=== PATIENT | male | born 1940 | race Caucasian/White ===

== ENCOUNTER 2020-01-28 12:24 | Outpatient (CLI) | payer OTHER, SELFPAY ==
[2020-01-28 13:13] LABS: Potassium 4.4 mmol/L (3.4-5.0)
[2020-01-28 13:17] LABS: Alanine Aminotransferase 8 U/L (4-50); Albumin Level 3.4 g/dL (3.5-5.1); Alkaline Phosphatase 90 U/L (38-126); Anion Gap 7 mmol/L (8-16); Aspartate Amino Transferase 17 U/L (17-59); Bilirubin,Total 0.5 mg/dL (0.2-1.3); Blood Urea Nitrogen 27 mg/dL (9-20); Calcium 9.1 mg/dL (8.4-10.2); Carbon Dioxide 25 mmol/L (22-30); Chloride 107 mmol/L (98-107); Cholesterol 191 mg/dL (0-200); Estimated Glomerular Filt Rate 42; Glucose 91 mg/dL (75-110); HDL Direct 33 mg/dL; Sodium 139 mmol/L (137-145); Triglycerides 131 mg/dL (<150)
[2020-01-28 13:25] LABS: LDL Cholesterol Direct 115 mg/dL
[2020-01-28 13:43] LABS: Prostate Specific Antigen < 0.1 ng/mL (< OR = 4.0)
== END 2020-01-28 12:25 | disposition home or self-care (01) ==
PROVIDERS: PCP Internal Medicine; Visit Provider Nurse Practitioner
DX: E78.5 Hyperlipidemia, unspecified (principal); E55.9 Vitamin D deficiency, unspecified; C61 Malignant neoplasm of prostate
CPT/HCPCS: 36415; 80053; 80061; 84153

== ENCOUNTER 2020-06-06 14:32 | Outpatient (CLI) | payer OTHER, SELFPAY ==
--- NOTE | ~2020-06-06 | XR_ITS ---
EXAMINATION: XR lumbar spine 2-3V EXAM DATE: 06/06/2020 15:50 INDICATION: M54.5 - Low back pain Bilateral, Radiates Into Legs, Fell. TECHNIQUE: Lumber spine frontal, lateral, lateral L5-S1 projections for interpretation. There is no prior study for comparison. FINDINGS: Mild to moderate compression fracture of the L2 vertebral body, probably unchanged correla ting to a prior CT scan from 2018. There are no acute fractures identified. Mild to moderate disc di sease L5-S1, mild at the other lumbar levels. Moderate size endplate osteophytes L2-3 and L3-4. Mild to moderate lumbar facet arthropathy. The vertebral bodies are aligned in the AP dimension. Left para spinal surgical clips probably from a prior lymph node dissection, correlate with surgical history. IMPRESSION: 1. Chronic mild to moderate L2 compression fracture. 2. Mild to moderate lumbar spondylosis. 3. No acute findings. Reviewed, dictated and finalized at location B. OSCOPIST
--- NOTE | ~2020-06-06 | XR_ITS ---
EXAMINATION: XR chest 2V EXAM DATE: 06/06/2020 15:49 INDICATION: J44.9 - Chronic obstructive pulmonary disease, unspecified. TECHNIQUE: Frontal and lateral projections of the chest obtained and reviewed. Comparison is made to prior examination from 07/28/2006. FINDINGS: Mild hyperinflation. The lungs are clear. There are no pleural effusions. The cardiomedi astinal silhouette is within normal limits. There is no pneumothorax suspected. Patient has diffuse idiopathic skeletal hyperostosis (DISH). IMPRESSION: No acute cardiopulmonary findings. Reviewed, dictated and finalized at location B. T END WEB DESIGNER
[2020-06-06 15:13] LABS: Alanine Aminotransferase 7 U/L (4-50); Albumin Level 3.5 g/dL (3.5-5.1); Alkaline Phosphatase 89 U/L (38-126); Anion Gap 4 mmol/L (8-16); Aspartate Amino Transferase 18 U/L (17-59); Bilirubin,Total 0.4 mg/dL (0.2-1.3); Blood Urea Nitrogen 23 mg/dL (9-20); Calcium 9.1 mg/dL (8.4-10.2); Carbon Dioxide 25 mmol/L (22-30); Chloride 107 mmol/L (98-107); Cholesterol 166 mg/dL (0-200); Estimated Glomerular Filt Rate 39; Glucose 100 mg/dL (75-110); HDL Direct 46 mg/dL; Potassium 4.6 mmol/L (3.4-5.0); Sodium 136 mmol/L (137-145); Triglycerides 113 mg/dL (<150)
[2020-06-06 15:24] LABS: LDL Cholesterol Direct 93 mg/dL
[2020-06-06 16:30] LABS: Vitamin D 25 Hydroxy 55.4 ng/mL
== END 2020-06-06 14:33 | disposition home or self-care (01) ==
PROVIDERS: PCP Internal Medicine; Visit Provider Nurse Practitioner
DX: J44.9 Chronic obstructive pulmonary disease, unspecified (principal); M54.5 Low back pain; G89.29 Other chronic pain; I10 Essential (primary) hypertension; E78.5 Hyperlipidemia, unspecified; E55.9 Vitamin D deficiency, unspecified; Z79.899 Other long term (current) drug therapy; M48.56XA Collapsed vertebra, not elsewhere classified, lumbar region, initial encounter for fracture; M47.816 Spondylosis without myelopathy or radiculopathy, lumbar region
CPT/HCPCS: 36415; 71046; 72100; 80053; 80061; 82306

== ENCOUNTER 2020-06-28 01:14 | Observation (INO) | payer OTHER, SELFPAY ==
[2020-06-28] VITALS (11 sets, daily range): BP systolic 114–176; BP diastolic 60–70; PULSE 67–88; RESP 16–26; TEMP 35.8–36.9; O2SAT 94–98; BMI 18.4
--- NOTE | 2020-06-28 | ECHO_ITS ---
Patient Info Name: Tino Alexander Age: 80 years : 1940 Gender: Male Ht: 71 in Wt: 132 lbs BSA: 1.72 m2 HR: 78 bpm BP: 175 / 60 mmHg Technical Quality: Good Exam Date: 06/28/2020 4:26 PM Exam Location: [facility] Room: 344 Patient Status: Inpatient Admit Date: 06/28/2020 Staff Ordering Physician: Lopez Garcia MD Patient Service Rep: Marybeth D ePaz RDCS Attending Provider: Lopez Garcia MD Exam Type: CA echo doppler color flow Study Info Indications - syncope collaspe Complete two-dimensional, color flow and Doppler transthoracic echocardiogram is performed. Summary 1. Complete two-dimensional, color flow and Doppler transthoracic echocardiogram is performed. 2. Left ventricular chamber dimension is normal. 3. Ventricular septum is sigmoid shaped. No LVOT obstruction. 4. Left ventricular systolic function is normal, estimated at 60-65%. 5. The left ventricular diastolic function is grade I diastolic dysfunction. 6. E/e' 13 is mildly elevated. 7. The aortic valve is not well visualized. 8. There is mild aortic valve sclerosis. 9. No pulmonary hypertension, estimated pulmonary arterial systolic pressure is 27 mmHg. Left Ventricle E/e' 13 is mildly elevated. Ventricular septum is sigmoid shaped. No LVOT obstruction. Left ventricular chamber dimension is normal. Left ventricular systolic function is normal, estimated at 60-65%. The left ventricular diastolic function is grade I diastolic dysfunction. Right Ventricle Right ventricular chamber dimension is normal. Right ventricular systolic function is normal. Left Atria Left atrial chamber dimension is normal. Right Atria Right atrial chamber dimension is normal. Aortic Valve Cannot determine number of aortic valve leaflets. The aortic valve is not well visualized. There is mild aortic valve sclerosis. There is no aortic valve stenosis. There is no aortic valve regurgitation. Pulmonic Valve There is no pulmonic regurgitation. Mitral Valve There is no mitral valve stenosis. There is no mitral valve regurgitation. Tricuspid Valve There is no tricuspid valve regurgitation. No pulmonary hypertension, estimated pulmonary arterial systolic pressure is 27 mmHg. Pericardium/Pleural There is no pericardial effusion. Inferior Vena Cava Normal inferior vena cava with >50% collapse upon inspiration consistent with normal right atrial pressure, 5 mmHg. Aorta The aortic root size at the sinus of Valsalva is normal. Left Ventricular Outflow Tract Name Value Normal LVOT 2D LVOT Diameter 2.0 cm LVOT Doppler LVOT Peak Gradient 4 mmHg LVOT Mean Gradient 2 mmHg LVOT VTI 21 cm LVOT VTI/AV VTI Ratio 0.8 LVOT Stroke Volume 65 ml LVOT CO 13.6 l/min LVOT CI 7.9 l/min/m2 Pulmonic Valve Name
--- NOTE | ~2020-06-28 | CT_ITS ---
EXAMINATION: CT brain wo con DATE: 06/28/2020 02:01 INDICATION: Syncope TECHNIQUE: Computed tomography (CT) of the head was performed without intravenous contrast. The mA wa s adjusted according to patient size. Iterative reconstruction technique was employed. Exam dose: 68 1.00 mGy-cm total exam DLP. COMPARISON: None FINDINGS: Cerebral atherosclerosis is noted. There is nonspecific diminished attenuation of the cereb ral white matter, likely due to chronic small vessel ischemic changes. Moderate cerebral atrophy and cerebellar atrophy. No intracranial mass lesion or hemorrhage or cerebrovascular accident is evident. No midline shift or mass effect. No subdural or epidural hematoma. No fracture or bone destruction of the cranial vault. Included paranasal sinuses and mastoid air cells are unremarkable other than a couple of left and 1 r ight maxillary sinus mucous retention cysts or polyps. IMPRESSION: Cerebral atherosclerosis and chronic small vessel ischemic changes of the cerebral white matter No acute intracranial finding Reviewed, dictated and finalized at Location A. Reviewed, dictated and finalized at location A. CIATE MEDICAL DIRECTOR
--- NOTE | ~2020-06-28 | XR_ITS ---
EXAMINATION: XR chest 2V 06/28/2020 16:03 INDICATION: Cough and hypertension. COPD. PROCEDURE: 2 view chest COMPARISON: 06/06/2020 FINDINGS: The lungs are clear. The cardiomediastinal silhouette is within normal limits. There are no pleural effusions. There is no pneumothorax suspected. Calcified granuloma left apex. The lungs are hyperinflated which is consistent with, but not diagnostic of chronic obstructive pulmonary disea se. IMPRESSION: 1: NO ACUTE CARDIOPULMONARY DISEASE. Reviewed, dictated and finalized at location A. TRONIC NEWS GATHERING EDITOR
--- NOTE | ~2020-06-28 | US_ITS ---
EXAMINATION: US carotid duplex BI DATE: 06/28/2020 15:59 INDICATION: Right carotid bruit TECHNIQUE: Grayscale, color Doppler, and pulsed Doppler images of the cervical carotid arteries were obtained. The degree of vessel stenosis is placed in one of the following categories: normal, <50%, 5 0-69%, >=70% but less than near-occlusion, near-occlusion, or total occlusion. Note that percent sten osis relative to normal distal artery lumen diameter is indirectly measured from velocity measurement s as described by Prashant, et al. Radiology 2003; 229:340-346. Notes: Normal: Peak systolic velocity <125 centimeters/sec and no plaque <50%. Peak systolic velocity <125 ( EDV <40; ICA/CCA PSV ratio <2.0; used these factors only a tandem lesions or low cardiac output or co ntralateral disease) 50-69 %: PSV 125-230 (EDV 40-100; ratio 2-4) >= 70% but less than near occlusion: PSV greater than 230 (EDV > 100; ratio> 4.0) Near Occlusion: PSV that is variable; markedly narrowed lumen Occlusion: Absent flow on color/spectral Doppler and no lumen on acmara scale. COMPARISON: None. FINDINGS: RIGHT: The right common carotid artery (CCA) peak systolic velocity (PSV) is 86 cm/s. The right internal car otid artery (ICA) PSV is 82 cm/s. The right ICA end-diastolic velocity (EDV) is 14 cm/s. The right IC A/CCA PSV ratio is 0.95. The external carotid artery (ECA) PSV is 94 cm/s. There is antegrade flow in the right vertebral artery. LEFT: The left CCA PSV is 60 cm/s. The left ICA PSV is 105 cm/s. The left ICA EDV is 16 cm/s. The left ICA/ CCA PSV ratio is 1.7. The ECA PSV is 107 cm/s. There is antegrade flow in the left vertebral artery. IMPRESSION: 1. Less than 50% stenosis in the right internal carotid artery by sonographic criteria. 2. Less than 50% stenosis in the left internal carotid artery by sonographic criteria. Reviewed, dictated and finalized at location A. R RELATIONS SPECIALIST IMPRESSION: 1. Less than 50% stenosis in the right internal carotid artery by sonographic ashwin robertson. 2. Less than 50% stenosis in the left internal carotid artery by sonographic shanon zaragoza.
--- NOTE | ~2020-06-28 | CT_ITS ---
EXAMINATION: CT thoracic lumbar wo con EXAM DATE: 06/28/2020 02:01 INDICATION: Back pain after fall. TECHNIQUE: Spiral CT thoracolumbar spine was performed without contrast. Axial, coronal and sagittal images of the thoracic spine were reviewed. Axial, coronal and sagittal images of the lumbar spine we re reviewed. The dose-length product (DLP) for this examination was 1009.94 mGy-cm. The exposure was tailored according to patient size (auto mA exposure control), and iterative reconstruction (ASIR) w as used as additional dose reduction technique. Correlation abdomen pelvis CT 10/05/2017. FINDINGS: THORACIC SPINE: There are no acute fractures identified. There is fusion of the anterior marginal l igament, diffuse idiopathic skeletal hyperostosis extending from T4 through T12. No fracture through this. Moderate loss of the disc height at T9-10, otherwise overall mild thoracic disc disease. The ve rtebral bodies are aligned in the AP dimension. Vertebral body heights are maintained. No evidence of significant central canal or neural foraminal stenosis. Paraspinal soft tissue is unremarkable. Mil d facet arthropathy. LUMBAR SPINE: Chronic mild compression fracture of L2 unchanged. There is no evidence of acute lumba r fracture. There is no disc space widening or traumatic vertebral body subluxation suspected. Para spinal soft tissue is unremarkable. The vertebral bodies are aligned in the AP dimension. Mild disc disease all lumbar levels. No more than than mild to moderate neural foraminal stenosis of mid and lo wer lumbar levels. There is moderate lower lumbar facet arthropathy. Small saccular bilobulated aneu rysm of the distal abdominal aorta up to 3.3 cm. 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 A detail ed level by level evaluation of spondylosis can be added as addendum if requested. IMPRESSION: 1. No acute thoracolumbar findings. 2. Mild to moderate thoracolumbar spondylosis. 3. Incidental duodenal lipoma. 4. Mildly aneurysmal lower abdominal aorta. Reviewed, dictated and finalized at location B. Y MAKER
--- NOTE | ~2020-06-28 | US_ITS ---
EXAMINATION: US renal BI EXAM DATE: 06/28/2020 15:58 INDICATION: Acute kidney insufficiency. TECHNIQUE: Multiple grayscale and Doppler images of the kidneys were obtained (by a technologist who performed the scan) and subsequently reviewed. There is no prior study for comparison. FINDINGS: Right kidney: There is normal contour and echogenicity. It measures 10.8 x 4.8 x 4.4 centimeters. Se veral small renal cysts, measuring up to 1.5 cm. There is no hydronephrosis. Left kidney: There is normal contour and echogenicity. It measures 10.0 x 4.5 x 4.3 centimeters. Sev eral cysts, measuring up to 3.2 cm. There is no hydronephrosis. Bladder unremarkable. Prostate measures 6.3 x 4.6 cm, moderately enlarged. IMPRESSION: 1. Renal cysts. 2. Moderate prostatomegaly. 3. No hydronephrosis. Reviewed, dictated and finalized at location B. H CRYSTAL EDGE GRINDER
--- NOTE | 2020-06-28 01:27 | ECG_ITS ---
Measurements Intervals Union Rate: 80 P: 49 PA: 168 QRS: 30 QRSD: 106 T: 87 QT: 387 QTc: 449 Interpretive Statements SINUS RHYTHM NONSPECIFIC ST & T-WAVE ABNORMALITY- INF/HIGH LAT LEADS BASELINE ARTIFACT- I, II, III, AVR, AVL, AVF BORDERLINE ECG Electronically Signed On 06-28-2020 7:19:37 TOPOLOGY TEACHER by Amador Singh D.O.
--- NOTE | 2020-06-28 01:39 | ED.FALL ---
HPI - Fall General Chief Complaint: Fall Stated Complaint: Fall Time Seen by Provider: 06/28/20 01:27 Source: patient Mode of arrival: ambulatory Limitations: no limitations History of Present Illness HPI Narrative: Patient is an 80-year-old male complaining of upper back pain, 8 out of 10, dull, nonradiating started prior to arrival after he fell. Patient states he does not know why he fell and possibly could have passed out, cannot recall what happened. Patient states that he has been having diarrhea for the past 4 weeks, seen his doctor and currently on medication for it. Denies neck pain, headache, dizziness, chest pain, shortness of breath, abdominal pain or any extremity pain/injury. Related Data Home Medications Medication Instructions Recorded Confirmed finasteride 5 mg tablet 5 mg PO DAILY 12/07/19 03/26/20 Allergies Allergy/AdvReac Type Severity Reaction Status Date / Time simvastatin Allergy Unknown Muscle pain Verified 03/22/20 09:51 Review of Systems Review of Systems: All systems reviewed & are unremarkable except as noted in HPI and below Constitutional: Constitutional: Denies body ache(s), Denies chills, Denies excessive sweating, Denies fatigue, Denies fever(s), Denies headache(s), Denies lethargy, Denies malaise, Denies weakness and Denies weight loss Eyes: Eyes: Denies blurry vision, Denies change in vision and Denies loss of vision ENT: Denies dizziness, Denies ear discharge, Denies headache(s), Denies lip swelling, Denies epistaxis, Denies nasal congestion, Denies neck pain, Denies throat swelling and Denies tongue swelling Cardiovascular: Cardiovascular: Denies chest pain, Denies chest pain at rest, Denies chest pain with activity, Denies diaphoresis, Denies rapid heart rate, Denies edema, Denies irregular heart rhythm, Denies lightheadedness, Denies palpitations, Denies dyspnea and Denies dyspnea on exertion Respiratory: Respiratory: Denies chest congestion, Denies cough, Denies hemoptysis, Denies dyspnea and Denies dyspnea on exertion Gastrointestinal: Gastrointestinal: Denies abdominal pain, Denies melena, Denies hematochezia, Denies diarrhea, Denies nausea, Denies vomiting and Denies hematemesis Musculoskeletal: Musculoskeletal: Denies abnormal gait, Denies deformity, Denies joint swelling, Denies limited range of motion, Denies neck pain and Denies numbness Neurologic: Denies Abnormal speech present, Denies abnormal gait, Denies confusion, Denies dizziness, Denies headache(s), Denies focal weakness, Denies loss of vision, Denies numbness, Denies Other visual disturbances, Denies Sensory deficit (Neuro) and Denies weakness Psychiatric: Psychiatric: Denies confusion, Denies depression, Denies auditory hallucinations, Denies homicidal ideation and Denies suicidal ideation Endocrine: Endocrine: Denies cold intolerance, Denies excessive sweating, Denies fatigue, Denies heat intolerance and Denies palpitations Hematologic/Lymphatic: Hematologic/Lymphatic: Denies easy bleeding and Denies easy bruising Allergic/Immunologic: Allergic/Immunologic: Denies lip swelling, Denies throat swelling and Denies tongue swelling PMFSH Past Medical History Medical History (Updated 06/28/20 @ 03:32 by Tino Knapp MD) Ulcer of left lower leg Surgical History Surgical History S/P colonoscopic polypectomy Family History Family History Mother Hypertension Sibling Asthma Patient's sister is Father Cerebrovascular accident, Onset Age: 73 Patient's father is Social History Social History Smoking status: Current every day smoker Second hand tobacco smoke exposure: No Alcohol intake: never Exam Const: General: cooperative, healthy appearing, comfortable, no acute distress, well developed, galo
[2020-06-28 01:41] LABS: Basophils Absolute Auto 0.1 K/mm3 (0.0-0.1); Basophils Percent Auto 0.4 % (0.2-1.2); Hematocrit 30.7 % (42.0-52.0); Hemoglobin 9.7 g/dL (14.0-18.0); Immature Granulocyte Absolute 0.13 K/mm3 (0.00-0.031); Lymphocytes Absolute Auto 0.45 K/mm3 (0.9-3.2); Lymphocytes Percent Auto 3.5 % (18.3-44.2); Mean Corpuscular HGB Conc 31.6 g/dl (32-36); Mean Corpuscular Hemoglobin 30.2 pg (26-34); Mean Corpuscular Volume 95.6 fl (80-100); Mean Platelet Volume 11.4 fl (7.4-10.4); Monocytes Percent Auto 7.4 % (2.6-8.5); Neutrophils Absolute Auto 11.2 K/mm3 (1.3-6.7); Neutrophils Percent Auto 87.7 % (45.5-73.1); Platelet Count Result 234 k/mm3 (150-375); Red Blood Count 3.21 M/mm3 (4.6-6.20); Red Cell Distribution Width 15.4 % (11.5-14.5); White Blood Count 12.8 K/mm3 (4.5-10.0)
[2020-06-28] MEDS: SODIUM CHLORIDE 0.9% IV 1,000 ML 999 ML IV CONT (01:43)
[2020-06-28 02:00] LABS: Alanine Aminotransferase 12 U/L (4-50); Albumin Level 3.5 g/dL (3.5-5.1); Alkaline Phosphatase 96 U/L (38-126); Anion Gap 11 mmol/L (8-16); Aspartate Amino Transferase 20 U/L (17-59); Bilirubin,Total 0.4 mg/dL (0.2-1.3); Blood Urea Nitrogen 40 mg/dL (9-20); Calcium 9.4 mg/dL (8.4-10.2); Carbon Dioxide 19 mmol/L (22-30); Chloride 107 mmol/L (98-107); Estimated CRCL calculation 17 ml/min; Estimated Glomerular Filt Rate 21; Glucose 129 mg/dL (75-110); Potassium 4.5 mmol/L (3.4-5.0); Sodium 137 mmol/L (137-145)
[2020-06-28 02:07] LABS: Troponin I 0.017 ng/mL (0.000-0.034)
[2020-06-28] MEDS: HYDROcodone/acetaminophen (*CRX) 5-325 MG TABLET 1 TAB PO ×3 (03:21→17:28)
[2020-06-28] MEDS: LACTATED RINGERS 1,000 ML 100 ML IV CONT ×3 (04:30→17:29)
--- NOTE | 2020-06-28 05:15 | ADMGEN ---
This patient, Tino Alexander, was admitted to Medical Room 344-01. Patient/family oriented to hospital policies and general routines including ID bracelet, bed and alarms, visiting hours, pain management, procedures, bathroom and other care routines, personal items, smoking policy, room service/diet, and visiting hours. Information on how to activate the Rapid Response Team has been discussed. Patient/Family are encouraged to report perceived risks to care and to ask questions if they do not understand what they are told or what they should do.
[2020-06-28 10:44] LABS: Add Urine Microscopic? YES; Appearance Urine Clear (Clear); Bacteria Urine Trace /hpf; Bilirubin Urine Negative (Negative); Blood Urine Negative (Negative); Color Urine Yellow (Yellow); Glucose Urine UA Negative (Negative); Hyaline Casts Urine 50+ /lpf; Ketones Urine Negative (Negative); Leukocyte Esterase Ur Negative LEU/UL (Negative); Mucus Urine Heavy /lpf; Nitrate Urine Negative (Negative); Protein Urine 1+ mg/dL (Negative); RBC Urine 0-2 /hpf (0-2); Specific Grav Ur 1.021 (1.001-1.035); Squamous Epithelial Cell Urine Few /hpf (Few); WBC Urine 0-3 /hpf
[2020-06-28] MEDS: guaiFENesin 12 HR 600 MG TABCR PO ×2 (12:45→20:37)
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
--- NOTE | 2020-06-28 15:21 | PCPTNOTE ---
Attempted PT eval. Pt going for Xray. Will try again tomorrow.
[2020-06-28] MEDS: FLUTICASONE/SALMETEROL 230-21 MCG INHALER 1 PUFF 2 PUFF INHALATION (20:25)
[2020-06-28] MEDS: ALBUTEROL SULFATE (*SP) AEROSOL 1 PUFF 2 PUFF INHALATION (20:26)
[2020-06-28] MEDS: ACETAMINOPHEN 325 MG TABLET 650 MG PO (20:37)
[2020-06-29] VITALS (10 sets, daily range): BP systolic 109–173; BP diastolic 44–68; PULSE 60–80; RESP 16–17; TEMP 36.5–36.7; O2SAT 94–96
[2020-06-29] MEDS: HYDROcodone/acetaminophen (*CRX) 5-325 MG TABLET 1 TAB PO (02:17)
[2020-06-29 06:05] LABS: Basophils Percent Auto 0.6 % (0.2-1.2); Eosinophils Absolute Auto 0.2 K/mm3 (0-0.3); Eosinophils Percent Auto 3.7 % (0-4.4); Hematocrit 24.9 % (42.0-52.0); Hemoglobin 7.8 g/dL (14.0-18.0); Immature Granulocyte Absolute 0.03 K/mm3 (0.00-0.031); Immature Granulocyte Percent A 0.6 % (0-0.5); Lymphocytes Absolute Auto 0.44 K/mm3 (0.9-3.2); Lymphocytes Percent Auto 8.5 % (18.3-44.2); Mean Corpuscular HGB Conc 31.3 g/dl (32-36); Mean Corpuscular Hemoglobin 30.7 pg (26-34); Mean Platelet Volume 11.3 fl (7.4-10.4); Monocytes Absolute Auto 0.7 K/mm3 (0.1-0.6); Monocytes Percent Auto 12.5 % (2.6-8.5); Neutrophils Absolute Auto 3.9 K/mm3 (1.3-6.7); Neutrophils Percent Auto 74.1 % (45.5-73.1); Platelet Count Result 144 k/mm3 (150-375); Red Blood Count 2.54 M/mm3 (4.6-6.20); Red Cell Distribution Width 15.2 % (11.5-14.5); White Blood Count 5.2 K/mm3 (4.5-10.0)
[2020-06-29 06:18] LABS: Albumin Level 2.7 g/dL (3.5-5.1); Anion Gap 2 mmol/L (8-16); Blood Urea Nitrogen 27 mg/dL (9-20); Calcium 8.6 mg/dL (8.4-10.2); Carbon Dioxide 26 mmol/L (22-30); Chloride 106 mmol/L (98-107); Estimated CRCL calculation 27 ml/min; Estimated Glomerular Filt Rate 39; Glucose 86 mg/dL (75-110); Phosphorus 3.1 mg/dL (2.5-4.5); Potassium 4.2 mmol/L (3.4-5.0); Sodium 134 mmol/L (137-145)
[2020-06-29 06:37] LABS: Prostate Specific Antigen < 0.1 ng/mL (< OR = 4.0)
[2020-06-29 06:49] LABS: Iron 34 ug/dL (49-181)
[2020-06-29 06:57] LABS: Percent Iron Saturation 13 % (20-50)
[2020-06-29 07:11] LABS: Folic Acid 6.4 ng/mL (2.76->20)
[2020-06-29] MEDS: ACETAMINOPHEN 325 MG TABLET 650 MG PO (07:46)
[2020-06-29] MEDS: FLUTICASONE/SALMETEROL 230-21 MCG INHALER 1 PUFF 2 PUFF INHALATION (08:59)
[2020-06-29] MEDS: guaiFENesin 12 HR 600 MG TABCR PO (09:01)
[2020-06-29] MEDS: CYANOCOBALAMIN INJ 1,000 MCG/ML VIAL 1000 MCG IM (09:01)
[2020-06-29] MEDS: IRON SUCROSE COMPLEX 100 MG in SODIUM CHLORIDE 0.9% IV 50 ML 220 MG IVPB (09:01)
[2020-06-29] MEDS: FINASTERIDE 5 MG TABLET PO (09:01)
[2020-06-29] MEDS: CYANOCOBALAMIN 1,000 MCG TABLET 1000 MCG PO (09:01)
[2020-06-29] MEDS: CHOLECALCIFEROL 1,000 UNITS TABLET 2000 UNITS PO (09:01)
--- NOTE | 2020-06-29 09:40 | PCOTNOTE ---
Attempted to see patient this am, however patient refused stating, I don't feel like doing it. Pt became dizzy when up with nursing earlier this am
[2020-06-29 11:54] LABS: Hematocrit 23.9 % (42.0-52.0); Hemoglobin 7.4 g/dL (14.0-18.0)
--- NOTE | 2020-06-29 15:13 | PM.DS ---
DS: Admitting Diagnosis Admitting Diagnosis Admitting Diagnosis: Back pain, fall DS: Discharge Diagnosis Discharge Diagnosis (1) Syncope: Code(s): R55 - Syncope and collapse Status: Acute (2) Cough: Code(s): R05 - Cough Status: Acute (3) Diarrhea: Qualifiers: Diarrhea type: unspecified type Qualified Code(s): R19.7 - Diarrhea, unspecified Code(s): R19.7 - Diarrhea, unspecified Status: Acute (4) Acute kidney injury: Code(s): N17.9 - Acute kidney failure, unspecified Status: Acute (5) CKD (chronic kidney disease): Code(s): N18.9 - Chronic kidney disease, unspecified Status: Acute (6) Acute thoracic myofascial strain: Qualifiers: Encounter type: initial encounter Qualified Code(s): S29.019A - Strain of muscle and tendon of unspecified wall of thorax, initial encounter Code(s): S29.019A - Strain of muscle and tendon of unspecified wall of thorax, initial encounter Status: Acute (7) Anemia: Code(s): D64.9 - Anemia, unspecified Status: Acute (8) Chronic obstructive pulmonary disease, unspecified: Code(s): J44.9 - Chronic obstructive pulmonary disease, unspecified Status: Acute (9) Essential (primary) hypertension: Code(s): I10 - Essential (primary) hypertension Status: Acute (10) Tobacco abuse: Code(s): Z72.0 - Tobacco use Status: Acute (11) B12 deficiency anemia: Code(s): D51.9 - Vitamin B12 deficiency anemia, unspecified Status: Acute (12) Iron deficiency anemia: Code(s): D50.9 - Iron deficiency anemia, unspecified Status: Acute DS: Summary Hospital Course Reason for hospitalization: 80 year old male with hx of prostate CA and HTN here for upper back pain and questionable syncopal episode vs fall. Please see H&P for details Hospital Course: Patient's history was suspect due to his mild confusion. Patient states he passed out but denies this and states the patient had just fallen. Patient has been having nausea, vomiting and diarrhea but only for the past 2 days. Patient was seen in the emergency room and admitted for further care. On admission, his BUN and creatinine were elevated at 40 and 2.9 which is well above his baseline. His white count was elevated at 12.8K. Repeat WBC normal. Urinalysis was clear. Chest x-ray was clear. CT of the brain was negative. Patient was complaining of mid back pain but a CT of the thoracic and lumbar spine showed no fracture. Troponin was negative. He was started on IV fluids. Repeat BUN creatinine trended down to his baseline. Anemia workup showing B12 and iron deficiency. Stool guaiac ordered but none collected. No diarrhea since admission. Patient eating very well mostly 90% of each meal. B12 and iron were replaced. He was up ambulating with physical therapy and did well with this. Carotid Doppler was negative for severe stenosis. Renal ultrasound showing no acute findings. Hemoglobin dropped to 7.4 but not unexpected given his dehydrated state. His antihypertensive medications were held. Blood pressure supine was 173/59 the dropped to 136/50 sitting and patient had some mild dizziness with this. Blood pressure 109/44 standing but patient was asymptomatic. Patient is up ambulating without difficulty. Plan for discharge with follow-up hemoglobin. Continue to replace iron and B12. Patient to follow up with GI consult for possible colonoscopy as an outpatient. Recommend Gamal hose on during the day and off at night. Supplements to improve his oral intake. Spoke with the daughter in detail about this. Home health was being arranged. Patient appears to be refusing this however. Status at Discharge Cognitive/behavioral status at discharge: Patient stable for discharge Time Spent with Patient Time attestation: Total time spent providing and/or coordinating discharge services:35 minutes Time spent
== END 2020-06-29 15:58 | disposition home or self-care (01) ==
LOC: ANHED 03:32 → ANH3MED 04:24
PROVIDERS: Admitting Provider Family Medicine; Emergency Provider Emergency Medicine; PCP Internal Medicine; Visit Provider Internal Medicine
DX: R55 Syncope and collapse (principal); R05 Cough; R19.7 Diarrhea, unspecified; N17.9 Acute kidney failure, unspecified; N18.9 Chronic kidney disease, unspecified; S29.019A Strain of muscle and tendon of unspecified wall of thorax, initial encounter; J44.9 Chronic obstructive pulmonary disease, unspecified; I12.9 Hypertensive chronic kidney disease with stage 1 through stage 4 chronic kidney disease, or unspecified chronic kidney disease; D51.9 Vitamin B12 deficiency anemia, unspecified; D50.9 Iron deficiency anemia, unspecified; Z79.899 Other long term (current) drug therapy; F17.200 Nicotine dependence, unspecified, uncomplicated; I35.8 Other nonrheumatic aortic valve disorders; I67.2 Cerebral atherosclerosis; M43.05 Spondylolysis, thoracolumbar region; D17.4 Benign lipomatous neoplasm of intrathoracic organs; I71.4 Abdominal aortic aneurysm, without rupture; R06.09 Other forms of dyspnea; J02.9 Acute pharyngitis, unspecified; R13.10 Dysphagia, unspecified; R06.02 Shortness of breath; R63.4 Abnormal weight loss; R10.9 Unspecified abdominal pain; R11.2 Nausea with vomiting, unspecified; J31.0 Chronic rhinitis; E78.5 Hyperlipidemia, unspecified; G47.34 Idiopathic sleep related nonobstructive alveolar hypoventilation; I73.9 Peripheral vascular disease, unspecified; I65.23 Occlusion and stenosis of bilateral carotid arteries; N28.1 Cyst of kidney, acquired; N40.0 Benign prostatic hyperplasia without lower urinary tract symptoms; Z29.9 Encounter for prophylactic measures, unspecified; Z85.46 Personal history of malignant neoplasm of prostate; Z23 Encounter for immunization
CPT/HCPCS: 36415; 70450; 71046; 72128; 72131; 76775; 80053; 80069; 81001; 82607; 82728; 82746; 83540; 83550; 83735; 84153; 84443; 84484; 85014; 85018; 85025; 90471; 90653; 93005; 93306; 93880; 94640; 96361; 96372; 96374; 97161; 97165; 99285; A9270; G0008; G0378; J1756; J3420; J7030; J7120

== ENCOUNTER 2021-01-09 14:13 | Outpatient (CLI) | payer OTHER, SELFPAY ==
[2021-01-09 14:40] LABS: Basophils Absolute Auto 0.1 K/mm3 (0.0-0.1); Basophils Percent Auto 0.9 % (0.2-1.2); Eosinophils Absolute Auto 0.2 K/mm3 (0-0.3); Eosinophils Percent Auto 3.1 % (0-4.4); Hematocrit 28.6 % (42.0-52.0); Hemoglobin 8.5 g/dL (14.0-18.0); Immature Granulocyte Absolute 0.07 K/mm3 (0.00-0.031); Immature Granulocyte Percent A 1.2 % (0-0.5); Lymphocytes Absolute Auto 0.45 K/mm3 (0.9-3.2); Lymphocytes Percent Auto 7.8 % (18.3-44.2); Mean Corpuscular HGB Conc 29.7 g/dl (32-36); Mean Corpuscular Hemoglobin 28.7 pg (26-34); Mean Corpuscular Volume 96.6 fl (80-100); Mean Platelet Volume 11.1 fl (7.4-10.4); Monocytes Absolute Auto 0.5 K/mm3 (0.1-0.6); Monocytes Percent Auto 8.9 % (2.6-8.5); Neutrophils Absolute Auto 4.5 K/mm3 (1.3-6.7); Neutrophils Percent Auto 78.1 % (45.5-73.1); Platelet Count Result 231 k/mm3 (150-375); Red Blood Count 2.96 M/mm3 (4.6-6.20); Red Cell Distribution Width 16.4 % (11.5-14.5); White Blood Count 5.7 K/mm3 (4.5-10.0)
[2021-01-09 14:56] LABS: Alanine Aminotransferase 9 U/L (4-50); Albumin Level 3.8 g/dL (3.5-5.1); Alkaline Phosphatase 84 U/L (38-126); Anion Gap 8 mmol/L (8-16); Aspartate Amino Transferase 18 U/L (17-59); Bilirubin,Total 0.3 mg/dL (0.2-1.3); Blood Urea Nitrogen 24 mg/dL (9-20); Calcium 9.2 mg/dL (8.4-10.2); Carbon Dioxide 22 mmol/L (22-30); Chloride 110 mmol/L (98-107); Cholesterol 162 mg/dL (0-200); Estimated Glomerular Filt Rate 39; Glucose 116 mg/dL (65-110); HDL Direct 35 mg/dL; Potassium 3.9 mmol/L (3.4-5.0); Sodium 140 mmol/L (137-145); Triglycerides 111 mg/dL (<150)
[2021-01-09 15:07] LABS: LDL Cholesterol Direct 81 mg/dL
[2021-01-09 15:47] LABS: Vitamin D 25 Hydroxy 69.1 ng/mL
[2021-01-09 16:35] LABS: Anisocytosis 2+ (NORMAL); Hypochromasia 1+ (NORMAL); Platelet Estimate Adequate (Adequate)
[2021-01-09 18:44] LABS: Iron 24 ug/dL (49-181); Percent Iron Saturation 8 % (20-50)
== END 2021-01-09 14:14 | disposition home or self-care (01) ==
PROVIDERS: PCP Internal Medicine; Visit Provider Nurse Practitioner
DX: D51.9 Vitamin B12 deficiency anemia, unspecified (principal); D50.9 Iron deficiency anemia, unspecified; E78.5 Hyperlipidemia, unspecified; E55.9 Vitamin D deficiency, unspecified; D64.9 Anemia, unspecified
CPT/HCPCS: 36415; 80053; 80061; 82306; 82607; 83540; 83550; 85025

== ENCOUNTER 2021-02-15 11:47 | Outpatient (CLI) | payer OTHER, SELFPAY ==
[2021-02-15 12:57] LABS: CRP 4.9 mg/dL (<1.0)
[2021-02-15 13:13] LABS: Erythrocyte Sedimentation Rate > 140 mm/hr (0-20)
== END 2021-02-15 11:48 | disposition home or self-care (01) ==
PROVIDERS: PCP Internal Medicine; Visit Provider Nurse Practitioner Family
DX: R10.9 Unspecified abdominal pain (principal)
CPT/HCPCS: 36415; 85652; 86140

== ENCOUNTER 2021-02-20 07:37 | Outpatient (NON) | payer OTHER, SELFPAY | END 2021-02-20 07:38 | disposition home or self-care (01) | PROVIDERS: PCP Internal Medicine; Visit Provider Nurse Practitioner Family | DX: R10.9 Unspecified abdominal pain (principal) | CPT/HCPCS: 87045; 87427 ==

== ENCOUNTER 2021-03-15 11:32 | Outpatient (CLI) | payer OTHER, SELFPAY ==
[2021-03-15 11:59] LABS: Hematocrit 24.7 % (42.0-52.0); Hemoglobin 7.1 g/dL (14.0-18.0); Mean Corpuscular HGB Conc 28.7 g/dl (32-36); Mean Corpuscular Hemoglobin 26.4 pg (26-34); Mean Corpuscular Volume 91.8 fl (80-100); Mean Platelet Volume 11.2 fl (7.4-10.4); Platelet Count Result 236 k/mm3 (150-375); Red Blood Count 2.69 M/mm3 (4.6-6.20); Red Cell Distribution Width 18.4 % (11.5-14.5); White Blood Count 5.9 K/mm3 (4.5-10.0)
[2021-03-15 12:10] LABS: Lipase 78 U/L (23-300)
== END 2021-03-15 11:33 | disposition home or self-care (01) ==
LOC: ANHLAB 11:35
PROVIDERS: PCP Internal Medicine; Visit Provider Nurse Practitioner Family
DX: D50.9 Iron deficiency anemia, unspecified (principal)
CPT/HCPCS: 36415; 83690; 85027

== ENCOUNTER 2021-03-15 17:20 | Inpatient (IN) | payer OTHER, SELFPAY ==
[2021-03-15] VITALS (23 sets, daily range): BP systolic 92–173; BP diastolic 56–99; PULSE 74–94; RESP 16–25; TEMP 36.2–37; O2SAT 95–100; BMI 16.9
--- NOTE | ~2021-03-15 | CT_ITS ---
EXAMINATION: CT abdomen pelvis w con INDICATION: Epigastric abdominal pain, history of prostate cancer TECHNIQUE: Computed tomographic images of the abdomen and pelvis were obtained after the administrati on of 100 cc of Omnipaque 350 intravenous contrast. The dose-length product (DLP) was 283.35 mGy-cm. Automated exposure control and iterative reconstruction technique were employed. COMPARISON: 10/05/2017 FINDINGS: The lung bases are clear. The heart size is normal. Punctate calcifications in an otherwise normal spleen likely represent healed granulomatous disease. The liver, gallbladder, and adrenal gla nds are normal. There is a 3 mm stone in the head of the pancreas which causes mild enlargement of th e pancreatic duct in the head. A 2.7 cm hypoattenuating lesion of left kidney upper pole has previous ly been characterized as a cyst. There are multiple additional cysts of the kidneys which measure up to 1.6 cm on the right. There is a 3 mm nonobstructing stone of the left mid kidney. There is an appr oximately 8 cm segment of irregular and abnormally thickened colon at the splenic flexure. There is m ild distention of the colon proximal to the mass with multiple ingested medications accumulated in th e distal transverse colon just proximal to the mass. There is a small amount of gas and stool in the colon distal to the mass. There appear to be enlarged lymph nodes adjacent to the mass posteriorly. T here is a 3.4 cm fusiform aneurysm of the infrarenal abdominal aorta. There is marked enlargement of the prostate. No free intraperitoneal gas is identified. There is mild lumbar spondylosis. IMPRESSION: 1. Partially obstructing mass at the splenic flexure of colon with mild distention of the proximal co cuauhtemoc and multiple accumulated ingested medications in the distal transverse colon proximal to the mass . Surgical evaluation is recommended. 2. Marked enlargement prostate, history of prostate cancer. 3. 3 mm ductal stone in the head of the pancreas causing mild pancreatic ductal dilatation in the hea d of the pancreas. 4. Fusiform infrarenal abdominal aortic aneurysm. Reviewed, dictated and finalized at location A. IMPRESSION: 1. Partially obstructing mass at the splenic flexure of colon with mild distent ion of the proximal colon and multiple accumulated ingested medications in the distal transverse colon proximal to the mass. Surgical evaluation is recommende d. 2. Marked enlargement prostate, history of prostate cancer. 3. 3 mm ductal stone in the head of the pancreas causing mild pancreatic ductal dilatation in the head of the pancreas. 4. Fusiform infrarenal abdominal aortic aneurysm.
--- NOTE | ~2021-03-15 | US_ITS ---
EXAMINATION: US carotid duplex BI DATE: 03/16/2021 15:11 INDICATION: Syncope TECHNIQUE: Grayscale, color Doppler, and pulsed Doppler images of the cervical carotid arteries were obtained. The degree of vessel stenosis is placed in one of the following categories: normal, <50%, 5 0-69%, >=70% but less than near-occlusion, near-occlusion, or total occlusion. Note that percent sten osis relative to normal distal artery lumen diameter is indirectly measured from velocity measurement s as described by Prashant, et al. Radiology 2003; 229:340-346. COMPARISON: June 28, 2020 carotid duplex examination FINDINGS: RIGHT: The right common carotid artery (CCA) peak systolic velocity (PSV) is 51.2 cm/s. The right internal c arotid artery (ICA) PSV is 59.4 cm/s. The right ICA end-diastolic velocity (EDV) is 8.7 cm/s. The rig ht ICA/CCA PSV ratio is 1.2. Grayscale and color Doppler images yield an estimate of less than 50% di ameter reduction from plaque in the ICA. The external carotid artery (ECA) PSV is 52.5 cm/s. There is antegrade flow in the right vertebral artery. LEFT: The left CCA PSV is 46.9 cm/s. The left ICA PSV is 91.9 cm/s. The left ICA EDV is 14.4 cm/s. The left ICA/CCA PSV ratio is 2.0. Grayscale and color Doppler images yield an estimate of less than 50% diam eter reduction from plaque in the ICA. The ECA PSV is 75.8 cm/s. There is antegrade flow in the left vertebral artery. IMPRESSION: 1. Less than 50% stenosis in the right internal carotid artery. 2. Less than 50% stenosis in the left internal carotid artery. Reviewed, dictated and finalized at Location [facility]. Reviewed, dictated and finalized at location A.
--- NOTE | ~2021-03-15 | CT_ITS ---
EXAMINATION: CT brain wo con INDICATION: Confusion COMPARISON: 06/28/2020 TECHNIQUE: Standard unenhanced head CT. The dose-length product (DLP) was 605.33 mGy-cm. The mA was a djusted according to patient size. Iterative reconstruction technique was employed. FINDINGS: There is no acute intraparenchymal hemorrhage. No evidence of mass lesion. No evidence of a cute infarction. There is mild periventricular and subcortical hypodensity probably related to small vessel ischemic disease. There is mild prominence of the sulci and ventricles related to cerebral atr ophy. Intracranial calcified cerebral atherosclerosis is noted. There are no extra-axial collections. There is no mass effect or midline shift. The orbits and soft tissues are unremarkable. There is mil d mucosal thickening of the paranasal sinuses. IMPRESSION: 1. No acute intracranial abnormality. 2. Age related findings. Reviewed, dictated and finalized at location A.
[2021-03-15 18:10] LABS: Hematocrit 23.5 % (42.0-52.0)
[2021-03-15 18:16] LABS: Lactic Acid Reflex 1.8 mmol/L (0.7-2.1)
[2021-03-15 18:19] LABS: Alanine Aminotransferase 10 U/L (4-50); Albumin Level 3.4 g/dL (3.5-5.1); Alkaline Phosphatase 76 U/L (38-126); Anion Gap 8 mmol/L (8-16); Aspartate Amino Transferase 18 U/L (17-59); Bilirubin,Total 0.4 mg/dL (0.2-1.3); Blood Urea Nitrogen 23 mg/dL (9-20); Calcium 9.4 mg/dL (8.4-10.2); Carbon Dioxide 27 mmol/L (22-30); Chloride 104 mmol/L (98-107); Estimated CRCL calculation 24 ml/min; Estimated Glomerular Filt Rate 36; Glucose 118 mg/dL (65-110); INR 1.2; Lipase 78 U/L (23-300); Magnesium 2.2 mg/dL (1.6-2.3); Potassium 4.3 mmol/L (3.4-5.0); Prothrombin Time 14.7 Seconds (11.1-14.7); Sodium 139 mmol/L (137-145)
[2021-03-15 18:20] LABS: Partial Thromboplastin Time 34.4 SECONDS (22.3-36.8)
[2021-03-15 18:30] LABS: Hemoglobin 6.9 g/dL (14.0-18.0)
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
[2021-03-15] MEDS: SODIUM CHLORIDE 0.9% IV 1,000 ML 999 ML IV CONT (19:13)
[2021-03-15] MEDS: PANTOPRAZOLE SODIUM IV 40 MG VIAL IV PUSH (19:14)
[2021-03-15 19:43] LABS: Add Urine Microscopic? YES; Appearance Urine Cloudy (Clear); Bilirubin Urine Negative (Negative); Blood Urine Negative (Negative); Color Urine Amber (Yellow); Glucose Urine UA Negative (Negative); Ketones Urine Negative (Negative); Leukocyte Esterase Ur Negative LEU/UL (Negative); Mucus Urine Heavy /lpf; Nitrate Urine Negative (Negative); Protein Urine 1+ mg/dL (Negative); RBC Urine 0-2 /hpf (0-2); Squamous Epithelial Cell Urine Occasional /hpf (Few); WBC Urine 0-3 /hpf
[2021-03-15] MEDS: SODIUM CHLORIDE 0.9% IV 250 ML 30 ML IV CONT (21:28)
[2021-03-15] MEDS: polyethylene glycoL 3350 17 GM POWD.PACK PO (21:58)
[2021-03-15 22:02] LABS: Hematocrit 20.9 % (42.0-52.0)
--- NOTE | 2021-03-15 23:10 | ADMGEN ---
This patient, Tino Alexander, was admitted to Medical Room 252-01. Patient/family oriented to hospital policies and general routines including ID bracelet, bed and alarms, visiting hours, pain management, procedures, bathroom and other care routines, personal items, smoking policy, room service/diet, and visiting hours. Information on how to activate the Rapid Response Team has been discussed. Patient/Family are encouraged to report perceived risks to care and to ask questions if they do not understand what they are told or what they should do.
--- NOTE | 2021-03-15 23:28 | PM.IMHP ---
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 The patient had initially been evaluated in June due to episode of syncope and was noted to have significant anemia at that time. He was found have iron deficiency anemia and B12 deficiency and was discharged on B12 and b.i.d. ferrous sulfate. He was referred to GI as outpatient for possible colonoscopy. The patient had refused colonoscopy because he felt like he could not complete the prep for the colonoscopy. Subsequently a CT of the abdomen pelvis was ordered on February 25 however the patient canceled that appointment as he did not feel well. He followed up with GI in outpatient clinic today and was found to have continued weight loss, Hemoccult-positive stools, low blood pressures and a low hemoglobin. He was referred to the ER in the setting. The patient reports having intermittent episodes of diarrhea and abdominal pain since June of last year. He states that he has lost a significant amount of weight over recent months. He stated he used to weigh 165 lb before all of his stomach issue started. He is currently down to 130 lb. He has lost 11 lb since December. He reports that overall poor appetite. He has intermittent crampy upper abdominal pain that radiates to bilateral upper quadrants. He reported that his last bout of abdominal pain was about a week ago. The pain lasted for about 2 weeks. His abdominal pain is worse after eating. He did have intermittent nausea but no vomiting. When he does have loose stools are usually 2 loose stools a day. He reported that he has been taking some [id number]-[id number] pain medications without relief in his pain. After further questioning it appears that the patient has actually been taking ibuprofen. He took the ibuprofen a couple of times a day for about 2 weeks [place] was having abdominal pain. He has not had any ibuprofen in about a week. Over the last week his stools have become more formed after taking Pepto-Bismol. He did have stool studies as outpatient were negative. C diff testing had been ordered but was canceled. He denies any overtly black stools or bloody stools. His stool was Hemoccult positive at the GI clinic today. The patient reports getting dizzy with standing. He has actually blacked out twice in recent weeks. He reports that the 1st time was when he was getting into the shower and the next time was after he had had a bowel movement he went to stand up and passed out. During his prior hospitalization he had been discharged with an order for Gamal hose while awake which patient has not been utilizing. The patient denied ever having had an EGD or colonoscopy at the time of my evaluation but had told the GI clinic that he had a colonoscopy many years ago. He does have chronic smoker's cough and chronic shortness of breath is unchanged from baseline. He has not been having any fevers or chills. He denies any difficulty starting or stopping his urine stream and does not have any hematuria. He reports that he has become so weak that he has had to start ambulating with a walker over the last couple of weeks. He had reported to his outpatient provider that he was having some vertigo but denies any true dizziness at the time of my evaluation. He has noticed some worsening vision recently and bought some [id number] eye glasses. He has not seen an eye doctor in many years. Review of Systems Review of Systems: 12 systems were reviewed with pertinent positives and negatives per HPI. Except as documented in the HPI, all other systems were reviewed and are negative. [facility]
[2021-03-16] VITALS (20 sets, daily range): BP systolic 105–187; BP diastolic 48–80; PULSE 56–78; RESP 16–21; TEMP 36.1–36.6; O2SAT 97–100
[2021-03-16] MEDS: SODIUM CHLORIDE 0.9% IV 250 ML 30 ML IV CONT (00:35)
[2021-03-16] MEDS: SODIUM CHLORIDE 0.9% IV 1,000 ML 125 ML IV CONT ×3 (00:47→22:11)
[2021-03-16 05:46] LABS: Hematocrit 27.3 % (42.0-52.0); Hemoglobin 8.3 g/dL (14.0-18.0); Mean Corpuscular HGB Conc 30.4 g/dl (32-36); Mean Corpuscular Hemoglobin 27.3 pg (26-34); Mean Corpuscular Volume 89.8 fl (80-100); Mean Platelet Volume 11.6 fl (7.4-10.4); Platelet Count Result 191 k/mm3 (150-375); Red Blood Count 3.04 M/mm3 (4.6-6.20); Red Cell Distribution Width 18.2 % (11.5-14.5); White Blood Count 5.5 K/mm3 (4.5-10.0)
[2021-03-16 05:57] LABS: Anion Gap 4 mmol/L (8-16); Blood Urea Nitrogen 19 mg/dL (9-20); Calcium 8.4 mg/dL (8.4-10.2); Carbon Dioxide 25 mmol/L (22-30); Chloride 107 mmol/L (98-107); Estimated CRCL calculation 27 ml/min; Estimated Glomerular Filt Rate 45; Glucose 101 mg/dL (65-110); Potassium 4.1 mmol/L (3.4-5.0); Sodium 136 mmol/L (137-145)
--- NOTE | 2021-03-16 07:55 | PM.IMPN ---
Progress Note: A&P Assessment and Plan (1) Acute GI bleeding: Code(s): K92.2 - Gastrointestinal hemorrhage, unspecified Status: Acute Assessment and Plan: Chronic GI blood loss likely related to colonic mass. s/p 2 units PRBCs, H/H have stabilized at 8.8/28.7 (2) Colonic mass: Code(s): K63.89 - Other specified diseases of intestine Status: Acute Assessment and Plan: Clear fluid diet. Preparation for colonoscopy. Hopefully will be able to obtain biopsy reports and characterize the colonic mass. Oncology consult in a.m.. (3) Weight loss: Code(s): R63.4 - Abnormal weight loss Status: Acute Assessment and Plan: Likely secondary to colonic mass. Follow-up CEA (4) Abdominal pain: Qualifiers: Abdominal location: upper abdomen, unspecified Qualified Code(s): R10.10 - Upper abdominal pain, unspecified Code(s): R10.9 - Unspecified abdominal pain Status: Acute Assessment and Plan: Likely secondary to colonic mass. Pain management with [facility]. (5) Iron deficiency anemia: Qualifiers: Iron deficiency anemia type: chronic blood loss Qualified Code(s): D50.0 - Iron deficiency anemia secondary to blood loss (chronic) Code(s): D50.9 - Iron deficiency anemia, unspecified Status: Acute Assessment and Plan: Status post 2 units PRBCs. Monitor CBC daily. (6) B12 deficiency anemia: Qualifiers: Vitamin B12 deficiency anemia type: unspecified B12 deficiency Qualified Code(s): D51.9 - Vitamin B12 deficiency anemia, unspecified Code(s): D51.9 - Vitamin B12 deficiency anemia, unspecified Status: Acute Assessment and Plan: Continue B12 supplementation. (7) Tobacco abuse: Code(s): Z72.0 - Tobacco use Status: Acute Assessment and Plan: Patient counseled to quit smoking. Nicotine patch as needed p.r.n. (8) Severe protein-calorie malnutrition: Code(s): E43 - Unspecified severe protein-calorie malnutrition Status: Acute (9) Syncope and collapse: Code(s): R55 - Syncope and collapse Status: Acute Assessment and Plan: Likely secondary to severe anemia. Will send a workup including echocardiogram and carotid Doppler. Patient will be monitored on telemetry. Maintain fall precaution. 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 The patient had initially been evaluated in June due to episode of syncope and was noted to have significant anemia at that time. He was found have iron deficiency anemia and B12 deficiency and was discharged on B12 and b.i.d. ferrous sulfate. He was referred to GI as outpatient for possible colonoscopy. The patient had refused colonoscopy because he felt like he could not complete the prep for the colonoscopy. Subsequently a CT of the abdomen pelvis was ordered on February 25 however the patient canceled that appointment as he did not feel well. He followed up with GI in outpatient clinic today and was found to have continued weight loss, Hemoccult-positive stools, low blood pressures and a low hemoglobin. He was referred to the ER in the setting. CT scan reveals colonic mass with partial obstruction. 03/16/21 07:55 S: Patient is examined at the bedside. He looks teen and thrill. No active complaints. His breathing seems to be in distress. Pain patient is worried about post operative complications and perioperative risks. He has a brother who of heart disease. Review of Systems Review of Systems: All systems reviewed & are unremarkable except as noted in HPI and below Constitutional: Constitutional: Reports as per HPI Eyes: Eyes: Reports as per H
[2021-03-16] MEDS: FLUTICASONE/SALMETEROL 230-21 MCG INHALER 1 PUFF 2 PUFF INHALATION ×2 (08:14→21:32)
[2021-03-16] MEDS: IPRATROPIUM BR 0.02% INH SOLN 0.5 MG/2.5 ML VIAL INHALATION ×2 (08:14→21:32)
[2021-03-16] MEDS: ALBUTEROL SULFATE NEB 2.5 MG/0.5 ML INH INHALATION ×2 (08:14→21:32)
[2021-03-16] MEDS: PANTOPRAZOLE SODIUM IV 40 MG VIAL IV PUSH (08:43)
[2021-03-16] MEDS: FINASTERIDE 5 MG TABLET PO (08:43)
[2021-03-16] MEDS: CHOLECALCIFEROL 1,000 UNITS TABLET 2000 UNITS PO (08:43)
[2021-03-16] MEDS: CYANOCOBALAMIN 1,000 MCG TABLET 1000 MCG PO (08:43)
[2021-03-16] MEDS: VALSARTAN 160 MG TABLET 320 MG PO (08:49)
[2021-03-16 09:14] LABS: Hematocrit 28.8 % (42.0-52.0); Hemoglobin 8.7 g/dL (14.0-18.0)
--- NOTE | 2021-03-16 13:19 | WPDGICN ---
Assessment and Plan Assessment and plan (1) Acute on chronic blood loss anemia: Code(s): D62 - Acute posthemorrhagic anemia Status: Acute Assessment and Plan: most likely from new diagnosis of colon mass- suspicious for malignancy he finally is agreeable to proceed with colonoscopy- will do it on Thursday continue to monitor for signs of bleeding, better after blood transfusion (2) Colonic mass: Code(s): K63.89 - Other specified diseases of intestine Status: Acute Assessment and Plan: colonoscopy and also surgery consult based on findings also will need oncology evaluation will check CEA level (3) Blood in stool: Code(s): K92.1 - Melena Status: Acute Assessment and Plan: most likely from colon mass (4) Syncope and collapse: Code(s): R55 - Syncope and collapse Status: Acute Assessment and Plan: from symptomatic anemia (5) Severe protein-calorie malnutrition: Code(s): E43 - Unspecified severe protein-calorie malnutrition Status: Acute Assessment and Plan: significant weight loss, probably related to malignancy (6) Diarrhea: Qualifiers: Diarrhea type: unspecified type Qualified Code(s): R19.7 - Diarrhea, unspecified Code(s): R19.7 - Diarrhea, unspecified Status: Acute Assessment and Plan: probably from colonic mass continue to monitor (7) Weight loss: Code(s): R63.4 - Abnormal weight loss Status: Acute (8) Malignant neoplasm of prostate: Code(s): C61 - Malignant neoplasm of prostate Status: Inactive GI Consult Note Consult date/time: 03/16/21 13:19 Reason for consult: weight loss, symptomatic REESE, colon mass HPI: Tino Alexander is a 81 year old male with hx of prostate cancer, COPD, HTN, HLD, CKD, B12 deficiency and iron deficiency anemia who came to our office originally about 1 month ago because diarrhea, weight loss about 15 lb last month and anemia, our [employer] discussed with patient egd and colonoscopy but did not want to and instead we ordered CT scan but patient had to cancel it and did not reschedule. Then he came back for follow-up in office yesterday, he was more symptomatic with dizziness and lightheaded after standing up fast with syncope, repeat blood work revealed worsening anemia with hb 7 and we talked to family about coming to ER in order to get blood transfusion and finally had CT scan a/p, reviewed and showed partially obstructing mass at the splenic flexure of colon with mild distention of the proximal colon and multiple accumulated ingested medications in the distal transverse colon proximal to the mass, marked enlargement prostate, 3. 3 mm ductal stone in the head of the pancreas causing mild pancreatic ductal dilatation in the head of the pancreas. Repeat hb 6 and he received blood transfusion, now he is feeling better. He thinks that had colonoscopy but many years ago. Review of Systems Constitutional: Constitutional: Reports lethargy and Reports weakness Eyes: Eyes: Denies blurry vision ENT: Reports Normal hearing present Cardiovascular: Cardiovascular: Reports lightheadedness Respiratory: Respiratory: Denies cough Gastrointestinal: Gastrointestinal: Reports diarrhea and Denies nausea Genitourinary: Genitourinary: Denies dysuria Musculoskeletal: Musculoskeletal: Denies neck pain Integumentary/Breasts: Skin/Breast: Denies dry skin Neurologic: Denies numbness Psychiatric: Psychiatric: Reports no additional psychiatric complaints PMFSH Past Medical History Medical History (Updated 03/16/21 @ 13:28 by Mart Collins MD) Abdominal pain Acute on chronic blood loss anemia Blood in stool Chronic obstructive pulmonary disease, unspecified Chronic rhinitis CKD (chronic kidney disease) With baseline creatinine between 1.7-1.8 Essential (primary) hypertension Hyperlipidemia, unspecified Malignant neoplasm of prostate localize
[2021-03-16 15:47] LABS: Hematocrit 27.2 % (42.0-52.0); Hemoglobin 8.4 g/dL (14.0-18.0)
--- NOTE | 2021-03-16 17:44 | PM.CNGS ---
Assessment and Plan Assessment and plan (1) Colonic mass: Onset Date: Unknown Code(s): K63.89 - Other specified diseases of intestine Status: Acute Assessment and Plan: this is the main reason I was asked to see the patient. This was 1st noted on the CT scan done last evening. He however has been having symptoms of anemia and possible GI blood loss for some time period (see H&P ). At this time I had a thorough discussion with the patient regarding the likelihood there is a tumor in the splenic flexure of the colon. I also discussed the situation with Dr. Duran. He is planning to do a colonoscopy if possible on Thursday. Patient will have only clear liquids and have a bowel prep on Thursday. I further talked with the patient regarding his comfort level of proceeding to surgery after the colonoscopy without doing a separate bowel prep. He would have to understand that there is a possibility that the pathology report would not yet be back on any biopsies if we did the surgery the day following his colonoscopy. However, in view of the findings on the CT scan if Dr. Duran feels that the visualized area of abnormality in the splenic flexure is significantly likely to be tumor, the patient states he would like proceed during this admission with a laparoscopic, possible open, splenic flexure colon resection. I explained to him that we would always want the possibility of proceeding in an open fashion but I would try to do this with a laparoscopic hand assist type technique. He has never had previous abdominal surgery shows a good candidate for same. After thorough discussion including the risks of bleeding, pneumonia in view his smoking history, stroke due to his long smoking history, peripheral vascular disease, and poor healing due to his malnutrition and smoking he would like to proceed. He understands that this is probably where his bleeding is coming from andthat there is some risk of having it cause obstruction if we do not take care of it. (2) Syncope and collapse: Onset Date: ~03/15/21 Code(s): R55 - Syncope and collapse Status: Acute Assessment and Plan: occurred yesterday and patient was brought to the ED at [facility]. (3) Severe protein-calorie malnutrition: Onset Date: Unknown Code(s): E43 - Unspecified severe protein-calorie malnutrition Status: Acute (4) Weight loss: Code(s): R63.4 - Abnormal weight loss Status: Acute (5) Abdominal pain: Qualifiers: Abdominal location: upper abdomen, unspecified Qualified Code(s): R10.10 - Upper abdominal pain, unspecified Code(s): R10.9 - Unspecified abdominal pain Status: Acute (6) CKD (chronic kidney disease): Code(s): N18.9 - Chronic kidney disease, unspecified Status: Acute (7) Tobacco abuse: Code(s): Z72.0 - Tobacco use Status: Acute (8) Acute on chronic blood loss anemia: Code(s): D62 - Acute posthemorrhagic anemia Status: Acute (9) Hyperlipidemia, unspecified: Code(s): E78.5 - Hyperlipidemia, unspecified Status: Acute (10) Essential (primary) hypertension: Code(s): I10 - Essential (primary) hypertension Status: Acute (11) Chronic obstructive pulmonary disease, unspecified: Code(s): J44.9 - Chronic obstructive pulmonary disease, unspecified Status: Acute History of Present Illness Consult details Consult date: 03/16/21 Reason for consult: abdominal pain (Across the upper abdomen) Requesting physician: Mart Collins MD Narrative: Mr. Tino Alexander is an 81 y/o W male with hx of prostate cancer, COPD, HTN, HLD, CKD,smoking, B12 deficiency and iron deficiency anemia who went tho the GI MD's office about 1 month ago because diarrhea, weight loss of about 15 lb for a month. He had just had an admission at [facility] for anemia. The DI FABRIC DESIGNER discussed with patient and recommended an EDG an
[2021-03-16] MEDS: polyethylene glycoL 3350 17 GM POWD.PACK PO (18:15)
[2021-03-17] VITALS (22 sets, daily range): BP systolic 120–180; BP diastolic 61–96; PULSE 53–88; RESP 18–21; TEMP 36.1–36.9; O2SAT 96–100
[2021-03-17 05:21] LABS: Basophils Percent Auto 0.8 % (0.2-1.2); Eosinophils Absolute Auto 0.1 K/mm3 (0-0.3); Eosinophils Percent Auto 2.8 % (0-4.4); Hematocrit 23.6 % (42.0-52.0); Hemoglobin 7.3 g/dL (14.0-18.0); Immature Granulocyte Absolute 0.03 K/mm3 (0.00-0.031); Immature Granulocyte Percent A 0.8 % (0-0.5); Lymphocytes Absolute Auto 0.47 K/mm3 (0.9-3.2); Lymphocytes Percent Auto 13.2 % (18.3-44.2); Mean Corpuscular HGB Conc 30.9 g/dl (32-36); Mean Corpuscular Hemoglobin 26.7 pg (26-34); Mean Corpuscular Volume 86.4 fl (80-100); Mean Platelet Volume 11.5 fl (7.4-10.4); Monocytes Absolute Auto 0.6 K/mm3 (0.1-0.6); Monocytes Percent Auto 17.5 % (2.6-8.5); Neutrophils Absolute Auto 2.3 K/mm3 (1.3-6.7); Neutrophils Percent Auto 64.9 % (45.5-73.1); Platelet Count Result 158 k/mm3 (150-375); Red Blood Count 2.73 M/mm3 (4.6-6.20); Red Cell Distribution Width 18.6 % (11.5-14.5); White Blood Count 3.6 K/mm3 (4.5-10.0)
[2021-03-17 05:38] LABS: Anion Gap 5 mmol/L (8-16); Blood Urea Nitrogen 12 mg/dL (9-20); Calcium 8.1 mg/dL (8.4-10.2); Carbon Dioxide 22 mmol/L (22-30); Chloride 111 mmol/L (98-107); Estimated CRCL calculation 34 ml/min; Estimated Glomerular Filt Rate 58; Glucose 89 mg/dL (65-110); Magnesium 1.8 mg/dL (1.6-2.3); Potassium 3.6 mmol/L (3.4-5.0); Sodium 138 mmol/L (137-145)
[2021-03-17 05:44] LABS: Prealbumin 6.7 mg/dL (17.6-36.0)
[2021-03-17 06:07] LABS: Carcinoembryonic Antigen 2.6 ng/mL (0.0-3.0)
--- NOTE | 2021-03-17 07:57 | WPDGIPROGNO ---
Progress Note: A&P Assessment and Plan (1) Acute on chronic blood loss anemia: Code(s): D62 - Acute posthemorrhagic anemia Status: Acute Assessment and Plan: most likely from colonic mass continue to monitor h/h s/p blood transfusion (2) Colonic mass: Onset Date: Unknown Code(s): K63.89 - Other specified diseases of intestine Status: Acute Assessment and Plan: colonoscopy tomorrow, most likely malignancy. Surgery also on board CEA level ordered (3) Weight loss: Code(s): R63.4 - Abnormal weight loss Status: Acute Assessment and Plan: Likely secondary to colonic mass. (4) Abdominal pain: Qualifiers: Abdominal location: upper abdomen, unspecified Qualified Code(s): R10.10 - Upper abdominal pain, unspecified Code(s): R10.9 - Unspecified abdominal pain Status: Acute Assessment and Plan: pain meds as needed, comfortable now (5) Iron deficiency anemia: Qualifiers: Iron deficiency anemia type: chronic blood loss Qualified Code(s): D50.0 - Iron deficiency anemia secondary to blood loss (chronic) Code(s): D50.9 - Iron deficiency anemia, unspecified Status: Acute Assessment and Plan: received blood transfusion (6) Tobacco abuse: Code(s): Z72.0 - Tobacco use Status: Acute Assessment and Plan: Patient counseled to quit smoking. (7) Severe protein-calorie malnutrition: Onset Date: Unknown Code(s): E43 - Unspecified severe protein-calorie malnutrition Status: Acute (8) Syncope and collapse: Onset Date: ~03/15/21 Code(s): R55 - Syncope and collapse Status: Acute Assessment and Plan: Likely secondary to severe anemia. Subjective Date/time seen: 03/17/21 07:57 Interval history: last night he was agitated and confused per RN, no report of bleeding. Review of Systems Review of Systems: All systems reviewed & are unremarkable except as noted in HPI and below Exam Const: General: comfortable and no acute distress Other: thin HENMT: General nose exam: Normal nares present Eyes: General: appearance normal, both eyes and all related structures Neck: Neck: no JVD Resp: Auscultation: clear to auscultation bilaterally Cardio: Rate: regular rate Rhythm: regular rhythm GI: Inspection: non-distended GI Palp: Yes Soft to palpation and No Guarding due to palpation present (GI) Auscultation: normal bowel sounds Skin: General skin exam: no rashes or lesions noted Neuro: Speech: normal speech Motor exam (neuro): Normal motor muscle tone present throughout Extrem: General: normal to inspection Psych: Affect: normal affect Objective Data Vital Signs Vital Signs: Vital Signs - 24 hr 03/16/21 08:15 03/16/21 08:24 03/16/21 08:50 Temperature Pulse Rate 64 72 Respiratory Rate 18 18 Blood Pressure 120/60 Pulse Oximetry 97 03/16/21 14:00 03/16/21 14:25 03/16/21 14:27 Temperature 97.8 F Pulse Rate 64 64 63 Respiratory Rate 16 Blood Pressure 156/61 H 156/61 H 145/54 H Pulse Oximetry 100 03/16/21 14:29 03/16/21 16:00 03/16/21 20:00 Temperature Pulse Rate 72 56 L 63 Respiratory Rate Blood Pressure 132/48 L Pulse Oximetry 03/16/21 21:34 03/16/21 21:44 03/16/21 22:00 Temperature 97.0 F L Pulse Rate 75 77 62 Respiratory Rate 18 18 20 Blood Pressure 152/53 H Pulse Oximetry 98 99 03/17/21 00:00 03/17/21 04:00 03/17/21 06:00 Temperature 97.0 F L Pulse Rate 65 53 L 70 Respiratory Rate 21 H Blood Pressure 144/96 H Pulse Oximetry 100 03/17/21 06:05 03/17/21 06:10 Temperature 97.0 F L 97.4 F L Pulse Rate 73 78 Respiratory Rate 21 H 20 Blood Pressure 146/79 H 140/69 Pulse Oximetry 100 98 Intake/Output Intake/Output: Intake & Output 03/14/21 03/15/21 03/16/21 03/17/21 23:59 23:59 23:59 23:59 Intake Total 1350 4020 280 Output Total 1025 1100 [facility]
--- NOTE | 2021-03-17 08:04 | PM.IMPN ---
Progress Note: A&P Assessment and Plan (1) Acute GI bleeding: Code(s): K92.2 - Gastrointestinal hemorrhage, unspecified Status: Acute Assessment and Plan: Chronic GI blood loss likely related to colonic mass. s/p 2 units PRBCs, H/H have stabilized at 8.8/28.7. Slight drop Hemoglobin and hematocrit down to 7.3/23.6. Discussed with GI. There is no indication for a blood transfusion today. We will continue daily CBC monitoring. (2) Colonic mass: Onset Date: Unknown Code(s): K63.89 - Other specified diseases of intestine Status: Acute Assessment and Plan: Clear fluid diet. Preparation for colonoscopy tomorrow. Hopefully will be able to obtain biopsy reports and characterize the colonic mass. Oncology consult in a.m.. (3) Weight loss: Code(s): R63.4 - Abnormal weight loss Status: Acute Assessment and Plan: Likely secondary to colonic mass. Follow-up CEA (4) Abdominal pain: Qualifiers: Abdominal location: upper abdomen, unspecified Qualified Code(s): R10.10 - Upper abdominal pain, unspecified Code(s): R10.9 - Unspecified abdominal pain Status: Acute Assessment and Plan: Likely secondary to colonic mass. Pain management with [place]. (5) Iron deficiency anemia: Qualifiers: Iron deficiency anemia type: chronic blood loss Qualified Code(s): D50.0 - Iron deficiency anemia secondary to blood loss (chronic) Code(s): D50.9 - Iron deficiency anemia, unspecified Status: Acute Assessment and Plan: Status post 2 units PRBCs. Monitor CBC daily. (6) B12 deficiency anemia: Qualifiers: Vitamin B12 deficiency anemia type: unspecified B12 deficiency Qualified Code(s): D51.9 - Vitamin B12 deficiency anemia, unspecified Code(s): D51.9 - Vitamin B12 deficiency anemia, unspecified Status: Acute Assessment and Plan: Continue B12 supplementation. (7) Tobacco abuse: Code(s): Z72.0 - Tobacco use Status: Acute Assessment and Plan: Patient counseled to quit smoking. Nicotine patch as needed p.r.n. (8) Severe protein-calorie malnutrition: Onset Date: Unknown Code(s): E43 - Unspecified severe protein-calorie malnutrition Status: Acute Assessment and Plan: prealbumin level was low at 6.7. (9) Syncope and collapse: Onset Date: ~03/15/21 Code(s): R55 - Syncope and collapse Status: Acute Assessment and Plan: Likely secondary to severe anemia. Will send a workup including echocardiogram and carotid Doppler. Patient will be monitored on telemetry. Maintain fall precaution. Additional Plan Patient has been admitted as inpatient status. The only greater than 2 midnight stay for evaluation and treatment of his medical illnesses. Subjective Date/time seen: 03/17/21 08:04 S: Patient is examined at the bedside. No complaint. He is observed taking a few steps around his bed. No blood in stool. Patient was agitated and confused last night per RN. At the time of my examination the patient was found to be in very good spirits. Review of Systems Review of Systems: All systems reviewed & are unremarkable except as noted in HPI and below Constitutional: Constitutional: Reports as per HPI Eyes: Eyes: Reports as per HPI ENT: Reports system reviewed and no additional complaints, except as documented Cardiovascular: Cardiovascular: Reports no additional cardiovascular complaints Respiratory: Respiratory: Reports no additional respiratory complaints Gastrointestinal: Gastrointestinal: Reports abdominal pain Genitourinary: Genitourinary: Reports no additional male genitourinary complaints Musculoskeletal: Musculoskeletal: Reports no additional musculoskeletal complaints Integumentary/Breasts: Skin/Breast: Reports system reviewed and no additional complaints, except as docu Neurologic: Reports system revie
[2021-03-17] MEDS: CHOLECALCIFEROL 1,000 UNITS TABLET 2000 UNITS PO (08:54)
[2021-03-17] MEDS: VALSARTAN 160 MG TABLET 320 MG PO (08:54)
[2021-03-17] MEDS: CYANOCOBALAMIN 1,000 MCG TABLET 1000 MCG PO (08:54)
[2021-03-17] MEDS: FINASTERIDE 5 MG TABLET PO (08:54)
[2021-03-17] MEDS: PANTOPRAZOLE SODIUM IV 40 MG VIAL IV PUSH (08:54)
[2021-03-17] MEDS: SODIUM CHLORIDE 0.9% IV 1,000 ML 125 ML IV CONT ×2 (10:03→19:01)
[2021-03-17] MEDS: IPRATROPIUM BR 0.02% INH SOLN 0.5 MG/2.5 ML VIAL INHALATION ×2 (10:32→17:17)
[2021-03-17] MEDS: FLUTICASONE/SALMETEROL 230-21 MCG INHALER 1 PUFF 2 PUFF INHALATION ×2 (10:32→17:17)
[2021-03-17] MEDS: ALBUTEROL SULFATE NEB 2.5 MG/0.5 ML INH INHALATION ×2 (10:32→17:16)
--- NOTE | 2021-03-17 14:33 | PM.PNGS ---
Progress Note: A&P Assessment and Plan (1) Colonic mass: Onset Date: ~02/2021 Code(s): K63.89 - Other specified diseases of intestine Status: Acute Assessment and Plan: This was the main reason that I was asked to see the patient. Patient does not appear to be obstructed although there were some signs on the CT that the thickened area of splenic flexure of the colon was come gauze Ng at least partial obstruction with some radiopaque material just proximal to it and some distention of the more proximal transverse colon. Patient is passing gas but has not had a bowel movement despite 2 doses of MiraLax over the last 2 days. Colonoscopy is planned for tomorrow bowel prep planned for today. Will await results of these. (2) Blood in stool: Onset Date: ~02/2021 Code(s): K92.1 - Melena Status: Acute Assessment and Plan: Positive Hemoccult in the GI office (3) Acute on chronic blood loss anemia: Code(s): D62 - Acute posthemorrhagic anemia Status: Acute Assessment and Plan: The patient received transfusion yesterday and is hemoglobin has gradually dropped toward mid sevens. Will carefully observe results of his bowel prep and if he starts bleeding may need another transfusion. I have warned him about being cautious during the bowel prep and making sure the nurses see the stool each time before he flushes it. (4) Abdominal pain: Onset Date: ~02/2021 Qualifiers: Abdominal location: upper abdomen, unspecified Qualified Code(s): R10.10 - Upper abdominal pain, unspecified Code(s): R10.9 - Unspecified abdominal pain Status: Acute Assessment and Plan: For now this is pretty much resolved (5) Iron deficiency anemia: Onset Date: ~01/2021 Qualifiers: Iron deficiency anemia type: chronic blood loss Qualified Code(s): D50.0 - Iron deficiency anemia secondary to blood loss (chronic) Code(s): D50.9 - Iron deficiency anemia, unspecified Status: Acute Assessment and Plan: see labs in previous records (6) CKD (chronic kidney disease): Onset Date: Unknown Code(s): N18.9 - Chronic kidney disease, unspecified Status: Acute Assessment and Plan: probably related to tobacco abuse and hypertension. Range of creatinine 1.7 to 1.9. Creatinine improved to 1.2 with hydration during this hospital stay. (7) Tobacco abuse: Code(s): Z72.0 - Tobacco use Status: Acute (8) Essential (primary) hypertension: Onset Date: Unknown Code(s): I10 - Essential (primary) hypertension Status: Acute Assessment and Plan: I believe he is taking home meds (9) Chronic obstructive pulmonary disease, unspecified: Onset Date: Unknown Code(s): J44.9 - Chronic obstructive pulmonary disease, unspecified Status: Acute Assessment and Plan: has smoked for much as whole life. Was down to about 4 cigarettes per day over the last couple weeks Additional Plan interestingly his CEA is normal. Therefore there may still be some hope that this is inflammatory narrowing rather than malignancy. Will await the results of colonoscopy tomorrow. Time Spent With Patient Time with patient: 15 - 25 minutes Subjective Subjective Date/Time Seen: 03/17/21 12:33 patient mid with anemia and syncope. He states that he does not remember too much last night but does now know that he got confused and thought he was somewhere else. The nurses report that he was talking about going and getting his guns in that was of board walking around in his room. States he does not have any abdominal pain today. He has not had a bowel movement since entering the hospital. He states he is passing some gas out the backside. He is having no trouble urinating. He states he does remember talking to me about possible colon surgery yesterday. Review of Systems Review of Systems:
[2021-03-17] MEDS: polyethylene glycoL 3350 238 GM BOTTLE PO (15:35)
[2021-03-17] MEDS: BISACODYL 5 MG TABLET EC 20 MG PO (15:47)
[2021-03-18] VITALS (16 sets, daily range): BP systolic 120–199; BP diastolic 53–86; PULSE 63–89; RESP 16–20; TEMP 36.2–37.1; O2SAT 94–100; BMI 16.9
--- NOTE | 2021-03-18 | ECHO_ITS ---
Patient Info Name: Tino Alexander Age: 81 years : 1940 Gender: Male Ht: 71 in Wt: 121 lbs BSA: 1.64 m2 HR: 85 bpm BP: 139 / 72 mmHg Heart Rhythm: Sinus Rhythm Technical Quality: Fair Exam Date: 03/18/2021 10:34 AM Exam Location: [facility] Patient Status: Inpatient Admit Date: 03/15/2021 Staff Ordering Physician: Sarah Tovar MD [employer]ger: Ne Verma RDCS Attending Provider: Raeann Suarez PA-C Exam Type: CA echo doppler color flow Study Info Indications R55 - Syncope and collapse Complete two-dimensional, color flow and Doppler transthoracic echocardiogram is performed. Summary 1. Complete two-dimensional, color flow and Doppler transthoracic echocardiogram is performed. 2. Left ventricular chamber dimension is mildly enlarged. 3. Left ventricular systolic function is normal, estimated at 55-60%. 4. Left atrial dimension at the upper limits of normal. 5. There is mild aortic valve sclerosis. 6. There is no aortic valve stenosis. Left Ventricle Left ventricular chamber dimension is mildly enlarged. Left ventricular systolic function is normal, estimated at 55-60%. The left ventricular diastolic function is grade I diastolic dysfunction. Right Ventricle Right ventricular chamber dimension is normal. Left Atria Left atrial chamber dimension is mildly enlarged. Left atrial dimension at the upper limits of normal. Right Atria Right atrial chamber dimension is normal. Aortic Valve The aortic valve is trileaflet. There is mild aortic valve sclerosis. There is no aortic valve stenosis. Pulmonic Valve The pulmonic valve is not well visualized. Mitral Valve The mitral valve has normal leaflets. Tricuspid Valve The tricuspid valve leaflets are normal. Pericardium/Pleural The pericardium appears normal. Aorta The aortic root size at the sinus of Valsalva is normal. Left Ventricular Outflow Tract Name Value Normal LVOT 2D LVOT Diameter 2.0 cm LVOT Doppler LVOT Peak Gradient 4 mmHg LVOT Mean Gradient 2 mmHg LVOT VTI 21 cm LVOT VTI/AV VTI Ratio 1.2 LVOT Stroke Volume 62 ml LVOT CO 4.7 l/min LVOT CI 2.9 l/min/m2 Pulmonic Valve Name Value Normal RVOT Doppler RVOT Peak Gradient 2 mmHg PV Doppler PV Peak Gradient 2 mmHg Mitral Valve Name Value Normal MV Doppler
[2021-03-18] MEDS: SODIUM CHLORIDE 0.9% IV 1,000 ML 125 ML IV CONT ×2 (02:47→13:08)
[2021-03-18] MEDS: MAGNESIUM CITRATE 300 ML BTL PO ×2 (03:53→09:56)
[2021-03-18 05:33] LABS: Basophils Percent Auto 0.5 % (0.2-1.2); Eosinophils Absolute Auto 0.2 K/mm3 (0-0.3); Eosinophils Percent Auto 3.9 % (0-4.4); Hemoglobin 8.2 g/dL (14.0-18.0); Immature Granulocyte Absolute 0.03 K/mm3 (0.00-0.031); Immature Granulocyte Percent A 0.8 % (0-0.5); Lymphocytes Absolute Auto 0.33 K/mm3 (0.9-3.2); Lymphocytes Percent Auto 8.5 % (18.3-44.2); Mean Corpuscular HGB Conc 30.4 g/dl (32-36); Mean Corpuscular Hemoglobin 27.1 pg (26-34); Mean Corpuscular Volume 89.1 fl (80-100); Mean Platelet Volume 10.8 fl (7.4-10.4); Monocytes Absolute Auto 0.6 K/mm3 (0.1-0.6); Monocytes Percent Auto 14.2 % (2.6-8.5); Neutrophils Absolute Auto 2.8 K/mm3 (1.3-6.7); Neutrophils Percent Auto 72.1 % (45.5-73.1); Platelet Count Result 163 k/mm3 (150-375); Red Blood Count 3.03 M/mm3 (4.6-6.20); Red Cell Distribution Width 18.2 % (11.5-14.5); White Blood Count 3.9 K/mm3 (4.5-10.0)
[2021-03-18 05:52] LABS: Anion Gap 4 mmol/L (8-16); Blood Urea Nitrogen 7 mg/dL (9-20); Calcium 8.5 mg/dL (8.4-10.2); Carbon Dioxide 23 mmol/L (22-30); Chloride 110 mmol/L (98-107); Estimated CRCL calculation 37 ml/min; Estimated Glomerular Filt Rate > 60; Glucose 89 mg/dL (65-110); Potassium 3.2 mmol/L (3.4-5.0); Sodium 137 mmol/L (137-145)
[2021-03-18] MEDS: ALBUTEROL SULFATE NEB 2.5 MG/0.5 ML INH INHALATION ×2 (08:00→20:21)
[2021-03-18] MEDS: IPRATROPIUM BR 0.02% INH SOLN 0.5 MG/2.5 ML VIAL INHALATION ×2 (08:00→20:22)
[2021-03-18] MEDS: FLUTICASONE/SALMETEROL 230-21 MCG INHALER 1 PUFF 2 PUFF INHALATION ×2 (08:01→20:22)
[2021-03-18] MEDS: PANTOPRAZOLE SODIUM IV 40 MG VIAL IV PUSH (09:12)
[2021-03-18] MEDS: VALSARTAN 160 MG TABLET 320 MG PO (09:12)
--- NOTE | 2021-03-18 12:39 | PM.PNGS ---
Progress Note: A&P Assessment and Plan (1) Colonic mass: Onset Date: ~02/2021 Code(s): K63.89 - Other specified diseases of intestine Status: Acute Assessment and Plan: CT suggested a thickened area of the splenic flexure possibly causing a partial obstruction with some radiopaque material just proximal to this and some distention of the proximal transverse colon. GI following. CEA normal. Patient underwent bowel prep yesterday and has planned colonoscopy today. Will await results. (2) Acute on chronic blood loss anemia: Code(s): D62 - Acute posthemorrhagic anemia Status: Acute Assessment and Plan: Hgb 8.2 today. Remains stable. Received 2 units PRBCs. (3) CKD (chronic kidney disease): Onset Date: Unknown Code(s): N18.9 - Chronic kidney disease, unspecified Status: Acute Assessment and Plan: Creatinine improved since admission, 1.1 today. Potassium low at 3.2 and was supplemented with IV KCL this morning. (4) Tobacco abuse: Code(s): Z72.0 - Tobacco use Status: Acute (5) Essential (primary) hypertension: Onset Date: Unknown Code(s): I10 - Essential (primary) hypertension Status: Acute (6) Chronic obstructive pulmonary disease, unspecified: Onset Date: Unknown Code(s): J44.9 - Chronic obstructive pulmonary disease, unspecified Status: Acute (7) Blood in stool: Onset Date: ~02/2021 Code(s): K92.1 - Melena Status: Acute Assessment and Plan: Positive Hemoccult in the GI office (8) Severe protein-calorie malnutrition: Onset Date: Unknown Code(s): E43 - Unspecified severe protein-calorie malnutrition Status: Acute Assessment and Plan: Prealbumin 6.7 Additional Plan I have discussed the patient's case and plan of care with Dr. Diego. Subjective Subjective Date/Time Seen: 03/18/21 11:39 Patient reports: no new complaints, still having pain (some abdominal cramping pain with the bowel prep), voiding w/o difficulty, flatus, diarrhea and afebrile Interval history: This is an 81 yo M with HTN and CKD, who presented to the ER on 03/15/21 for evaluation of anemia and found to have a partially obstructing splenic flexure mass on CT. He is malnourished and found to be anemic. His hemoglobin on this hospitalization was as low as 6.0 and is currently at 8.2 today. He has received 2 units of PRBC. The patient underwent bowel prep and is planned for a colonoscopy today. He was seen and examined this morning. He reports having some cramping lower abdominal pain yesterday and today with the bowel prep. He otherwise tolerated the prep well. No nausea or vomiting. Reports having a liquid BM right before my evaluation. No other complaints at this time. Does not feel bloated. Review of Systems Review of Systems: All systems reviewed & are unremarkable except as noted in HPI and below Constitutional: Constitutional: Reports no additional constitutional complaints, Denies fever(s) and Reports weakness (Feels to have more generalized weakness today after the bowel prep) Cardiovascular: Cardiovascular: Reports no additional cardiovascular complaints and Denies chest pain Respiratory: Respiratory: Reports no additional respiratory complaints and Denies dyspnea Gastrointestinal: Gastrointestinal: Reports as per HPI and Reports no additional gastrointestinal complaints Exam Const: General: comfortable, alert and awake GI: Inspection: normal to inspection, non-distended and no scars GI Palp: Yes Soft to palpation, Yes Tenderness to palpation present (GI) (Left upper quadrant), No Guarding due to palpation present (GI), Yes No hepatosplenomegaly present, No Palpable mass present (No palpable mass) and No Rebound tenderness present Auscultation: normal bowel sounds Rectal Exam: deferred Other: Skin: General skin exam: pallor Neuro: General: moves all extremities and no fo
--- NOTE | 2021-03-18 12:50 | PM.IMPN ---
Progress Note: A&P Assessment and Plan (1) Acute GI bleeding: Code(s): K92.2 - Gastrointestinal hemorrhage, unspecified Status: Acute Assessment and Plan: Presented with anemia and found to be Hemoccult positive at outpatient GI visit. Appreciate gastroenterology consultation He has undergone transfusion of 2 units pRBC. H&H remaining stable today Continue IV Protonix Plan for colonoscopy this afternoon (2) Colonic mass: Onset Date: ~02/2021 Code(s): K63.89 - Other specified diseases of intestine Status: Acute Assessment and Plan: Evident on CT abdomen/pelvis at presentation. CT showed a partially obstructing mass at the splenic flexure with colonic distension and multiple accumulated pills proximal to the mass Appreciate GI and general surgery consultation Planning for colonoscopy this afternoon. Surgical intervention will be considered based on results from colonoscopy. Oncology has been consulted for evaluation given concerns for malignancy Analgesics and antiemetics availabe as needed (3) Acute on chronic blood loss anemia: Code(s): D62 - Acute posthemorrhagic anemia Status: Acute Assessment and Plan: Related to GI bleed. H&H remaining stable s/p transfusion Continue to monitor H&H closely Oral iron supplementation on hold at this time Also with history of B12 deficiency continuing PO B12 supplement (4) Weight loss: Code(s): R63.4 - Abnormal weight loss Status: Acute Assessment and Plan: Reports 11 lb weight loss since December 2020 and into the around 35 lb weight loss over the past year. Concerns for malignancy in light of colonic mass CEA is normal Colonoscopy today Continue with dietary supplements and encourage PO intake when diet is advanced (5) Syncope and collapse: Onset Date: ~03/15/21 Code(s): R55 - Syncope and collapse Status: Acute Assessment and Plan: He has had 2 recent episodes of syncope, once when getting into the shower and another following a bowel movement. This is likely due to his severe anemia He was discharged with Gamal rankin during his last hospitalization but reports he has not been using these Carotid Doppler showed less than 50% stenosis of the bilateral internal carotid arteries Head CT showed no acute intracranial findings Echo completed today and awaiting interpretation Fall precautions (6) Tobacco abuse: Code(s): Z72.0 - Tobacco use Status: Acute Assessment and Plan: Patient reportedly smokes 4 cigarettes per day and has a long smoking history. Smoking cessation is imperative and will continue to be reinforced Subjective Date/time seen: 03/18/21 12:50 Interval history: Date of service: 03/18/2021 Tino Alexander is an 81-year-old male with a history of chronic kidney disease, COPD, prostate cancer, hyperlipidemia, hypertension, and recent anemia with weight loss and occult blood in stool who is seen in follow-up for colonic mass and GI bleeding. He is feeling okay today. He completed his colonoscopy prep last night and has been having frequent stools today. His stool is still brown in color and is not yet clear. No melena or hematochezia. He stated he was having some abdominal cramping this morning but it improved when he had a bowel movement. He denies nausea or vomiting. He does feel pretty weak. He denies dizziness or lightheadedness. Denies shortness breath, cough, chest pain, or palpitations. He is NPO at this time. Review of Systems Review of Systems: All systems reviewed & are unremarkable except as noted in HPI and below Exam Narrative: Mr. Alexander is a thin, frail, chronically ill-appearing 81-year-old male who is sitting up in bed. He appears comfortable and is in NARD. Neuro: awake, alert and oriented x4, speech clear, no focal neuro deficits noted HEENMT: normocephalic, atrau
--- NOTE | 2021-03-18 14:24 | PC.NURSE ---
To GI Lab per Stacy, IV Saline Locked. Report given to Amelia.
[2021-03-18] MEDS: LACTATED RINGERS 1,000 ML 150 ML IV CONT (14:33)
--- NOTE | 2021-03-18 14:52 | WPDANESEPPF ---
Anes - Initial Pre Proc Eval Procedure: Operation Date: 03/18/21 14:30 Proposed Procedures p Colonoscopy - Mart Collins MD Date/Time: 03/18/21 14:52 Surgeon: Raeann Suaerz PA-C Pre Op Diagnosis: GI Bleed, Colon Mass Patient Data Age: 81 Gender: M Height: 1.8 m Weight: 55.2 kg Last Vital Signs Temp 97.5 F L 03/18/21 14:31 Pulse 69 03/18/21 14:31 Resp 18 03/18/21 14:31 BP 199/84 H 03/18/21 14:31 Pulse Ox 98 03/18/21 14:31 Allergies Allergy/AdvReac Type Severity Reaction Status Date / Time simvastatin Allergy Unknown Muscle pain Verified 03/15/21 23:54 Home Medications Medication Instructions Recorded Confirmed Type finasteride 5 mg tablet 5 mg PO DAILY 12/07/19 03/16/21 History cyanocobalamin (vitamin B-12) 1,000 mcg PO QAM #30 tablet 01/09/21 03/16/21 Rx 1,000 mcg tablet famotidine 20 mg tablet 20 mg PO BID #60 tablet 01/09/21 03/16/21 Rx ferrous sulfate 325 mg (65 mg 325 mg PO BID #60 tablet 01/09/21 03/16/21 Rx iron) tablet ipratropium 0.5 mg-albuterol 3 mg 3 ml INHALATION BID PRN #180 ml 01/09/21 03/16/21 Rx (2.5 mg base)/3 mL nebulization soln valsartan 320 mg tablet 320 mg PO DAILY #30 tablet 01/09/21 03/16/21 Rx albuterol sulfate 2 puff INHALATION Q4-6H PRN 03/16/21 03/16/21 History cholecalciferol (vitamin D3) 50 mcg PO DAILY 03/16/21 03/16/21 History fluticasone propion-salmeterol 1 inh INHALATION Q12H 03/16/21 03/16/21 History [Wix[facility] Inhub] Laboratory Tests 03/18/21 03/18/21 05:21 05:21 WBC 3.9 K/mm3 L K/mm3 (4.5-10.0) RBC 3.03 M/mm3 L M/mm3 (4.6-6.20) Hgb 8.2 g/dL L g/dL (14.0-18.0) Hct 27.0 % L % (42.0-52.0) MCV 89.1 fl fl (80-100) MCH 27.1 pg pg (26-34) MCHC 30.4 g/dl L g/dl (32-36) RDW 18.2 % H % (11.5-14.5) Plt Count 163 k/mm3 k/mm3 (150-375) MPV 10.8 fl H fl (7.4-10.4) Immature Gran % (Auto) 0.8 % H % (0-0.5) Neut % (Auto) 72.1 % % (45.5-73.1) Lymph % (Auto) 8.5 % L % (18.3-44.2) [place] % (Auto) 14.2 % H % (2.6-8.5) Eos % (Auto) 3.9 % % (0-4.4) Baso % (Auto) 0.5 % % (0.2-1.2) Lymph # (Auto) 0.33 K/mm3 L K/mm3 (0.9-3.2) [place] # (Auto) 0.6 K/mm3 K/mm3 (0.1-0.6) Eos # (Auto) 0.2 K/mm3 K/mm3 (0-0.3) Baso # (Auto) 0.0 K/mm3 K/mm3 (0.0-0.1) Abs Immat Gran (auto) 0.03 K/mm3 K/mm3 (0.00-0.031) Absolute Neuts (auto) 2.8 K/mm3 K/mm3 (1.3-6.7) Absolute Nucleated RBC 0.0 K/mm3 K/mm3 (0.0-0.012) Nucleated RBC % 0.0 % % (0.0-0.2) Sodium 137 mmol/L mmol/L (137-145) Potassium 3.2 mmol/L L mmol/L (3.4-5.0) Chloride 110 mmol/L H mmol/L (98-107) Carbon Dioxide 23 mmol/L mmol/L (22-30) Anion Gap 4 mmol/L L mmol/L (8-16) BUN 7 mg/dL L D mg/dL (9-20) Creatinine 1.10 mg/dL mg/dL (0.7-1.3) Estim Creat Clear Calc 37 ml/min ml/min Estimated GFR > 60 (59 - ) Glucose 89 mg/dL mg/dL (65-110) Calcium 8.5 mg/dL mg/dL (8.4-10.2) Patient hx anesthesia problems: none Family hx anesthesia problems: none Results Review: All pre-operative results and documents have been reviewed as part of the pre-operative evaluation. 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
[2021-03-19] VITALS (18 sets, daily range): BP systolic 124–184; BP diastolic 57–77; PULSE 75–90; RESP 18–20; TEMP 36.2–37.2; O2SAT 95–98
[2021-03-19 05:53] LABS: Anion Gap 6 mmol/L (8-16); Blood Urea Nitrogen 6 mg/dL (9-20); Calcium 8.3 mg/dL (8.4-10.2); Carbon Dioxide 21 mmol/L (22-30); Chloride 113 mmol/L (98-107); Estimated CRCL calculation 37 ml/min; Estimated Glomerular Filt Rate > 60; Glucose 85 mg/dL (65-110); Potassium 3.8 mmol/L (3.4-5.0); Sodium 140 mmol/L (137-145)
[2021-03-19 05:55] LABS: Basophils Percent Auto 0.5 % (0.2-1.2); Eosinophils Absolute Auto 0.1 K/mm3 (0-0.3); Eosinophils Percent Auto 1.4 % (0-4.4); Hematocrit 27.4 % (42.0-52.0); Hemoglobin 8.4 g/dL (14.0-18.0); Immature Granulocyte Absolute 0.03 K/mm3 (0.00-0.031); Immature Granulocyte Percent A 0.5 % (0-0.5); Lymphocytes Absolute Auto 0.24 K/mm3 (0.9-3.2); Lymphocytes Percent Auto 3.8 % (18.3-44.2); Mean Corpuscular HGB Conc 30.7 g/dl (32-36); Mean Corpuscular Hemoglobin 27.6 pg (26-34); Mean Corpuscular Volume 90.1 fl (80-100); Mean Platelet Volume 10.8 fl (7.4-10.4); Monocytes Absolute Auto 0.7 K/mm3 (0.1-0.6); Monocytes Percent Auto 10.4 % (2.6-8.5); Neutrophils Absolute Auto 5.2 K/mm3 (1.3-6.7); Neutrophils Percent Auto 83.4 % (45.5-73.1); Platelet Count Result 182 k/mm3 (150-375); Red Blood Count 3.04 M/mm3 (4.6-6.20); Red Cell Distribution Width 18.3 % (11.5-14.5); White Blood Count 6.3 K/mm3 (4.5-10.0)
[2021-03-19] MEDS: SODIUM CHLORIDE 0.9% IV 1,000 ML 75 ML IV CONT (06:05)
[2021-03-19] MEDS: PANTOPRAZOLE SODIUM IV 40 MG VIAL IV PUSH (08:58)
[2021-03-19] MEDS: FLUTICASONE/SALMETEROL 230-21 MCG INHALER 1 PUFF 2 PUFF INHALATION ×2 (09:20→20:36)
[2021-03-19] MEDS: IPRATROPIUM BR 0.02% INH SOLN 0.5 MG/2.5 ML VIAL INHALATION ×2 (09:20→20:26)
[2021-03-19] MEDS: ALBUTEROL SULFATE NEB 2.5 MG/0.5 ML INH INHALATION ×2 (09:20→20:26)
[2021-03-19] MEDS: CHOLECALCIFEROL 1,000 UNITS TABLET 2000 UNITS PO (10:12)
[2021-03-19] MEDS: FINASTERIDE 5 MG TABLET PO (10:12)
[2021-03-19] MEDS: CYANOCOBALAMIN 1,000 MCG TABLET 1000 MCG PO (10:12)
[2021-03-19] MEDS: VALSARTAN 160 MG TABLET 320 MG PO (10:13)
--- NOTE | 2021-03-19 11:15 | PC.NURSE ---
On 03/19/21, the student, [ Cliff Javed], provided care and completed [employer] documentation on this patient. I have reviewed the student's documentation and agree with the findings.
--- NOTE | 2021-03-19 11:43 | PM.IMPN ---
Progress Note: A&P Assessment and Plan (1) Acute on chronic blood loss anemia: Code(s): D62 - Acute posthemorrhagic anemia Status: Acute Assessment and Plan: Presented with anemia and found to be Hemoccult positive at outpatient GI visit. Appreciate gastroenterology consultation He has undergone transfusion of 2 units pRBC. H&H remaining stable following transfusion Continue IV Protonix Oral iron supplementation on hold at this time. (2) Blood in stool: Onset Date: ~02/2021 Code(s): K92.1 - Melena Status: Acute Assessment and Plan: As above (3) Colonic mass: Onset Date: ~02/2021 Code(s): K63.89 - Other specified diseases of intestine Status: Acute Assessment and Plan: Evident on CT abdomen/pelvis at presentation. CT showed a partially obstructing mass at the splenic flexure with colonic distension and multiple accumulated pills proximal to the mass Appreciate GI and general surgery consultation Colonoscopy performed yesterday which showed large mass with partial obstruction, likely consistent with colon cancer. Biopsies collected and are pending. Appreciate general surgery consultation and further recommendations Oncology has been consulted for evaluation given concerns for malignancy Analgesics and antiemetics available as needed (4) Weight loss: Code(s): R63.4 - Abnormal weight loss Status: Acute Assessment and Plan: Reports 11 lb weight loss since December 2020 and into the around 35 lb weight loss over the past year. Concerns for malignancy in light of colonic mass CEA is normal Continue with dietary supplements and encourage PO intake when diet is advanced Biopsies pending, surgical intervention being planned (5) Syncope and collapse: Onset Date: ~03/15/21 Code(s): R55 - Syncope and collapse Status: Acute Assessment and Plan: He has had 2 recent episodes of syncope prior to admission, once when getting into the shower and another following a bowel movement. This was likely due to his severe anemia He was discharged with Gamal rankin during his last hospitalization but reported he had not been using these Carotid Doppler showed less than 50% stenosis of the bilateral internal carotid arteries Head CT showed no acute intracranial findings Echo with normal EF and no significant valvular disease Fall precautions (6) Tobacco abuse: Code(s): Z72.0 - Tobacco use Status: Acute Assessment and Plan: Patient reportedly smokes 4 cigarettes per day and has a long smoking history. Smoking cessation is imperative and will continue to be reinforced Subjective Date/time seen: 03/19/21 11:43 Interval history: Date of service: 03/19/2021 Tino Alexander is an 81-year-old male with a history of chronic kidney disease, COPD, prostate cancer, hyperlipidemia, hypertension, and recent anemia with weight loss and occult blood in stool who is seen in follow-up for colonic mass and anemia. He is feeling a little bit better today. He had a liquid brown stool this morning. Denies melena or hematochezia. No abdominal pain. Denies nausea, vomiting, fever, chills, dizziness, or lightheadedness. He has not had anything to eat or drink today and states he would really like a hamburger. He is starting to feel stronger today. He was able to get up from bed and get to the commode. He denies dysuria. Denies shortness breath, cough, chest pain. He has no additional concerns at this time. Review of Systems Review of Systems: All systems reviewed & are unremarkable except as noted in HPI and below Exam Narrative: Mr. Alexander is a thin, frail, chronically ill-appearing 81-year-old male who is sitting up in bed. He appears comfortable and is in NARD. Neuro: awake, alert and oriented x4, speech clear, no focal neuro deficits noted HEENMT: normocephalic, atrauma
--- NOTE | 2021-03-19 13:25 | WPDGIPROGNO ---
Progress Note: A&P Assessment and Plan (1) Colonic mass: Onset Date: ~02/2021 Code(s): K63.89 - Other specified diseases of intestine Status: Acute Assessment and Plan: large mass with partial obstruction highly consistent with colon cancer, biopsies pending surgery to perform partial colectomy either tomorrow or Thrusday also will ask oncology to evaluate (2) Acute on chronic blood loss anemia: Code(s): D62 - Acute posthemorrhagic anemia Status: Acute Assessment and Plan: hb low but stable from colon malignancy (3) Syncope and collapse: Onset Date: ~03/15/21 Code(s): R55 - Syncope and collapse Status: Acute Assessment and Plan: on presentation due to symptomatic anemia no more episodes (4) Severe protein-calorie malnutrition: Onset Date: Unknown Code(s): E43 - Unspecified severe protein-calorie malnutrition Status: Acute Assessment and Plan: from malignancy (5) Blood in stool: Onset Date: ~02/2021 Code(s): K92.1 - Melena Status: Acute Subjective Date/time seen: 03/19/21 13:25 Interval history: colonoscopy yesterday found large mass. Today denies any complaints. I just talked to daughter about findings. Review of Systems Review of Systems: All systems reviewed & are unremarkable except as noted in HPI and below Exam Const: General: comfortable and no acute distress Other: thin HENMT: General nose exam: Normal nares present Eyes: General: appearance normal, both eyes and all related structures Neck: Neck: no JVD Resp: Auscultation: clear to auscultation bilaterally Cardio: Rate: regular rate Rhythm: regular rhythm GI: Inspection: non-distended GI Palp: Yes Soft to palpation and No Tenderness to palpation present (GI) Auscultation: normal bowel sounds Skin: General skin exam: normal color Neuro: Speech: normal speech Motor exam (neuro): Normal motor muscle tone present throughout Extrem: General: normal to inspection Psych: Mental Status: mental status grossly normal Objective Data Vital Signs Vital Signs: Vital Signs - 24 hr 03/18/21 14:31 03/18/21 16:15 03/18/21 16:25 Temperature 97.5 F L Pulse Rate 69 69 64 Respiratory Rate 18 19 19 Blood Pressure 199/84 H 133/54 L 143/65 H Pulse Oximetry 98 98 100 03/18/21 16:35 03/18/21 20:00 03/18/21 20:15 Temperature Pulse Rate 69 63 75 Respiratory Rate 19 18 Blood Pressure 172/70 H Pulse Oximetry 100 03/18/21 20:25 03/18/21 22:13 03/18/21 22:14 Temperature 97.3 F L Pulse Rate 69 89 Respiratory Rate 20 20 Blood Pressure 184/85 H 137/67 Pulse Oximetry 96 03/19/21 00:00 03/19/21 04:00 03/19/21 05:56 Temperature 98.5 F Pulse Rate 80 86 90 Respiratory Rate 18 Blood Pressure 152/77 H Pulse Oximetry 97 03/19/21 08:00 03/19/21 09:18 03/19/21 09:22 Temperature Pulse Rate 86 83 Respiratory Rate 20 Blood Pressure Pulse Oximetry 95 03/19/21 09:25 03/19/21 10:20 03/19/21 10:23 Temperature Pulse Rate 84 Respiratory Rate 20 Blood Pressure 184/73 H 147/74 H Pulse Oximetry 03/19/21 10:26 03/19/21 12:00 Temperature Pulse Rate 83 Respiratory Rate Blood Pressure 124/57 L Pulse Oximetry Intake/Output Intake/Output: Intake & Output 03/16/21 03/17/21 03/18/21 03/19/21 23:59 23:59 23:59 23:59 Intake Total 4020 3990 3020 1000 Output Total 1025 4475 1350 775 Balance 2995 -066 1670 225 Meds/Results Medications: Active Medications Generic Name Dose Route Start Last Admin Trade Name Freq PRN Reason Stop Dose Admin Acetaminophen 650 mg 03/17/21 16:19 Acetaminophen 325 Mg Tablet PO Q4H PRN Mild Pain (1-3) or Fever Hydrocodone Bitart/Acetaminophen 1 tab 03/17/21 16:19 Hydrocodone/Acetaminophen (*Crx) 5-325 Mg Tablet PO Q6H PRN Pain Rated 4-6 Albuterol 2.5 mg 03/16/21 08:00 03/19/21 09:20 Albutero
--- NOTE | 2021-03-19 15:28 | PM.PNGS ---
Progress Note: A&P Assessment and Plan (1) Colonic mass: Onset Date: ~02/2021 Code(s): K63.89 - Other specified diseases of intestine Status: Acute Assessment and Plan: CT on admission suggested a thickened area of the splenic flexure possibly causing a partial obstruction with some radiopaque material just proximal to this and some distention of the proximal transverse colon. CEA normal. Underwent colonoscopy yesterday that showed a malignant-appearing mass in the proximal transverse colon closer to the hepatic flexure. He was unable to traverse the mass with a 5 mm lumen opening. Biopsies were taken and spot ink was injected distal to the mass. He also had findings of polyps in the sigmoid and transverse colon, which were removed and sent for pathology. We discussed options with the patient again today, and Dr. Diego has spoke with his daughter Val with the patient's permission. Given the polyps that were removed, we would prefer to await their pathology prior to proceeding with surgery in case there was any malignancy that needed to be resected in another location. Dr. Diego called Dr. Cook to discuss the case and requested the pathology results be given as soon as possible since this will help decipher his plans for surgery. Will keep the patient on a clear liquid diet for now and start Clinimix peripherally for nutrition. Hopefully, we will get the pathology results back in the next 1-2 days and can plan for surgery accordingly as soon as possible. (2) Acute on chronic blood loss anemia: Code(s): D62 - Acute posthemorrhagic anemia Status: Acute Assessment and Plan: Hgb 8.4 today. Remains stable. Received 2 units PRBCs total. (3) CKD (chronic kidney disease): Onset Date: Unknown Code(s): N18.9 - Chronic kidney disease, unspecified Status: Acute (4) Essential (primary) hypertension: Onset Date: Unknown Code(s): I10 - Essential (primary) hypertension Status: Acute (5) Chronic obstructive pulmonary disease, unspecified: Onset Date: Unknown Code(s): J44.9 - Chronic obstructive pulmonary disease, unspecified Status: Acute (6) Severe protein-calorie malnutrition: Onset Date: Unknown Code(s): E43 - Unspecified severe protein-calorie malnutrition Status: Acute Assessment and Plan: Will start PPN today for nutrition. Dietitian has been consulted. (7) Tobacco abuse: Code(s): Z72.0 - Tobacco use Status: Acute Additional Plan I have discussed the patient's case and plan of care with Dr. Diego. Subjective Subjective Date/Time Seen: 03/19/21 13:28 Patient reports: no new complaints, feels better, pain is less, flatus, bowel movement and afebrile Interval history: Patient seen and examined this afternoon. He talks appropriately and answers questions. He is disoriented to place, but oriented to time and self. He reports feeling well today and not having any abdominal pain. He is tolerating clear liquids without any nausea, vomiting, or bloating. He reports flatus but no BM since the colonoscopy. No other complaints at this time. Review of Systems Review of Systems: All systems reviewed & are unremarkable except as noted in HPI and below Exam Const: General: comfortable, no acute distress, alert and awake Orientation/consciousness: oriented to person, No oriented to place and oriented to time Resp: Effort & Inspection: normal respiratory effort Auscultation: clear to auscultation bilaterally Cardio: Rate: regular rate GI: Inspection: non-distended GI Palp: Yes Soft to palpation, Yes Tenderness to palpation present (GI) (mild tenderness in RLQ), No Guarding due to palpation present (GI), No Hernia present, No Palpable mass present and No Rebound tenderness present Auscultation: normal bowel sounds Rectal Exam: deferred Skin: General skin exam: pallor Neuro: General: moves all extremiti
[2021-03-19] MEDS: FAT EMULSIONS IV 20% 250 ML 20.83 ML IVPB (16:44)
[2021-03-19] MEDS: AMINO ACIDS 4.25%/D5W/LYTES/CA 2,000 ML 80 ML IV CONT (16:44)
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
[2021-03-19 18:24] LABS: Glucose Point of Care 115 mg/dl (65-105)
[2021-03-19] MEDS: FERROUS SULFATE 324 MG TABLET PO (19:09)
[2021-03-19] MEDS: HYDROcodone/acetaminophen (*CRX) 5-325 MG TABLET 1 TAB PO (20:25)
[2021-03-20] VITALS (18 sets, daily range): BP systolic 134–180; BP diastolic 67–114; PULSE 70–88; RESP 14–20; TEMP 36.5–37.4; O2SAT 96–98
[2021-03-20 00:04] LABS: Glucose Point of Care 124 mg/dl (65-105)
[2021-03-20 05:31] LABS: Basophils Percent Auto 0.5 % (0.2-1.2); Eosinophils Absolute Auto 0.1 K/mm3 (0-0.3); Eosinophils Percent Auto 2.6 % (0-4.4); Hematocrit 25.5 % (42.0-52.0); Hemoglobin 7.8 g/dL (14.0-18.0); Immature Granulocyte Absolute 0.03 K/mm3 (0.00-0.031); Immature Granulocyte Percent A 0.7 % (0-0.5); Lymphocytes Absolute Auto 0.35 K/mm3 (0.9-3.2); Lymphocytes Percent Auto 8.3 % (18.3-44.2); Mean Corpuscular HGB Conc 30.6 g/dl (32-36); Mean Corpuscular Volume 88.2 fl (80-100); Mean Platelet Volume 10.8 fl (7.4-10.4); Monocytes Absolute Auto 0.5 K/mm3 (0.1-0.6); Monocytes Percent Auto 11.3 % (2.6-8.5); Neutrophils Absolute Auto 3.3 K/mm3 (1.3-6.7); Neutrophils Percent Auto 76.6 % (45.5-73.1); Platelet Count Result 164 k/mm3 (150-375); Red Blood Count 2.89 M/mm3 (4.6-6.20); Red Cell Distribution Width 18.2 % (11.5-14.5); White Blood Count 4.2 K/mm3 (4.5-10.0)
[2021-03-20 05:51] LABS: Anion Gap 5 mmol/L (8-16); Blood Urea Nitrogen 14 mg/dL (9-20); Calcium 8.3 mg/dL (8.4-10.2); Carbon Dioxide 23 mmol/L (22-30); Chloride 107 mmol/L (98-107); Estimated CRCL calculation 37 ml/min; Estimated Glomerular Filt Rate > 60; Glucose 115 mg/dL (65-110); Phosphorus 3.3 mg/dL (2.5-4.5); Potassium 4.2 mmol/L (3.4-5.0); Sodium 135 mmol/L (137-145)
[2021-03-20 06:22] LABS: Triglycerides 74 mg/dL (<150)
[2021-03-20 06:25] LABS: Glucose Point of Care 104 mg/dl (65-105)
[2021-03-20 07:55] LABS: Glucose Point of Care 104 mg/dl (65-105)
[2021-03-20] MEDS: CHOLECALCIFEROL 1,000 UNITS TABLET 2000 UNITS PO (08:15)
[2021-03-20] MEDS: ALBUTEROL SULFATE NEB 2.5 MG/0.5 ML INH INHALATION ×2 (08:16→19:33)
[2021-03-20] MEDS: FINASTERIDE 5 MG TABLET PO (08:16)
[2021-03-20] MEDS: VALSARTAN 160 MG TABLET 320 MG PO (08:16)
[2021-03-20] MEDS: FERROUS SULFATE 324 MG TABLET PO ×2 (08:16→17:33)
[2021-03-20] MEDS: FLUTICASONE/SALMETEROL 230-21 MCG INHALER 1 PUFF 2 PUFF INHALATION ×2 (08:16→19:33)
[2021-03-20] MEDS: CYANOCOBALAMIN 1,000 MCG TABLET 1000 MCG PO (08:16)
[2021-03-20] MEDS: PANTOPRAZOLE SODIUM IV 40 MG VIAL IV PUSH (08:16)
--- NOTE | 2021-03-20 10:51 | PCNFU ---
Nutrition Follow-Up Complete: Involuntary weight loss related to GI issues as evidenced by significant weight loss (14% x 2-3 months). Goal: Patient to meet estimated nutritional needs and maintain weight. Patient is progressing towards goal. We will continue current goal. Pt current nutrition is Clear liquids with Ensure surgery TID with Clinimix 4.25/5 at 80 ml/hr with 250 ml of 20% Lipid Emulsion. Last recorded weight is 55.2 kg, no new weight to report. Bowel Motility:+BM reported 03/19 Labs Reviewed:Glu 115, Na 135, Hct 25.5,Hgb 7.8 Meds Noted:[place], Vit B12, Ferrous Sulfate, Proscar, Protonix, Diovan, Vit D, Clinimix 4.25/5 at 80 ml/hr with 250 ml of 20% Lipid Emulsion Additional Notes: Nutrition follow up. Patient started on PPN at 80 ml/hr providing 1153 kcals and 82 gms protein. Patient is tolerating liquids. Ensure Surgery providing patient with an additional 220 kcals and 18 gms protein. Plans for colectomy 03/21. Monitoring: Follow up every Thursday and Thursday
--- NOTE | 2021-03-20 11:57 | PM.IMPN ---
Progress Note: A&P Assessment and Plan (1) Colonic mass: Onset Date: ~02/2021 Code(s): K63.89 - Other specified diseases of intestine Status: Acute Assessment and Plan: Evident on CT abdomen/pelvis at presentation. CT showed a partially obstructing mass at the splenic flexure with colonic distension and multiple accumulated pills proximal to the mass Appreciate GI and general surgery consultation Colonoscopy performed 03/18 which showed large mass with partial obstruction, likely consistent with colon cancer. Biopsies collected and are pending. Tumor was marked with spot ink for identification Appreciate general surgery consultation and further recommendations Tentatively planning for right hemicolectomy partial colon resection tomorrow Oncology has been consulted for evaluation given concerns for malignancy. 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 Appreciate gastroenterology consultation He has undergone transfusion of 2 units pRBC. H&H remaining stable following transfusion Continue IV Protonix Continue ferrous sulfate b.i.d. (3) Blood in stool: Onset Date: ~02/2021 Code(s): K92.1 - Melena Status: Acute Assessment and Plan: As above (4) Weight loss: Code(s): R63.4 - Abnormal weight loss Status: Acute Assessment and Plan: Reports 11 lb weight loss since December 2020 and in total around 35 lb weight loss over the past year. Concerns for malignancy in light of colonic mass Continue with dietary supplements and encourage PO intake when diet is advanced. PPN as above (5) Syncope and collapse: Onset Date: ~03/15/21 Code(s): R55 - Syncope and collapse Status: Acute Assessment and Plan: He has had 2 recent episodes of syncope prior to admission, once when getting into the shower and another following a bowel movement. This was likely due to his severe anemia He was discharged with Gamal rankin during his last hospitalization but reported he had not been using these Carotid Doppler showed less than 50% stenosis of the bilateral internal carotid arteries Head CT showed no acute intracranial findings Echo with normal EF and no significant valvular disease Fall precautions (6) Tobacco abuse: Code(s): Z72.0 - Tobacco use Status: Acute Assessment and Plan: Patient reportedly smokes 4 cigarettes per day and has a long smoking history. Smoking cessation is imperative and will continue to be reinforced Subjective Date/time seen: 03/20/21 11:57 Interval history: Date of service: 03/20/2021 Tino Alexander is an 81-year-old male with a history of chronic kidney disease, COPD, prostate cancer, hyperlipidemia, hypertension, and recent anemia with weight loss and occult blood in stool who is seen in follow-up for colonic mass and anemia. He is feeling well today. He denies abdominal pain but does note some soreness in his abdominal region when he turns to get out of bed. Otherwise no complaints. He is tolerating his clear liquids. No nausea or vomiting. No bowel movements today. Denies fever, chills, shortness breath, cough, chest pain, dizziness, or lightheadedness. He is still feeling weak but is able to get up and get around with assistance. Review of Systems Review of Systems: All systems reviewed & are unremarkable except as noted in HPI and below Exam Narrative: Mr. Alexander is a thin, frail, chronically ill-appearing 81-year-old male who is sitting up in bed.
[2021-03-20 12:03] LABS: Glucose Point of Care 100 mg/dl (65-105)
[2021-03-20] MEDS: NEOMYCIN SULFATE 500 MG TAB 1000 MG PO ×3 (12:14→20:58)
[2021-03-20] MEDS: ERYTHROMYCIN 250 MG TABLET 1000 MG PO ×3 (12:15→20:58)
--- NOTE | 2021-03-20 13:28 | WPDANESEPPF ---
Anes - Initial Pre Proc Eval Procedure: Operation Date: 03/18/21 14:30 Proposed Procedures p Colonoscopy - Mart Collins MD Operation Date: 03/21/21 12:30 Proposed Procedures p Hand Assisted Laparoscopic Right Hemicolectomy - David Diego MD Date/Time: 03/20/21 13:28 Surgeon: Raeann Suarez PA-C Pre Op Diagnosis: GI Bleed, Colon Mass Patient Data Age: 81 Gender: M Height: 1.8 m Weight: 55.2 kg Last Vital Signs Temp 36.5 C 03/20/21 05:39 Pulse 77 03/20/21 08:17 Resp 18 03/20/21 08:17 BP 176/68 H 03/20/21 05:40 Pulse Ox 98 03/20/21 05:39 Allergies Allergy/AdvReac Type Severity Reaction Status Date / Time simvastatin Allergy Unknown Muscle pain Verified 03/15/21 23:54 Home Medications Medication Instructions Recorded Confirmed Type finasteride 5 mg tablet 5 mg PO DAILY 12/07/19 03/16/21 History cyanocobalamin (vitamin B-12) 1,000 mcg PO QAM #30 tablet 01/09/21 03/16/21 Rx 1,000 mcg tablet famotidine 20 mg tablet 20 mg PO BID #60 tablet 01/09/21 03/16/21 Rx ferrous sulfate 325 mg (65 mg 325 mg PO BID #60 tablet 01/09/21 03/16/21 Rx iron) tablet ipratropium 0.5 mg-albuterol 3 mg 3 ml INHALATION BID PRN #180 ml 01/09/21 03/16/21 Rx (2.5 mg base)/3 mL nebulization soln valsartan 320 mg tablet 320 mg PO DAILY #30 tablet 01/09/21 03/16/21 Rx albuterol sulfate 2 puff INHALATION Q4-6H PRN 03/16/21 03/16/21 History cholecalciferol (vitamin D3) 50 mcg PO DAILY 03/16/21 03/16/21 History fluticasone propion-salmeterol 1 inh INHALATION Q12H 03/16/21 03/16/21 History [Wixela Inhub] Laboratory Tests 03/19/21 03/19/21 03/20/21 17:35 23:59 05:16 WBC 4.2 K/mm3 L K/mm3 (4.5-10.0) RBC 2.89 M/mm3 L M/mm3 (4.6-6.20) Hgb 7.8 g/dL L g/dL (14.0-18.0) Hct 25.5 % L % (42.0-52.0) MCV 88.2 fl fl (80-100) MCH 27.0 pg pg (26-34) MCHC 30.6 g/dl L g/dl (32-36) RDW 18.2 % H % (11.5-14.5) Plt Count 164 k/mm3 k/mm3 (150-375) MPV 10.8 fl H fl (7.4-10.4) Immature Gran % (Auto) 0.7 % H % (0-0.5) Neut % (Auto) 76.6 % H % (45.5-73.1) Lymph % (Auto) 8.3 % L % (18.3-44.2) Winston % (Auto) 11.3 % H % (2.6-8.5) Eos % (Auto) 2.6 % % (0-4.4) Baso % (Auto) 0.5 % % (0.2-1.2) Lymph # (Auto) 0.35 K/mm3 L K/mm3 (0.9-3.2) Winston # (Auto) 0.5 K/mm3 K/mm3 (0.1-0.6) Eos # (Auto) 0.1 K/mm3 K/mm3 (0-0.3) Baso # (Auto) 0.0 K/mm3 K/mm3 (0.0-0.1) Abs Immat Gran (auto) 0.03 K/mm3 K/mm3 (0.00-0.031) Absolute Neuts (auto) 3.3 K/mm3 K/mm3 (1.3-6.7) Absolute Nucleated RBC 0.0 K/mm3 K/mm3 (0.0-0.012) Nucleated RBC % 0.0 % % (0.0-0.2) Sodium Potassium Chloride Carbon Dioxide Anion Gap BUN Creatinine Estim Creat Clear Calc Estimated GFR Glucose POC Capillary Glucose 115 mg/dl H mg/dl 124 mg/dl H mg/dl (65-105) (65-105) Calcium Phosphorus Triglycerides Blood Type Antibody Screen 03/20/21 03/20/21 03/20/21 05:16 05:16 06:01 WBC RBC Hgb Hct MCV MCH MCHC RDW Plt Count MPV Immature Gran % (Auto) Neut % (Auto) Lymph % (Auto) Winston % (Auto) Eos % (Auto) Baso % (Auto) Lymph # (Auto) Winston # (Auto) Eos # (Auto) Baso # (Auto) Abs Immat Gran (auto) Absolute Neuts (auto) Absolute Nucleated RBC Nucleated RBC % Sodium 135 mmol/L L mmol/L (1
--- NOTE | 2021-03-20 14:59 | PCWOUND ---
KIMANI Received orders to shanon suggested ostomy placements sites to both sides of the abdomen. had patient sit up, lay flat to determine best ostomy placement. marked both sites with black marker X and covered with Tegaderm dressings.
--- NOTE | 2021-03-20 15:32 | WPDGIPROGNO ---
Progress Note: A&P Assessment and Plan (1) Colonic mass: Onset Date: ~02/2021 Code(s): K63.89 - Other specified diseases of intestine Status: Acute Assessment and Plan: large mass with partial obstruction highly consistent with colon cancer, biopsies showed high grade dysplasia but clinical picture and endoscopic finding is suggestive of adenocarcinoma surgery to perform partial colectomy most likely tomorrow oncology also on board (2) Acute on chronic blood loss anemia: Code(s): D62 - Acute posthemorrhagic anemia Status: Acute Assessment and Plan: hb low but stable from colonoscopy finding (3) Syncope and collapse: Onset Date: ~03/15/21 Code(s): R55 - Syncope and collapse Status: Acute Assessment and Plan: on presentation due to symptomatic anemia no more episodes (4) Severe protein-calorie malnutrition: Onset Date: Unknown Code(s): E43 - Unspecified severe protein-calorie malnutrition Status: Acute Assessment and Plan: started on parenteral nutrition (5) Blood in stool: Onset Date: ~02/2021 Code(s): K92.1 - Melena Status: Acute Subjective Date/time seen: 03/20/21 15:32 Interval history: tolerating liquid diet, no new events Review of Systems Review of Systems: All systems reviewed & are unremarkable except as noted in HPI and below Exam Const: General: comfortable and no acute distress Other: thin, frail elderly HENMT: General nose exam: Normal nares present Eyes: General: appearance normal, both eyes and all related structures Neck: Neck: no JVD Resp: Auscultation: clear to auscultation bilaterally Cardio: Rate: regular rate Rhythm: regular rhythm GI: Inspection: non-distended GI Palp: Yes Soft to palpation and No Tenderness to palpation present (GI) Auscultation: normal bowel sounds Skin: General skin exam: normal color Neuro: Speech: normal speech Motor exam (neuro): Normal motor muscle tone present throughout Extrem: General: normal to inspection Psych: Mental Status: mental status grossly normal Objective Data Vital Signs Vital Signs: Vital Signs - 24 hr 03/19/21 16:00 03/19/21 20:00 03/19/21 20:28 Temperature Pulse Rate 82 90 Respiratory Rate Blood Pressure Pulse Oximetry 96 03/19/21 20:30 03/19/21 20:37 03/19/21 21:25 Temperature 98.9 F Pulse Rate 81 82 90 Respiratory Rate 20 20 18 Blood Pressure 165/73 H Pulse Oximetry 95 03/20/21 00:00 03/20/21 04:00 03/20/21 05:39 Temperature 97.7 F Pulse Rate 74 70 77 Respiratory Rate 20 Blood Pressure 143/72 H Pulse Oximetry 98 03/20/21 05:40 03/20/21 08:17 03/20/21 14:00 Temperature 97.9 F Pulse Rate 77 70 Respiratory Rate 18 20 Blood Pressure 176/68 H 141/67 H Pulse Oximetry 97 Intake/Output Intake/Output: Intake & Output 03/17/21 03/18/21 03/19/21 03/20/21 23:59 23:59 23:59 23:59 Intake Total 3990 3020 2910 850 Output Total 4475 1350 1525 800 Balance -485 1670 1385 50 Meds/Results Medications: Active Medications Generic Name Dose Route Start Last Admin Trade Name Freq PRN Reason Stop Dose Admin Acetaminophen 650 mg 03/17/21 16:19 Acetaminophen 325 Mg Tablet PO Q4H PRN Mild Pain (1-3) or Fever Hydrocodone Bitart/Acetaminophen 1 tab 03/17/21 16:19 03/19/21 20:25 Hydrocodone/Acetaminophen (*Crx) 5-325 Mg Tablet PO 1 tab Q6H PRN Administration Pain Rated 4-6 Albuterol 2.5 mg 03/16/21 08:00 03/20/21 08:16 Albuterol Sulfate Neb 2.5 Mg/0.5 Ml Inh INHALATION 2.5 mg Q12HRT LUIS ALBERTO Administration Albuterol 2.5 mg 03/16/21 05:35 Albuterol Sulfate Neb 2.5 Mg/0.5 Ml Inh INHALATION Q6H PRN wheezing Cyanocobalamin 1,000 mcg 03/16/21 09:00 03/20/21 08:16 Cyanocobalamin 1,000 Mcg Tablet PO 1,000 mcg QAM LUIS ALBERTO Administration Erythromycin 1,000 mg 03/20/21 12:00 03/20/21 13:10 Erythrom
[2021-03-20 16:38] LABS: Glucose Point of Care 141 mg/dl (65-105)
[2021-03-20] MEDS: AMINO ACIDS 4.25%/D5W/LYTES/CA 2,000 ML 80 ML IV CONT (17:30)
[2021-03-20] MEDS: FAT EMULSIONS IV 20% 250 ML 20.83 ML IVPB (17:31)
[2021-03-20] MEDS: SODIUM CHLORIDE 0.9% IV 250 ML 30 ML IV CONT (17:32)
[2021-03-20] MEDS: MAGNESIUM CITRATE 300 ML BTL PO (17:33)
[2021-03-20] MEDS: IPRATROPIUM BR 0.02% INH SOLN 0.5 MG/2.5 ML VIAL INHALATION (19:33)
--- NOTE | 2021-03-20 21:46 | PM.PNGS ---
Progress Note: A&P Assessment and Plan (1) Colonic mass: Onset Date: ~02/2021 Code(s): K63.89 - Other specified diseases of intestine Status: Acute Assessment and Plan: CT on admission suggested a thickened area of the splenic flexure possibly causing a partial obstruction with some radiopaque material just proximal to this and some distention of the proximal transverse colon. CEA normal. Underwent A bowel prep and then colonoscopy on that showed a malignant-appearing mass in the proximal transverse colon closer to the hepatic flexure. Dr. Duran was unable to traverse the mass with a 5 mm lumen opening. Biopsies were taken and spot ink was injected distal to the mass. He also had findings of polyps in the sigmoid and transverse colon, which were removed and sent for pathology. We discussed options with the patient again today, and Dr. Diego has spoke with his daughter Val with the patient's permission. Given the polyps that were removed, we would prefer to await their pathology prior to proceeding with surgery in case there was any malignancy that needed to be resected in another location. Dr. Diego called Dr. Cook to discuss the case and requested the pathology results be given as soon as possible since this will help decipher his plans for surgery. Will keep the patient on a clear liquid diet for now and start Clinimix peripherally for nutrition. Hopefully, we will get the pathology results back in the next 1-2 days and can plan for surgery accordingly as soon as possible. 03/20/2021. Put him in a pathology report discussed with Dr. Cook reveals that there is severe atypia in the biopsies of the colon that are available in view of the mass which was nearly obstructing most likely cancer. All the polyps more distal to this were tubular adenomas or serrated adenomas without signs of dysplasia. Therefore most the left colon can be preserved if possible. I also talked with the stoma therapy nurses and they will Marcaine for ostomies on both sides in case I do need to leave him with 1. Will discuss surgery and answer any more questions with the patient the morning. His surgery is tentatively scheduled for noon on 03/21/2021 since he is been on clears he will only need a bottle Mag citrate for prep and he will be taking pneumonitis neuro through my send antibiotic prep orally to help reduce the chances of infection. After discussing his situation with Anesthesia they would like him to have 1 unit of packed red blood cells in view of his somewhat low hemoglobin between 7 and 8 and his other risk factors including cardiovascular disease and history of smoking. (2) Acute on chronic blood loss anemia: Code(s): D62 - Acute posthemorrhagic anemia Status: Acute Assessment and Plan: Hgb 7.8 today. Remains stable. Received 2 units PRBCs total. (3) CKD (chronic kidney disease): Onset Date: Unknown Code(s): N18.9 - Chronic kidney disease, unspecified Status: Acute (4) Essential (primary) hypertension: Onset Date: Unknown Code(s): I10 - Essential (primary) hypertension Status: Acute (5) Chronic obstructive pulmonary disease, unspecified: Onset Date: Unknown Code(s): J44.9 - Chronic obstructive pulmonary disease, unspecified Status: Acute (6) Severe protein-calorie malnutrition: Onset Date: Unknown Code(s): E43 - Unspecified severe protein-calorie malnutrition Status: Acute Assessment and Plan: Will start PPN today for nutrition. Dietitian has been consulted. (7) Tobacco abuse: Code(s): Z72.0 - Tobacco use Status: Acute Additional Plan I have discussed the patient's case and plan of care with Dr. Diego. Subjective Subjective Date/Time Seen: 03/20/21 08:46 patient seen early this morning. I answered his questions about plans for laparoscopic colon surgery. I explained that CT scan showed alivia
[2021-03-21] VITALS (22 sets, daily range): BP systolic 120–188; BP diastolic 55–98; PULSE 70–93; RESP 12–22; TEMP 35.8–37.1; O2SAT 91–100
[2021-03-21 05:09] LABS: Glucose Point of Care 100 mg/dl (65-105)
[2021-03-21 05:14] LABS: Basophils Percent Auto 0.4 % (0.2-1.2); Eosinophils Absolute Auto 0.1 K/mm3 (0-0.3); Eosinophils Percent Auto 1.8 % (0-4.4); Hematocrit 28.6 % (42.0-52.0); Immature Granulocyte Percent A 1.5 % (0-0.5); Lymphocytes Absolute Auto 0.32 K/mm3 (0.9-3.2); Lymphocytes Percent Auto 4.7 % (18.3-44.2); Mean Corpuscular HGB Conc 31.5 g/dl (32-36); Mean Corpuscular Hemoglobin 26.7 pg (26-34); Mean Corpuscular Volume 84.9 fl (80-100); Mean Platelet Volume 11.4 fl (7.4-10.4); Monocytes Absolute Auto 0.6 K/mm3 (0.1-0.6); Monocytes Percent Auto 9.1 % (2.6-8.5); Neutrophils Absolute Auto 5.6 K/mm3 (1.3-6.7); Neutrophils Percent Auto 82.5 % (45.5-73.1); Platelet Count Result 160 k/mm3 (150-375); Red Blood Count 3.37 M/mm3 (4.6-6.20); Red Cell Distribution Width 17.3 % (11.5-14.5); White Blood Count 6.7 K/mm3 (4.5-10.0)
[2021-03-21 05:44] LABS: Alanine Aminotransferase 10 U/L (4-50); Albumin Level 2.6 g/dL (3.5-5.1); Alkaline Phosphatase 61 U/L (38-126); Anion Gap 4 mmol/L (8-16); Aspartate Amino Transferase 23 U/L (17-59); Bilirubin,Total 0.4 mg/dL (0.2-1.3); Blood Urea Nitrogen 25 mg/dL (9-20); Calcium 8.3 mg/dL (8.4-10.2); Carbon Dioxide 23 mmol/L (22-30); Chloride 104 mmol/L (98-107); Estimated CRCL calculation 47 ml/min; Estimated Glomerular Filt Rate > 60; Glucose 106 mg/dL (65-110); Magnesium 2.5 mg/dL (1.6-2.3); Phosphorus 2.7 mg/dL (2.5-4.5); Sodium 131 mmol/L (137-145)
[2021-03-21 07:53] LABS: Glucose Point of Care 116 mg/dl (65-105)
[2021-03-21] MEDS: IPRATROPIUM BR 0.02% INH SOLN 0.5 MG/2.5 ML VIAL INHALATION ×2 (08:29→20:34)
[2021-03-21] MEDS: FLUTICASONE/SALMETEROL 230-21 MCG INHALER 1 PUFF 2 PUFF INHALATION ×2 (08:30→20:35)
[2021-03-21] MEDS: ALBUTEROL SULFATE NEB 2.5 MG/0.5 ML INH INHALATION ×2 (08:30→20:34)
[2021-03-21] MEDS: VALSARTAN 160 MG TABLET 320 MG PO (09:08)
--- NOTE | 2021-03-21 10:36 | PC.NURSE ---
To OR per bed, IV Saline Locked. Report given to Wilmer.
[2021-03-21] MEDS: LACTATED RINGERS 1,000 ML 30 ML IV CONT ×2 (11:00→18:10)
[2021-03-21] MEDS: ACETAMINOPHEN 500 MG TABLET 1000 MG PO (11:23)
--- NOTE | 2021-03-21 11:32 | WPDHPUPDATE1 ---
History and Physical Update Update Date/Time: 03/21/21 11:32 History and Physical has been reviewed including all inpt .progress note throughout the admission, including an updated exam of the patient. There are NO changes in the patient's condition. He tolerated the antibiotic bowel prep and the blood transfusion yesterday. Risks, benefits, and alternatives have been discussed and questions answered. Patient agrees to proceed with procedure.
--- NOTE | 2021-03-21 12:00 | WPDANESPNB ---
Anes - Peripheral Nerve Block Date/Time: 03/21/21 12:00 I have discussed with the patient/family/POA the placement of a peripheral nerve block for post-operative pain management, including associated risks, benefits, complications, and side effects. Alternative methods of post-operative analgesia were detailed. Questions were solicited and answers provided to the satisfaction of the patient/family/POA. Time-Out: A pre-procedural Time-Out was completed immediately before starting the procedure and confirmed: Patient Identification, Site, Procedure, Patient Position and the Availability of Requisite Equipment. Clinical Indications: Acute post-operative pain management requested by the operative surgeon. Nerve Block Insertion Note Anes-nerve block: other (bilateral T6 grant block) Patient position: other (sitting) Skin prep: chlorhexidine Needle: 22 gauge, stimulating, insulated echogenic needle. Needle length: 80 mm Technique: ultrasound (in plane) Injectate: bupivacaine 0.25% with epi 5 mcg/ml (40cc) Observations: tolerated well Complications: none Procedure start time:: 1150 Procedure end time:: 115
[2021-03-21] MEDS: ALVIMOPAN 12 MG CAPSULE PO (12:03)
[2021-03-21] MEDS: metroNIDAZOLE 500 MG/ISO 100ML 500 MG/100 ML BAG 100 MG IVPB ×2 (12:50→23:26)
[2021-03-21] MEDS: ceFAZolin 2 GM/D5W 50 ML 2 GM/50 ML BAG IVPB (12:50)
[2021-03-21] MEDS: LIDO 2%/EPINEPHRINE 1:100,000 20 ML VIAL INFILTRATE (14:53)
--- NOTE | 2021-03-21 16:34 | PM.IMPN ---
Progress Note: A&P Assessment and Plan (1) Colonic mass: Onset Date: ~02/2021 Code(s): K63.89 - Other specified diseases of intestine Status: Acute Assessment and Plan: Evident on CT abdomen/pelvis at presentation. CT showed a partially obstructing mass at the splenic flexure with colonic distension and multiple accumulated pills proximal to the mass Appreciate GI and general surgery consultation Colonoscopy performed 03/18 which showed large mass with partial obstruction, likely consistent with colon cancer. Biopsies collected and are pending. Tumor was marked with spot ink for identification Appreciate general surgery consultation and further recommendations Undergoing surgery today with Dr. 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 Appreciate gastroenterology consultation He has undergone transfusion of 2 units pRBC. H&H remaining stable following transfusion Continue IV Protonix Continue ferrous sulfate b.i.d. (3) Blood in stool: Onset Date: ~02/2021 Code(s): K92.1 - Melena Status: Acute Assessment and Plan: As above (4) Weight loss: Code(s): R63.4 - Abnormal weight loss Status: Acute Assessment and Plan: Reports 11 lb weight loss since December 2020 and in total around 35 lb weight loss over the past year. Likely secondary to malignancy from colonic mass Continue with dietary supplements and encourage PO intake when diet is advanced. PPN as above (5) Syncope and collapse: Onset Date: ~03/15/21 Code(s): R55 - Syncope and collapse Status: Acute Assessment and Plan: He has had 2 recent episodes of syncope prior to admission, once when getting into the shower and another following a bowel movement. This was likely due to his severe anemia He was discharged with Gamal rankin during his last hospitalization but reported he had not been using these Carotid Doppler showed less than 50% stenosis of the bilateral internal carotid arteries Head CT showed no acute intracranial findings Echo with normal EF and no significant valvular disease Fall precautions Subjective Date/time seen: 03/21/21 16:34 Interval history: Date of service: 03/21/2021 Tino Alexander is an 81-year-old male with a history of chronic kidney disease, COPD, prostate cancer, hyperlipidemia, hypertension, and recent anemia with weight loss and occult blood in stool who is seen in follow-up for colonic mass and anemia. The patient was taken down to preop this morning around 10:30 a.m. I called down to surgery 4:30 p.m. and he was in the OR, therefore I was not able to evaluate the patient today. Objective Data Vital Signs Vital Signs: Vital Signs - 24 hr 03/20/21 17:37 03/20/21 18:00 03/20/21 19:00 Temperature 98.2 F 99.3 F 98.7 F Pulse Rate 79 76 79 Respiratory Rate 14 14 16 Blood Pressure 180/84 H 166/73 H 177/75 H Pulse Oximetry 96 97 98 03/20/21 19:34 03/20/21 19:41 03/20/21 19:42 Temperature 98.8 F Pulse Rate 88 86 88 Respiratory Rate 20 20 18 Blood Pressure 170/67 H Pulse Oximetry 96 96 03/20/21 20:00 03/20/21 20:50 03/20/21 20:52 Temperature 98.8 F 98.8 F Pulse Rate 88 88 Respiratory Rate 17 17 Blood Pressure 169/114 H 169/114 H 172/68 H Pulse Oximetry 96 96 03/20/21 21:00 03/21/21 00:00 03/21/21 01:01 Temperature 98.8 F 98.8 F Pulse Rate 87 93 80 Respiratory Rate 16 17 Blood Pressure 179/68 H 152/98 H Pulse Oximetry 97 98 03/21
--- NOTE | 2021-03-21 18:48 | W.PM.PROC2 ---
Procedure Note - Detailed Date of Procedure 03/21/21 Pre-op Diagnosis Transverse Colon Mass (Severe Dysplasia by colonoscopy biopsies). Post-op Diagnosis other (Distal transverse colon mass with known severe Dysplasia by biopsies.) Procedure Performed 1. Partial left hemicolectomy (distal transverse colon and proximal descending colon ), with splenic flexure takedown 2. colo-colonic anastomosis mid transverse colon to distal descending colon. Surgeon David Diego MD Knife Glazer Elaine [facility]ERMAN OR 1st assist Anesthesia general Indications The patient presented with anemia, syncope, and subsequently was found on colonoscopy and CT scan to have a near obstructing colon mass. Colonic biopsies revealed severe dysplasia in a nearly obstructing mass within the colon. There were also multiple serrated polyps in the more distal sigmoid colon. The opening in the mass seemed to be less than [address] Duran did not feel he should take the chance of going passed it. Therefore, we do not know status of the right colon. On CT scan there were multiple radiopaque pills or solidified stool balls containing bismuth from patient taking laxative or antacid medications that were somewhat backed-up behind the area of the mass. Also noted were some enlarged lymph nodes in the mesentery adjacent to this mass. Therefore, since this was symptomatic and nearly obstructing was felt that he should stay after the colonoscopy and have only clear liquids and go ahead and have the mass resected so he would not become obstructed. Findings Thin cachectic patient with known previous history of prostate cancer. An approximately 6 cm diameter mass in the distal transverse colon with spot dye just distal to it which was noted to be in the distal transverse colon well left of midline as it began to sweep up toward the splenic flexure. No other specific abnormalities noted within the abdomen on next initial exploration other than some adhesions between the proximal transverse colon and the gallbladder. Description of Procedure The patient was seen in the preop area prior to his surgery and appropriately marked near the umbilicus for abdominal surgery. I had a thorough discussion with him and his daughter Val sargent about the risks, benefits, and possible complications of a laparoscopic colon resection for near obstructing colon tumor. He knows that he may need an ostomy. He has been marked for this by our ostomy and wound care nurses. His daughter knows that this is a risky surgery for her father in that he has multiple risk factors for infection, bleeding, and wound problems. This is because of the fact that he has lost weight in neglecting the GI bleeding that he was having along with his weakness and weight loss. He also is a smoker and has peripheral vascular disease. Because of his smoking he has COPD which makes him increased risk for postop pneumonia and wound complications such as hernia in the future. However, because his tumor is nearly obstructing it is probably not puri to consider trying to build him up nutrition puri or wait longer before surgery. Patient was brought to the operating room and prior to being placed supine Dr. Asif Austin placed an erector spinae block for postop pain control. See anesthesia notes. Patient was then placed supine with a footboard at his feet and with his arms tucked. The abdomen was then prepped and draped in usual sterile fashion widely to allow for complete access and laparoscopic approach for his transverse colon tumor. Paris catheter was placed prior to the prep and drape. An OG tube was placed. Following this we performed a time-out confirming the site of surgery the patient and the planned operation along with the equipment available. Following this local anesthetic using 2% xylocaine with epinephrine was infiltrated at and along the left side of his umbilicus and I made a vertical incision about 1.5 cm in size and did a cu
[2021-03-21] MEDS: fentaNYL CITRATE INJ (*CRX) 100 MCG/2 ML VIAL 25 MCG IV PUSH ×2 (18:51→19:01)
[2021-03-21 20:26] LABS: Hematocrit 28.6 % (42.0-52.0)
[2021-03-21] MEDS: AMINO ACIDS 4.25%/D5W/LYTES/CA 2,000 ML 80 ML IV CONT (20:56)
[2021-03-21] MEDS: FAT EMULSIONS IV 20% 250 ML 20.8 ML IVPB (20:58)
[2021-03-21] MEDS: LACTATED RINGERS 1,000 ML 50 ML IV CONT (20:59)
[2021-03-21] MEDS: GABAPENTIN 300 MG CAPSULE 600 MG PO (23:22)
[2021-03-21 23:38] LABS: Glucose Point of Care 198 mg/dl (65-105)
[2021-03-22] VITALS (25 sets, daily range): BP systolic 134–172; BP diastolic 5–70; PULSE 60–79; RESP 16–20; TEMP 36.2–36.7; O2SAT 92–97
--- NOTE | 2021-03-22 02:29 | PC.NURSE ---
Pt returned from OR by bed at 2100
[2021-03-22] MEDS: HYDROcodone/acetaminophen (*CRX) 7.5-325 MG TABLET 1 TAB PO ×2 (05:11→11:25)
[2021-03-22 05:27] LABS: Basophils Percent Auto 0.2 % (0.2-1.2); Immature Granulocyte Absolute 0.11 K/mm3 (0.00-0.031); Immature Granulocyte Percent A 1.2 % (0-0.5); Lymphocytes Percent Auto 2.2 % (18.3-44.2); Mean Corpuscular Hemoglobin 27.2 pg (26-34); Mean Corpuscular Volume 87.6 fl (80-100); Mean Platelet Volume 11.6 fl (7.4-10.4); Monocytes Absolute Auto 0.6 K/mm3 (0.1-0.6); Monocytes Percent Auto 6.1 % (2.6-8.5); Neutrophils Absolute Auto 8.3 K/mm3 (1.3-6.7); Neutrophils Percent Auto 90.3 % (45.5-73.1); Platelet Count Result 160 k/mm3 (150-375); Red Blood Count 3.31 M/mm3 (4.6-6.20); White Blood Count 9.2 K/mm3 (4.5-10.0)
[2021-03-22 05:43] LABS: Anion Gap 6 mmol/L (8-16); Blood Urea Nitrogen 28 mg/dL (9-20); Calcium 8.8 mg/dL (8.4-10.2); Carbon Dioxide 21 mmol/L (22-30); Chloride 104 mmol/L (98-107); Estimated CRCL calculation 47 ml/min; Estimated Glomerular Filt Rate > 60; Glucose 201 mg/dL (65-110); Phosphorus 3.6 mg/dL (2.5-4.5); Potassium 4.5 mmol/L (3.4-5.0); Sodium 131 mmol/L (137-145)
[2021-03-22] MEDS: metroNIDAZOLE 500 MG/ISO 100ML 500 MG/100 ML BAG 100 MG IVPB ×3 (06:13→21:27)
[2021-03-22] MEDS: MORPHINE SULFATE (*CRX) 4 MG/ML INJ IV PUSH (06:20)
[2021-03-22 07:42] LABS: Glucose Point of Care 176 mg/dl (65-105)
[2021-03-22] MEDS: VALSARTAN 160 MG TABLET 320 MG PO (09:14)
[2021-03-22] MEDS: PANTOPRAZOLE SODIUM IV 40 MG VIAL IV PUSH (09:14)
[2021-03-22] MEDS: CYANOCOBALAMIN 1,000 MCG TABLET 1000 MCG PO (09:14)
[2021-03-22] MEDS: FINASTERIDE 5 MG TABLET PO (09:14)
[2021-03-22] MEDS: ENOXAPARIN 30 MG/0.3 ML SYRINGE SUB-Q (09:15)
[2021-03-22] MEDS: ALBUTEROL SULFATE NEB 2.5 MG/0.5 ML INH INHALATION ×2 (09:42→20:05)
[2021-03-22] MEDS: FLUTICASONE/SALMETEROL 230-21 MCG INHALER 1 PUFF 2 PUFF INHALATION ×2 (09:47→20:06)
[2021-03-22 12:00] LABS: Glucose Point of Care 128 mg/dl (65-105)
--- NOTE | 2021-03-22 12:33 | PCNFU ---
Nutrition Follow-Up Complete: Involuntary weight loss related to GI issues as evidenced by significant weight loss (14% x 2-3 months). Goal: Patient to meet estimated nutritional needs and maintain weight. Patient is progressing towards goal. We will continue current goal. Pt current nutrition is Clinimix 4.25/5 at 80ml/hr with 250 ml of 20% Lipid Emulsion. Last recorded weight is 64.8 kg, up from 55.2 kg on admit. Bowel Motility:+BM reported 03/21 Labs Reviewed:Glu 201, BUN 28, Na 131, Hct 29.0,Hgb 9.0 Meds Noted:Diovan, LR, Atrovent, Morphine Sulfate, Lovenox, Texline,Flagyl, Protonix. Additional Notes: Nutrition follow up. Patient seen today. NPO post opt-partial hemicolectomy 03/21. Patient states he had been tolerating clear liquids. PPN plus Lipids is providing patient with an additional 1153 kcals and 82 gms protein. Recommend advancing diet as tolerated. Once PO intake improves recommend d/c PPN. Monitoring: every Thursday and Thursday.
--- NOTE | 2021-03-22 13:14 | WPDANESPN ---
Anes - Prog Note Post-Op Date/Time: 03/22/21 13:14 Cardiovascular status: normal Respiratory status: normal Airway patency: baseline Mental status: baseline Post-Op hydration status: normal Vital Signs: Last Vital Signs Temp 36.4 C 03/22/21 09:17 Pulse 79 03/22/21 12:00 Resp 18 03/22/21 09:55 BP 164/63 H 03/22/21 09:17 Pulse Ox 96 03/22/21 09:45 Pain Score (VAS): 2 I/O: Intake & Output 03/21/21 03/22/21 03/22/21 23:59 07:59 15:59 Intake Total 2450 300 490 Output Total 220 900 Balance 2230 -600 490 Laboratory Tests 03/22/21 05:07 03/22/21 05:07 03/21/21 03/21/21 03/22/21 20:03 23:33 05:07 WBC 9.2 RBC 3.31 L Hgb 9.0 L 9.0 L Hct 28.6 L 29.0 L MCV 87.6 MCH 27.2 MCHC 31.0 L RDW 18.0 H Plt Count 160 MPV 11.6 H Immature Gran % (Auto) 1.2 H Neut % (Auto) 90.3 H Lymph % (Auto) 2.2 L [place] % (Auto) 6.1 Eos % (Auto) 0.0 Baso % (Auto) 0.2 Lymph # (Auto) 0.20 L [place] # (Auto) 0.6 Eos # (Auto) 0.0 Baso # (Auto) 0.0 Abs Immat Gran (auto) 0.11 H Absolute Neuts (auto) 8.3 H Absolute Nucleated RBC 0.0 Nucleated RBC % 0.0 Sodium Potassium Chloride Carbon Dioxide Anion Gap BUN Creatinine Estim Creat Clear Calc Estimated GFR Glucose POC Capillary Glucose 198 H Calcium Phosphorus 03/22/21 03/22/21 03/22/21 05:07 06:59 11:40 WBC RBC Hgb Hct MCV MCH MCHC RDW Plt Count MPV Immature Gran % (Auto) Neut % (Auto) Lymph % (Auto) [place] % (Auto) Eos % (Auto) Baso % (Auto) Lymph # (Auto) [place] # (Auto) Eos # (Auto) Baso # (Auto) Abs Immat Gran (auto) Absolute Neuts (auto) Absolute Nucleated RBC Nucleated RBC % Sodium 131 L Potassium 4.5 Chloride 104 Carbon Dioxide 21 L Anion Gap 6 L BUN 28 H Creatinine 1.00 Estim Creat Clear Calc 47 Estimated GFR > 60 Glucose 201 H POC Capillary Glucose 176 H 128 H Calcium 8.8 Phosphorus 3.6 Post-procedural complaints: none Patient Feedback: Patient satisfied with anesthetic care.
--- NOTE | 2021-03-22 13:27 | PM.PNGS ---
Progress Note: A&P Assessment and Plan (1) Colonic mass: Onset Date: ~02/2021 Code(s): K63.89 - Other specified diseases of intestine Status: Acute Assessment and Plan: Await return of bowel function. Will start clear liquids today, stop LR and continue PPN. Paris out tomorrow if doing well. H/H stable postop. Continue to monitor. Increase activity. (2) Acute on chronic blood loss anemia: Code(s): D62 - Acute posthemorrhagic anemia Status: Acute (3) Severe protein-calorie malnutrition: Onset Date: Unknown Code(s): E43 - Unspecified severe protein-calorie malnutrition Status: Acute Subjective Subjective Date/Time Seen: 03/22/21 13:27 Interval history: Doing well on POD#1. Pain controlled. No BM yet. Tolerating sips. Exam GI: Inspection: non-distended and incision (intact with glue) GI Palp: Yes Soft to palpation and Yes Tenderness to palpation present (GI) (incisional) Auscultation: Hypoactive bowel sounds present Objective Data Vital Signs Vital Signs: Vital Signs - 24 hr 03/21/21 18:10 03/21/21 18:25 03/21/21 18:40 Temperature 35.8 C L 36.0 C L 36.1 C L Pulse Rate 80 76 74 Respiratory Rate 18 22 H 22 H Blood Pressure 132/82 149/79 H 153/70 H Pulse Oximetry 100 99 98 03/21/21 18:55 03/21/21 19:10 03/21/21 19:25 Temperature 36.1 C L 36.6 C Pulse Rate 76 78 76 Respiratory Rate 16 16 18 Blood Pressure 137/66 132/63 128/66 Pulse Oximetry 94 97 96 03/21/21 19:32 03/21/21 19:47 03/21/21 20:17 Temperature 36.1 C L 36.2 C L 36.3 C L Pulse Rate 77 73 70 Respiratory Rate 12 12 16 Blood Pressure 120/56 L 124/55 L 126/66 Pulse Oximetry 91 92 94 03/21/21 20:30 03/21/21 20:32 03/21/21 20:35 Temperature Pulse Rate 73 76 74 Respiratory Rate 18 18 Blood Pressure Pulse Oximetry 94 94 03/21/21 20:44 03/21/21 21:15 03/22/21 00:00 Temperature 36.3 C L Pulse Rate 72 70 66 Respiratory Rate 18 16 Blood Pressure 126/66 Pulse Oximetry 94 03/22/21 01:17 03/22/21 04:00 03/22/21 05:17 Temperature 36.2 C L 36.4 C L Pulse Rate 73 63 72 Respiratory Rate 20 16 Blood Pressure 152/70 H 172/65 H Pulse Oximetry 97 95 03/22/21 08:00 03/22/21 09:17 03/22/21 09:19 Temperature 36.4 C Pulse Rate 60 70 Respiratory Rate 16 16 Blood Pressure 164/63 H Pulse Oximetry 96 95 03/22/21 09:40 03/22/21 09:45 03/22/21 09:55 Temperature Pulse Rate 74 67 Respiratory Rate 18 18 Blood Pressure Pulse Oximetry 96 03/22/21 12:00 Temperature Pulse Rate 79 Respiratory Rate Blood Pressure Pulse Oximetry Intake/Output Intake/Output: Intake & Output 03/19/21 03/20/21 03/21/21 03/22/21 23:59 23:59 23:59 23:59 Intake Total 2910 4575 3710 790 Output Total 1525 2050 1220 900 Balance 1385 2525 2490 -110 Meds/Results Medications: Active Medications Generic Name Dose Route Start Last Admin Trade Name Freq PRN Reason Stop Dose Admin Acetaminophen 650 mg 03/17/21 16:19 Acetaminophen 325 Mg Tablet PO Q4H PRN Mild Pain (1-3) or Fever Hydrocodone Bitart/Acetaminophen 1 tab 03/17/21 16:19 03/19/21 20:25 Hydrocodone/Acetaminophen (*Crx) 5-325 Mg Tablet PO 1 tab Q6H PRN Administration Pain Rated 4-6 Hydrocodone Bitart/Acetaminophen 1 tab 03/21/21 19:32 03/22/21 11:25 Hydrocodone/Acetaminophen (*Crx) 7.5-325 Mg Tablet PO 1 tab Q6H PRN Administration Pain Rated 7-10 Albuterol 2.5 mg 03/16/21 08:00 03/22/21 09:42 Albuterol Sulfate Neb 2.5 Mg/0.5 Ml Inh INHALATION 2.5 mg Q12HRT LUIS ALBERTO Administration Albuterol 2.5 mg 03/16/21 05:35 Albuterol Sulfate Neb 2.5 Mg/0.5 Ml Inh INHALATION Q6H PRN wheezing Alvimopan 12 mg 03/22/21 21:00 Alvimopan 12 Mg Capsule PO 03/29/21 20:59 Q12HR LUIS ALBERTO Cyanocobalamin 1,000 mcg 03/16/21 09:00 03/22/21 09:14 Cyanocobalamin 1,000 Mcg Tablet PO 1,000 mcg QAM LUIS ALBERTO Administration Enoxapari
[2021-03-22 15:53] LABS: Triglycerides 50 mg/dL (<150)
--- NOTE | 2021-03-22 15:54 | P.PNIM_ITS ---
Progress Note: A&P Assessment and Plan (1) Colonic mass: Onset Date: ~02/2021 Code(s): K63.89 - Other specified diseases of intestine Status: Acute Assessment and Plan: Evident on CT abdomen/pelvis at presentation. CT showed a partially obstructing mass at the splenic flexure with colonic distension and multiple accumulated pills proximal to the mass * Appreciate GI and general surgery consultation * Colonoscopy performed 03/18 which showed large mass with partial obstruction, likely consistent with colon cancer. Biopsies collected and are pending. Tumor was marked with spot ink for identification * Underwent partial left hemicolectomy with splenic flexure takedown and colo- colonic anastomosis of the mid transverse colon to distal descending colon on 03/22/[address] Diego. * Oncology has been consulted and he will need outpatient follow-up * Analgesics and antiemetics available as needed * CEA is normal * Continue PPN started on 03/19/21. * Advanced to clear liquids. Advance diet per General surgery * Biopsy of transverse colon mass showed fragmented tubulovillous adenoma with high-grade dysplasia and ulceration * He did briefly require supplemental O2 postoperatively but has already been weaned to room air * Continue with Paris catheter postoperatively (2) Acute on chronic blood loss anemia: Code(s): D62 - Acute posthemorrhagic anemia Status: Acute Assessment and Plan: Presented with anemia and found to be Hemoccult positive at outpatient GI visit. * Appreciate gastroenterology consultation * He has undergone transfusion of 2 units pRBC. H&H remaining stable following transfusion * Continue IV Protonix * PO ferrous sulfate on hold (3) Blood in stool: Onset Date: ~02/2021 Code(s): K92.1 - Melena Status: Acute Assessment and Plan: As above (4) Weight loss: Code(s): R63.4 - Abnormal weight loss Status: Acute Assessment and Plan: Reports 11 lb weight loss since December 2020 and in total around 35 lb weight loss over the past year. Secondary to malignancy from colonic mass * Continue with dietary supplements and encourage PO intake when diet is advanced. PPN and clear liquids as above (5) Syncope and collapse: Onset Date: ~03/15/21 Code(s): R55 - Syncope and collapse Status: Acute Assessment and Plan: He has had 2 recent episodes of syncope prior to admission, once when getting into the shower and another following a bowel movement. * This was likely due to his severe anemia * He was discharged with Gamal rankin during his last hospitalization but reported he had not been using these * Carotid Doppler showed less than 50% stenosis of the bilateral internal carotid arteries * Head CT showed no acute intracranial findings * Echo with normal EF and no significant valvular disease * Fall precautions Subjective Date/time seen: 03/22/21 15:54 Interval history: Date of service: 03/22/2021 Tino Alexander is an 81-year-old male with a history of chronic kidney disease, COPD, prostate cancer, hyperlipidemia, hypertension, and recent anemia with weight loss and occult blood in stool who is seen in follow-up for colonic mass and anemia. He underwent partial left hemicolectomy yesterday and tolerated this procedure well. He is having abdominal pain today. He reports this 30 is paid with 10/10 but has improved today to about 5/10. He states with certain movements or with coughing the pain shoots back up. He has been
--- NOTE | 2021-03-22 15:54 | PM.IMPN ---
Progress Note: A&P Assessment and Plan (1) Colonic mass: Onset Date: ~02/2021 Code(s): K63.89 - Other specified diseases of intestine Status: Acute Assessment and Plan: Evident on CT abdomen/pelvis at presentation. CT showed a partially obstructing mass at the splenic flexure with colonic distension and multiple accumulated pills proximal to the mass Appreciate GI and general surgery consultation Colonoscopy performed 03/18 which showed large mass with partial obstruction, likely consistent with colon cancer. Biopsies collected and are pending. Tumor was marked with spot ink for identification Underwent partial left hemicolectomy with splenic flexure takedown and colo-colonic anastomosis of the mid transverse colon to distal descending colon on 03/22/[address] Diego. Oncology has been consulted and he will need outpatient follow-up Analgesics and antiemetics available as needed CEA is normal Continue PPN started on 03/19/21. Advanced to clear liquids. Advance diet per General surgery Biopsy of transverse colon mass showed fragmented tubulovillous adenoma with high-grade dysplasia and ulceration He did briefly require supplemental O2 postoperatively but has already been weaned to room air Continue with Paris catheter postoperatively (2) Acute on chronic blood loss anemia: Code(s): D62 - Acute posthemorrhagic anemia Status: Acute Assessment and Plan: Presented with anemia and found to be Hemoccult positive at outpatient GI visit. Appreciate gastroenterology consultation He has undergone transfusion of 2 units pRBC. H&H remaining stable following transfusion Continue IV Protonix PO ferrous sulfate on hold (3) Blood in stool: Onset Date: ~02/2021 Code(s): K92.1 - Melena Status: Acute Assessment and Plan: As above (4) Weight loss: Code(s): R63.4 - Abnormal weight loss Status: Acute Assessment and Plan: Reports 11 lb weight loss since December 2020 and in total around 35 lb weight loss over the past year. Secondary to malignancy from colonic mass Continue with dietary supplements and encourage PO intake when diet is advanced. PPN and clear liquids as above (5) Syncope and collapse: Onset Date: ~03/15/21 Code(s): R55 - Syncope and collapse Status: Acute Assessment and Plan: He has had 2 recent episodes of syncope prior to admission, once when getting into the shower and another following a bowel movement. This was likely due to his severe anemia He was discharged with Gamal rankin during his last hospitalization but reported he had not been using these Carotid Doppler showed less than 50% stenosis of the bilateral internal carotid arteries Head CT showed no acute intracranial findings Echo with normal EF and no significant valvular disease Fall precautions Subjective Date/time seen: 03/22/21 15:54 Interval history: Date of service: 03/22/2021 Tino Alexander is an 81-year-old male with a history of chronic kidney disease, COPD, prostate cancer, hyperlipidemia, hypertension, and recent anemia with weight loss and occult blood in stool who is seen in follow-up for colonic mass and anemia. He underwent partial left hemicolectomy yesterday and tolerated this procedure well. He is having abdominal pain today. He reports this 30 is paid with 10/10 but has improved today to about 5/10. He states with certain movements or with coughing the pain shoots back up. He has been squeezing onto a pillow to help alleviate some of this discomfort. He has been tolerating sips of water. He denies shortness of breath. Denies chest pain or palpitations. Denies nausea or vomiting. He reports passing some gas. Denies issues with his Paris catheter. He has not been up from bed today. Denies dizziness, lightheadedness, fevers, chills. Review of Systems Review of Systems: All systems revie
[2021-03-22 16:29] LABS: Glucose Point of Care 145 mg/dl (65-105)
[2021-03-22] MEDS: IPRATROPIUM BR 0.02% INH SOLN 0.5 MG/2.5 ML VIAL INHALATION (20:05)
[2021-03-22] MEDS: AMINO ACIDS 4.25%/D5W/LYTES/CA 2,000 ML 80 ML IV CONT (20:53)
[2021-03-22] MEDS: FAT EMULSIONS IV 20% 250 ML 20.8 ML IVPB (20:53)
[2021-03-22] MEDS: ALVIMOPAN 12 MG CAPSULE PO (21:27)
[2021-03-23] VITALS (13 sets, daily range): BP systolic 149–186; BP diastolic 69–89; PULSE 63–87; RESP 16–22; TEMP 36–36.7; O2SAT 93–98
[2021-03-23 00:34] LABS: Glucose Point of Care 125 mg/dl (65-105)
[2021-03-23] MEDS: HYDROcodone/acetaminophen (*CRX) 7.5-325 MG TABLET 1 TAB PO ×2 (04:36→19:58)
[2021-03-23 05:50] LABS: Basophils Percent Auto 0.1 % (0.2-1.2); Hematocrit 29.7 % (42.0-52.0); Hemoglobin 9.5 g/dL (14.0-18.0); Immature Granulocyte Absolute 0.14 K/mm3 (0.00-0.031); Immature Granulocyte Percent A 1.3 % (0-0.5); Lymphocytes Absolute Auto 0.21 K/mm3 (0.9-3.2); Lymphocytes Percent Auto 1.9 % (18.3-44.2); Mean Corpuscular Hemoglobin 27.5 pg (26-34); Mean Corpuscular Volume 86.1 fl (80-100); Mean Platelet Volume 11.7 fl (7.4-10.4); Monocytes Percent Auto 8.7 % (2.6-8.5); Neutrophils Absolute Auto 9.6 K/mm3 (1.3-6.7); Platelet Count Result 185 k/mm3 (150-375); Red Blood Count 3.45 M/mm3 (4.6-6.20); Red Cell Distribution Width 18.1 % (11.5-14.5); White Blood Count 10.9 K/mm3 (4.5-10.0)
[2021-03-23] MEDS: metroNIDAZOLE 500 MG/ISO 100ML 500 MG/100 ML BAG 100 MG IVPB ×3 (05:51→21:51)
[2021-03-23] MEDS: MORPHINE SULFATE (*CRX) 4 MG/ML INJ IV PUSH ×2 (05:52→08:41)
[2021-03-23 05:58] LABS: Anion Gap 6 mmol/L (8-16); Blood Urea Nitrogen 34 mg/dL (9-20); Calcium 8.9 mg/dL (8.4-10.2); Carbon Dioxide 23 mmol/L (22-30); Chloride 105 mmol/L (98-107); Estimated CRCL calculation 47 ml/min; Estimated Glomerular Filt Rate > 60; Glucose 134 mg/dL (65-110); Phosphorus 3.7 mg/dL (2.5-4.5); Potassium 4.6 mmol/L (3.4-5.0); Sodium 134 mmol/L (137-145)
[2021-03-23 06:00] LABS: Glucose Point of Care 135 mg/dl (65-105)
[2021-03-23 06:35] LABS: Anisocytosis 2+ (NORMAL); Burr Cells 1+ (NORMAL)
[2021-03-23 06:36] LABS: Platelet Estimate Adequate (Adequate)
[2021-03-23 08:03] LABS: Glucose Point of Care 129 mg/dl (65-105)
[2021-03-23] MEDS: CYANOCOBALAMIN 1,000 MCG TABLET 1000 MCG PO (08:41)
[2021-03-23] MEDS: FINASTERIDE 5 MG TABLET PO (08:41)
[2021-03-23] MEDS: ENOXAPARIN 30 MG/0.3 ML SYRINGE SUB-Q (08:41)
[2021-03-23] MEDS: PANTOPRAZOLE SODIUM IV 40 MG VIAL IV PUSH (08:42)
--- NOTE | 2021-03-23 09:11 | PCPTNOTE ---
Pt underwent L hemicolectomy - will need new orders to resume PT.
--- NOTE | 2021-03-23 10:34 | P.PNIM_ITS ---
Progress Note: A&P Assessment and Plan (1) Colon cancer: Code(s): C18.9 - Malignant neoplasm of colon, unspecified Status: Acute Assessment and Plan: Colonic mass evident on CT abdomen/pelvis at presentation. CT showed a partially obstructing mass at the splenic flexure with colonic distension and multiple accumulated pills proximal to the mass * Appreciate GI and general surgery consultation * Colonoscopy performed 03/18 which showed large mass with partial obstruction, consistent with colon cancer. Biopsies collected. Tumor was marked with spot ink for identification * Biopsy of transverse colon mass showed fragmented tubulovillous adenoma with high-grade dysplasia and ulceration * Underwent partial left hemicolectomy with splenic flexure takedown and colo- colonic anastomosis of the mid transverse colon to distal descending colon on 03/22/[address] Diego. Pathology from surgical specimens pending * Oncology has been consulted and he will need outpatient follow-up * Analgesics and antiemetics available as needed * CEA is normal * Continue PPN started on 03/19/21. * Continue Flagyl * Clear liquid diet with dietary supplements. Advance diet per General surgery (2) Acute on chronic blood loss anemia: Code(s): D62 - Acute posthemorrhagic anemia Status: Acute Assessment and Plan: Presented with anemia and found to be Hemoccult positive at outpatient GI visit. * Appreciate gastroenterology consultation * He has undergone transfusion of 2 units pRBC. H&H remaining stable following transfusion * Continue IV Protonix * PO ferrous sulfate on hold (3) Blood in stool: Onset Date: ~02/2021 Code(s): K92.1 - Melena Status: Acute Assessment and Plan: As above (4) Weight loss: Code(s): R63.4 - Abnormal weight loss Status: Acute Assessment and Plan: Reports 11 lb weight loss since December 2020 and in total around 35 lb weight loss over the past year. Secondary to malignancy from colonic mass * Continue with dietary supplements and encourage PO intake when diet is advanced. PPN and clear liquids as above (5) Syncope and collapse: Onset Date: ~03/15/21 Code(s): R55 - Syncope and collapse Status: Acute Assessment and Plan: He has had 2 recent episodes of syncope prior to admission, once when getting into the shower and another following a bowel movement. * This was likely due to his severe anemia * He was discharged with Gamal rankin during his last hospitalization but reported he had not been using these * Carotid Doppler showed less than 50% stenosis of the bilateral internal carotid arteries * Head CT showed no acute intracranial findings * Echo with normal EF and no significant valvular disease * Fall precautions (6) Hypertension: Code(s): I10 - Essential (primary) hypertension Status: Acute Assessment and Plan: Blood pressure is elevated this morning prior to administration of antihypertensives at 181/69. * Continue valsartan 320 mg daily * Monitor blood pressure trends closely. Adjust medication regimen as needed for adequate BP control Subjective Date/time seen: 03/23/21 10:34 Interval history: Date of service: 03/23/2021 Tino Alexander is an 81-year-old male with a history of chronic kidney disease, COPD, prostate cancer, hyperlipidemia, hypertension, and recent anemia with weight loss and occult blood in stool who is seen in follow-up for colonic mass and anemia
--- NOTE | 2021-03-23 10:34 | PM.IMPN ---
Progress Note: A&P Assessment and Plan (1) Colon cancer: Code(s): C18.9 - Malignant neoplasm of colon, unspecified Status: Acute Assessment and Plan: Colonic mass evident on CT abdomen/pelvis at presentation. CT showed a partially obstructing mass at the splenic flexure with colonic distension and multiple accumulated pills proximal to the mass Appreciate GI and general surgery consultation Colonoscopy performed 03/18 which showed large mass with partial obstruction, consistent with colon cancer. Biopsies collected. 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 Diego. Pathology from surgical specimens pending Oncology has been consulted and he will need outpatient follow-up Analgesics and antiemetics available as needed CEA is normal Continue PPN started on 03/19/21. Continue Flagyl Clear liquid diet with dietary supplements. Advance diet per General surgery (2) Acute on chronic blood loss anemia: Code(s): D62 - Acute posthemorrhagic anemia Status: Acute Assessment and Plan: Presented with anemia and found to be Hemoccult positive at outpatient GI visit. Appreciate gastroenterology consultation He has undergone transfusion of 2 units pRBC. H&H remaining stable following transfusion Continue IV Protonix PO ferrous sulfate on hold (3) Blood in stool: Onset Date: ~02/2021 Code(s): K92.1 - Melena Status: Acute Assessment and Plan: As above (4) Weight loss: Code(s): R63.4 - Abnormal weight loss Status: Acute Assessment and Plan: Reports 11 lb weight loss since December 2020 and in total around 35 lb weight loss over the past year. Secondary to malignancy from colonic mass Continue with dietary supplements and encourage PO intake when diet is advanced. PPN and clear liquids as above (5) Syncope and collapse: Onset Date: ~03/15/21 Code(s): R55 - Syncope and collapse Status: Acute Assessment and Plan: He has had 2 recent episodes of syncope prior to admission, once when getting into the shower and another following a bowel movement. This was likely due to his severe anemia He was discharged with Gamal rankin during his last hospitalization but reported he had not been using these Carotid Doppler showed less than 50% stenosis of the bilateral internal carotid arteries Head CT showed no acute intracranial findings Echo with normal EF and no significant valvular disease Fall precautions (6) Hypertension: Code(s): I10 - Essential (primary) hypertension Status: Acute Assessment and Plan: Blood pressure is elevated this morning prior to administration of antihypertensives at 181/69. Continue valsartan 320 mg daily Monitor blood pressure trends closely. Adjust medication regimen as needed for adequate BP control Subjective Date/time seen: 03/23/21 10:34 Interval history: Date of service: 03/23/2021 Tino Alexander is an 81-year-old male with a history of chronic kidney disease, COPD, prostate cancer, hyperlipidemia, hypertension, and recent anemia with weight loss and occult blood in stool who is seen in follow-up for colonic mass and anemia. He is s/p partial left hemicolectomy. He is doing well today. Continues to endorse abdominal soreness with movement. This morning after having some coffee he did develop abdominal pain which he rated as 8/10, but states that quickly improved. He has otherwise been tolerating clear liquids. His [place] catheter was removed and he has not had any issues urinating. Still no bowel function. He reports he has not passed gas and no bowel movements.
--- NOTE | 2021-03-23 11:04 | PM.PNGS ---
Progress Note: A&P Assessment and Plan (1) Colon cancer: Code(s): C18.9 - Malignant neoplasm of colon, unspecified Status: Acute Assessment and Plan: advanced to full liquid diet. Discontinue PPN after current bag. (2) Acute on chronic blood loss anemia: Code(s): D62 - Acute posthemorrhagic anemia Status: Acute (3) Severe protein-calorie malnutrition: Onset Date: Unknown Code(s): E43 - Unspecified severe protein-calorie malnutrition Status: Acute Subjective Subjective Date/Time Seen: 03/23/21 11:04 Interval history: Bowels moving and pain well controlled. Getting up out of bed some. Appetite improving. Exam GI: Inspection: non-distended and incision ( Intact with glue) GI Palp: Yes Soft to palpation, No Tenderness to palpation present (GI) and No Guarding due to palpation present (GI) Auscultation: normal bowel sounds Objective Data Vital Signs Vital Signs: Vital Signs - 24 hr 03/22/21 12:00 03/22/21 14:00 03/22/21 14:03 Temperature 36.2 C L 36.2 C L Pulse Rate 79 68 74 Respiratory Rate 16 16 Blood Pressure 165/66 H 157/62 H Pulse Oximetry 94 94 03/22/21 14:06 03/22/21 16:00 03/22/21 17:17 Temperature 36.2 C L 36.4 C L Pulse Rate 71 70 70 Respiratory Rate 18 16 Blood Pressure 134/65 162/60 H Pulse Oximetry 92 96 03/22/21 20:00 03/22/21 20:06 03/22/21 20:08 Temperature Pulse Rate 71 70 70 Respiratory Rate 18 18 Blood Pressure Pulse Oximetry 96 03/22/21 20:14 03/22/21 21:17 03/22/21 22:00 Temperature 36.5 C 36.5 C Pulse Rate 70 73 73 Respiratory Rate 18 16 16 Blood Pressure 152/59 H 152/5 H Pulse Oximetry 95 95 03/22/21 22:05 03/22/21 22:59 03/23/21 00:00 Temperature 36.7 C 36.7 C Pulse Rate 76 75 63 Respiratory Rate 16 16 Blood Pressure 159/62 H 152/56 H Pulse Oximetry 94 95 03/23/21 04:00 03/23/21 06:00 Temperature 36.7 C Pulse Rate 77 72 Respiratory Rate 16 Blood Pressure 181/69 H Pulse Oximetry 94 Intake/Output Intake/Output: Intake & Output 03/20/21 03/21/21 03/22/21 03/23/21 23:59 23:59 23:59 23:59 Intake Total 4575 3710 4197 1390 Output Total 2050 1220 1800 900 Balance 2525 2490 5249 490 Meds/Results Medications: Active Medications Generic Name Dose Route Start Last Admin Trade Name Freq PRN Reason Stop Dose Admin Acetaminophen 650 mg 03/17/21 16:19 Acetaminophen 325 Mg Tablet PO Q4H PRN Mild Pain (1-3) or Fever Hydrocodone Bitart/Acetaminophen 1 tab 03/17/21 16:19 03/19/21 20:25 Hydrocodone/Acetaminophen (*Crx) 5-325 Mg Tablet PO 1 tab Q6H PRN Administration Pain Rated 4-6 Hydrocodone Bitart/Acetaminophen 1 tab 03/21/21 19:32 03/23/21 04:36 Hydrocodone/Acetaminophen (*Crx) 7.5-325 Mg Tablet PO 1 tab Q6H PRN Administration Pain Rated 7-10 Albuterol 2.5 mg 03/16/21 08:00 03/22/21 20:05 Albuterol Sulfate Neb 2.5 Mg/0.5 Ml Inh INHALATION 2.5 mg Q12HRT LUIS ALBERTO Administration Albuterol 2.5 mg 03/16/21 05:35 Albuterol Sulfate Neb 2.5 Mg/0.5 Ml Inh INHALATION Q6H PRN wheezing Alvimopan 12 mg 03/22/21 21:00 03/22/21 21:27 Alvimopan 12 Mg Capsule PO 03/29/21 20:59 12 mg Q12HR LUIS ALBERTO Administration Cyanocobalamin 1,000 mcg 03/16/21 09:00 03/23/21 08:41 Cyanocobalamin 1,000 Mcg Tablet PO 1,000 mcg QAM LUIS ALBERTO Administration Enoxaparin Sodium 30 mg 03/22/21 09:00 03/23/21 08:41 Enoxaparin 30 Mg/0.3 Ml Syringe SUB-Q 30 mg DAILY LUIS ALBERTO Administration Finasteride 5 mg 03/16/21 09:00 03/23/21 08:41 Finasteride 5 Mg Tablet PO 5 mg DAILY LUIS ALBERTO Administration Hydralazine HCl 10 mg 03/18/21 16:09 Hydralazine Hcl 20 Mg/Ml Vial IV PUSH Q8H PRN Systolic BP >180, diast >100 Dextrose 1,000 mls @ 50 mls/hr 03/19/21 15:26 Dextrose 10% IV CONT .Q20H PRN if PN is interrupted Metronidazole 500 mg in 100 mls @ 100 mls/hr 03/21/21 22:00 03/23/21 07
[2021-03-23] MEDS: IPRATROPIUM BR 0.02% INH SOLN 0.5 MG/2.5 ML VIAL INHALATION ×3 (11:11→20:17)
[2021-03-23] MEDS: ALBUTEROL SULFATE NEB 2.5 MG/0.5 ML INH INHALATION ×2 (11:11→20:17)
[2021-03-23] MEDS: FLUTICASONE/SALMETEROL 230-21 MCG INHALER 1 PUFF 2 PUFF INHALATION ×2 (11:12→20:17)
[2021-03-23] MEDS: ALVIMOPAN 12 MG CAPSULE PO ×2 (12:55→20:04)
[2021-03-23] MEDS: VALSARTAN 160 MG TABLET 320 MG PO (12:55)
[2021-03-23 13:38] LABS: Glucose Point of Care 116 mg/dl (65-105)
[2021-03-23] MEDS: hydrALAZINE HCL 20 MG/ML VIAL 10 MG IV PUSH (20:07)
[2021-03-23] MEDS: MORPHINE SULFATE (*CRX) 2 MG/ML INJ IV PUSH (21:55)
[2021-03-24] VITALS (15 sets, daily range): BP systolic 99–161; BP diastolic 57–77; PULSE 74–91; RESP 18–20; TEMP 36.2–36.6; O2SAT 93–94
[2021-03-24] MEDS: MORPHINE SULFATE (*CRX) 4 MG/ML INJ IV PUSH ×3 (01:11→14:54)
[2021-03-24 01:19] LABS: Glucose Point of Care 117 mg/dl (65-105)
[2021-03-24 05:19] LABS: Basophils Percent Auto 0.3 % (0.2-1.2); Hematocrit 28.1 % (42.0-52.0); Hemoglobin 8.8 g/dL (14.0-18.0); Immature Granulocyte Absolute 0.11 K/mm3 (0.00-0.031); Immature Granulocyte Percent A 1.8 % (0-0.5); Lymphocytes Absolute Auto 0.29 K/mm3 (0.9-3.2); Lymphocytes Percent Auto 4.8 % (18.3-44.2); Mean Corpuscular HGB Conc 31.3 g/dl (32-36); Mean Corpuscular Hemoglobin 26.8 pg (26-34); Mean Corpuscular Volume 85.7 fl (80-100); Monocytes Percent Auto 16.1 % (2.6-8.5); Neutrophils Absolute Auto 4.6 K/mm3 (1.3-6.7); Platelet Count Result 181 k/mm3 (150-375); Red Blood Count 3.28 M/mm3 (4.6-6.20); Red Cell Distribution Width 18.1 % (11.5-14.5)
[2021-03-24 05:35] LABS: Anion Gap 4 mmol/L (8-16); Blood Urea Nitrogen 37 mg/dL (9-20); Calcium 8.9 mg/dL (8.4-10.2); Carbon Dioxide 28 mmol/L (22-30); Chloride 104 mmol/L (98-107); Estimated CRCL calculation 53 ml/min; Estimated Glomerular Filt Rate > 60; Glucose 104 mg/dL (65-110); Phosphorus 3.4 mg/dL (2.5-4.5); Potassium 4.4 mmol/L (3.4-5.0); Sodium 136 mmol/L (137-145)
[2021-03-24 05:43] LABS: Hypochromasia 1+ (NORMAL); Platelet Estimate Adequate (Adequate); Poikilocytosis 1+ (NORMAL)
[2021-03-24] MEDS: metroNIDAZOLE 500 MG/ISO 100ML 500 MG/100 ML BAG 100 MG IVPB ×2 (05:57→22:05)
[2021-03-24 06:06] LABS: Glucose Point of Care 91 mg/dl (65-105)
[2021-03-24 08:20] LABS: Glucose Point of Care 90 mg/dl (65-105)
[2021-03-24] MEDS: VALSARTAN 160 MG TABLET 320 MG PO (08:28)
[2021-03-24] MEDS: ENOXAPARIN 30 MG/0.3 ML SYRINGE SUB-Q (08:29)
[2021-03-24] MEDS: PANTOPRAZOLE SODIUM IV 40 MG VIAL IV PUSH (08:29)
[2021-03-24] MEDS: ALVIMOPAN 12 MG CAPSULE PO ×2 (08:29→22:09)
[2021-03-24] MEDS: CYANOCOBALAMIN 1,000 MCG TABLET 1000 MCG PO (08:29)
[2021-03-24] MEDS: FINASTERIDE 5 MG TABLET PO (08:29)
[2021-03-24 08:57] LABS: Glucose Point of Care 120 mg/dl (65-105)
[2021-03-24] MEDS: IPRATROPIUM BR 0.02% INH SOLN 0.5 MG/2.5 ML VIAL INHALATION ×2 (09:35→21:50)
[2021-03-24] MEDS: ALBUTEROL SULFATE NEB 2.5 MG/0.5 ML INH INHALATION ×2 (09:35→21:49)
[2021-03-24] MEDS: FLUTICASONE/SALMETEROL 230-21 MCG INHALER 1 PUFF 2 PUFF INHALATION ×2 (09:35→21:50)
--- NOTE | 2021-03-24 10:07 | PCOTNOTE ---
Attempted to see patient for skilled OT session at this time. Patient declines participation in therapy session d/t 1010 pain in the ribs at this time. Stated he could participate after he got some pain medication. RN notified of patient's want and of pain score. Will attempt to see patient for a second time to complete session if possible. Will continue per OT POC.
--- NOTE | 2021-03-24 11:08 | P.PNIM_ITS ---
Progress Note: A&P Assessment and Plan (1) Colon cancer: Code(s): C18.9 - Malignant neoplasm of colon, unspecified Status: Acute Assessment and Plan: Colonic mass evident on CT abdomen/pelvis at presentation. CT showed a partially obstructing mass at the splenic flexure with colonic distension and multiple accumulated pills proximal to the mass * Appreciate GI and general surgery consultation * Colonoscopy performed 03/18 which showed large mass with partial obstruction, consistent with colon cancer. Biopsies collected. Tumor was marked with spot ink for identification * Biopsy of transverse colon mass showed fragmented tubulovillous adenoma with high-grade dysplasia and ulceration * Underwent partial left hemicolectomy with splenic flexure takedown and colo- colonic anastomosis of the mid transverse colon to distal descending colon on 03/22/[address] Diego. Pathology from surgical specimens pending * Oncology has been consulted and he will need outpatient follow-up * Analgesics and antiemetics available as needed * CEA is normal * PPN discontinued as he is tolerating diet. * Continue Flagyl * Full liquid diet with dietary supplements. Advance diet per General surgery (2) Acute on chronic blood loss anemia: Code(s): D62 - Acute posthemorrhagic anemia Status: Acute Assessment and Plan: Presented with anemia and found to be Hemoccult positive at outpatient GI visit. * Appreciate gastroenterology consultation * He has undergone transfusion of 2 units pRBC. H&H remaining stable following transfusion * Continue IV Protonix * PO ferrous sulfate on hold (3) Blood in stool: Onset Date: ~02/2021 Code(s): K92.1 - Melena Status: Acute Assessment and Plan: As above (4) Weight loss: Code(s): R63.4 - Abnormal weight loss Status: Acute Assessment and Plan: Reports 11 lb weight loss since December 2020 and in total around 35 lb weight loss over the past year. Secondary to malignancy from colonic mass * Continue with dietary supplements and encourage PO intake. Full liquid diet. (5) Syncope and collapse: Onset Date: ~03/15/21 Code(s): R55 - Syncope and collapse Status: Acute Assessment and Plan: He has had 2 recent episodes of syncope prior to admission, once when getting into the shower and another following a bowel movement. * This was likely due to his severe anemia * He was discharged with Gamal rankin during his last hospitalization but reported he had not been using these * Carotid Doppler showed less than 50% stenosis of the bilateral internal carotid arteries * Head CT showed no acute intracranial findings * Echo with normal EF and no significant valvular disease * Fall precautions (6) Hypertension: Code(s): I10 - Essential (primary) hypertension Status: Acute Assessment and Plan: Blood pressure reviewed and has been fluctuant. He has had couple elevated BP readings but overall remaining stable. Last BP 143/71 * Continue valsartan 320 mg daily * Monitor blood pressure trends closely. Adjust medication regimen as needed for adequate BP control Subjective Date/time seen: 03/24/21 11:08 Interval history: Date of service: 03/24/2021 Tino Alexander is an 81-year-old male with a history of chronic kidney disease, COPD, prostate cancer, hyperlipidemia, hypertension, and recent anemia with weight loss and occult blood in stool who is seen in follow-up for colon cancer. He
--- NOTE | 2021-03-24 11:08 | PM.PNGS ---
Progress Note: A&P Assessment and Plan (1) Colon cancer: Code(s): C18.9 - Malignant neoplasm of colon, unspecified Status: Acute Assessment and Plan: advanced to soft diet today. Continue increasing activity. Possible discharge in the next 1-2 days if continuing to improve. (2) Acute on chronic blood loss anemia: Code(s): D62 - Acute posthemorrhagic anemia Status: Acute (3) Severe protein-calorie malnutrition: Onset Date: Unknown Code(s): E43 - Unspecified severe protein-calorie malnutrition Status: Acute Subjective Subjective Date/Time Seen: 03/24/21 11:08 Interval history: tolerating full liquid diet. No bloating or nausea. Passing flatus. Exam GI: Inspection: non-distended and incision ( Intact with glue) GI Palp: Yes Soft to palpation, Yes Tenderness to palpation present (GI) ( incisional) and No Guarding due to palpation present (GI) Auscultation: normal bowel sounds Objective Data Vital Signs Vital Signs: Vital Signs - 24 hr 03/23/21 11:13 03/23/21 11:31 03/23/21 12:00 Temperature Pulse Rate 68 70 80 Respiratory Rate 20 20 Blood Pressure Pulse Oximetry 98 03/23/21 15:38 03/23/21 15:42 03/23/21 20:00 Temperature 36.0 C L Pulse Rate 82 87 83 Respiratory Rate Blood Pressure 183/78 H 174/72 H Pulse Oximetry 03/23/21 20:19 03/23/21 20:26 03/23/21 21:16 Temperature 36.6 C Pulse Rate 87 81 82 Respiratory Rate 22 H 20 20 Blood Pressure 149/73 H Pulse Oximetry 95 93 03/23/21 21:17 03/24/21 00:00 03/24/21 04:00 Temperature Pulse Rate 81 85 Respiratory Rate Blood Pressure 186/81 H Pulse Oximetry 03/24/21 05:24 03/24/21 08:00 03/24/21 09:35 Temperature 36.2 C L Pulse Rate 74 81 81 Respiratory Rate 18 18 Blood Pressure 143/71 H Pulse Oximetry 94 03/24/21 09:48 Temperature Pulse Rate 82 Respiratory Rate 18 Blood Pressure Pulse Oximetry Intake/Output Intake/Output: Intake & Output 10/28/21 10/29/21 10/30/21 10/31/21 23:59 23:59 23:59 23:59 Intake Total 3710 4197 2050 1110 Output Total 1220 1800 1300 650 Balance 2490 9767 031 560 Meds/Results Medications: Active Medications Generic Name Dose Route Start Last Admin Trade Name Freq PRN Reason Stop Dose Admin Acetaminophen 650 mg 03/17/21 16:19 Acetaminophen 325 Mg Tablet PO Q4H PRN Mild Pain (1-3) or Fever Hydrocodone Bitart/Acetaminophen 1 tab 03/17/21 16:19 03/19/21 20:25 Hydrocodone/Acetaminophen (*Crx) 5-325 Mg Tablet PO 1 tab Q6H PRN Administration Pain Rated 4-6 Hydrocodone Bitart/Acetaminophen 1 tab 03/21/21 19:32 03/23/21 19:58 Hydrocodone/Acetaminophen (*Crx) 7.5-325 Mg Tablet PO 1 tab Q6H PRN Administration Pain Rated 7-10 Albuterol 2.5 mg 03/16/21 08:00 03/24/21 09:35 Albuterol Sulfate Neb 2.5 Mg/0.5 Ml Inh INHALATION 2.5 mg Q12HRT LUIS ALBERTO Administration Albuterol 2.5 mg 03/16/21 05:35 Albuterol Sulfate Neb 2.5 Mg/0.5 Ml Inh INHALATION Q6H PRN wheezing Alvimopan 12 mg 03/22/21 21:00 03/24/21 08:29 Alvimopan 12 Mg Capsule PO 03/29/21 20:59 12 mg Q12HR LUIS ALBERTO Administration Cyanocobalamin 1,000 mcg 03/16/21 09:00 03/24/21 08:29 Cyanocobalamin 1,000 Mcg Tablet PO 1,000 mcg QAM LUIS ALBERTO Administration Enoxaparin Sodium 30 mg 03/22/21 09:00 03/24/21 08:29 Enoxaparin 30 Mg/0.3 Ml Syringe SUB-Q 30 mg DAILY LUIS ALBERTO Administration Finasteride 5 mg 03/16/21 09:00 03/24/21 08:29 Finasteride 5 Mg Tablet PO 5 mg DAILY LUIS ALBERTO Administration Hydralazine HCl 10 mg 03/18/21 16:09 03/23/21 20:07 Hydralazine Hcl 20 Mg/Ml Vial IV PUSH 10 mg Q8H PRN Administration Systolic BP >180, diast >100 Dextrose 1,000 mls @ 50 mls/hr 03/19/21 15:26 Dextrose 10% IV CONT .Q20H PRN if PN is interrupted Metronidazole 500 mg in 100 mls @ 100 mls/hr 03/21/21 22:00 03/24/21 08:28 Flagyl 500 Mg/Is
--- NOTE | 2021-03-24 11:08 | PM.IMPN ---
Progress Note: A&P Assessment and Plan (1) Colon cancer: Code(s): C18.9 - Malignant neoplasm of colon, unspecified Status: Acute Assessment and Plan: Colonic mass evident on CT abdomen/pelvis at presentation. CT showed a partially obstructing mass at the splenic flexure with colonic distension and multiple accumulated pills proximal to the mass Appreciate GI and general surgery consultation Colonoscopy performed 03/18 which showed large mass with partial obstruction, consistent with colon cancer. Biopsies collected. 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 Diego. Pathology from surgical specimens pending Oncology has been consulted and he will need outpatient follow-up Analgesics and antiemetics available as needed CEA is normal PPN discontinued as he is tolerating diet. Continue Flagyl Full liquid diet with dietary supplements. Advance diet per General surgery (2) Acute on chronic blood loss anemia: Code(s): D62 - Acute posthemorrhagic anemia Status: Acute Assessment and Plan: Presented with anemia and found to be Hemoccult positive at outpatient GI visit. Appreciate gastroenterology consultation He has undergone transfusion of 2 units pRBC. H&H remaining stable following transfusion Continue IV Protonix PO ferrous sulfate on hold (3) Blood in stool: Onset Date: ~02/2021 Code(s): K92.1 - Melena Status: Acute Assessment and Plan: As above (4) Weight loss: Code(s): R63.4 - Abnormal weight loss Status: Acute Assessment and Plan: Reports 11 lb weight loss since December 2020 and in total around 35 lb weight loss over the past year. Secondary to malignancy from colonic mass Continue with dietary supplements and encourage PO intake. Full liquid diet. (5) Syncope and collapse: Onset Date: ~03/15/21 Code(s): R55 - Syncope and collapse Status: Acute Assessment and Plan: He has had 2 recent episodes of syncope prior to admission, once when getting into the shower and another following a bowel movement. This was likely due to his severe anemia He was discharged with Gamal rankin during his last hospitalization but reported he had not been using these Carotid Doppler showed less than 50% stenosis of the bilateral internal carotid arteries Head CT showed no acute intracranial findings Echo with normal EF and no significant valvular disease Fall precautions (6) Hypertension: Code(s): I10 - Essential (primary) hypertension Status: Acute Assessment and Plan: Blood pressure reviewed and has been fluctuant. He has had couple elevated BP readings but overall remaining stable. Last BP 143/71 Continue valsartan 320 mg daily Monitor blood pressure trends closely. Adjust medication regimen as needed for adequate BP control Subjective Date/time seen: 03/24/21 11:08 Interval history: Date of service: 03/24/2021 Tino Alexander is an 81-year-old male with a history of chronic kidney disease, COPD, prostate cancer, hyperlipidemia, hypertension, and recent anemia with weight loss and occult blood in stool who is seen in follow-up for colon cancer. He is s/p partial left hemicolectomy. He continues to do well today. He is still endorsing abdominal soreness that he rates as 8/10. He states his pain is typically worse in the mornings and gets better throughout the day. He has had improvement with pain medication. He is tolerating his liquid diet without difficulty. He has began to pass some gas starting yesterday afternoon. Passed a small amount of gas this morning. Still no bowel move
[2021-03-24 13:08] LABS: Glucose Point of Care 96 mg/dl (65-105)
[2021-03-24 15:40] LABS: Triglycerides 64 mg/dL (<150)
[2021-03-25] VITALS (7 sets, daily range): BP systolic 172; BP diastolic 78; PULSE 79–97; RESP 18–20; TEMP 36.3; O2SAT 93
[2021-03-25] MEDS: HYDROcodone/acetaminophen (*CRX) 5-325 MG TABLET 1 TAB PO (01:22)
[2021-03-25 05:13] LABS: Basophils Percent Auto 0.9 % (0.2-1.2); Eosinophils Absolute Auto 0.1 K/mm3 (0-0.3); Eosinophils Percent Auto 2.9 % (0-4.4); Hematocrit 28.6 % (42.0-52.0); Hemoglobin 8.8 g/dL (14.0-18.0); Immature Granulocyte Absolute 0.12 K/mm3 (0.00-0.031); Immature Granulocyte Percent A 2.7 % (0-0.5); Lymphocytes Absolute Auto 0.46 K/mm3 (0.9-3.2); Lymphocytes Percent Auto 10.4 % (18.3-44.2); Mean Corpuscular HGB Conc 30.8 g/dl (32-36); Mean Corpuscular Hemoglobin 27.6 pg (26-34); Mean Corpuscular Volume 89.7 fl (80-100); Mean Platelet Volume 10.7 fl (7.4-10.4); Monocytes Absolute Auto 0.6 K/mm3 (0.1-0.6); Monocytes Percent Auto 14.3 % (2.6-8.5); Neutrophils Percent Auto 68.8 % (45.5-73.1); Platelet Count Result 186 k/mm3 (150-375); Red Blood Count 3.19 M/mm3 (4.6-6.20); White Blood Count 4.4 K/mm3 (4.5-10.0)
[2021-03-25 05:15] LABS: Alanine Aminotransferase 18 U/L (4-50); Albumin Level 2.4 g/dL (3.5-5.1); Alkaline Phosphatase 55 U/L (38-126); Anion Gap 1 mmol/L (8-16); Aspartate Amino Transferase 44 U/L (17-59); Bilirubin,Total 0.3 mg/dL (0.2-1.3); Blood Urea Nitrogen 28 mg/dL (9-20); Calcium 8.9 mg/dL (8.4-10.2); Carbon Dioxide 32 mmol/L (22-30); Chloride 103 mmol/L (98-107); Estimated CRCL calculation 44 ml/min; Estimated Glomerular Filt Rate > 60; Glucose 99 mg/dL (65-110); Phosphorus 2.7 mg/dL (2.5-4.5); Potassium 4.3 mmol/L (3.4-5.0); Sodium 136 mmol/L (137-145)
[2021-03-25 05:22] LABS: INR 1.4; Prothrombin Time 16.7 Seconds (11.1-14.7); Transferrin 107 mg/dL (206-381)
[2021-03-25] MEDS: metroNIDAZOLE 500 MG/ISO 100ML 500 MG/100 ML BAG 100 MG IVPB (06:05)
[2021-03-25] MEDS: FINASTERIDE 5 MG TABLET PO (08:47)
[2021-03-25] MEDS: ENOXAPARIN 30 MG/0.3 ML SYRINGE SUB-Q (08:47)
[2021-03-25] MEDS: ALVIMOPAN 12 MG CAPSULE PO (08:47)
[2021-03-25] MEDS: CYANOCOBALAMIN 1,000 MCG TABLET 1000 MCG PO (08:47)
[2021-03-25] MEDS: VALSARTAN 160 MG TABLET 320 MG PO (08:47)
[2021-03-25] MEDS: PANTOPRAZOLE SODIUM IV 40 MG VIAL IV PUSH (08:48)
--- NOTE | 2021-03-25 09:07 | PM.PNGS ---
Progress Note: A&P Assessment and Plan (1) Colon cancer: Code(s): C18.9 - Malignant neoplasm of colon, unspecified Status: Acute Assessment and Plan: tolerating regular diet. Okay to discharge from surgery standpoint. Pathology still pending. Patient will follow up with Dr. Diego in the office in 1-2 weeks. (2) Acute on chronic blood loss anemia: Code(s): D62 - Acute posthemorrhagic anemia Status: Acute (3) Severe protein-calorie malnutrition: Onset Date: Unknown Code(s): E43 - Unspecified severe protein-calorie malnutrition Status: Acute Subjective Subjective Date/Time Seen: 03/25/21 09:07 Interval history: Bowels moving and tolerating regular diet. No nausea or vomiting. Exam GI: Inspection: non-distended and incision ( Intact with glue) GI Palp: Yes Soft to palpation, Yes Tenderness to palpation present (GI) ( minimal incisional) and No Guarding due to palpation present (GI) Auscultation: normal bowel sounds Objective Data Vital Signs Vital Signs: Vital Signs - 24 hr 03/24/21 09:35 03/24/21 09:48 03/24/21 12:00 Temperature Pulse Rate 81 82 82 Respiratory Rate 18 18 Blood Pressure Pulse Oximetry 03/24/21 16:00 03/24/21 17:40 03/24/21 17:41 Temperature Pulse Rate 91 85 84 Respiratory Rate Blood Pressure 153/77 H 150/65 H Pulse Oximetry 03/24/21 17:42 03/24/21 20:00 03/24/21 20:51 Temperature 36.6 C Pulse Rate 83 87 78 Respiratory Rate 18 Blood Pressure 99/57 L 161/76 H Pulse Oximetry 93 03/24/21 21:50 03/24/21 22:04 03/25/21 00:00 Temperature Pulse Rate 91 84 86 Respiratory Rate 20 20 Blood Pressure Pulse Oximetry 94 03/25/21 03:44 03/25/21 04:00 Temperature 36.3 C L Pulse Rate 90 79 Respiratory Rate 18 Blood Pressure 172/78 H Pulse Oximetry 93 Intake/Output Intake/Output: Intake & Output 03/22/21 03/23/21 03/24/21 03/25/21 23:59 23:59 23:59 23:59 Intake Total 4197 2050 1450 220 Output Total 1800 1300 1050 600 Balance 2397 750 400 -380 Meds/Results Medications: Active Medications Generic Name Dose Route Start Last Admin Trade Name Freq PRN Reason Stop Dose Admin Acetaminophen 650 mg 03/17/21 16:19 Acetaminophen 325 Mg Tablet PO Q4H PRN Mild Pain (1-3) or Fever Hydrocodone Bitart/Acetaminophen 1 tab 03/17/21 16:19 03/25/21 01:22 Hydrocodone/Acetaminophen (*Crx) 5-325 Mg Tablet PO 1 tab Q6H PRN Administration Pain Rated 4-6 Hydrocodone Bitart/Acetaminophen 1 tab 03/21/21 19:32 03/23/21 19:58 Hydrocodone/Acetaminophen (*Crx) 7.5-325 Mg Tablet PO 1 tab Q6H PRN Administration Pain Rated 7-10 Albuterol 2.5 mg 03/16/21 08:00 03/24/21 21:49 Albuterol Sulfate Neb 2.5 Mg/0.5 Ml Inh INHALATION 2.5 mg Q12HRT LUIS ALBERTO Administration Albuterol 2.5 mg 03/16/21 05:35 Albuterol Sulfate Neb 2.5 Mg/0.5 Ml Inh INHALATION Q6H PRN wheezing Alvimopan 12 mg 03/22/21 21:00 03/25/21 08:47 Alvimopan 12 Mg Capsule PO 03/29/21 20:59 12 mg Q12HR LUIS ALBERTO Administration Cyanocobalamin 1,000 mcg 03/16/21 09:00 03/25/21 08:47 Cyanocobalamin 1,000 Mcg Tablet PO 1,000 mcg QAM LUIS ALBERTO Administration Enoxaparin Sodium 30 mg 03/22/21 09:00 03/25/21 08:47 Enoxaparin 30 Mg/0.3 Ml Syringe SUB-Q 30 mg DAILY LUIS ALBERTO Administration Finasteride 5 mg 03/16/21 09:00 03/25/21 08:47 Finasteride 5 Mg Tablet PO 5 mg DAILY LUIS ALBERTO Administration Hydralazine HCl 10 mg 03/18/21 16:09 03/23/21 20:07 Hydralazine Hcl 20 Mg/Ml Vial IV PUSH 10 mg Q8H PRN Administration Systolic BP >180, diast >100 Dextrose 1,000 mls @ 50 mls/hr 03/19/21 15:26 Dextrose 10% IV CONT .Q20H PRN if PN is interrupted Metronidazole 500 mg in 100 mls @ 100 mls/hr 03/21/21 22:00 03/25/21 07:20 Flagyl 500 Mg/Iso Soln 100 Ml IVPB Infused Q8HR LUIS ALBERTO Infusion Ipratropium [place] 0.5 mg 03/16/21 08:00
[2021-03-25] MEDS: IPRATROPIUM BR 0.02% INH SOLN 0.5 MG/2.5 ML VIAL INHALATION (09:17)
[2021-03-25] MEDS: ALBUTEROL SULFATE NEB 2.5 MG/0.5 ML INH INHALATION (09:17)
[2021-03-25] MEDS: FLUTICASONE/SALMETEROL 230-21 MCG INHALER 1 PUFF 2 PUFF INHALATION (09:18)
--- NOTE | 2021-03-25 11:10 | PM.DS ---
DS: Admitting Diagnosis Discharge Date 03/25/2021 Admitting Diagnosis Colonic mass DS: Discharge Diagnosis Discharge Diagnosis (1) Colon cancer: Code(s): C18.9 - Malignant neoplasm of colon, unspecified Status: Acute Assessment and Plan: Colonic mass evident on CT abdomen/pelvis at presentation. CT showed a partially obstructing mass at the splenic flexure with colonic distension and multiple accumulated pills proximal to the mass He was seen in consultation by GI and general surgery Colonoscopy performed 03/18 which showed large mass with partial obstruction, consistent with colon cancer. Biopsies collected. 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 Diego. 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 He was on PPN while NPO. Eventually able to tolerate a soft diet and did well with this. He will follow up with Dr. Diego in 1-2 weeks (2) Acute on chronic blood loss anemia: Code(s): D62 - Acute posthemorrhagic anemia Status: Acute Assessment and Plan: Presented with anemia and found to be Hemoccult positive at outpatient GI visit. Seen in consultation by gastroenterology He had transfusion of 2 units pRBC. H&H remained stable following transfusion Protonix daily PO ferrous sulfate (3) Blood in stool: Onset Date: ~02/2021 Code(s): K92.1 - Melena Status: Acute Assessment and Plan: As above (4) Weight loss: Code(s): R63.4 - Abnormal weight loss Status: Acute Assessment and Plan: Reported 11 lb weight loss since December 2020 and in total around 35 lb weight loss over the past year. Secondary to malignancy from colonic mass Continue with dietary supplements (5) Syncope and collapse: Onset Date: ~03/15/21 Code(s): R55 - Syncope and collapse Status: Acute Assessment and Plan: He had 2 recent episodes of syncope prior to admission, once when getting into the shower and another following a bowel movement. This was likely due to his severe anemia He was discharged with Bladimir hose during his last hospitalization but reported he had not been using these. Resume BLADIMIR hose. Carotid Doppler showed less than 50% stenosis of the bilateral internal carotid arteries Head CT showed no acute intracranial findings Echo with normal EF and no significant valvular disease Fall precautions (6) Hypertension: Code(s): I10 - Essential (primary) hypertension Status: Acute Assessment and Plan: Blood pressure reviewed. Continue valsartan 320 mg daily. (7) Abdominal aortic aneurysm: Code(s): I71.4 - Abdominal aortic aneurysm, without rupture Status: Acute Assessment and Plan: CT abdomen/pelvis showed 3.4 cm fusiform infrarenal abdominal aortic aneurysm. Reviewed prior CT of the thoracic and lumbar spine in June 2020 which showed a 3.3 cm distal abdominal aorta aneurysm. He will need to continue monitoring with PCP. DS: Summary Hospital Course Hospital Course: Date of admission: 03/15/2021 Date of discharge: 03/25/2021 Tino Alexander is an 81-year-old male with a history of chronic kidney disease, COPD, prostate cancer, hyperlipidemia, hypertension, and recent anemia who presented to the emergency department on 03/15/2021 with complaints of dark stools, upper abdominal pain, and syncope. On presentation to the emergency department, his
--- NOTE | 2021-03-25 11:25 | PCPTNOTE ---
Attempted to see patient for PT, however patient declined due to anticipated discharge.
--- NOTE | 2021-03-25 11:32 | PCNFU ---
Nutrition Follow-Up Complete: Involuntary weight loss related to GI issues as evidenced by significant weight loss (14% x 2-3 months). Goal: Patient to meet estimated nutritional needs and maintain weight. Progressing towards goal. We will continue current goal. Pt current nutrition is Soft /Bite Sized, Level 6 with [facility] Last recorded weight is 66 kg. Bowel Motility:+BM reported 03/22 Labs Reviewed:BUN 28, Na 136, Hct 28.6, Hgb 8.8 Meds Noted:Diovan, Flagyl,Proscar, Albuterol, Lovenox, Vit B12 Additional Notes: Patient seen today for nutrition follow up. Patient states he wasn't too hungry for breakfast today. PPN has been discontinued. Diet orders advanced , eating at least 75% of soft/bite sized, level 6 diet. [facility] is providing an additional 350 kcals and 18 gms protein. Plans for discharge today. Monitoring: Follow up every 5 days.
== END 2021-03-25 12:59 | disposition home or self-care (01) | DRG 329 ==
LOC: ANHED 21:09 → ANH2MED 23:47
PROVIDERS: General Practice; Internal Medicine; Internal Medicine Gastroenterology; Nurse Practitioner Family; Surgery; Admitting Provider Internal Medicine; Emergency Provider Emergency Medicine; PCP Internal Medicine; Visit Provider Physician Assistant
PROC: 0DJD8ZZ Inspection of Lower Intestinal Tract, Via Natural or Artificial Opening Endoscopic (ICD-10-PCS; CPT 45378; principal; 2021-03-18 14:30)
PROC: 0DTF4ZZ Resection of Right Large Intestine, Percutaneous Endoscopic Approach (ICD-10-PCS; CPT 44204; principal; 2021-03-21 12:30)
DX: C18.9 Malignant neoplasm of colon, unspecified (principal); E43 Unspecified severe protein-calorie malnutrition; Z68.1 Body mass index [BMI] 19.9 or less, adult; D62 Acute posthemorrhagic anemia; D51.9 Vitamin B12 deficiency anemia, unspecified; K63.5 Polyp of colon; G89.18 Other acute postprocedural pain; I71.4 Abdominal aortic aneurysm, without rupture; J44.9 Chronic obstructive pulmonary disease, unspecified; I12.9 Hypertensive chronic kidney disease with stage 1 through stage 4 chronic kidney disease, or unspecified chronic kidney disease; N18.9 Chronic kidney disease, unspecified; F17.210 Nicotine dependence, cigarettes, uncomplicated; R55 Syncope and collapse; R63.4 Abnormal weight loss; E78.5 Hyperlipidemia, unspecified; I73.9 Peripheral vascular disease, unspecified; Z79.899 Other long term (current) drug therapy; Z85.46 Personal history of malignant neoplasm of prostate
CPT/HCPCS: 36415; 36430; 70450; 74177; 80048; 80053; 81001; 81210; 81275; 81301; 81311; 82378; 82948; 83605; 83690; 83735; 84100; 84134; 84466; 84478; 85014; 85018; 85025; 85027; 85610; 85730; 86850; 86900; 86901; 86920; 88305; 88307; 88309; 88381; 93306; 93880; 94640; 96361; 96374; 97110; 97162; 97164; 97165; 97168; 97530; 99285; A9270; C9113; J0330; J0360; J0690; J1100; J1650; J2270; J2405; J2704; J2710; J3010; J3480; J7030; J7050; J7120; P9016; Q9967

== ENCOUNTER 2021-04-12 14:31 | Outpatient (CLI) | payer OTHER, SELFPAY ==
[2021-04-12 15:01] LABS: Hemoglobin 10.7 g/dL (14.0-18.0); Mean Corpuscular HGB Conc 29.7 g/dl (32-36); Mean Corpuscular Hemoglobin 27.7 pg (26-34); Mean Corpuscular Volume 93.3 fl (80-100); Platelet Count Result 202 k/mm3 (150-375); Red Blood Count 3.86 M/mm3 (4.6-6.20); Red Cell Distribution Width 20.3 % (11.5-14.5); White Blood Count 2.7 K/mm3 (4.5-10.0)
[2021-04-12 15:42] LABS: Iron 85 ug/dL (49-181)
[2021-04-12 15:53] LABS: Percent Iron Saturation 28 % (20-50)
== END 2021-04-12 14:32 | disposition home or self-care (01) ==
PROVIDERS: PCP Internal Medicine; Visit Provider Internal Medicine Hematology & Oncology
DX: D64.9 Anemia, unspecified (principal)
CPT/HCPCS: 36415; 82607; 82728; 83540; 83550; 85027

== ENCOUNTER 2021-08-09 14:23 | Outpatient (CLI) | payer OTHER, SELFPAY ==
[2021-08-09 15:03] LABS: Hemoglobin 11.3 g/dL (14.0-18.0); Immature Platelet Fraction Pct 8.5 % (0.9-11.2); Mean Corpuscular HGB Conc 32.3 g/dl (32-36); Mean Corpuscular Hemoglobin 33.8 pg (26-34); Mean Corpuscular Volume 104.8 fl (80-100); Mean Platelet Volume 11.1 fl (7.4-10.4); Platelet Count Result 153 k/mm3 (150-375); Red Blood Count 3.34 M/mm3 (4.6-6.20); Red Cell Distribution Width 14.1 % (11.5-14.5); White Blood Count 3.2 K/mm3 (4.5-10.0)
[2021-08-09 15:04] LABS: Alanine Aminotransferase 9 U/L (4-50); Albumin Level 3.8 g/dL (3.5-5.1); Alkaline Phosphatase 99 U/L (38-126); Anion Gap 1 mmol/L (8-16); Aspartate Amino Transferase 22 U/L (17-59); Bilirubin,Total 0.1 mg/dL (0.2-1.3); Blood Urea Nitrogen 29 mg/dL (9-20); Calcium 9.1 mg/dL (8.4-10.2); Carbon Dioxide 31 mmol/L (22-30); Chloride 109 mmol/L (98-107); Estimated Glomerular Filt Rate 45; Glucose 104 mg/dL (65-110); Potassium 4.8 mmol/L (3.4-5.0); Sodium 141 mmol/L (137-145)
== END 2021-08-09 14:24 | disposition home or self-care (01) ==
LOC: ANHLAB 14:25
PROVIDERS: PCP Internal Medicine; Visit Provider Nurse Practitioner
DX: D62 Acute posthemorrhagic anemia (principal); I10 Essential (primary) hypertension
CPT/HCPCS: 36415; 80053; 85027; 85055

== ENCOUNTER → 2021-08-23 02:42 | Outpatient (CLI) | payer OTHER, SELFPAY ==
[2021-08-23 12:33] LABS: SARS-CoV-2 RNA PCR Negative
== END ==
PROVIDERS: PCP Internal Medicine; Visit Provider Internal Medicine Gastroenterology
DX: Z01.812 Encounter for preprocedural laboratory examination (principal); Z20.822 Contact with and (suspected) exposure to COVID-19
CPT/HCPCS: C9803; U0003; U0005

== ENCOUNTER 2021-08-23 09:33 | Outpatient (CLI) | payer OTHER, SELFPAY ==
[2021-08-23 11:14] LABS: Vitamin B12 > 1000.0 pg/mL (239-931)
== END 2021-08-23 09:34 | disposition home or self-care (01) ==
LOC: ANHLAB 09:35
PROVIDERS: PCP Internal Medicine; Visit Provider Nurse Practitioner
DX: D51.9 Vitamin B12 deficiency anemia, unspecified (principal)
CPT/HCPCS: 36415; 82607

== ENCOUNTER 2021-08-26 01:56 | Day surgery (SDC) | payer OTHER, SELFPAY ==
[2021-08-19 12:12] VITALS: BMI 20.2
[2021-08-26 09:30] VITALS: BP 132/60; PULSE 71; RESP 18; TEMP 35.9; O2SAT 98
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
[2021-08-26] MEDS: LACTATED RINGERS 1,000 ML 150 ML IV CONT (09:44)
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
[2021-08-26 10:26] VITALS: BP 119/59; PULSE 70; RESP 20; O2SAT 98
[2021-08-26 10:36] VITALS: BP 134/66; PULSE 68; RESP 22; O2SAT 98
[2021-08-26 10:46] VITALS: BP 143/81; PULSE 70; RESP 22; O2SAT 98
== END 2021-08-26 11:13 | disposition home or self-care (01) ==
PROVIDERS: PCP Internal Medicine; Visit Provider Internal Medicine Gastroenterology
PROC: 0DJD8ZZ Inspection of Lower Intestinal Tract, Via Natural or Artificial Opening Endoscopic (ICD-10-PCS; CPT 45378; principal; 2021-08-26 10:30)
DX: Z08 Encounter for follow-up examination after completed treatment for malignant neoplasm (principal); D12.0 Benign neoplasm of cecum; D12.2 Benign neoplasm of ascending colon; K62.1 Rectal polyp; K63.89 Other specified diseases of intestine; K64.8 Other hemorrhoids; Z98.0 Intestinal bypass and anastomosis status; Z85.038 Personal history of other malignant neoplasm of large intestine; Z90.49 Acquired absence of other specified parts of digestive tract; J44.9 Chronic obstructive pulmonary disease, unspecified; I12.9 Hypertensive chronic kidney disease with stage 1 through stage 4 chronic kidney disease, or unspecified chronic kidney disease; N18.9 Chronic kidney disease, unspecified; E78.5 Hyperlipidemia, unspecified; I73.9 Peripheral vascular disease, unspecified; Z85.46 Personal history of malignant neoplasm of prostate; Z92.3 Personal history of irradiation; Z79.51 Long term (current) use of inhaled steroids; F17.210 Nicotine dependence, cigarettes, uncomplicated
CPT/HCPCS: 45385; 45380; 36415; 82607; 88305; C9803; J2704; J7120; U0003; U0005

== ENCOUNTER 2021-11-04 15:43 | Emergency (ER) | payer OTHER, SELFPAY ==
--- NOTE | ~2021-11-04 | XR_ITS ---
EXAMINATION: XR chest 2V DATE: 11/04/2021 16:06 INDICATION: Cough, wheezing, and fatigue. TECHNIQUE: Frontal and lateral views of the chest were obtained. COMPARISON: Chest 2 views 06/28/2020 FINDINGS: There are airspace opacities in posterior segment right upper lobe, consistent with pneumon ia. A calcified left lung nodule is consistent with old granulomatous disease. No pleural effusion or pneumothorax. The heart size is normal. IMPRESSION: 1. Right upper lobe pneumonia. Reviewed, dictated and finalized at location B.
[2021-11-04 15:51] VITALS: BP 120/60; PULSE 66; RESP 16; TEMP 36.9; O2SAT 97
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
[2021-11-04 16:21] VITALS: PULSE 62; O2SAT 96
[2021-11-04] MEDS: predniSONE 20 MG TABLET 40 MG PO (16:35)
[2021-11-04] MEDS: cefTRIAXone 1 GM, LIDOCAINE HCL 1% LOCAL INJ 2.1 ML IM (16:36)
== END 2021-11-04 16:55 | disposition home or self-care (01) ==
PROVIDERS: Emergency Provider Nurse Practitioner Family; PCP Internal Medicine
DX: U07.1 COVID-19 (principal); J44.9 Chronic obstructive pulmonary disease, unspecified; I12.9 Hypertensive chronic kidney disease with stage 1 through stage 4 chronic kidney disease, or unspecified chronic kidney disease; N18.9 Chronic kidney disease, unspecified; E78.5 Hyperlipidemia, unspecified; Z85.46 Personal history of malignant neoplasm of prostate; I73.9 Peripheral vascular disease, unspecified
CPT/HCPCS: 71046; 87426; 87804; 96372; 99213; C9803; G0463; J0696; J7512

== ENCOUNTER 2021-11-18 13:03 | Outpatient (CLI) | payer OTHER, SELFPAY ==
--- NOTE | ~2021-11-18 | XR_ITS ---
XR chest 2V DATE: 11/18/2021 13:26 INDICATION: Pneumonia follow-up TECHNIQUE: PA and lateral views COMPARISON: 11/04/2021 PA and lateral chest FINDINGS: There is diminished right upper lobe infiltrate since 11/04/2021, with minimal residual. There is however interval new left lower lobe patchy infiltrate and mild left pleural effusion since 11/04/2021. Minimal infiltrate or atelectasis at the right lung base. Normal heart size. There is aortic unfolding. No hilar or mediastinal enlargement. Diffuse osteopenia. Degenerative change of the thoracic spine. IMPRESSION: Improved right upper lobe infiltrate since 11/04/2021, but interval patchy left lower lobe infiltrate and mild left pleural effusion since then Reviewed, dictated and finalized at location B.
== END 2021-11-18 13:04 | disposition home or self-care (01) ==
PROVIDERS: PCP Internal Medicine; Visit Provider Internal Medicine
DX: J18.9 Pneumonia, unspecified organism (principal)
CPT/HCPCS: 71046

== ENCOUNTER 2022-04-14 09:27 | Outpatient (CLI) | payer OTHER, SELFPAY ==
[2022-04-14 10:05] LABS: Hematocrit 36.7 % (42.0-52.0); Hemoglobin 11.7 g/dL (14.0-18.0); Mean Corpuscular HGB Conc 31.9 g/dl (32-36); Mean Corpuscular Hemoglobin 33.2 pg (26-34); Mean Corpuscular Volume 104.3 fl (80-100); Platelet Count Result 109 k/mm3 (150-375); Red Blood Count 3.52 M/mm3 (4.6-6.20); Red Cell Distribution Width 13.9 % (11.5-14.5); White Blood Count 3.5 K/mm3 (4.5-10.0)
[2022-04-14 10:33] LABS: Alanine Aminotransferase 12 U/L (6-50); Albumin Level 4.1 g/dL (3.5-5.1); Alkaline Phosphatase 118 U/L (38-126); Anion Gap 6 mmol/L (8-16); Aspartate Amino Transferase 19 U/L (17-59); Bilirubin,Total 0.6 mg/dL (0.2-1.3); Blood Urea Nitrogen 21 mg/dL (9-20); Calcium 8.9 mg/dL (8.4-10.2); Carbon Dioxide 27 mmol/L (22-30); Chloride 107 mmol/L (98-107); Estimated Glomerular Filt Rate 45; Glucose 94 mg/dL (65-110); Potassium 4.3 mmol/L (3.4-5.0); Sodium 140 mmol/L (137-145)
[2022-04-14 11:01] LABS: Vitamin D 25 Hydroxy 56.2 ng/mL
== END 2022-04-14 09:28 | disposition home or self-care (01) ==
LOC: ANHLAB 09:28
PROVIDERS: PCP Internal Medicine; Visit Provider Nurse Practitioner
DX: E55.9 Vitamin D deficiency, unspecified (principal); N18.9 Chronic kidney disease, unspecified; C18.9 Malignant neoplasm of colon, unspecified; D51.9 Vitamin B12 deficiency anemia, unspecified; D62 Acute posthemorrhagic anemia; I12.9 Hypertensive chronic kidney disease with stage 1 through stage 4 chronic kidney disease, or unspecified chronic kidney disease
CPT/HCPCS: 36415; 80053; 82306; 82607; 85027

== ENCOUNTER 2022-06-06 12:09 | Outpatient (CLI) | payer OTHER, SELFPAY ==
[2022-06-06 12:26] LABS: Basophils Absolute Auto 0.1 K/mm3 (0.0-0.1); Basophils Percent Auto 1.7 % (0.2-1.2); Eosinophils Absolute Auto 0.1 K/mm3 (0-0.3); Eosinophils Percent Auto 3.3 % (0-4.4); Hematocrit 35.9 % (42.0-52.0); Hemoglobin 11.6 g/dL (14.0-18.0); Immature Granulocyte Absolute 0.04 K/mm3 (0.00-0.031); Immature Granulocyte Percent A 1.1 % (0-0.5); Lymphocytes Absolute Auto 0.64 K/mm3 (0.9-3.2); Lymphocytes Percent Auto 17.7 % (18.3-44.2); Mean Corpuscular HGB Conc 32.3 g/dl (32-36); Mean Corpuscular Hemoglobin 33.9 pg (26-34); Mean Platelet Volume 11.2 fl (7.4-10.4); Monocytes Absolute Auto 0.4 K/mm3 (0.1-0.6); Monocytes Percent Auto 11.4 % (2.6-8.5); Neutrophils Absolute Auto 2.3 K/mm3 (1.3-6.7); Neutrophils Percent Auto 64.8 % (45.5-73.1); Platelet Count Result 132 k/mm3 (150-375); Red Blood Count 3.42 M/mm3 (4.6-6.20); Red Cell Distribution Width 13.9 % (11.5-14.5); White Blood Count 3.6 K/mm3 (4.5-10.0)
[2022-06-06 15:46] LABS: Iron 127 ug/dL (49-181)
[2022-06-06 15:55] LABS: Percent Iron Saturation 43 % (20-50)
[2022-06-06 17:22] LABS: Folic Acid 9.6 ng/mL (2.76->20)
== END 2022-06-06 12:10 | disposition home or self-care (01) ==
LOC: ANHLAB 12:11
PROVIDERS: PCP Internal Medicine; Visit Provider Internal Medicine Hematology & Oncology
DX: D50.9 Iron deficiency anemia, unspecified (principal)
CPT/HCPCS: 36415; 82607; 82728; 82746; 83540; 83550; 85025

== ENCOUNTER 2022-07-30 10:19 | Outpatient (CLI) | payer OTHER, SELFPAY ==
--- NOTE | ~2022-07-30 | CT_ITS ---
EXAMINATION: CT abdomen pelvis w con DATE: 07/30/2022 10:51 INDICATION: Colon cancer TECHNIQUE: Computed tomography (CT) of the abdomen and pelvis was performed with 100 CC Omnipaque 350 intravenous contrast. Automated exposure control and iterative reconstruction technique were employe d. Exam dose: 350.57 mGy-cm total exam DLP. COMPARISON: 03/15/2021 CT abdomen pelvis FINDINGS: There is patchy primarily dependent right lower lobe infiltrate. Consider aspiration pneumo nitis, pneumonia. Mild to moderate emphysematous changes of the lungs. Normal heart size. Coronary artery calcification. No pericardial or pleural effusion. 4.6 mm probable right hepatic cyst. The gallbladder is unremarkable. No bile duct dilatation. Stable approximately 8.8 x 13.8 mm cystic area of the pancreatic head and stable 3 mm calcification a t the right lateral pancreatic head. Normal morphology of the adrenal glands. 4 mm nonobstructing left renal calculus. 3 cm and 9 mm left upper pole probable renal cysts. 10 mm lower pole left renal probable cyst. Multip le, measuring up to 1.8 cm. There are 2 infrarenal abdominal aortic aneurysmal segments measuring up to 2.8 x 3.8 cm and 3.3 x 3. 3 cm. There is extensive calcification of the iliac and femoral arteries. No intraperitoneal or retroperitoneal or pelvic mass lesion or adenopathy or ascites. Right renal cys ts. No renal or ureteral or urinary bladder calculus or hydroureteronephrosis. There is very prominent prostatomegaly. Several radiopaque prostate seeds. Normal appendix. There is a suture line of the mid transverse colon. No bowel obstruction is evident. There are some nondilated fluid containing small bowel segments; consider mild adynamic ileus or ent eritis. Diffuse idiopathic skeletal hyperostosis of the thoracic spine. Stable mild anterior wedge compression fracture deformity of L2. Degenerative spurring of the lumbar spine. No suspicious osteolytic or osteoblastic lesions are noted. IMPRESSION: Patchy right lower lobe pulmonary infiltrate; consider pneumonia versus aspiration pneum onitis Emphysema 4. 0.6 mm probable right hepatic cyst Stable approximately 8.8 x 13.8 mm pancreatic head cystic lesion and adjacent 3 mm calcification, bot h stable since 03/15/2021 4 mm nonobstructing left renal calculus Bilateral renal cysts Suture line of the mid transverse colon; no bowel obstruction or free air Infrarenal abdominal aortic aneurysm Prostatomegaly Reviewed, dictated and finalized at Location [facility]. Reviewed, dictated and finalized at location B. [employer] IMPRESSION: Patchy right lower lobe pulmonary infiltrate; consider pneumonia v ersus aspiration pneumonitis Emphysema 4. 0.6 mm probable right hepatic cyst Stable approximately 8.8 x 13.8 mm pancreatic head cystic lesion and adjacent 3 mm calcification, both stable since 03/15/2021 4 mm nonobstructing left renal calculus Bilateral renal cysts Suture line of the mid transverse colon; no bowel obstruction or free air Infrarenal abdominal aortic aneurysm Prostatomegaly
[2022-07-30 10:45] LABS: Estimated Glomerular Filt Rate 30
== END 2022-07-30 10:20 | disposition home or self-care (01) ==
PROVIDERS: PCP Internal Medicine; Referring Provider Internal Medicine Gastroenterology; Visit Provider Internal Medicine Hematology & Oncology
DX: C18.9 Malignant neoplasm of colon, unspecified (principal); I71.43 Infrarenal abdominal aortic aneurysm, without rupture; N28.1 Cyst of kidney, acquired; N20.0 Calculus of kidney; J43.9 Emphysema, unspecified; R91.8 Other nonspecific abnormal finding of lung field
CPT/HCPCS: 74177; Q9967

== ENCOUNTER 2022-10-28 11:30 | Outpatient (CLI) | payer OTHER, SELFPAY ==
[2022-10-28 12:03] LABS: Basophils Absolute Auto 0.1 K/mm3 (0.0-0.1); Basophils Percent Auto 1.7 % (0.2-1.2); Eosinophils Absolute Auto 0.1 K/mm3 (0-0.3); Eosinophils Percent Auto 2.6 % (0-4.4); Hematocrit 31.4 % (42.0-52.0); Hemoglobin 10.1 g/dL (14.0-18.0); Immature Granulocyte Absolute 0.05 K/mm3 (0.00-0.031); Immature Granulocyte Percent A 1.2 % (0-0.5); Lymphocytes Absolute Auto 0.75 K/mm3 (0.9-3.2); Lymphocytes Percent Auto 17.9 % (18.3-44.2); Mean Corpuscular HGB Conc 32.2 g/dl (32-36); Mean Corpuscular Hemoglobin 34.2 pg (26-34); Mean Corpuscular Volume 106.4 fl (80-100); Mean Platelet Volume 12.1 fl (7.4-10.4); Monocytes Absolute Auto 0.4 K/mm3 (0.1-0.6); Monocytes Percent Auto 9.5 % (2.6-8.5); Neutrophils Absolute Auto 2.8 K/mm3 (1.3-6.7); Neutrophils Percent Auto 67.1 % (45.5-73.1); Platelet Count Result 118 k/mm3 (150-375); Red Blood Count 2.95 M/mm3 (4.6-6.20); White Blood Count 4.2 K/mm3 (4.5-10.0)
[2022-10-28 12:15] LABS: Alanine Aminotransferase 14 U/L (6-50); Alkaline Phosphatase 89 U/L (38-126); Anion Gap 6 mmol/L (8-16); Aspartate Amino Transferase 22 U/L (17-59); Bilirubin,Total 0.6 mg/dL (0.2-1.3); Blood Urea Nitrogen 24 mg/dL (9-20); Calcium 8.8 mg/dL (8.4-10.2); Carbon Dioxide 23 mmol/L (22-30); Chloride 106 mmol/L (98-107); Cholesterol 176 mg/dL (0-200); Estimated Glomerular Filt Rate 36; Glucose 92 mg/dL (65-110); HDL Direct 44 mg/dL; Sodium 135 mmol/L (137-145); Triglycerides 78 mg/dL (<150)
[2022-10-28 12:26] LABS: LDL Cholesterol Direct 99 mg/dL
[2022-10-28 12:46] LABS: Carcinoembryonic Antigen 5.2 ng/mL (0.0-3.0)
== END 2022-10-28 11:31 | disposition home or self-care (01) ==
PROVIDERS: PCP Family Medicine; Referring Provider Internal Medicine Hematology & Oncology; Visit Provider Family Medicine
DX: C18.9 Malignant neoplasm of colon, unspecified (principal); I12.9 Hypertensive chronic kidney disease with stage 1 through stage 4 chronic kidney disease, or unspecified chronic kidney disease; N18.9 Chronic kidney disease, unspecified; E78.5 Hyperlipidemia, unspecified; J44.9 Chronic obstructive pulmonary disease, unspecified; R55 Syncope and collapse
CPT/HCPCS: 36415; 80053; 80061; 82378; 82607; 85025

== ENCOUNTER 2022-11-20 18:00 | Emergency (ER) | payer OTHER, SELFPAY ==
--- NOTE | ~2022-11-20 | XR_ITS ---
EXAM: XR femur RT min 2V, XR tibia fibula RT 2V DATE: 11/20/2022 18:56 HISTORY: NO INJURY, RIGHT LAT PAIN . COMPARISON: None available. FINDINGS: Severe osteopenia. Surgical clips or seed implants over the midline pelvis. Old mid shaft right femoral fracture with heterotopic bone. Vascular calcification. Mild degenerative change in the right hip. Moderate degenerative change in the right knee and right ankle. IMPRESSION: No acute osseous finding in the right femur, or right tibia/fibula. Reviewed, dictated and finalized at location K. IMPRESSION: No acute osseous finding in the right femur, or right tibia/fibula.
[2022-11-20 18:17] VITALS: BP 179/77; PULSE 71; RESP 12; TEMP 36.6; O2SAT 98
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
[2022-11-20] MEDS: methylPREDNISolone SOD SUCC 125 MG VIAL IM (19:25)
--- NOTE | 2022-11-20 19:38 | PC.NURSE ---
PT IS ABLE TO STAND ON BILAT FEET WHILE ASSISTED WITH DRESSING. +PEDAL PULSE NOTED. SKIN W-D TO RT LEG AND FOOT.
== END 2022-11-20 19:40 | disposition home or self-care (01) ==
PROVIDERS: Emergency Provider Nurse Practitioner
DX: M79.651 Pain in right thigh (principal); M79.661 Pain in right lower leg; F17.210 Nicotine dependence, cigarettes, uncomplicated; J44.9 Chronic obstructive pulmonary disease, unspecified; I12.9 Hypertensive chronic kidney disease with stage 1 through stage 4 chronic kidney disease, or unspecified chronic kidney disease; N18.9 Chronic kidney disease, unspecified; E78.5 Hyperlipidemia, unspecified; I73.9 Peripheral vascular disease, unspecified; Z85.46 Personal history of malignant neoplasm of prostate
CPT/HCPCS: 73552; 73590; 96372; 99213; G0463; J2930

== ENCOUNTER 2022-12-18 12:19 | Outpatient (CLI) | payer OTHER, SELFPAY ==
--- NOTE | ~2022-12-18 | XR_ITS ---
AP view of the pelvis and AP and lateral views of the right hip Clinical history: Pain Findings: Suspected subcapital fracture of the right femoral neck present. Old, healed fracture defor mity of the right femoral shaft is partially imaged. Possible old, healed fracture deformity the righ t femoral neck Bilateral hip and SI joint spaces are preserved. Soft tissues are unremarkable. Impression: Suspected subcapital fracture of the right femoral neck. Old, healed fracture deformity the right femoral shaft. Reviewed, dictated and finalized at location M. Impression: Suspected subcapital fracture of the right femoral neck. Old, healed fracture deformity the right femoral shaft.
== END 2022-12-18 12:20 | disposition home or self-care (01) ==
PROVIDERS: PCP Family Medicine; Visit Provider Family Medicine
DX: M25.551 Pain in right hip (principal); Z87.81 Personal history of (healed) traumatic fracture
CPT/HCPCS: 73502

== ENCOUNTER 2022-12-26 15:22 | Outpatient (CLI) | payer OTHER, SELFPAY ==
--- NOTE | ~2022-12-26 | CT_ITS ---
EXAMINATION: CT hip RT wo con DATE: 12/26/2022 15:46 INDICATION: Subcapital fracture of right femoral neck. TECHNIQUE: Computed tomography (CT) of the right hip was performed without intravenous contrast. Auto mated exposure control and iterative reconstruction technique were employed. The dose-length product was 152.63 mGy-cm. COMPARISON: Right hip radiographs 12/18/2022, right femur radiographs 11/20/2022 FINDINGS: The prostate is severely enlarged. There are brachytherapy seeds in the prostate. There is a subcapital fracture of right femoral neck. The distal fracture fragment demonstrates impaction and 30 degrees varus angulation. Partially visualized is an old healed fracture of right femoral diaphysi s. There is moderate right hip osteoarthritis. IMPRESSION: 1. Subcapital fracture of right femoral neck. 2. Moderate right hip osteoarthritis. Reviewed, dictated and finalized at location B.
== END 2022-12-26 15:23 | disposition home or self-care (01) ==
PROVIDERS: PCP Family Medicine; Visit Provider Nurse Practitioner Family
DX: S72.001A Fracture of unspecified part of neck of right femur, initial encounter for closed fracture (principal); R93.89 Abnormal findings on diagnostic imaging of other specified body structures; M16.11 Unilateral primary osteoarthritis, right hip; T14.90XA Injury, unspecified, initial encounter
CPT/HCPCS: 73700

== ENCOUNTER 2023-01-27 13:46 | Outpatient (CLI) | payer OTHER, SELFPAY ==
--- NOTE | ~2023-01-27 | MR_ITS ---
EXAMINATION: MR hip RT wo con DATE: 01/27/2023 15:02 INDICATION: Right hip pain and instability post fall TECHNIQUE: Magnetic resonance imaging (MRI) of the right hip was performed without intravenous contr ast. Sequences included full-field axial PD-weighted FS FSE and T1-weighted FSE, coronal of the pelvi s with PD-weighted FS FSE, T2-weighted FSE and T1-weighted FSE, small field of view of the right hip with axial PD-weighted FS FSE, sagittal PD-weighted FS FSE, coronal PD-weighted FS FSE and coronal T2 weighted FSE. Additional radial T1-weighted FGR oriented orthogonal to the acetabular rim were obt ained for evaluation of the labrum. COMPARISON: CT dated 12/26/2022 FINDINGS: Bones/labrum/cartilage: Subcapital fracture of the proximal right femur. There is varus angulation with up to 1.5 similar imp action along the inferomedial margin of the fracture. In addition there is a linear low signal intens ity nondisplaced subarticular fracture underlying the apex of the right femoral head. There are parti ally visualized old healed fracture deformities at the bilateral proximal femoral diaphyses. On the l eft this is nonunited with slightly greater than one shaft widths medial displacement, proximal migra tion and with 12 degree apex lateral angulation. No other fractures identified. There is a small T1 h ypointense, T2 hyperintense lesions at the bilateral pubic bodies, right slightly more prominent than left. These do not extend across the width of the bone to suggest fracture. Mild lumbar spondylosis. Likely chronic degeneration of the anterior to superolateral right acetabular labrum which is diminu tive and partially replaced by marginal osteophytes along the acetabulum. This relatively spares the posterior labrum where there is more discrete linear fluid signal intensity labral tear. Moderate ost eoarthritis at the right hip with nonuniform joint space narrowing most prominent anterosuperiorly wh ere there is deep chondral ulceration and mild subarticular edema-like signal change along the jing superior rim of the acetabulum. Similar degenerative changes suggested but not diagnostically evaluat ed on the larger field of view images at the contralateral left hip. Fluid: Small right hip joint effusion. Physiologic amount fluid at the left hip joint. Soft tissues: Relatively symmetric diffuse mild likely age-related atrophy of the musculature in the pelvis and vis ualized proximal thighs. Mild tendinopathy without discrete tear at the bilateral ischial tuberosity origins of the proximal hamstring tendons. The bilateral iliopsoas and gluteal tendons are normal. Pr ominent prostatomegaly measuring 7.3 x 5.6 x 5.5 cm. Limited evaluation of visceral organs of the pel vis is otherwise unremarkable. No pathologically enlarged pelvic/inguinal lymphadenopathy. IMPRESSION: 1. Acute impacted right femoral subcapital fracture with varus angulation. Additional nondisplaced butler barticular fracture at the apex of the right femoral head. 2. T1 hypointense, T2 hyperintense lesions at the bilateral pubic bodies which do not appear to repre sent fractures. Differential would include stress reaction, artifact of vascular channels, or neoplas m either benign or malignant including potential metastatic disease in this patient with known prior prostate cancer. 3. Partially visualized old healed bilateral proximal femoral fractures with malunion on the left. 4. Moderate osteoarthritis and chronic labral tear/degeneration at the right hip. Similar findings butler ggested but not diagnostically evaluated at the left hip 5. Prominent prostatomegaly. Reviewed, dictated and finalized at location A. IMPRESSION: 1. Acute impacted right femoral subcapital fracture with varus angulation. Gustavo tional nondisplaced subarticular fractu
== END 2023-01-27 13:47 | disposition home or self-care (01) ==
PROVIDERS: PCP Family Medicine; Visit Provider Family Medicine
DX: S72.001A Fracture of unspecified part of neck of right femur, initial encounter for closed fracture (principal); M89.9 Disorder of bone, unspecified; M16.11 Unilateral primary osteoarthritis, right hip; N40.0 Benign prostatic hyperplasia without lower urinary tract symptoms
CPT/HCPCS: 73721

== ENCOUNTER 2023-04-01 12:59 | Outpatient (CLI) | payer OTHER, SELFPAY ==
[2023-04-01 13:23] LABS: Hematocrit 30.4 % (42.0-52.0); Hemoglobin 9.5 g/dL (14.0-18.0); Immature Platelet Fraction Pct 11.4 % (0.9-11.2); Mean Corpuscular HGB Conc 31.3 g/dl (32-36); Mean Corpuscular Hemoglobin 34.8 pg (26-34); Mean Corpuscular Volume 111.4 fl (80-100); Mean Platelet Volume 11.9 fl (7.4-10.4); Platelet Count Result 126 k/mm3 (150-375); Red Blood Count 2.73 M/mm3 (4.6-6.20); Red Cell Distribution Width 14.9 % (11.5-14.5); White Blood Count 4.1 K/mm3 (4.5-10.0)
[2023-04-01 13:32] LABS: Alanine Aminotransferase 10 U/L (6-50); Alkaline Phosphatase 78 U/L (38-126); Anion Gap 7 mmol/L (8-16); Aspartate Amino Transferase 17 U/L (17-59); Bilirubin,Total 0.6 mg/dL (0.2-1.3); Blood Urea Nitrogen 30 mg/dL (9-20); Calcium 9.1 mg/dL (8.4-10.2); Carbon Dioxide 22 mmol/L (22-30); Chloride 108 mmol/L (98-107); Estimated Glomerular Filt Rate 29; Glucose 99 mg/dL (65-110); Potassium 4.1 mmol/L (3.4-5.0); Sodium 137 mmol/L (137-145)
== END 2023-04-01 13:00 | disposition home or self-care (01) ==
PROVIDERS: PCP Family Medicine; Visit Provider Family Medicine
DX: E78.5 Hyperlipidemia, unspecified (principal); I10 Essential (primary) hypertension; R41.89 Other symptoms and signs involving cognitive functions and awareness
CPT/HCPCS: 36415; 80053; 85027; 85055

== ENCOUNTER 2023-04-08 09:49 | Inpatient (IN) | payer OTHER, SELFPAY ==
[2023-04-08] VITALS (10 sets, daily range): BP systolic 173–240; BP diastolic 68–109; PULSE 78–95; RESP 13–28; TEMP 35.9–36.7; O2SAT 92–97; BMI 18.6
--- NOTE | ~2023-04-08 | CT_ITS ---
EXAMINATION: CT brain wo con DATE: 04/08/2023 10:32 INDICATION: Fall. Patient struck head. TECHNIQUE: Computed tomography (CT) of the head was performed without intravenous contrast. The mA wa s adjusted according to patient size. Iterative reconstruction technique was employed. Exam dose: 68 1.00 mGy-cm total exam DLP. COMPARISON: 03/13/2021 CT brain FINDINGS: Right vertebral artery and bilateral carotid siphon internal carotid artery calcifications. There is nonspecific diminished attenuation of the cerebral white matter, likely due to chronic small vessel ischemic changes. There is moderate central and cortical cerebral and cerebellar volume loss, not inconsistent with pat ient chronological age of 83 years. No intracranial mass lesion or hemorrhage, midline shift or mass effect. No subdural or epidural kelsey kj is detected. The orbital contents are unremarkable. No fracture or bone destruction of the cranial vault. Polyp or mucous retention cyst at the floor of the left axillary sinus and mild mucoperiosteal thicke cresencio of the left maxillary sinus. The paranasal sinuses and mastoid air cells otherwise are unremarka ble. IMPRESSION: Cerebral atherosclerosis and chronic small vessel ischemic changes of cerebral white mat ter No skull fracture or acute intracranial finding Reviewed, dictated and finalized at Location A. Reviewed, dictated and finalized at location B. RADIATOR MECHANIC IMPRESSION: Cerebral atherosclerosis and chronic small vessel ischemic changes of cerebral white matter No skull fracture or acute intracranial finding
--- NOTE | ~2023-04-08 | CT_ITS ---
EXAMINATION: CT pelvis wo con DATE: 04/08/2023 10:31 INDICATION: Fall. Right hip pain. TECHNIQUE: Computed tomography (CT) of the pelvis was performed without intravenous contrast. Automat ed exposure control and iterative reconstruction technique were employed. Exam dose: 135.53 mGy-cm t otal exam DLP. COMPARISON: None FINDINGS: Up to approximately 3.5 cm infrarenal abdominal aortic aneurysm. Prominent prostate enlargement. There is some radiopaque seeds in the prostate gland. Moderate diffus e thickening of the urinary bladder wall consistent with bladder outlet obstruction due to prostatome natasha. Diffuse osteopenia. There is an impacted mildly anterolaterally displaced right subcapital femoral neck fracture. No disl ocation. Osteoarthritic changes noted at both hip joints. IMPRESSION: Right subcapital femoral neck fracture with mild anterolateral displacement and impactio n Osteopenia Bilateral hip osteoarthritis Prominent prostatomegaly Reviewed, dictated and finalized at Location A. Reviewed, dictated and finalized at location B. ESS MOLD TECHNICIAN IMPRESSION: Right subcapital femoral neck fracture with mild anterolateral dis placement and impaction Osteopenia Bilateral hip osteoarthritis Prominent prostatomegaly
--- NOTE | ~2023-04-08 | XR_ITS ---
MODIFIED ESOPHAGRAM HISTORY: Difficulty swallowing TECHNIQUE: Modified barium esophagram was performed on 04/13/2023. I administered fluoroscopy and per formed the exam with speech pathologist. Patient was seated for lateral fluoroscopic imaging for ing estion of thin liquids, pudding, solids and quantified amounts, followed by thin liquids in uncontrol led amounts. This was recorded on tape. A single fluoroscopic spot image was also recorded. The DAP f or this procedure was 2.853 Gycm2. The amount of fluoroscopy time used during this procedure was 4.9 minutes. FINDINGS: Oral stage: Adequate function. Pharyngeal stage: There is laryngeal elevation and tongue base retraction. There is vallecular and pi riform sinus residue. There was laryngeal penetration without aspiration. Anterior cervical osteophyt es impress upon the posterior wall of esophagus. Prominent cricopharyngeal bar. Cervical/esophageal stage: Adequate function. IMPRESSION: Pharyngeal dysphagia with small amount of laryngeal penetration without aspiration. Plea se correlate with speech pathologist findings and specific feeding recommendations. Reviewed, dictated and finalized at location A. EDICAL ELECTRONICS TECHNICIAN IMPRESSION: Pharyngeal dysphagia with small amount of laryngeal penetration wit hout aspiration. Please correlate with speech pathologist findings and specifi c feeding recommendations.
--- NOTE | ~2023-04-08 | XR_ITS ---
EXAMINATION: XR chest 1V portable DATE: 04/10/2023 20:24 INDICATION: Postoperative increasing oxygen demand TECHNIQUE: frontal view of the chest was obtained. COMPARISON: Chest radiograph dated 04/08/2023 FINDINGS: Skinfolds project over the right mid to lower and left mid lung zones. Mild linear discoid atelectasi s at the bilateral lower lung zones. No other airspace opacities, pulmonary edema, pleural effusion o r pneumothorax. The cardiomediastinal silhouette is normal. IMPRESSION: 1. Mild linear discoid atelectasis in the bilateral lower lung zones. Reviewed, dictated and finalized at location A. IAL TAX AUDITOR
--- NOTE | ~2023-04-08 | CT_ITS ---
EXAMINATION: CT cervical spine wo con DATE: 04/08/2023 10:31 INDICATION: Head injury. TECHNIQUE: Computed tomography (CT) of the cervical spine was performed without intravenous contrast. Automated exposure control and iterative reconstruction technique were employed. The dose-length pro duct was 178.93 mGy-cm. COMPARISON: None FINDINGS: There is 11 mm nodule in right thyroid lobe, likely not clinically significant. A calcified left lung nodules consistent with old granulomatous disease. Emphysema is noted. There is 3 degrees dextrocurvature of cervical spine. There is mild kyphosis of cervical spine. Vertebral body heights a re normal. There is mildly decreased disc height at C4-C5, severely decreased disc height at C5-C6, a nd moderately decreased disc height at C6-C7. The following disc levels are specifically discussed: C2-C3: There is no uncovertebral joint osteoarthritis. There is moderate and mild left facet joint os teoarthritis. There is no neural foraminal stenosis. There is no central canal stenosis. C3-C4: There is no uncovertebral joint osteoarthritis. There is moderate right and mild left facet candida int osteoarthritis. There is no neural foraminal stenosis. There is no central canal stenosis. C4-C5: There is moderate right and mild left uncovertebral joint osteoarthritis. There is mild bilate ral facet joint osteoarthritis. There is no neural foraminal stenosis. There is mild central canal st enosis. C5-C6: There is severe bilateral uncovertebral joint osteoarthritis. There is mild bilateral facet candida int osteoarthritis. There is mild right and moderate left neural foraminal stenosis. There is mild ce ntral canal stenosis. C6-C7: There is severe right and moderate left uncovertebral joint osteoarthritis. There is severe bi lateral facet joint osteoarthritis. There is mild bilateral neural foraminal stenosis. There is mild central canal stenosis. C7-T1: There is no uncovertebral joint osteoarthritis. There is severe right and mild left facet join t osteoarthritis. There is mild right neural foraminal stenosis. There is no central canal stenosis. IMPRESSION: 1. No fracture. 2. Severe cervical spondylosis. Reviewed, dictated and finalized at location A. TH CARE MARKETING MANAGER
--- NOTE | ~2023-04-08 | XR_ITS ---
EXAMINATION: XR chest 1V DATE: 04/08/2023 10:53 INDICATION: Fall. TECHNIQUE: A single frontal view of the chest was obtained on 2 radiographs. COMPARISON: Chest 2 views 11/18/2021 FINDINGS: Calcified left lung nodules are consistent with old granulomatous disease. There is no pneu monia, pleural effusion, or pneumothorax. The heart size is normal. IMPRESSION: 1. No acute cardiopulmonary disease. Reviewed, dictated and finalized at location A. WALKING GUIDE
--- NOTE | ~2023-04-08 | XR_ITS ---
EXAMINATION: XR hip RT min 2V DATE: 04/10/2023 17:23 INDICATION: Right hip hemiarthroplasty post femoral neck fracture. TECHNIQUE: Anteroposterior and cross-table lateral views of the right hip were obtained. COMPARISON: 04/08/2023 FINDINGS: Interval resection of the fractured left femoral head and placement of a cemented bipolar type left h ip hemiarthroplasty which is in near-anatomic alignment. Expected postoperative lucent soft tissue ga s overlying the right hip. Again seen is an old healed fracture deformity of the proximal right femor al diaphysis which is healed with some posterior displacement and 15 degrees posterior angulation. No new acute fracture identified. Paris catheter and a few surgical clips project over the central pelv is. IMPRESSION: 1. Placement of a bipolar type right hip hemiarthroplasty which is in near-anatomic alignment. Reviewed, dictated and finalized at location A. ENGINEER IMPRESSION: 1. Placement of a bipolar type right hip hemiarthroplasty which is in near-patricia omic alignment.
--- NOTE | ~2023-04-08 | XR_ITS ---
XR hip BI 2V w AP pelvis DATE: 04/08/2023 10:53 INDICATION: Fall. Pelvis and bilateral hip injury TECHNIQUE: AP pelvis. AP and lateral views of left hip. AP and crosstable lateral views of right hip COMPARISON: 04/08/2023 CT pelvis FINDINGS: Diffuse osteopenia. Impacted mildly superolaterally displaced subcapital femoral neck fracture is noted on the right. Old fracture deformities of both femoral shafts. No pelvic fracture or bone destruction is detected. Normal alignment at the pubic symphysis and sacro iliac joints. Surgical clips overlie the prostate gland. Surgical clips overlie the left lateral mid and lower lumb ar spine/paraspinal area. IMPRESSION: Right subcapital femoral neck fracture Osteopenia Old fracture deformities of both femoral shafts Reviewed, dictated and finalized at location [facility]
--- NOTE | 2023-04-08 10:02 | ECG_ITS ---
Measurements Intervals [place] Rate: 93 P: 74 WI: 172 QRS: 30 QRSD: 115 T: 89 QT: 348 QTc: 434 Interpretive Statements SINUS RHYTHM INTRAVENTRICULAR CONDUCTION DELAY ST-T WAVE ABNORMALITY IN ANTEROLATERAL LEADS- CONSIDER ISCHEMIA BASELINE ARTIFACT- I, II, III, AVR, AVL, AVF, V4-V5 ABNORMAL ECG COMPARED TO ECG 06/28/2020 01:48:13 INTRAVENTRICULAR CONDUCTION DELAY NOW PRESENT ST-T WAVE ABNORMALITY NOW PRESENT Electronically Signed On 04-08-2023 11:06:40 SKID ADZER by Amador Singh D.O.
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
[2023-04-08 10:22] LABS: Glucose Point of Care 92 mg/dl (65-105)
[2023-04-08 11:11] LABS: Basophils Percent Auto 0.3 % (0.2-1.2); Eosinophils Percent Auto 0.2 % (0-4.4); Hematocrit 29.8 % (42.0-52.0); Hemoglobin 9.6 g/dL (14.0-18.0); Immature Granulocyte Absolute 0.08 K/mm3 (0.00-0.031); Immature Granulocyte Percent A 0.6 % (0-0.5); Lymphocytes Absolute Auto 0.36 K/mm3 (0.9-3.2); Lymphocytes Percent Auto 2.7 % (18.3-44.2); Mean Corpuscular HGB Conc 32.2 g/dl (32-36); Mean Corpuscular Hemoglobin 35.2 pg (26-34); Mean Corpuscular Volume 109.2 fl (80-100); Mean Platelet Volume 12.1 fl (7.4-10.4); Monocytes Absolute Auto 0.7 K/mm3 (0.1-0.6); Monocytes Percent Auto 5.4 % (2.6-8.5); Neutrophils Absolute Auto 12.3 K/mm3 (1.3-6.7); Neutrophils Percent Auto 90.8 % (45.5-73.1); Platelet Count Result 115 k/mm3 (150-375); Red Blood Count 2.73 M/mm3 (4.6-6.20); White Blood Count 13.6 K/mm3 (4.5-10.0)
[2023-04-08 11:24] LABS: Alanine Aminotransferase 11 U/L (6-50); Albumin Level 4.1 g/dL (3.5-5.1); Alkaline Phosphatase 96 U/L (38-126); Anion Gap 12 mmol/L (8-16); Aspartate Amino Transferase 19 U/L (17-59); Bilirubin,Total 0.7 mg/dL (0.2-1.3); Blood Urea Nitrogen 27 mg/dL (9-20); Calcium 9.4 mg/dL (8.4-10.2); Carbon Dioxide 17 mmol/L (22-30); Chloride 112 mmol/L (98-107); Estimated CRCL calculation 21 ml/min; Estimated Glomerular Filt Rate 30; Glucose 93 mg/dL (65-110); Potassium 4.7 mmol/L (3.4-5.0); Sodium 141 mmol/L (137-145)
[2023-04-08 11:25] LABS: Lactic Acid Reflex 1.3 mmol/L (0.7-2.0)
[2023-04-08 11:25] LABS: INR 1.1
[2023-04-08 11:26] LABS: Partial Thromboplastin Time 33.5 SECONDS (22.3-36.8)
[2023-04-08] MEDS: fentaNYL CITRATE INJ (*CRX) 100 MCG/2 ML VIAL 50 MCG IV PUSH ×2 (11:29→15:18)
[2023-04-08] MEDS: amLODIPine BESYLATE 5 MG TABLET 2.5 MG PO (11:29)
[2023-04-08 11:33] LABS: Anisocytosis 1+ (NORMAL); Hypochromasia 1+ (NORMAL); Ovalocytes 1+ (NORMAL); Platelet Estimate Adequate (Adequate)
[2023-04-08 11:34] LABS: Schistocytes None Seen (NORMAL)
[2023-04-08] MEDS: VALSARTAN 160 MG TABLET 320 MG PO (11:52)
[2023-04-08 12:04] LABS: Appearance Urine Cloudy (Clear); Bacteria Urine 1+ /hpf; Bilirubin Urine Negative (Negative); Blood Urine 1+ (Negative); Color Urine Yellow (Yellow); Glucose Urine UA Negative (Negative); Ketones Urine Negative (Negative); Leukocyte Esterase Ur 2+ LEU/UL (Negative); Need Manual Microscopic Reviewed; Nitrate Urine Negative (Negative); Protein Urine 2+ mg/dL (Negative); Specific Grav Ur 1.017 (1.001-1.035); Squamous Epithelial Cell Urine Occasional /hpf (Few); WBC Urine 0-5 /hpf
[2023-04-08 12:08] LABS: Add Urine Microscopic? YES
--- NOTE | 2023-04-08 14:53 | PC.NURSE ---
Pt daughter leaving dept and requesting updates be made to her via cell phone at [phone]
--- NOTE | 2023-04-08 18:10 | ADMGEN ---
This patient, Tino Alexander, was admitted to [facility] Surg Room 305-01. Patient/family oriented to hospital policies and general routines including ID bracelet, bed and alarms, visiting hours, pain management, procedures, bathroom and other care routines, personal items, smoking policy, room service/diet, and visiting hours. Information on how to activate the Rapid Response Team has been discussed. Patient/Family are encouraged to report perceived risks to care and to ask questions if they do not understand what they are told or what they should do. Report from Petty
--- NOTE | 2023-04-08 20:47 | PM.IMHP ---
H&P: HPI History of Present Illness Date/Time: 04/08/23 20:47 Chief Complaint: fall Narrative: This is an 83-year-old male with past medical history significant for aortic abdominal aneurysm, chronic blood-loss anemia chronic kidney disease, chronic obstructive lung disease, essential hypertension, dyslipidemia, peripheral vascular disease. Patient presents to the emergency room after having a mechanical fall when his walker slipped sending him to the ground patient loss of consciousness. In emergency room patient was found to have a right hip fracture. Patient is being admitted for further evaluation management and treatment XR hip BI 2V w AP pelvis DATE: 04/08/2023 10:53 INDICATION: Fall. Pelvis and bilateral hip injury? TECHNIQUE: AP pelvis. AP and lateral views of left hip. AP and crosstable lateral views of right hip? COMPARISON: 04/08/2023 CT pelvis? FINDINGS: Diffuse osteopenia. Impacted mildly superolaterally displaced subcapital femoral neck fracture is noted on the right. Old fracture deformities of both femoral shafts. No pelvic fracture or bone destruction is detected. Normal alignment at the pubic symphysis and sacroiliac joints. Surgical clips overlie the prostate gland. Surgical clips overlie the left lateral mid and lower lumbar spine/paraspinal area.? IMPRESSION: Right subcapital femoral neck fracture Osteopenia Old fracture deformities of both femoral shafts? EXAMINATION: CT brain wo con DATE: 04/08/2023 10:32 INDICATION: Fall. Patient struck head. TECHNIQUE: Computed tomography (CT) of the head was performed without intravenous contrast. The mA was adjusted according to patient size. Iterative reconstruction technique was employed. Exam dose:? 681.00 mGy-cm total exam DLP.? COMPARISON: 03/13/2021 CT brain FINDINGS: Right vertebral artery and bilateral carotid siphon internal carotid artery calcifications. There is nonspecific diminished attenuation of the cerebral white matter, likely due to chronic small vessel ischemic changes. There is moderate central and cortical cerebral and cerebellar volume loss, not inconsistent with patient chronological age of 83 years. No intracranial mass lesion or hemorrhage, midline shift or mass effect. No subdural or epidural hematoma is detected. The orbital contents are unremarkable. No fracture or bone destruction of the cranial vault. Polyp or mucous retention cyst at the floor of the left axillary sinus and mild mucoperiosteal thickening of the left maxillary sinus. The paranasal sinuses and mastoid air cells otherwise are unremarkable. IMPRESSION:? Cerebral atherosclerosis and chronic small vessel ischemic changes of cerebral white matter No skull fracture or acute intracranial finding Review of Systems Review of Systems: fall from chair Constitutional: Constitutional: Denies chills, Denies fever(s), Denies malaise, Denies night sweats and Denies poor appetite Eyes: Eyes: Denies change in vision ENT: Denies dysphagia, Denies vertigo, Denies dizziness and Denies odynophagia Cardiovascular: Cardiovascular: Denies chest pain, Denies radiating jaw, neck or arm pain and Denies palpitations Respiratory: Respiratory: Denies cough, Denies excessive phlegm production and Denies dyspnea Gastrointestinal: Gastrointestinal: Denies abdominal pain, Denies nausea and Denies vomiting Genitourinary: Genitourinary: Denies dysuria Musculoskeletal: Musculoskeletal: Reports arthralgias (R hip) Integumentary/Breasts: Skin/Breast: Denies rash Neurologic: Denies focal weakness and Denies Sensory deficit (Neuro) Psychiatric: Psychiatric: Reports no additional psychiatric complaints and Reports as per HPI Endocrine: Endocrine: Denies cold intolerance, Denies flushing, Denies heat intolerance, Denies polyphagia, Denies polydipsia and Denies palpitations Hematologic/Lymphatic: Hematologic/Lymphatic: Reports no additional hematologic/lymphatic complaints and Reports
[2023-04-09] VITALS (7 sets, daily range): BP systolic 128–170; BP diastolic 51–83; PULSE 74–84; RESP 18–20; TEMP 36.1–37.1; O2SAT 90–98
[2023-04-09] MEDS: hydrALAZINE HCL 20 MG/ML VIAL 10 MG IV PUSH (00:40)
[2023-04-09] MEDS: HYDROmorphone HCL INJ (*CRX) 1 MG/ML SYR IV PUSH ×3 (02:00→12:40)
[2023-04-09] MEDS: amLODIPine BESYLATE 2.5 MG TABLET PO (08:05)
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
--- NOTE | 2023-04-09 12:40 | PM.IMPN ---
Progress Note: A&P Assessment and Plan (1) Femoral neck fracture: Qualifiers: Encounter type: initial encounter Fracture type: closed Laterality: right Qualified Code(s): S72.001A - Fracture of unspecified part of neck of right femur, initial encounter for closed fracture Code(s): S72.009A - Fracture of unspecified part of neck of unspecified femur, initial encounter for closed fracture Status: Acute Assessment and Plan: Pt admitted with a accidental fall at home Pt sustained a Right subcapital femoral neck fracture Orthpedic review PT/ OT Pain control (2) Fall: Qualifiers: Encounter type: initial encounter Qualified Code(s): W19.XXXA - Unspecified fall, initial encounter Code(s): W19.XXXA - Unspecified fall, initial encounter Status: Acute (3) Elevated blood pressure reading with diagnosis of hypertension: Code(s): I10 - Essential (primary) hypertension Status: Acute Assessment and Plan: Pt running high blood pressures restart bp meds may be pain related Subjective Date/time seen: 04/09/23 12:40 Interval history: Pt admitted with a fall accidental fall Pt has history of HTN, prostate cancer, AAA, CKD Admitted with Right subcapital femoral neck fracture watch blood pressures today pt to have surgery tomorrow keep npo from [place] Review of Systems Review of Systems: R hip pain Exam Const: General: comfortable and no acute distress HENMT: Mouth: Yes moist mucous membranes Eyes: General: appearance normal, both eyes and all related structures Neck: Neck: supple and no JVD Resp: Effort & Inspection: normal respiratory effort Cardio: Rate: regular rate Rhythm: regular rhythm GI: Inspection: non-distended GI Palp: Yes Soft to palpation and No Tenderness to palpation present (GI) Neuro: General: gait normal Cognition (Neuro): normal cognition Speech: normal speech Psych: Affect: normal affect Objective Data Vital Signs Vital Signs: Vital Signs - 24 hr 04/08/23 13:32 04/08/23 14:40 04/08/23 15:19 Temperature Pulse Rate 84 85 87 Respiratory Rate 13 19 16 Blood Pressure 182/84 H 173/68 H 185/87 H Pulse Oximetry 95 94 93 Oxygen Delivery 04/08/23 16:16 04/08/23 18:59 04/08/23 20:00 Temperature 36.7 C Pulse Rate 89 80 80 Respiratory Rate 26 H 18 18 Blood Pressure 206/93 H 177/76 H Pulse Oximetry 92 94 94 Oxygen Delivery Room Air 04/08/23 23:55 04/09/23 02:05 04/09/23 06:00 Temperature 35.9 C L 36.4 C L 36.1 C L Pulse Rate 78 74 84 Respiratory Rate 20 18 18 Blood Pressure 180/69 H 147/83 H 128/51 L Pulse Oximetry 96 98 97 Oxygen Delivery 04/09/23 08:15 04/09/23 08:50 04/09/23 08:00 Temperature Pulse Rate 81 80 Respiratory Rate Blood Pressure 170/79 H Pulse Oximetry 92 Oxygen Delivery Room Air Intake/Output Intake/Output: Intake & Output 04/06/23 04/07/23 04/08/23 04/09/23 23:59 23:59 23:59 23:59 Intake Total 100 Output Total 50 400 Balance -50 -300 Meds/Results Medications: Active Medications Generic Name Dose Route Start Last Admin Trade Name Freq PRN Reason Stop Dose Admin Acetaminophen 1,000 mg 04/09/23 01:41 Acetaminophen 500 Mg Tablet PO Q6H PRN Mild Pain (1-3) or Fever Al Hydrox/Mg Hydrox/Simethicone 30 ml 04/09/23 01:41 Mag Hydrox/Al Hydrox/Simeth 30 Ml Udc PO Q6H PRN Indigestion Albuterol 2 puff 04/09/23 01:40 Albuterol Sulfate (*Sp) Aerosol 1 Puff INHALATION Q4H PRN Shortness Of Breath Albuterol 2.5 mg 04/09/23 03:28 Albuterol Sulfate Neb 2.5 Mg/3 Ml Inh INHALATION BID PRN wheezing Amlodipine Besylate 2.5 mg 04/09/23 09:00 04/09/23 08:05 Amlodipine Besylate 2.5 Mg Tablet PO 2.5 mg DAILY LUIS ALBERTO Administration Hydromorphone HCl 1 mg 04/09/23 01:41 04/09/23 12:40 Hydromorphone Hcl Inj (*Crx) 1 Mg/Ml Syr IV PUSH 1 mg Q3H PRN Ad
--- NOTE | 2023-04-09 12:52 | PC.NURSE ---
Ortho provider notified that pt and family have decided to proceed with surgery.
[2023-04-10] VITALS (28 sets, daily range): BP systolic 103–196; BP diastolic 43–95; PULSE 69–92; RESP 12–18; TEMP 36–37; O2SAT 89–100
[2023-04-10 07:08] LABS: Hematocrit 26.7 % (42.0-52.0); Hemoglobin 8.3 g/dL (14.0-18.0); Mean Corpuscular HGB Conc 31.1 g/dl (32-36); Mean Corpuscular Volume 112.7 fl (80-100); Mean Platelet Volume 12.4 fl (7.4-10.4); Platelet Count Result 123 k/mm3 (150-375); Red Blood Count 2.37 M/mm3 (4.6-6.20); Red Cell Distribution Width 15.2 % (11.5-14.5); White Blood Count 10.9 K/mm3 (4.5-10.0)
[2023-04-10] MEDS: ACETAMINOPHEN 500 MG TABLET 1000 MG PO (09:43)
[2023-04-10] MEDS: amLODIPine BESYLATE 2.5 MG TABLET PO (09:43)
[2023-04-10] MEDS: HYDROmorphone HCL INJ (*CRX) 1 MG/ML SYR IV PUSH ×2 (09:46→12:44)
--- NOTE | 2023-04-10 09:46 | PM.PNORT ---
Progress Note: A&P Assessment and Plan (1) Femoral neck fracture: Qualifiers: Encounter type: initial encounter Fracture type: closed Laterality: right Qualified Code(s): S72.001A - Fracture of unspecified part of neck of right femur, initial encounter for closed fracture Code(s): S72.009A - Fracture of unspecified part of neck of unspecified femur, initial encounter for closed fracture Status: Acute Assessment and Plan: History, exam radiographs reviewed with the patient. POA contacted via telephone yesterday by myself and Dr. Reyes for further discussion. Fracture type, condition, nature, etiology course of natural history reviewed. Conservative and operative treatment options reviewed. Patient's POA, patient and family now desire operative treatment. Risks of surgery including but not limited to neurovascular damage, wound complications, blood clot, pulmonary embolus, stroke, myocardial infarction, anesthetic risks up to and including were reviewed. Continued pain and possible dysfunction were explained. No guarantees were offered. The patient understands and wishes to proceed. Plan: Right Hip Hemiarthroplasty by Dr. Reyes NPO Obtain consent bedrest pain control HOLD blood thinners Incentive Spriometry Plan Reviewed history, exam, radiographs with attending physician, Dr. Reyes. Agrees with current plan of care as indicated above. No further recommendations at this time. Subjective Subjective Date/Time Seen: 04/10/23 09:46 Interval history: Patient resting comfortably. Rousable to voice. Hopeful for surgery today. Review of Systems Review of Systems: All systems reviewed & are unremarkable except as noted in HPI and below Exam Const: General: comfortable and no acute distress HENMT: Mouth: Yes moist mucous membranes Eyes: General: appearance normal, both eyes and all related structures Neck: Neck: supple and no JVD Resp: Effort & Inspection: normal respiratory effort Cardio: Rate: regular rate Rhythm: regular rhythm GI: Inspection: non-distended GI Palp: Yes Soft to palpation and No Tenderness to palpation present (GI) Neuro: General: gait normal Cognition (Neuro): normal cognition Speech: normal speech Extrem: Right lower extremity: hip/thigh Details: abnormal to inspection Details: foreshortened and externally rotated, tenderness Location: of the hip Location: laterally, swelling and abnormal ROM Details: held in an abnormal fashion Details: in external rotation; no lacerations, no ecchymosis and no crepitus, knee Details: normal to inspection and abnormal ROM Details: held in an abnormal fashion Details: in extension; no tenderness and no swelling, lower leg Details: normal to inspection, localized swelling and no edema; no tenderness and no ecchymosis, ankle Details: normal to inspection, no edema and normal ROM; no tenderness, no swelling and no ecchymosis and foot Details: normal capillary refill, normal to inspection, toes with normal ROM and vascular exam Details: dorsalis pedis pulse present; no tenderness Psych: Affect: normal affect Objective Data Vital Signs Vital Signs: Vital Signs - 24 hr 04/09/23 13:54 04/09/23 20:00 04/09/23 23:10 Temperature 37.1 C 37.0 C Pulse Rate 81 81 78 Respiratory Rate 20 20 18 Blood Pressure 167/60 H 165/76 H Pulse Oximetry 93 93 90 Oxygen Delivery Room Air 04/10/23 06:00 Temperature 36.1 C L Pulse Rate 81 Respiratory Rate 18 Blood Pressure 196/64 H Pulse Oximetry 95 Oxygen Delivery Intake/Output Intake/Output: Intake & Output 04/07/23 04/08/23 04/09/23 04/10/23 23:59 23:59 23:59 23:59 Intake Total 580 800 Output Total 50 600 425 Balance -50 -20 375 Meds/Results Medications: Active Medications Generic Name Dose Route Start Last Admin Trade Name Freq PRN Reason Stop Dose Admin Acetaminophen 1,000 mg 04/09/23 01:41 04/10/23 09:43 Acetaminophen 500 Mg Tab
--- NOTE | 2023-04-10 13:10 | WPDHPUPDATE1 ---
History and Physical Update Update Date/Time: 04/10/23 13:10 History and Physical has been reviewed, including an updated exam of the patient. There are NO changes in the patient's condition. Risks, benefits, and alternatives have been discussed and questions answered. Patient agrees to proceed with procedure.
[2023-04-10] MEDS: IPRATROPIUM BR 0.02% INH SOLN 0.5 MG/2.5 ML VIAL INHALATION ×2 (13:20→18:30)
[2023-04-10] MEDS: ALBUTEROL SULFATE NEB 2.5 MG/3 ML INH INHALATION ×2 (13:20→18:30)
--- NOTE | 2023-04-10 14:20 | SUR.PREOP ---
1420- Notified Dr. Au patient with increased wheezing and given albuterol treatment at 1320 on the floor and patient placed on 2L nasal cannula with oxygen saturation in 90's. Dr. Au aware and in to assess patient at bedside.
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
[2023-04-10] MEDS: LACTATED RINGERS 1,000 ML 30 ML IV CONT (14:25)
[2023-04-10] MEDS: TRANEXAMIC ACID 1,000MG/ISO100 1,000 MG/100 ML BAG 200 MG IVPB (14:30)
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
[2023-04-10] MEDS: ceFAZolin 2 GM/D5W 50 ML 2 GM/50 ML BAG IVPB (15:05)
--- NOTE | 2023-04-10 16:42 | W.PM.PROC2 ---
Procedure Note - Detailed Date of Procedure 04/10/23 Pre-op Diagnosis femoral neck fracture Post-op Diagnosis Same Procedure Performed RIGHT HIP HEMIARTHROPLASTY WITH BIPOLAR PROSTHESIS Surgeon Rob Reyes MD Anesthesia General Description of Procedure THE PATIENT WAS TAKEN TO THE OPERATING ROOM IN STABLE CONDITION. HE WAS PLACED IN THE LATERAL DECUBITUS AND THE RIGHT LOWER EXTREMITY WAS PREPPED AND DRAPED IN THE STERILE FASHION. INCISION WAS MADE IN THE POSTERIOR LATERAL SIDE OF THE HIP, DOWN TO THE FASCIA LAYER. THE FASCIA WAS INCISED. THE HIP WAS EXPOSED. THE SHORT EXTERNAL ROTATORS WERE EXPOSED AND THERE WAS A LARGE HEMATOMA. THE CAPSULE WAS INCISED EXPOSING THE FRACTURE. THE FEMORAL HEAD WAS REMOVED. IT MEASURED 53 MM. AN OSTEOTOMY WAS MADE TO THE FEMORAL NECK ABOUT 1 CM PROXIMAL TO THE LESSER TROCHANTER. NEXT THE FEMUR WAS PREPARED WITH INITIAL CANAL FINDER THEN SEQUENTIAL REAMING UNTIL A #16 REAMER AND BROACHING TILL A #15 BROACH FIT WELL IN 15 OF ANTE VERSION. A +0 STANDARD OFFSET NECK BIPOLAR TRIAL IN A 53 MM SHELL WAS PLACED. THE SHUCK TEST WAS EXCELLENT AND THE STABILITY IN FLEXION AND ROTATION WAS EXCELLENT. LEG LENGTHS WERE GROSSLY EQUAL. TRIALS WERE REMOVED. AN ECHO FRACTURE STEM #15 STEM WAS CEMENTED IN PLACE WITH A STANDARD OFFSET NECK IN 15 DEG OF ANTEVERSION. ONCE THE CEMENT HAD HARDENED A +0 BIPOLAR HEAD NECK TRIAL WAS PLACED AGAIN. THE HIP WAS TRIALED AND THE STABILITY WAS EXCELLENT WERE THE LEG LENGTHS AND THE SHUCK TEST. NEXT A BIPOLAR HEAD NECK +0 IMPLANT WITH A 53 MM COBALT CHROME SHELL WAS PLACED AND TRIALED ONCE AGAIN SHOWING EXCELLENT STABILITY AND GROSSLY EQUAL LEG LENGTHS. THE WOUND WAS IRRIGATED WITH STERILE BETADINE AND WATER FOR 3 MIN. THEN WASHED AGAIN. THE CAPSULE AND THE EXTERNAL ROTATORS WERE APPROXIMATED WITH NUMBER 1 VICRYL. THE FASCIA WITH No 2 QUIL AND THE SUB CUTANEOUS LAYER WITH 2-0 ABSORBABLE SUTURE WITH A RUNNING 3-0 SUBCUTICULAR LAYER WITH STRATAFIX WELL. DERMABOND WAS PLACED AND STERILE DRESSING WAS APPLIED. PATIENT WAS PLACED BACK ON TO THE SUPINE POSITION AND WAS EXTUBATED. Estimated Blood Loss 100 Urine Output 425 Drains No Pathology None sent Complications No immediate complications Condition Stable Disposition PACU
[2023-04-10] MEDS: SODIUM CHLORIDE 0.9% IV 1,000 ML 125 ML IV CONT (22:21)
[2023-04-10] MEDS: ceFAZolin 1 GM/NS 50 ML 1 GM/50 ML BAG IVPB (22:24)
[2023-04-10] MEDS: SENNA/DOCUSATE SODIUM TABLET 2 TAB PO (22:27)
[2023-04-10] MEDS: FAMOTIDINE 20 MG TABLET PO (22:28)
[2023-04-10 22:48] LABS: Influenza A QL RT-PCR Negative (Negative); Influenza B QL RT-PCR Negative (Negative); RSV RNA, RT-PCR Negative (Negative); SARS-CoV-2 RNA PCR Negative (Negative)
[2023-04-11] VITALS (29 sets, daily range): BP systolic 133–152; BP diastolic 50–66; PULSE 79–137; RESP 16–20; TEMP 36.2–37.3; O2SAT 91–99
[2023-04-11] MEDS: ALBUTEROL SULFATE NEB 2.5 MG/3 ML INH INHALATION ×6 (00:11→20:47)
--- NOTE | 2023-04-11 00:45 | PC.NURSE ---
This patient, Tino Alexander, was received from PACU on 04/10/23 at 2115 to room 212. Patient/family oriented to unit policies and routines. Pt only A&Ox1. Pt reoriented.
--- NOTE | 2023-04-11 00:47 | PC.NURSE ---
04/10/23 Pt pulling off oxygen cannula, heart monitor, and attempting to climb out of bed. Pt unable to be reoriented at this time. Pt transferred to room 205-2 for safety and to be closer to the nursing station.
[2023-04-11] MEDS: RIVAROXABAN 10 MG TABLET PO ×2 (03:32→18:08)
[2023-04-11 05:16] LABS: Basophils Absolute Auto 0.1 K/mm3 (0.0-0.1); Basophils Percent Auto 0.5 % (0.2-1.2); Hematocrit 24.9 % (42.0-52.0); Hemoglobin 7.6 g/dL (14.0-18.0); Immature Granulocyte Absolute 0.14 K/mm3 (0.00-0.031); Immature Granulocyte Percent A 1.1 % (0-0.5); Lymphocytes Absolute Auto 0.16 K/mm3 (0.9-3.2); Lymphocytes Percent Auto 1.3 % (18.3-44.2); Mean Corpuscular HGB Conc 30.5 g/dl (32-36); Mean Corpuscular Volume 114.7 fl (80-100); Mean Platelet Volume 12.5 fl (7.4-10.4); Monocytes Absolute Auto 1.1 K/mm3 (0.1-0.6); Monocytes Percent Auto 8.8 % (2.6-8.5); Neutrophils Absolute Auto 11.1 K/mm3 (1.3-6.7); Neutrophils Percent Auto 88.3 % (45.5-73.1); Platelet Count Result 100 k/mm3 (150-375); Red Blood Count 2.17 M/mm3 (4.6-6.20); White Blood Count 12.5 K/mm3 (4.5-10.0)
[2023-04-11 05:27] LABS: Alanine Aminotransferase 16 U/L (6-50); Albumin Level 3.1 g/dL (3.5-5.1); Alkaline Phosphatase 67 U/L (38-126); Anion Gap 12 mmol/L (8-16); Aspartate Amino Transferase 43 U/L (17-59); Bilirubin,Total 0.6 mg/dL (0.2-1.3); Blood Urea Nitrogen 39 mg/dL (9-20); Calcium 8.7 mg/dL (8.4-10.2); Carbon Dioxide 17 mmol/L (22-30); Chloride 113 mmol/L (98-107); Estimated CRCL calculation 19 ml/min; Estimated Glomerular Filt Rate 27; Glucose 77 mg/dL (65-110); Potassium 4.2 mmol/L (3.4-5.0); Sodium 142 mmol/L (137-145)
[2023-04-11] MEDS: ceFAZolin 1 GM/NS 50 ML 1 GM/50 ML BAG IVPB ×2 (05:42→18:16)
[2023-04-11] MEDS: FLUTICASONE/SALMETEROL 115-21 MCG INHALER 1 PUFF 2 PUFF INHALATION ×2 (08:56→20:48)
[2023-04-11] MEDS: SENNA/DOCUSATE SODIUM TABLET 2 TAB PO ×2 (10:01→18:08)
[2023-04-11] MEDS: polyethylene glycoL 3350 17 GM POWD.PACK PO (10:01)
[2023-04-11] MEDS: FAMOTIDINE 20 MG TABLET PO ×2 (10:01→20:27)
[2023-04-11] MEDS: amLODIPine BESYLATE 2.5 MG TABLET PO (10:01)
[2023-04-11] MEDS: MELOXICAM 7.5 MG TABLET PO (10:04)
--- NOTE | 2023-04-11 11:21 | PM.PNORT ---
Progress Note: A&P Assessment and Plan (1) Femoral neck fracture: Qualifiers: Encounter type: initial encounter Fracture type: closed Laterality: right Qualified Code(s): S72.001A - Fracture of unspecified part of neck of right femur, initial encounter for closed fracture Code(s): S72.009A - Fracture of unspecified part of neck of unspecified femur, initial encounter for closed fracture Status: Acute Assessment and Plan: POD 1 DOING WELL WITH IMPROVED O2 SATS. RECOMMEND SNF WHEN STABLE Subjective Subjective Date/Time Seen: 04/11/23 11:21 Interval history: POD 1 IMPROVING. HE HAD SOME DECREASED O2 SATS POSTOP AND WAS REQUIRING 8 L OF O2. TODAY HE IS AT 3 L AND APPEARS COMFORTABLE. 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 NV INTACT NEG HOMANS SIGN, THIGH AND CALF SOFT Objective Data Vital Signs Vital Signs: Vital Signs - 24 hr 04/10/23 13:21 04/10/23 13:35 04/10/23 14:00 Temperature 36.2 C L Pulse Rate 69 71 72 Respiratory Rate 17 17 18 Blood Pressure 130/50 L Pulse Oximetry 100 Oxygen Delivery Oxygen Flow Rate Fraction of Inspired Oxygen 04/10/23 14:00 04/10/23 14:53 04/10/23 17:00 Temperature 37.0 C 36.2 C L Pulse Rate 69 90 Respiratory Rate 18 16 Blood Pressure 139/57 L 139/81 Pulse Oximetry 97 93 95 Oxygen Delivery Nasal Cannula Room Air Simple Face Mask Oxygen Flow Rate 2 8 Fraction of Inspired Oxygen 04/10/23 17:15 04/10/23 17:30 04/10/23 17:39 Temperature Pulse Rate 92 91 Respiratory Rate 16 18 Blood Pressure 164/79 H 166/95 H Pulse Oximetry 98 96 92 Oxygen Delivery Simple Face Mask Simple Face Mask Nasal Cannula Oxygen Flow Rate 8 8 4 Fraction of Inspired Oxygen 04/10/23 17:45 04/10/23 18:00 04/10/23 18:15 Temperature Pulse Rate 80 79 74 Respiratory Rate 18 16 16 Blood Pressure 157/74 H 123/52 L 113/48 L Pulse Oximetry 92 91 91 Oxygen Delivery Nasal Cannula Nasal Cannula Simple Face Mask Oxygen Flow Rate 4 4 8 Fraction of Inspired Oxygen 04/10/23 18:30 04/10/23 18:45 04/10/23 19:30 Temperature Pulse Rate 73 76 76 Respiratory Rate 12 14 12 Blood Pressure 103/66 144/43 H 135/53 L Pulse Oximetry 89 L 91 93 Oxygen Delivery Simple Face Mask Simple Face Mask Simple Face Mask Oxygen Flow Rate 10 10 10 Fraction of Inspired Oxygen 04/10/23 19:45 04/10/23 18:30 04/10/23 18:43 Temperature Pulse Rate 78 74 78 Respiratory Rate 12 12 13 Blood Pressure 111/53 L Pulse Oximetry 91 Oxygen Delivery Simple Face Mask Oxygen Flow Rate 10 Fraction of Inspired Oxygen 04/10/23 19:00 04/10/23 19:15 04/10/23 20:00 Temperature Pulse Rate 73 77 76 Respiratory Rate 12 14 14 Blood Pressure 114/52 L 134/86 115/52 L Pulse Oximetry 91 90 93 Oxygen Delivery Simple Face Mask Simple Face Mask Simple Face Mask Oxygen Flow Rate 10 10 10 Fraction of Inspired Oxygen 04/10/23 20:15 04/10/23 20:30 04/10/23 21:00 Temperature Pulse Rate 73 70 74 Respiratory Rate 12 12 14 Blood Pressure 132/59 L 114/86 132/56 L Pulse Oximetry 92 93 92 Oxygen Delivery Simple Face Mask Simple Face Mask Simple Face Mask Oxygen Flow Rate 8 6 6 Fraction of Inspired Oxygen 04/10/23 23:55 04/11/23 00:11 04/11/23 00:15 Temperature 36.0 C L Pulse Rate 92 81 Respiratory Rate 18 18 Blood Pressure 158/62 H Pulse Oximetry 94 94 Oxygen Delivery Nasal Cannula Oxygen Flow Rate 2 Fraction of Inspired Oxygen 04/11/23 00:23 04/10/23 21:29 04/11/23 00:00 Temperature Pulse Rate 85 81 85 Respiratory Rate 18 Blood Pressure Pulse Oximetry Oxygen Delivery Oxygen Flow Rate Fraction of Inspired Oxygen 04/10/23 21:15 04/10/23 21:30 04/10/23 22:00 Temperature 36.8 C Pulse Rate 90 90 76 Respiratory Rate 18 18 16 Blood Pressure 141/80 H Pulse Oximetry 99 99 97 Oxygen Delivery High Flow N
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
[2023-04-11] MEDS: diazePAM (*CRX) 5 MG TABLET PO (20:27)
[2023-04-11] MEDS: hydrOXYzine pamoate 25 MG CAPSULE 50 MG PO (20:27)
[2023-04-12] VITALS (26 sets, daily range): BP systolic 107–158; BP diastolic 59–78; PULSE 71–103; RESP 15–20; TEMP 36.6–37.1; O2SAT 93–100
[2023-04-12] MEDS: ALBUTEROL SULFATE NEB 2.5 MG/3 ML INH INHALATION ×5 (01:08→21:03)
--- NOTE | 2023-04-12 03:11 | PC.NURSE ---
This patient, Tino Alexander, was transferred to room 259 on 04/12/23 at 0255. Personal belongings sent with patient. Report given to WHIT Shook. Appropriate documentation sent with patient.
--- NOTE | 2023-04-12 03:22 | PC.NURSE ---
This pt received from IMU to [facility] Room 259 @[id number]. Report received from WHIT Chisholm.
[2023-04-12 06:15] LABS: Hematocrit 21.4 % (42.0-52.0); Immature Platelet Fraction Pct 15.6 % (0.9-11.2); Mean Corpuscular HGB Conc 30.8 g/dl (32-36); Mean Corpuscular Hemoglobin 34.7 pg (26-34); Mean Corpuscular Volume 112.6 fl (80-100); Mean Platelet Volume 13.4 fl (7.4-10.4); Platelet Count Result 92 k/mm3 (150-375); Red Cell Distribution Width 14.9 % (11.5-14.5); White Blood Count 12.1 K/mm3 (4.5-10.0)
[2023-04-12 06:20] LABS: Alanine Aminotransferase 10 U/L (6-50); Albumin Level 2.7 g/dL (3.5-5.1); Alkaline Phosphatase 62 U/L (38-126); Anion Gap 7 mmol/L (8-16); Aspartate Amino Transferase 41 U/L (17-59); Bilirubin,Total 0.6 mg/dL (0.2-1.3); Blood Urea Nitrogen 44 mg/dL (9-20); Calcium 8.1 mg/dL (8.4-10.2); Carbon Dioxide 20 mmol/L (22-30); Chloride 109 mmol/L (98-107); Estimated CRCL calculation 18 ml/min; Estimated Glomerular Filt Rate 26; Glucose 104 mg/dL (65-110); Magnesium 2.1 mg/dL (1.6-2.3); Potassium 3.5 mmol/L (3.4-5.0); Sodium 136 mmol/L (137-145)
--- NOTE | 2023-04-12 06:24 | PCRCNOTE ---
Window of time for administration has passed. See next scheduled administration.
[2023-04-12 06:45] LABS: Hemoglobin 6.6 g/dL (14.0-18.0)
[2023-04-12 06:55] LABS: Anisocytosis 1+ (NORMAL); Band Neutrophils Percent 29 % (0-6); Basophils Absolute Manual 0.12 K/mm3 (0.0-0.1); Basophils Percent Manual 1 % (0-1); Burr Cells 1+ (NORMAL); Monocytes Percent Manual 5 % (3-9); Neutrophils Absolute Manual 10.76 K/mm3 (1.3-6.7); Neutrophils Percent Manual 60 % (46-73); Poikilocytosis 1+ (NORMAL); Schistocytes None Seen (NORMAL); Total Cells Counted 100
[2023-04-12] MEDS: FLUTICASONE/SALMETEROL 115-21 MCG INHALER 1 PUFF 2 PUFF INHALATION ×2 (07:05→21:06)
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
--- NOTE | 2023-04-12 10:07 | WPDANESPN ---
Anes - Prog Note Post-Op Date/Time: 04/12/23 10:07 Cardiovascular status: normal Respiratory status: normal Airway patency: baseline Mental status: other (pt sleeping. son at bedside states pt has been confused since surgery. states was not confused prior to surgery.) Post-Op hydration status: other (marked anemia. ) Vital Signs: Last Vital Signs Temp 98.1 F 04/12/23 10:06 Pulse 81 04/12/23 10:06 Resp 16 04/12/23 10:06 BP 148/63 H 04/12/23 10:06 Pulse Ox 98 04/12/23 10:06 O2 Del Method Nasal Cannula 04/12/23 07:00 O2 Flow Rate 2 04/12/23 07:00 FiO2 32 04/11/23 20:50 Pain Score (VAS): 0 I/O: Intake & Output 04/11/23 04/12/23 04/12/23 23:59 07:59 15:59 Intake Total 2370 Output Total 800 150 Balance 1570 -150 Laboratory Tests 04/12/23 05:14 04/12/23 05:14 04/12/23 05:14 WBC 12.1 H RBC 1.90 L Hgb 6.6 L* Hct 21.4 L MCV 112.6 H MCH 34.7 H MCHC 30.8 L RDW 14.9 H Plt Count 92 L MPV 13.4 H Immature Gran % (Auto) Not Reportable Neut % (Auto) Not Reportable Lymph % (Auto) Not Reportable [place] % (Auto) Not Reportable Eos % (Auto) Not Reportable Baso % (Auto) Not Reportable Lymph # (Auto) Not Reportable [place] # (Auto) Not Reportable Eos # (Auto) Not Reportable Baso # (Auto) Not Reportable Abs Immat Gran (auto) Not Reportable Absolute Neuts (auto) Not Reportable Absolute Nucleated RBC Not Reportable Total Counted 100 Neutrophils % (Manual) 60 Band Neutrophils % 29 H Lymphocytes % (Manual) 5.0 L Monocytes % (Manual) 5 Basophils % (Manual) 1 Nucleated RBC % Not Reportable Abs Neuts (Manual) 10.76 H Abs Lymphs (Manual) 0.60 L Abs Monocytes (Manual) 0.60 Abs Basophils (Manual) 0.12 H Platelet Estimate Slightly decreased % Immature Plt Fraction 15.6 H Poikilocytosis 1+ Anisocytosis 1+ [place] Cells 1+ Schistocytes None seen Sodium 136 L Potassium 3.5 Chloride 109 H Carbon Dioxide 20 L Anion Gap 7 L BUN 44 H Creatinine 2.40 H Estim Creat Clear Calc 18 Estimated GFR 26 L Glucose 104 Calcium 8.1 L Magnesium 2.1 Total Bilirubin 0.6 AST 41 ALT 10 Alkaline Phosphatase 62 Total Protein 6.0 L Albumin 2.7 L Patient Feedback: Patient satisfied with anesthetic care.
[2023-04-12] MEDS: FAMOTIDINE 20 MG TABLET PO ×2 (11:02→20:16)
[2023-04-12] MEDS: SENNA/DOCUSATE SODIUM TABLET 2 TAB PO ×2 (11:02→18:55)
[2023-04-12] MEDS: amLODIPine BESYLATE 2.5 MG TABLET PO (11:02)
[2023-04-12] MEDS: polyethylene glycoL 3350 17 GM POWD.PACK PO (11:02)
[2023-04-12] MEDS: traMADol HCL (*CRX) 50 MG TABLET PO ×2 (11:08→17:22)
--- NOTE | 2023-04-12 13:16 | PCSTNOTE ---
Bedside swallowing evaluation completed. Cursory oral peripheral examination results within functional limits. Patient has dentures but does not always wear them, and was not wearing them during this evaluation. Per son his dentures do not fit well and he needs them replaced. Patient positioned upright in bed with frequent verbal checks for pain. Patient was able to participate in evaluation but after approximately 10 minutes requested to lie back due to hip pain. Reported to nursing. Trials of thin liquids by spoon and cup were given. Patient demonstrated soft signs of aspiration with thin liquids by cup, including coughing after swallowing bolus. Pureed consistency food was trialed by spoon in 3 mL amount. No signs of aspiration observed. Patient states that he can only eat soft food due to not wearing dentures (which are ill fitting, per son). Recommendations based on the results of this evaluation include minced moist diet with mildly thickened liquids and modified barium swallow study to evaluate possible aspiration. Thank you for the referral of this patient. Swallowing precautions recommendations placed in chart.
--- NOTE | 2023-04-12 14:21 | PM.PNORT ---
Progress Note: A&P Assessment and Plan (1) Femoral neck fracture: Qualifiers: Encounter type: subsequent encounter Fracture type: closed Laterality: right Fracture healing: with routine healing Qualified Code(s): S72.001D - Fracture of unspecified part of neck of right femur, subsequent encounter for closed fracture with routine healing Code(s): S72.009A - Fracture of unspecified part of neck of unspecified femur, initial encounter for closed fracture Status: Acute Assessment and Plan: POD 2 DOING WELL. HE WILL RECEIVE PRBCS FOR POSTOP ANEMIA. WILL CONTINUE BA FOR NOW Subjective Subjective Date/Time Seen: 04/12/23 14:21 Interval history: POD 2 DOING WELL. IMPROVING PAIN CONTROL. 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 [place] INTACT NEG HOMANS SIGN, CALF AND THIGH NON TENDER Objective Data Vital Signs Vital Signs: Vital Signs - 24 hr 04/11/23 15:53 04/11/23 17:05 04/11/23 17:10 Temperature 37.3 C Pulse Rate 80 81 88 Respiratory Rate 16 20 20 Blood Pressure 149/50 H Pulse Oximetry 97 Oxygen Delivery Oxygen Flow Rate Fraction of Inspired Oxygen 04/11/23 16:00 04/11/23 20:22 04/11/23 20:50 Temperature 36.4 C L Pulse Rate 79 94 Respiratory Rate 18 Blood Pressure 139/65 Pulse Oximetry 94 91 Oxygen Delivery Nasal Cannula Oxygen Flow Rate 3 Fraction of Inspired Oxygen 32 04/11/23 20:51 04/11/23 20:00 04/11/23 20:00 Temperature Pulse Rate 84 94 87 Respiratory Rate 18 18 Blood Pressure Pulse Oximetry 94 Oxygen Delivery Nasal Cannula Oxygen Flow Rate 3 Fraction of Inspired Oxygen 04/11/23 23:39 04/12/23 00:00 04/12/23 01:08 Temperature 36.4 C L Pulse Rate 94 71 78 Respiratory Rate 18 18 Blood Pressure 139/65 Pulse Oximetry 94 Oxygen Delivery Oxygen Flow Rate Fraction of Inspired Oxygen 04/11/23 21:03 04/12/23 03:20 04/12/23 03:20 Temperature 37.1 C Pulse Rate 86 77 Respiratory Rate 18 20 Blood Pressure 146/60 H Pulse Oximetry 99 99 Oxygen Delivery Nasal Cannula Oxygen Flow Rate 2 Fraction of Inspired Oxygen 04/12/23 03:12 04/12/23 04:03 04/12/23 07:00 Temperature Pulse Rate 78 103 H 82 Respiratory Rate 18 Blood Pressure Pulse Oximetry 96 Oxygen Delivery Nasal Cannula Oxygen Flow Rate 2 Fraction of Inspired Oxygen 04/12/23 07:00 04/12/23 07:10 04/12/23 10:06 Temperature 36.7 C Pulse Rate 82 80 81 Respiratory Rate 18 18 16 Blood Pressure 148/63 H Pulse Oximetry 98 Oxygen Delivery Oxygen Flow Rate Fraction of Inspired Oxygen 04/12/23 11:05 04/12/23 11:15 04/12/23 08:00 Temperature Pulse Rate 73 74 73 Respiratory Rate 18 18 Blood Pressure Pulse Oximetry Oxygen Delivery Oxygen Flow Rate Fraction of Inspired Oxygen 04/12/23 09:25 04/12/23 12:00 Temperature Pulse Rate 83 Respiratory Rate Blood Pressure Pulse Oximetry 98 Oxygen Delivery Nasal Cannula Oxygen Flow Rate 2 Fraction of Inspired Oxygen Intake/Output Intake/Output: Intake & Output 04/09/23 04/10/23 04/11/23 04/12/23 23:59 23:59 23:59 23:59 Intake Total 580 1300 2540 100 Output Total 905 039 0461 150 Balance -20 390 1540 -50 Meds/Results Medications: Active Medications Generic Name Dose Route Start Last Admin Trade Name Freq PRN Reason Stop Dose Admin Acetaminophen 1,000 mg 04/09/23 01:41 04/10/23 09:43 Acetaminophen 500 Mg Tablet PO 1,000 mg Q6H PRN Administration Mild Pain (1-3) or Fever Hydrocodone Bitart/Acetaminophen 1 tab 04/10/23 15:31 Hydrocodone/Acetaminophen (*Crx) 5-325 Mg Tablet PO Q3H PRN Pain Rated 4-6 Hydrocodone Bitart/Acetaminophen 2 tab 04/10/23 15:31 Hydrocodone/Acetaminophen (*Crx) 5-325 Mg Tablet PO Q6H PRN Pain Rated 7-10 Al Hydrox/Mg Hydrox/Simethicone 30 ml 04/09/23 01:41 Mag Hydrox
[2023-04-12] MEDS: RIVAROXABAN 10 MG TABLET PO (18:55)
[2023-04-13] VITALS (23 sets, daily range): BP systolic 135–150; BP diastolic 52–89; PULSE 72–89; RESP 16–24; TEMP 36.4–37.1; O2SAT 90–99
[2023-04-13] MEDS: ALBUTEROL SULFATE NEB 2.5 MG/3 ML INH INHALATION ×6 (00:30→23:46)
[2023-04-13 05:53] LABS: Hematocrit 25.1 % (42.0-52.0); Hemoglobin 7.9 g/dL (14.0-18.0); Mean Corpuscular HGB Conc 31.5 g/dl (32-36); Mean Corpuscular Hemoglobin 33.5 pg (26-34); Mean Corpuscular Volume 106.4 fl (80-100); Mean Platelet Volume 13.4 fl (7.4-10.4); Platelet Count Result 94 k/mm3 (150-375); Red Blood Count 2.36 M/mm3 (4.6-6.20); White Blood Count 8.4 K/mm3 (4.5-10.0)
[2023-04-13 06:04] LABS: Alanine Aminotransferase 7 U/L (6-50); Albumin Level 2.7 g/dL (3.5-5.1); Alkaline Phosphatase 70 U/L (38-126); Anion Gap 8 mmol/L (8-16); Aspartate Amino Transferase 30 U/L (17-59); Bilirubin,Total 0.8 mg/dL (0.2-1.3); Blood Urea Nitrogen 41 mg/dL (9-20); Calcium 8.5 mg/dL (8.4-10.2); Carbon Dioxide 20 mmol/L (22-30); Chloride 107 mmol/L (98-107); Estimated CRCL calculation 21 ml/min; Estimated Glomerular Filt Rate 30; Glucose 105 mg/dL (65-110); Magnesium 2.2 mg/dL (1.6-2.3); Potassium 3.9 mmol/L (3.4-5.0); Sodium 135 mmol/L (137-145)
[2023-04-13 07:23] LABS: Anisocytosis 1+ (NORMAL); Band Neutrophils Percent 29 % (0-6); Lymphocytes Absolute Manual 0.16 K/mm3 (1.1-4.5); Lymphocytes Percent Manual 2 % (18-44); Monocytes Absolute Manual 0.84 K/mm3 (0.1-0.90); Monocytes Percent Manual 10 % (3-9); Neutrophils Absolute Manual 7.39 K/mm3 (1.3-6.7); Neutrophils Percent Manual 59 % (46-73); Poikilocytosis 1+ (NORMAL); Total Cells Counted 100
[2023-04-13 07:24] LABS: Burr Cells 1+ (NORMAL); Schistocytes None Seen (NORMAL)
--- NOTE | 2023-04-13 08:24 | PCPTNOTE ---
Attempted to see patient for PT, however patient just got breakfast and wanted to eat breakfast first.
--- NOTE | 2023-04-13 09:06 | PCPTNOTE ---
Attempted to see patient for PT, however patient was out of the room for testing.
--- NOTE | 2023-04-13 09:09 | PM.PNORT ---
Progress Note: A&P Assessment and Plan (1) Femoral neck fracture: Qualifiers: Encounter type: subsequent encounter Fracture healing: with routine healing Fracture type: closed Laterality: right Qualified Code(s): S72.001D - Fracture of unspecified part of neck of right femur, subsequent encounter for closed fracture with routine healing Code(s): S72.009A - Fracture of unspecified part of neck of unspecified femur, initial encounter for closed fracture Status: Acute Assessment and Plan: POD #3 : Right Hip Hemiarthroplasty Continue PT/OT. WBAT. Walker. HIGH FALL RISK. Continue pain control. Ice hip. Protect skin. DVT prophylaxis with Xarelto. SCDs. Incentive Spirometry Use reviewed. Monitor Dressing. Change prior to discharge. Bowel Regimen. Dispo: SNF pending progress with PT/OT and medical clearance. Follow up outpatient ortho clinic scheduled. (2) Postoperative anemia: Code(s): D64.9 - Anemia, unspecified Status: Acute Assessment and Plan: Hemoglobin 7.9 today s/p 1 unit PRBCs. Appreciate hospitalist recommendations. (3) Dysphagia: Code(s): R13.10 - Dysphagia, unspecified Status: Acute Assessment and Plan: thickened liquids. Plan Reviewed postoperative radiographs, exam and labs with attending physician, Dr. Reyes who agrees with current plan as indicated above. No further recommendations at this time. Subjective Subjective Date/Time Seen: 04/13/23 09:09 Post Op day: 3 Interval history: POD #3: Right Hip Bipolar Patient more alert today. Still with some confusion and hallucinations at times per patient's son at bedside. No other concerns. Review of Systems Review of Systems: All systems reviewed & are unremarkable except as noted in HPI and below Constitutional: Constitutional: Denies chills, Denies fever(s), Denies headache(s), Denies lethargy and Reports weakness ENT: Denies headache(s) Cardiovascular: Cardiovascular: Denies chest pain, Denies diaphoresis, Denies lightheadedness, Denies palpitations, Denies dyspnea and Denies dyspnea on exertion Respiratory: Respiratory: Denies cough, Denies dyspnea and Denies dyspnea on exertion Gastrointestinal: Gastrointestinal: Denies constipation, Denies diarrhea, Denies nausea and Denies vomiting Genitourinary: Genitourinary: Denies dysuria, Reports urinary frequency and Denies urinary hesitancy Musculoskeletal: Musculoskeletal: Reports joint swelling (Right Hip ) and Reports limited range of motion (Right Hip due to recent surgery ) Neurologic: Denies headache(s) and Reports weakness Endocrine: Endocrine: Denies palpitations Exam Const: General: comfortable and no acute distress Resp: Effort & Inspection: normal respiratory effort Cardio: Rate: regular rate Rhythm: regular rhythm GI: Inspection: non-distended Skin: General skin exam: normal color Other: Incision right hip c/d/i. Surrounding tissue without redness/warmth. Mild swelling consistent with recent surgery. No drainage. Neuro: Cognition (Neuro): normal cognition Speech: normal speech Extrem: Right lower extremity: normal to inspection, normal capillary refill, hip/thigh Details: tenderness Location: of the hip (Thigh soft ) Location: laterally and anteriorly, swelling Location: at the hip, abnormal ROM (limited consistent with recent surgery ) Details: pain with active ROM during and pain with passive ROM during and other (Incision c/d/i. ); no deformity and no unusual warmth, knee Details: normal to inspection; no tenderness and no swelling, lower leg (Negative Brandon's Sign ) Details: normal to inspection and no edema; no tenderness, ankle (+ankle dorsiflexion/plantarflexion) Details: normal to inspection and no edema; no tenderness, no swelling and no ecchymosis and foot Details: normal capillary refill, toes with normal ROM, vascular exam Details: dorsalis pedis pulse present and motor-sensory exam
[2023-04-13] MEDS: FAMOTIDINE 20 MG TABLET PO ×2 (09:55→20:21)
[2023-04-13] MEDS: polyethylene glycoL 3350 17 GM POWD.PACK PO (09:55)
[2023-04-13] MEDS: amLODIPine BESYLATE 2.5 MG TABLET PO (09:55)
[2023-04-13] MEDS: SENNA/DOCUSATE SODIUM TABLET 2 TAB PO ×2 (09:55→16:25)
--- NOTE | 2023-04-13 10:04 | PCSTNOTE ---
Please refer to the Bedside Swallow Evaluation in the EMR. Please note, silent aspiration cannot be ruled out at bedside.
[2023-04-13] MEDS: FLUTICASONE/SALMETEROL 115-21 MCG INHALER 1 PUFF 2 PUFF INHALATION ×2 (12:07→20:26)
--- NOTE | 2023-04-13 13:12 | PCPTNOTE ---
Attempted to see patient for afternoon PT treatment, however patient was eating lunch.
[2023-04-13] MEDS: HYDROcodone/acetaminophen (*CRX) 5-325 MG TABLET 1 TAB PO (14:17)
[2023-04-13] MEDS: RIVAROXABAN 10 MG TABLET PO (16:25)
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
[2023-04-13] MEDS: diazePAM (*CRX) 5 MG TABLET PO (20:21)
[2023-04-14] VITALS (22 sets, daily range): BP systolic 150–181; BP diastolic 66–78; PULSE 71–83; RESP 15–20; TEMP 36.5–37.1; O2SAT 93–100
[2023-04-14] MEDS: ALBUTEROL SULFATE NEB 2.5 MG/3 ML INH INHALATION ×5 (04:27→20:07)
[2023-04-14 05:48] LABS: Basophils Percent Auto 0.7 % (0.2-1.2); Eosinophils Absolute Auto 0.1 K/mm3 (0-0.3); Hematocrit 24.8 % (42.0-52.0); Hemoglobin 7.8 g/dL (14.0-18.0); Immature Granulocyte Absolute 0.36 K/mm3 (0.00-0.031); Immature Granulocyte Percent A 5.9 % (0-0.5); Immature Platelet Fraction Pct 16.1 % (0.9-11.2); Lymphocytes Absolute Auto 0.26 K/mm3 (0.9-3.2); Lymphocytes Percent Auto 4.3 % (18.3-44.2); Mean Corpuscular HGB Conc 31.5 g/dl (32-36); Mean Corpuscular Hemoglobin 33.9 pg (26-34); Mean Corpuscular Volume 107.8 fl (80-100); Mean Platelet Volume 12.5 fl (7.4-10.4); Monocytes Absolute Auto 0.7 K/mm3 (0.1-0.6); Monocytes Percent Auto 12.2 % (2.6-8.5); Neutrophils Absolute Auto 4.6 K/mm3 (1.3-6.7); Neutrophils Percent Auto 74.9 % (45.5-73.1); Platelet Count Result 95 k/mm3 (150-375); Red Cell Distribution Width 17.2 % (11.5-14.5); White Blood Count 6.1 K/mm3 (4.5-10.0)
[2023-04-14 05:58] LABS: Alanine Aminotransferase 7 U/L (6-50); Albumin Level 2.6 g/dL (3.5-5.1); Alkaline Phosphatase 68 U/L (38-126); Anion Gap 7 mmol/L (8-16); Aspartate Amino Transferase 23 U/L (17-59); Bilirubin,Total 0.7 mg/dL (0.2-1.3); Blood Urea Nitrogen 42 mg/dL (9-20); Calcium 8.2 mg/dL (8.4-10.2); Carbon Dioxide 20 mmol/L (22-30); Chloride 107 mmol/L (98-107); Estimated CRCL calculation 22 ml/min; Estimated Glomerular Filt Rate 32; Glucose 99 mg/dL (65-110); Magnesium 2.3 mg/dL (1.6-2.3); Potassium 3.9 mmol/L (3.4-5.0); Sodium 134 mmol/L (137-145)
[2023-04-14 06:21] LABS: Anisocytosis 1+ (NORMAL); Burr Cells 2+ (NORMAL); Macrocytosis 1+ (NORMAL); Platelet Estimate Decreased (Adequate); Schistocytes None Seen (NORMAL)
[2023-04-14] MEDS: polyethylene glycoL 3350 17 GM POWD.PACK PO (08:22)
[2023-04-14] MEDS: SENNA/DOCUSATE SODIUM TABLET 2 TAB PO (08:22)
[2023-04-14] MEDS: amLODIPine BESYLATE 2.5 MG TABLET PO (08:22)
[2023-04-14] MEDS: FAMOTIDINE 20 MG TABLET PO ×2 (08:22→19:52)
[2023-04-14] MEDS: FLUTICASONE/SALMETEROL 115-21 MCG INHALER 1 PUFF 2 PUFF INHALATION ×2 (09:28→20:08)
--- NOTE | 2023-04-14 13:14 | PM.PNORT ---
Progress Note: A&P Assessment and Plan (1) Femoral neck fracture: Qualifiers: Encounter type: subsequent encounter Fracture healing: with routine healing Fracture type: closed Laterality: right Qualified Code(s): S72.001D - Fracture of unspecified part of neck of right femur, subsequent encounter for closed fracture with routine healing Code(s): S72.009A - Fracture of unspecified part of neck of unspecified femur, initial encounter for closed fracture Status: Acute Assessment and Plan: POD #4: Right Hip Hemiarthroplasty Continue PT/OT. WBAT. Walker. HIGH FALL RISK. Continue pain control. Ice hip. Protect skin. DVT prophylaxis with Xarelto. ?held due to hematuria-defer to hospitalist. SCDs. Incentive Spirometry Use reviewed. Monitor Dressing. Change prior to discharge. Bowel Regimen. Dispo: SNF pending progress with PT/OT and medical clearance. Follow up outpatient ortho clinic scheduled. (2) Postoperative anemia: Code(s): D64.9 - Anemia, unspecified Status: Acute Assessment and Plan: Hemoglobin 7.8 today s/p 1 unit PRBCs. (3) Malignant neoplasm of prostate: Code(s): C61 - Malignant neoplasm of prostate Status: Acute (4) Dysphagia: Code(s): R13.10 - Dysphagia, unspecified Status: Acute Assessment and Plan: thickened liquids. (5) Hematuria: Code(s): R31.9 - Hematuria, unspecified Status: Acute Assessment and Plan: Moore removed. Dark bloody urine per nurse. ?holding xarelto. Defer to hospitalist. Plan Reviewed postoperative radiographs, exam and labs with attending physician, Dr. Reyes who agrees with current plan as indicated above. No further recommendations at this time. Subjective Subjective Date/Time Seen: 04/14/23 13:14 Post Op day: 4 Interval history: POD #4: Right Hip Bipolar Patient still experiencing confusion and hallucinations. Now with hematuria s/p moore removal. Review of Systems Review of Systems: ROS unobtainable: Yes unobtainable due to mental status Exam Const: General: comfortable and no acute distress Resp: Effort & Inspection: normal respiratory effort Cardio: Rate: regular rate Rhythm: regular rhythm GI: Inspection: non-distended Skin: General skin exam: normal color Other: Incision right hip c/d/i. Surrounding tissue without redness/warmth. Mild swelling consistent with recent surgery. No drainage. Neuro: Cognition (Neuro): normal cognition Speech: normal speech Extrem: Right lower extremity: normal to inspection, normal capillary refill, hip/thigh Details: tenderness Location: of the hip (Thigh soft ) Location: laterally and anteriorly, swelling Location: at the hip, abnormal ROM (limited consistent with recent surgery ) Details: pain with active ROM during and pain with passive ROM during and other (Incision c/d/i. ); no deformity and no unusual warmth, knee Details: normal to inspection; no tenderness and no swelling, lower leg (Negative Brandon's Sign ) Details: normal to inspection and no edema; no tenderness, ankle (+ankle dorsiflexion/plantarflexion) Details: normal to inspection and no edema; no tenderness, no swelling and no ecchymosis and foot Details: normal capillary refill, toes with normal ROM, vascular exam Details: dorsalis pedis pulse present and motor-sensory exam Details: light-touch normal; no tenderness Objective Data Vital Signs Vital Signs: Vital Signs - 24 hr 04/13/23 16:04 04/13/23 17:04 04/13/23 17:12 Temperature Pulse Rate 77 75 75 Respiratory Rate 20 20 Blood Pressure Pulse Oximetry Oxygen Delivery Oxygen Flow Rate Fraction of Inspired Oxygen 04/13/23 16:00 04/13/23 20:00 04/13/23 20:29 Temperature 36.4 C 36.6 C Pulse Rate 78 79 74 Respiratory Rate 16 17 20 Blood Pressure 147/63 H 135/64 Pulse Oximetry 97 96 Oxygen Delivery Oxygen Flow Rate Fraction of Inspired Oxygen
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
[2023-04-14] MEDS: NICOTINE (*PBKC) 14 MG PATCH 1 PATCH TRANSDERM (13:55)
[2023-04-14] MEDS: HYDROcodone/acetaminophen (*CRX) 5-325 MG TABLET 1 TAB PO ×2 (15:29→19:55)
[2023-04-14] MEDS: diazePAM (*CRX) 5 MG TABLET PO (19:52)
[2023-04-15] VITALS (20 sets, daily range): BP systolic 148–188; BP diastolic 53–69; PULSE 73–82; RESP 16–18; TEMP 36.4–36.6; O2SAT 95–100
[2023-04-15] MEDS: ALBUTEROL SULFATE NEB 2.5 MG/3 ML INH INHALATION ×6 (00:04→23:55)
[2023-04-15 06:18] LABS: Hemoglobin 7.7 g/dL (14.0-18.0); Immature Platelet Fraction Pct 16.2 % (0.9-11.2); Mean Corpuscular HGB Conc 32.1 g/dl (32-36); Mean Corpuscular Hemoglobin 33.9 pg (26-34); Mean Corpuscular Volume 105.7 fl (80-100); Mean Platelet Volume 12.8 fl (7.4-10.4); Platelet Count Result 106 k/mm3 (150-375); Red Blood Count 2.27 M/mm3 (4.6-6.20); Red Cell Distribution Width 16.2 % (11.5-14.5); White Blood Count 6.5 K/mm3 (4.5-10.0)
[2023-04-15 06:24] LABS: Alanine Aminotransferase 9 U/L (6-50); Albumin Level 2.6 g/dL (3.5-5.1); Alkaline Phosphatase 70 U/L (38-126); Anion Gap 7 mmol/L (8-16); Aspartate Amino Transferase 23 U/L (17-59); Bilirubin,Total 0.6 mg/dL (0.2-1.3); Blood Urea Nitrogen 36 mg/dL (9-20); Calcium 8.4 mg/dL (8.4-10.2); Carbon Dioxide 22 mmol/L (22-30); Chloride 104 mmol/L (98-107); Estimated CRCL calculation 23 ml/min; Estimated Glomerular Filt Rate 34; Glucose 100 mg/dL (65-110); Magnesium 2.1 mg/dL (1.6-2.3); Sodium 133 mmol/L (137-145)
[2023-04-15] MEDS: FLUTICASONE/SALMETEROL 115-21 MCG INHALER 1 PUFF 2 PUFF INHALATION ×2 (07:01→20:07)
[2023-04-15 08:02] LABS: Band Neutrophils Percent 10 % (0-6); Eosinophils Absolute Manual 0.13 K/mm3 (0.02-0.5); Eosinophils Percent Manual 2 % (0-4); Lymphocytes Absolute Manual 0.84 K/mm3 (1.1-4.5); Monocytes Absolute Manual 0.65 K/mm3 (0.1-0.90); Monocytes Percent Manual 10 % (3-9); Myelocytes Percent 3 %; Neutrophils Absolute Manual 4.68 K/mm3 (1.3-6.7); Neutrophils Percent Manual 62 % (46-73); Platelet Estimate Decreased (Adequate); Total Cells Counted 100
[2023-04-15 08:03] LABS: Anisocytosis 1+ (NORMAL); Hypochromasia 1+ (NORMAL); Schistocytes None Seen (NORMAL)
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
[2023-04-15] MEDS: HYDROcodone/acetaminophen (*CRX) 5-325 MG TABLET 1 TAB PO ×2 (08:52→13:46)
[2023-04-15] MEDS: polyethylene glycoL 3350 17 GM POWD.PACK PO (08:53)
[2023-04-15] MEDS: amLODIPine BESYLATE 5 MG TABLET PO (08:53)
[2023-04-15] MEDS: FAMOTIDINE 20 MG TABLET PO ×2 (08:53→20:03)
[2023-04-15] MEDS: SENNA/DOCUSATE SODIUM TABLET 2 TAB PO ×2 (08:53→17:35)
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
--- NOTE | 2023-04-15 11:14 | PCNWS ---
Weekly nutritional screen. Patient is tolerating current diet with adequate intake, 75-100% on MM level 5 diet with L2 mildly thickened liquids. No weight loss reported. No nutritional needs at this time.
[2023-04-15] MEDS: NICOTINE (*PBKC) 14 MG PATCH 1 PATCH TRANSDERM (13:47)
--- NOTE | 2023-04-15 15:16 | PM.DS ---
DS: Admitting Diagnosis Discharge Date 04/15/23 Admitting Diagnosis (1) Femoral neck fracture: ?Qualifiers: ?Encounter type:?subsequent encounter??Fracture healing:?with routine healing??Fracture type:?closed??Laterality:?right? Qualified Code(s):?S72.001D - Fracture of unspecified part of neck of right femur, subsequent encounter for closed fracture with routine healing ?Code(s): S72.009A - Fracture of unspecified part of neck of unspecified femur, initial encounter for closed fracture ?Status:?Acute (2) Fall: ?Qualifiers: ?Encounter type:?initial encounter? Qualified Code(s):?W19.XXXA - Unspecified fall, initial encounter ?Code(s): W19.XXXA - Unspecified fall, initial encounter ?Status:?Acute (3) Elevated blood pressure reading with diagnosis of hypertension: ?Code(s): I10 - Essential (primary) hypertension ?Status:?Acute DS: Summary Time Spent with Patient Time attestation: Total time spent providing and/or coordinating discharge services: Exam Narrative: General: No obvious distress, HEAD: Normocephalic, atraumatic. EYES: PERRLA and EOMI. ENT: Nares clear, no rhinorrhea or epistaxis. NECK: Supple.? No adenopathy or masses.? No carotid bruits or JVD CHEST:? Coarse breath sound to auscultation.? No respiratory distress. HEART: Regular rate and rhythm.? No murmur heard.? Normal peripheral pulses. ABDOMEN: Soft, nontender, nondistended, normal active bowel sounds. EXTREMITIES: Pain to right hip, no tender by palpation, surgical wound dry and clean SKIN: Warm, dry, no rash. NEURO: No focal deficits? alert and awake.? oriented to Self place and time PSYCH:? Mental status improving in the afternoon, alert, oriented to person, possible baseline DS: Data Data Completed and Pending Labs on day of discharge: Labs from last 24 hours 04/15/23 05:36 WBC 6.5 RBC 2.27 L Hgb 7.7 L Hct 24.0 L MCV 105.7 H MCH 33.9 MCHC 32.1 RDW 16.2 H Plt Count 106 L MPV 12.8 H Immature Gran % (Auto) Not Reportable Neut % (Auto) Not Reportable Lymph % (Auto) Not Reportable Gem % (Auto) Not Reportable Eos % (Auto) Not Reportable Baso % (Auto) Not Reportable Lymph # (Auto) Not Reportable Gem # (Auto) Not Reportable Eos # (Auto) Not Reportable Baso # (Auto) Not Reportable Abs Immat Gran (auto) Not Reportable Absolute Neuts (auto) Not Reportable Absolute Nucleated RBC Not Reportable Total Counted 100 Neutrophils % (Manual) 62 Band Neutrophils % 10 H Lymphocytes % (Manual) 13.0 L Monocytes % (Manual) 10 H Eosinophils % (Manual) 2 Myelocytes % 3 Nucleated RBC % Not Reportable Abs Neuts (Manual) 4.68 Abs Lymphs (Manual) 0.84 L Abs Monocytes (Manual) 0.65 Absolute Eos (Manual) 0.13 Platelet Estimate Decreased % Immature Plt Fraction 16.2 H Hypochromasia 1+ Anisocytosis 1+ Schistocytes None seen Sodium 133 L Potassium 4.0 Chloride 104 Carbon Dioxide 22 Anion Gap 7 L BUN 36 H Creatinine 1.90 H Estim Creat Clear Calc 23 Estimated GFR 34 L Glucose 100 Calcium 8.4 Magnesium 2.1 Total Bilirubin 0.6 AST 23 ALT 9 Alkaline Phosphatase 70 Total Protein 6.0 L Albumin 2.6 L Discharge Plan Discharge Attending physician on discharge: Jluis Downey Consulting providers: Rob Reyes Discharging Clinician: Jluis Downey Patient Disposition: Inpatient Rehab Facility Activity: may shower and follow weight bearing status Diet: as tolerated Wound Care Instructions: follow printed instructions Discharge Instructions: Postoperative Hip Fracture Instructions Dr. Rob Reyes [phone] Dressing to be changed daily with an island dressing beginning on post op day #2. May stop dressing changes at post op day #14. No sutures/olga will need to be removed. Can allow Dermabond to fall off naturally. Weight bearing: Weight bearing as tolerated. You may shower with your dressing but do not submer
[2023-04-15] MEDS: diazePAM (*CRX) 5 MG TABLET PO (16:33)
--- NOTE | 2023-04-15 16:40 | PCCCNOTE ---
Latonya from [facility] called back and business office is closed and they will not be able to accept pt until auth is gotten. Called 2 med and informed and pt to stay
[2023-04-15] MEDS: RIVAROXABAN 10 MG TABLET PO (17:35)
[2023-04-16] VITALS (14 sets, daily range): BP systolic 127–152; BP diastolic 55–66; PULSE 68–90; RESP 16–18; TEMP 36.3–36.7; O2SAT 93–98
[2023-04-16] MEDS: ALBUTEROL SULFATE NEB 2.5 MG/3 ML INH INHALATION (04:03)
[2023-04-16] MEDS: HYDROcodone/acetaminophen (*CRX) 5-325 MG TABLET 1 TAB PO ×2 (07:46→16:34)
[2023-04-16] MEDS: FLUTICASONE/SALMETEROL 115-21 MCG INHALER 1 PUFF 2 PUFF INHALATION (08:01)
[2023-04-16] MEDS: NICOTINE (*PBKC) 14 MG PATCH 1 PATCH TRANSDERM (08:08)
[2023-04-16] MEDS: SENNA/DOCUSATE SODIUM TABLET 2 TAB PO ×2 (08:08→16:35)
[2023-04-16] MEDS: FAMOTIDINE 20 MG TABLET PO ×2 (08:08→20:08)
[2023-04-16] MEDS: amLODIPine BESYLATE 5 MG TABLET PO (08:08)
[2023-04-16] MEDS: polyethylene glycoL 3350 17 GM POWD.PACK PO (08:08)
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
[2023-04-16] MEDS: RIVAROXABAN 10 MG TABLET PO (16:35)
[2023-04-16] MEDS: IRON SUCROSE COMPLEX 100 MG in SODIUM CHLORIDE 0.9% IV 50 ML 220 MG IVPB (16:35)
[2023-04-16] MEDS: TAMSULOSIN HCL 0.4 MG CAPSULE PO (16:48)
[2023-04-16] MEDS: FINASTERIDE 5 MG TABLET PO (16:48)
[2023-04-16] MEDS: DEXTROSE 5%/0.45% SOD CHL 1,000 ML 75 ML IV CONT (16:51)
[2023-04-16] MEDS: LORazepam INJ (*CRX) 2 MG/ML VIAL 0.5 MG IV PUSH (20:08)
[2023-04-17] VITALS (11 sets, daily range): BP systolic 120–189; BP diastolic 58–75; PULSE 64–77; RESP 14–18; TEMP 36.4–36.6; O2SAT 92–94
[2023-04-17] MEDS: DEXTROSE 5%/0.45% SOD CHL 1,000 ML 75 ML IV CONT (05:35)
[2023-04-17] MEDS: FINASTERIDE 5 MG TABLET PO (08:10)
[2023-04-17] MEDS: SENNA/DOCUSATE SODIUM TABLET 2 TAB PO ×2 (08:10→17:23)
[2023-04-17] MEDS: FAMOTIDINE 20 MG TABLET PO ×2 (08:10→20:21)
[2023-04-17] MEDS: amLODIPine BESYLATE 5 MG TABLET 10 MG PO (08:10)
[2023-04-17] MEDS: IRON SUCROSE COMPLEX 100 MG in SODIUM CHLORIDE 0.9% IV 50 ML 220 MG IVPB (08:10)
[2023-04-17] MEDS: NICOTINE (*PBKC) 14 MG PATCH 1 PATCH TRANSDERM (08:10)
[2023-04-17] MEDS: TAMSULOSIN HCL 0.4 MG CAPSULE PO (08:10)
[2023-04-17] MEDS: polyethylene glycoL 3350 17 GM POWD.PACK PO (08:11)
[2023-04-17] MEDS: HYDROcodone/acetaminophen (*CRX) 5-325 MG TABLET 1 TAB PO ×2 (08:12→20:21)
[2023-04-17] MEDS: FLUTICASONE/SALMETEROL 115-21 MCG INHALER 1 PUFF 2 PUFF INHALATION ×2 (09:06→20:53)
[2023-04-17] MEDS: RIVAROXABAN 10 MG TABLET PO (17:23)
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
[2023-04-17 19:35] LABS: Appearance Urine Cloudy (Clear); Bacteria Urine None Seen /hpf; Bilirubin Urine Negative (Negative); Blood Urine 3+ (Negative); Color Urine Yellow (Yellow); Glucose Urine UA Negative (Negative); Ketones Urine Negative (Negative); Leukocyte Esterase Ur Negative LEU/UL (NEGATIVE); Need Manual Microscopic Reviewed; Nitrate Urine Negative (Negative); Non Pathogenic Casts 0-2; Protein Urine Trace mg/dL (Negative); Specific Grav Ur 1.011 (1.001-1.035); Squamous Epithelial Cell Urine None seen /hpf (Few); Urobilinogen Urine 0.2 mg/dL (<2.0); WBC Urine 0-5 /hpf (0-3)
[2023-04-17 19:38] LABS: Add Urine Microscopic? YES
[2023-04-17] MEDS: DEXTROSE 5%/0.45% SOD CHL 1,000 ML 50 ML IV CONT (19:46)
[2023-04-17] MEDS: MELATONIN 5 MG TABLET PO (20:21)
[2023-04-18] VITALS (11 sets, daily range): BP systolic 122–161; BP diastolic 52–79; PULSE 60–89; RESP 16–18; TEMP 35.9–36.6; O2SAT 93–100
[2023-04-18] MEDS: MELOXICAM 7.5 MG TABLET PO (01:12)
[2023-04-18] MEDS: HYDROcodone/acetaminophen (*CRX) 5-325 MG TABLET 1 TAB PO ×3 (06:06→21:40)
[2023-04-18 06:13] LABS: Hematocrit 26.2 % (42.0-52.0); Mean Corpuscular HGB Conc 30.5 g/dl (32-36); Mean Corpuscular Hemoglobin 33.6 pg (26-34); Mean Corpuscular Volume 110.1 fl (80-100); Mean Platelet Volume 12.3 fl (7.4-10.4); Platelet Count Result 160 k/mm3 (150-375); Red Blood Count 2.38 M/mm3 (4.6-6.20); Red Cell Distribution Width 15.6 % (11.5-14.5); White Blood Count 7.8 K/mm3 (4.5-10.0)
[2023-04-18 06:21] LABS: Potassium 4.5 mmol/L (3.4-5.0)
[2023-04-18 06:25] LABS: Alanine Aminotransferase 12 U/L (6-50); Albumin Level 2.9 g/dL (3.5-5.1); Alkaline Phosphatase 69 U/L (38-126); Anion Gap 7 mmol/L (8-16); Aspartate Amino Transferase 25 U/L (17-59); Bilirubin,Total 0.6 mg/dL (0.2-1.3); Blood Urea Nitrogen 27 mg/dL (9-20); Calcium 8.9 mg/dL (8.4-10.2); Carbon Dioxide 22 mmol/L (22-30); Chloride 105 mmol/L (98-107); Estimated CRCL calculation 26 ml/min; Estimated Glomerular Filt Rate 39; Glucose 98 mg/dL (65-110); Sodium 134 mmol/L (137-145)
[2023-04-18 06:58] LABS: Band Neutrophils Percent 21 % (0-6); Eosinophils Absolute Manual 0.39 K/mm3 (0.02-0.5); Eosinophils Percent Manual 5 % (0-4); Lymphocytes Absolute Manual 1.17 K/mm3 (1.1-4.5); Metamyelocytes Percent 1 %; Monocytes Absolute Manual 0.46 K/mm3 (0.1-0.90); Monocytes Percent Manual 6 % (3-9); Myelocytes Percent 4 %; Neutrophils Percent Manual 47 % (46-73); Promyelocytes Percent 1 %; Total Cells Counted 100
[2023-04-18 06:59] LABS: Platelet Estimate Adequate (Adequate)
[2023-04-18 07:00] LABS: Hypochromasia 2+ (NORMAL); Schistocytes None Seen (NORMAL)
[2023-04-18] MEDS: IRON SUCROSE COMPLEX 100 MG in SODIUM CHLORIDE 0.9% IV 50 ML 220 MG IVPB (08:08)
[2023-04-18] MEDS: SENNA/DOCUSATE SODIUM TABLET 2 TAB PO ×2 (08:11→17:08)
[2023-04-18] MEDS: FINASTERIDE 5 MG TABLET PO (08:11)
[2023-04-18] MEDS: TAMSULOSIN HCL 0.4 MG CAPSULE PO (08:11)
[2023-04-18] MEDS: NICOTINE (*PBKC) 21 MG PATCH 1 PATCH TRANSDERM (08:11)
[2023-04-18] MEDS: amLODIPine BESYLATE 5 MG TABLET 10 MG PO (08:11)
[2023-04-18] MEDS: FAMOTIDINE 20 MG TABLET PO ×2 (08:11→19:58)
[2023-04-18] MEDS: FLUTICASONE/SALMETEROL 115-21 MCG INHALER 1 PUFF 2 PUFF INHALATION ×2 (08:37→21:30)
[2023-04-18] MEDS: DEXTROSE 5%/0.45% SOD CHL 1,000 ML 50 ML IV CONT (17:09)
[2023-04-18] MEDS: RIVAROXABAN 10 MG TABLET PO (17:09)
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
[2023-04-18] MEDS: MELATONIN 3 MG TABLET 9 MG PO (19:58)
[2023-04-19] VITALS (13 sets, daily range): BP systolic 115–158; BP diastolic 51–67; PULSE 60–87; RESP 16–18; TEMP 35.8–36.5; O2SAT 92–100
[2023-04-19] MEDS: MELOXICAM 7.5 MG TABLET PO (00:38)
[2023-04-19] MEDS: HYDROcodone/acetaminophen (*CRX) 5-325 MG TABLET 1 TAB PO ×3 (04:30→19:00)
[2023-04-19] MEDS: FLUTICASONE/SALMETEROL 115-21 MCG INHALER 1 PUFF 2 PUFF INHALATION ×2 (07:46→21:06)
[2023-04-19] MEDS: IRON SUCROSE COMPLEX 100 MG in SODIUM CHLORIDE 0.9% IV 50 ML 220 MG IVPB (08:27)
[2023-04-19] MEDS: amLODIPine BESYLATE 5 MG TABLET 10 MG PO (08:28)
[2023-04-19] MEDS: TAMSULOSIN HCL 0.4 MG CAPSULE PO (08:28)
[2023-04-19] MEDS: FINASTERIDE 5 MG TABLET PO (08:28)
[2023-04-19] MEDS: polyethylene glycoL 3350 17 GM POWD.PACK PO (08:28)
[2023-04-19] MEDS: FAMOTIDINE 20 MG TABLET PO ×2 (08:28→20:18)
[2023-04-19] MEDS: NICOTINE (*PBKC) 21 MG PATCH 1 PATCH TRANSDERM (08:28)
[2023-04-19] MEDS: SENNA/DOCUSATE SODIUM TABLET 2 TAB PO ×2 (08:28→17:08)
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
[2023-04-19] MEDS: RIVAROXABAN 10 MG TABLET PO (17:09)
[2023-04-19] MEDS: MELATONIN 3 MG TABLET 9 MG PO (20:18)
[2023-04-20] VITALS (12 sets, daily range): BP systolic 140–175; BP diastolic 56–90; PULSE 64–97; RESP 14–20; TEMP 36–36.6; O2SAT 93–99
[2023-04-20] MEDS: DEXTROSE 5%/0.45% SOD CHL 1,000 ML 50 ML IV CONT (05:00)
[2023-04-20] MEDS: HYDROcodone/acetaminophen (*CRX) 5-325 MG TABLET 1 TAB PO ×2 (06:23→22:35)
[2023-04-20] MEDS: FLUTICASONE/SALMETEROL 115-21 MCG INHALER 1 PUFF 2 PUFF INHALATION ×2 (07:47→20:39)
[2023-04-20] MEDS: SENNA/DOCUSATE SODIUM TABLET 2 TAB PO (08:10)
[2023-04-20] MEDS: amLODIPine BESYLATE 5 MG TABLET 10 MG PO (08:11)
[2023-04-20] MEDS: NICOTINE (*PBKC) 21 MG PATCH 1 PATCH TRANSDERM (08:11)
[2023-04-20] MEDS: TAMSULOSIN HCL 0.4 MG CAPSULE PO (08:11)
[2023-04-20] MEDS: FINASTERIDE 5 MG TABLET PO (08:11)
[2023-04-20] MEDS: FAMOTIDINE 20 MG TABLET PO ×2 (08:11→21:15)
[2023-04-20] MEDS: polyethylene glycoL 3350 17 GM POWD.PACK PO (08:13)
[2023-04-20] MEDS: IRON SUCROSE COMPLEX 100 MG in SODIUM CHLORIDE 0.9% IV 50 ML 220 MG IVPB (10:06)
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
[2023-04-20 11:42] LABS: Hematocrit 23.5 % (42.0-52.0); Hemoglobin 7.3 g/dL (14.0-18.0); Mean Corpuscular HGB Conc 31.1 g/dl (32-36); Mean Corpuscular Hemoglobin 34.3 pg (26-34); Mean Corpuscular Volume 110.3 fl (80-100); Mean Platelet Volume 11.7 fl (7.4-10.4); Platelet Count Result 193 k/mm3 (150-375); Red Blood Count 2.13 M/mm3 (4.6-6.20); Red Cell Distribution Width 15.5 % (11.5-14.5); White Blood Count 6.6 K/mm3 (4.5-10.0)
[2023-04-20 12:22] LABS: Alanine Aminotransferase 16 U/L (6-50); Albumin Level 2.9 g/dL (3.5-5.1); Alkaline Phosphatase 65 U/L (38-126); Anion Gap 7 mmol/L (8-16); Aspartate Amino Transferase 27 U/L (17-59); Bilirubin,Total 0.6 mg/dL (0.2-1.3); Blood Urea Nitrogen 27 mg/dL (9-20); Calcium 8.9 mg/dL (8.4-10.2); Carbon Dioxide 24 mmol/L (22-30); Chloride 104 mmol/L (98-107); Estimated CRCL calculation 24 ml/min; Estimated Glomerular Filt Rate 36; Glucose 109 mg/dL (65-110); Potassium 4.6 mmol/L (3.4-5.0); Sodium 135 mmol/L (137-145)
[2023-04-20 12:54] LABS: Iron 308 ug/dL (49-181)
[2023-04-20 13:04] LABS: Percent Iron Saturation 165 % (20-50)
[2023-04-20 13:25] LABS: Folic Acid 3.6 ng/mL (2.76->20)
[2023-04-20] MEDS: RIVAROXABAN 10 MG TABLET PO (17:11)
[2023-04-20 19:21] LABS: PSA, Free 0.02 ng/mL; PSA, Total <0.1 ng/mL (<=4.0)
[2023-04-20] MEDS: MELATONIN 3 MG TABLET 9 MG PO (21:15)
[2023-04-21] VITALS: PULSE 82
[2023-04-21 03:34] VITALS: BP 140/67; PULSE 72; RESP 18; TEMP 36.4; O2SAT 97
[2023-04-21] MEDS: NICOTINE (*PBKC) 21 MG PATCH 1 PATCH TRANSDERM (08:29)
[2023-04-21] MEDS: FINASTERIDE 5 MG TABLET PO (08:30)
[2023-04-21] MEDS: amLODIPine BESYLATE 5 MG TABLET 10 MG PO (08:30)
[2023-04-21] MEDS: TAMSULOSIN HCL 0.4 MG CAPSULE PO (08:30)
[2023-04-21] MEDS: SENNA/DOCUSATE SODIUM TABLET 2 TAB PO ×2 (08:30→16:04)
[2023-04-21] MEDS: FAMOTIDINE 20 MG TABLET PO (08:30)
[2023-04-21 08:37] VITALS: RESP 18; O2SAT 93
[2023-04-21] MEDS: FLUTICASONE/SALMETEROL 115-21 MCG INHALER 1 PUFF 2 PUFF INHALATION (09:16)
[2023-04-21 09:18] VITALS: PULSE 70; RESP 18; O2SAT 96
[2023-04-21] MEDS: HYDROcodone/acetaminophen (*CRX) 5-325 MG TABLET 1 TAB PO (11:27)
--- NOTE | 2023-04-21 11:50 | PM.DS ---
DS: Admitting Diagnosis Discharge Date 04/21/23 Admitting Diagnosis fall at home DS: Discharge Diagnosis Discharge Diagnosis (1) Fall: Qualifiers: Encounter type: initial encounter Qualified Code(s): W19.XXXA - Unspecified fall, initial encounter Code(s): W19.XXXA - Unspecified fall, initial encounter Status: Acute (2) Femoral neck fracture: Qualifiers: Encounter type: subsequent encounter Fracture healing: with routine healing Fracture type: closed Laterality: right Qualified Code(s): S72.001D - Fracture of unspecified part of neck of right femur, subsequent encounter for closed fracture with routine healing Code(s): S72.009A - Fracture of unspecified part of neck of unspecified femur, initial encounter for closed fracture Status: Acute (3) Postoperative anemia: Code(s): D64.9 - Anemia, unspecified Status: Acute DS: Summary Hospital Course Hospital Course: 83M presented from home after slipping and landing on his right hip and hit his head. The pt underwent right hip hemiarthroplasty with bipolar prosthesis for a R femoral neck fracture. Pt is to have a total 35 days of xarelto 10mg po qday for DVT prophylaxis. He is a high fall risk although. His post op course was complicated by hypoxia which resolved, likely due to COPD and atelectasis. Also, required 1 unit PRBC for post op anemia, and received 5 days of venofer. Also complicated by post op delirium which resolved as well. He has pharyngeal dysphagia, seen by speech and recommended to have level 5 and level 2 diet with advancement as tolerated and repeated MBS when feeling stronger. Considering worsening CKD, his valsartan was stopped and amlodipine increased to 10mg po qday to help control HTN. tamsulosin was started for suspected BPH. For all of these issues he will follow up with PCP, nephrology, oncology. D/C to SNF for rehab in stable condition on 04/21/23 More than 30 minutes spent on discharge planning and documentation. Time Spent with Patient Time attestation: Total time spent providing and/or coordinating discharge services: Exam Const: General: cooperative and no acute distress Other: A&O x 2, frail, generalized weakness Resp: Effort & Inspection: normal respiratory effort Auscultation: clear to auscultation bilaterally Cardio: Rate: regular rate Rhythm: regular rhythm Heart sounds: S1 normal heart sound present and S2 normal heart sound present GI: GI Palp: No abdominal tenderness Auscultation: normal bowel sounds DS: Data Data Completed and Pending Labs on day of discharge: Labs from last 24 hours 04/20/23 04/17/23 11:36 05:55 Sodium 135 L Potassium 4.6 Chloride 104 Carbon Dioxide 24 Anion Gap 7 L BUN 27 H Creatinine 1.80 H Estim Creat Clear Calc 24 Estimated GFR 36 L Glucose 109 Calcium 8.9 Iron 308 H TIBC 187 L % Saturation 165 H Ferritin 914.00 H Total Bilirubin 0.6 AST 27 ALT 16 Alkaline Phosphatase 65 Total Protein 6.0 L Albumin 2.9 L Carcinoembryonic Ag 6.0 H Free PSA 0.02 % Free PSA (*) Total PSA <0.1 Vitamin B12 593.0 Folate 3.6 Discharge Plan Discharge Attending physician on discharge: Jluis Downey Consulting providers: Rob Reyes Discharging Clinician: Jluis Downey Patient Disposition: Inpatient Rehab Facility Activity: may shower and follow weight bearing status Diet: other - see discharge instructions Wound Care Instructions: follow printed instructions Discharge Instructions: Postoperative Hip Fracture Instructions Dr. Rob Reyes [phone] Dressing to be changed daily with an island dressing beginning on post op day #2. May stop dressing changes at post op day #14. No sutures/olga will need to be removed. Can allow Dermabond to fall off naturally. Weight bearing: Weight bearing as tolerated. You may shower with your dressing but d
[2023-04-21 12:49] LABS: SARS-CoV-2 RNA PCR Negative (Negative)
[2023-04-21 13:36] VITALS: BP 149/66; PULSE 78; RESP 16; TEMP 36.3; O2SAT 96
[2023-04-21] MEDS: RIVAROXABAN 10 MG TABLET PO (16:05)
== END 2023-04-21 16:10 | DRG 522 ==
LOC: ANHED 10:24 → ANH3MEDSUR 15:59 → ANHIMU 04-10 21:18 → ANH2MED 04-12 03:13
PROVIDERS: Family Medicine; Internal Medicine; Internal Medicine Hematology & Oncology; Orthopaedic Surgery; Admitting Provider Student in an Organized Health Care Education/Training Program; Emergency Provider Nurse Practitioner Family; PCP Family Medicine; Visit Provider General Practice
PROC: 0SRR019 Replacement of Right Hip Joint, Femoral Surface with Metal Synthetic Substitute, Cemented, Open Approach (ICD-10-PCS; CPT 27125; principal; 2023-04-10 15:30)
DX: S72.011A Unspecified intracapsular fracture of right femur, initial encounter for closed fracture (principal); D62 Acute posthemorrhagic anemia; F05 Delirium due to known physiological condition; J95.89 Other postprocedural complications and disorders of respiratory system, not elsewhere classified; J98.11 Atelectasis; W18.39XA Other fall on same level, initial encounter; I71.40 Abdominal aortic aneurysm, without rupture, unspecified; F17.210 Nicotine dependence, cigarettes, uncomplicated; J44.9 Chronic obstructive pulmonary disease, unspecified; E78.5 Hyperlipidemia, unspecified; I12.9 Hypertensive chronic kidney disease with stage 1 through stage 4 chronic kidney disease, or unspecified chronic kidney disease; N18.30 Chronic kidney disease, stage 3 unspecified; R13.13 Dysphagia, pharyngeal phase; R09.02 Hypoxemia; Z85.46 Personal history of malignant neoplasm of prostate; Z85.038 Personal history of other malignant neoplasm of large intestine
CPT/HCPCS: 36415; 36430; 70450; 71045; 72125; 72192; 73502; 73521; 80053; 81001; 82274; 82378; 82607; 82728; 82746; 82948; 83540; 83550; 83605; 83735; 84153; 84154; 85025; 85027; 85055; 85610; 85730; 86850; 86900; 86901; 86923; 87635; 87637; 92610; 92611; 93005; 94640; 96374; 97110; 97116; 97161; 97165; 97530; 97535; 99285; A9270; C1713; C1776; J0171; J0330; J0360; J0690; J1170; J1756; J1885; J2060; J2270; J2405; J2704; J2795; J3010; J7030; J7120; P9016

== ENCOUNTER 2023-04-13 12:26 | Outpatient (NON) | payer OTHER, SELFPAY ==
[2023-04-13 12:51] LABS: IFOB Positive Control Positive; Immunochemical Fecal Occult Bl Negative (N)
== END 2023-04-13 12:27 | disposition home or self-care (01) ==
PROVIDERS: PCP Family Medicine; Visit Provider Family Medicine
DX: R19.5 Other fecal abnormalities (principal)
CPT/HCPCS: 82274

== ENCOUNTER 2023-04-28 12:25 | Outpatient (CLI) | payer OTHER, SELFPAY ==
[2023-04-28 12:42] LABS: Basophils Absolute Auto 0.1 K/mm3 (0.0-0.1); Basophils Percent Auto 0.7 % (0.2-1.2); Eosinophils Percent Auto 0.2 % (0-4.4); Hematocrit 23.6 % (42.0-52.0); Hemoglobin 7.3 g/dL (14.0-18.0); Mean Corpuscular HGB Conc 30.9 g/dl (32-36); Mean Corpuscular Hemoglobin 34.4 pg (26-34); Mean Corpuscular Volume 111.3 fl (80-100); Mean Platelet Volume 11.1 fl (7.4-10.4); Monocytes Absolute Auto 0.7 K/mm3 (0.1-0.6); Monocytes Percent Auto 6.7 % (2.6-8.5); Neutrophils Absolute Auto 8.8 K/mm3 (1.3-6.7); Neutrophils Percent Auto 88.4 % (45.5-73.1); Platelet Count Result 174 k/mm3 (150-375); Red Blood Count 2.12 M/mm3 (4.6-6.20); Red Cell Distribution Width 16.2 % (11.5-14.5); White Blood Count 9.9 K/mm3 (4.5-10.0)
[2023-04-28 12:49] LABS: Anisocytosis 1+ (NORMAL); Platelet Estimate Adequate (Adequate); Schistocytes None Seen (NORMAL)
[2023-04-28 13:50] LABS: Anion Gap 10 mmol/L (8-16); Blood Urea Nitrogen 32 mg/dL (9-20); Carbon Dioxide 23 mmol/L (22-30); Chloride 103 mmol/L (98-107); Estimated Glomerular Filt Rate 27; Glucose 133 mg/dL (65-110); Potassium 4.4 mmol/L (3.4-5.0); Sodium 136 mmol/L (137-145)
[2023-04-28 13:52] LABS: Iron 25 ug/dL (49-181)
[2023-04-28 14:06] LABS: Percent Iron Saturation 12 % (20-50)
[2023-04-28 14:21] LABS: Carcinoembryonic Antigen 5.3 ng/mL (0.0-3.0)
[2023-04-28 14:57] LABS: Folic Acid 3.5 ng/mL (2.76->20)
== END 2023-04-28 12:26 | disposition home or self-care (01) ==
LOC: ANHLAB 12:27
PROVIDERS: PCP Family Medicine; Visit Provider Internal Medicine Hematology & Oncology
DX: C18.9 Malignant neoplasm of colon, unspecified (principal); D64.9 Anemia, unspecified
CPT/HCPCS: 36415; 80048; 82378; 82607; 82728; 82746; 83540; 83550; 85025

== ENCOUNTER 2023-05-01 10:44 | Outpatient (RCR) | payer OTHER, SELFPAY ==
[2023-05-01] VITALS (9 sets, daily range): BP systolic 98–148; BP diastolic 47–90; PULSE 64–72; RESP 15–18; TEMP 36.8–37.3; O2SAT 94–98
[2023-05-01 11:40] LABS: Hematocrit 23.3 % (42.0-52.0)
[2023-05-01 11:43] LABS: Hemoglobin 6.9 g/dL (14.0-18.0)
[2023-05-01] MEDS: diphenhydrAMINE HCl CAP 25 MG CAPSULE PO (11:52)
[2023-05-01] MEDS: ACETAMINOPHEN 325 MG TABLET 650 MG PO (11:52)
[2023-05-01] MEDS: SODIUM CHLORIDE 0.9% IV 250 ML 30 ML IV CONT (11:53)
--- NOTE | 2023-05-01 12:45 | PC.NURSE ---
HH ON ARRIVAL TO [facility] 05/01/23 IS 6.9/23.3. HAS 1 UNIT OF PRBC'S ORDERED BY DR. KOEHLER AND IS INFUSING AT THIS TIME. DR. KOEHLER'S OFFICE NOTIFIED OF HH RESULTS TODAY OF 6.9.3. RECEIVED ORDER FROM DR. KOEHLER TO GIVE 1 ADDITIONAL UNIT OF PRBC'S TODAY FOR A TOTAL OF 2 UNITS PRBC'S AND TO GIVE LASIX 20MG IVP X 1 IN BETWEEN UNITS OF BLOOD. PT. UPDATED ON NEW ORDER AND IS AGREEABLE TO ADDITIONAL BLOOD.
--- NOTE | 2023-05-01 13:00 | PC.NURSE ---
NOTIFIED BLOOD BANK OF ORDER FROM DR. KOEHLER TO GIVE 2ND UNIT OF PRBC'S TODAY. BLOOD BANK WILL SET UP 2ND UNIT. NOTIFIED PT'S DAUGHTER, BRAD, , OF TODAY'S HH RESULT AND ORDER RECEIVED FROM DR. KOEHLER TO GIVE 2ND UNIT OF PRBC'S TODAY WITH 20MG IVP LASIX IN BETWEEN UNITS. BRAD V/U OF ALL.
[2023-05-01] MEDS: FUROSEMIDE INJ 40 MG/4 ML VIAL 20 MG IV PUSH (15:30)
== END 2023-05-28 23:59 | disposition home or self-care (01) ==
LOC: ANHCPCTRAN 10:44
PROVIDERS: PCP Family Medicine; Visit Provider Internal Medicine Hematology & Oncology
DX: D64.9 Anemia, unspecified (principal)
CPT/HCPCS: 36415; 36430; 85014; 85018; 86850; 86900; 86901; 86923; 96374; A9270; J1940; J7050; P9016

== ENCOUNTER 2023-05-10 07:46 | Inpatient (IN) | payer OTHER, SELFPAY ==
[2023-05-10] VITALS (41 sets, daily range): BP systolic 124–192; BP diastolic 61–102; PULSE 76–98; RESP 12–27; TEMP 36.4–36.7; O2SAT 90–94
--- NOTE | ~2023-05-10 | XR_ITS ---
XR_FLGTUBINS_CR DATE: 05/17/2023 13:25 INDICATION: Patient pulled NG tube out. Unable to insert NG tube bedside. TECHNIQUE: Fluoroscopy was provided for placement of NG tube by the patient's nurse. NG tube insertion was performed successfully, with confirmation of NG tube in the body of the stomach by fluoroscopy. 1.2 minutes fluoroscopy time 3.763 Gycm2 IMPRESSION: Successful NG tube placement in stomach by patient's nurse, with fluoroscopic confirmatio n Reviewed, dictated and finalized at Location A. Reviewed, dictated and finalized at location A. ACING MACHINE OPERATOR IMPRESSION: Successful NG tube placement in stomach by patient's nurse, with fl uoroscopic confirmation
--- NOTE | ~2023-05-10 | US_ITS ---
EXAMINATION: US venous doppler [facility] DATE: 05/11/2023 08:20 INDICATION: Lower limb swelling TECHNIQUE: Vela scale images without and with compression and Doppler images of the bilateral lower e xtremity veins were obtained. COMPARISON: None FINDINGS: The right common femoral vein, profunda femoral vein, femoral vein, popliteal vein, peroneal trunk, p osterior tibial veins, and greater saphenous vein are patent. The left common femoral vein, profunda femoral vein, femoral vein, popliteal vein, peroneal trunk, po sterior tibial veins, and greater saphenous vein are patent. IMPRESSION: 1. Patent bilateral lower extremity veins. No evidence of deep venous thrombosis. Reviewed, dictated and finalized at location B. ON GRAPHICS DESIGNER IMPRESSION: 1. Patent bilateral lower extremity veins. No evidence of deep venous thrombosi s.
--- NOTE | ~2023-05-10 | XR_ITS ---
Portable chest x-ray Comparison: 05/10/2023 Clinical History: Infection Findings: NG tube is in satisfactory position. Lungs are clear, without focal consolidation or pleur al effusion. Cardiomediastinal silhouette is stable. Bones and soft tissues are unremarkable. Impression: NG tube in satisfactory position. Clear lungs. Reviewed, dictated and finalized at location . H GRADER SUPERVISOR Impression: NG tube in satisfactory position. Clear lungs.
--- NOTE | ~2023-05-10 | XR_ITS ---
MODIFIED ESOPHAGRAM HISTORY: Acute stroke with dysphagia. Reevaluate swallowing TECHNIQUE: Modified barium esophagram was performed on 05/15/2023. I administered fluoroscopy and per formed the exam with speech pathologist. Patient was seated for lateral fluoroscopic imaging for ing estion of thin liquids, pudding, solids and quantified amounts, followed by thin liquids in uncontrol led amounts. This was recorded on tape. A single fluoroscopic spot image was also recorded. The DAP f or this procedure was 0.662 Gycm2. The amount of fluoroscopy time used during this procedure was 1.5 minutes. FINDINGS: Oral stage: Reduced labial seal/attention and lingual movement. Pharyngeal stage: Reduced laryngeal elevation and adduction, reduced tongue base retraction and reduc ed pharyngeal squeeze. There is vallecular, piriform sinus and pharyngeal wall residue. There is casandra ngeal penetration with aspiration. Cervical/esophageal stage: Adequate function. IMPRESSION: Oral and pharyngeal dysphagia including laryngeal penetration and aspiration. Please cor relate with speech pathologist findings and specific feeding recommendations. Reviewed, dictated and finalized at location A. PER OPERATOR IMPRESSION: Oral and pharyngeal dysphagia including laryngeal penetration and a spiration. Please correlate with speech pathologist findings and specific feed ing recommendations.
--- NOTE | ~2023-05-10 | XR_ITS ---
EXAMINATION: XR chest 1V portable DATE: 05/27/2023 11:11 INDICATION: Pneumonia. Respiratory failure. TECHNIQUE: frontal view of the chest was obtained. COMPARISON: Chest radiograph dated 05/24/2023 FINDINGS: Increasing airspace opacities and consolidation in the bilateral lower lungs consistent with worsenin g pneumonia. There are also small bilateral pleural effusions. No pneumothorax. Heart size is normal. IMPRESSION: 1. Increasing opacities and consolidation in the bilateral lower lungs consistent with worsening pneu monia. 2. Small bilateral pleural effusions. Reviewed, dictated and finalized at location A. CT ORIENTED DEVELOPER IMPRESSION: 1. Increasing opacities and consolidation in the bilateral lower lungs consiste nt with worsening pneumonia. 2. Small bilateral pleural effusions.
--- NOTE | ~2023-05-10 | MR_ITS ---
EXAMINATION: MR brain/brain stem wo/w con DATE: 05/10/2023 15:13 INDICATION: age indeterminate lacunar infarct TECHNIQUE: Magnetic resonance imaging (MRI) of the brain and brainstem was performed without intraven ous contrast. Sequences included sagittal and axial T1-weighted SE, axial diffusion-weighted FS EPI A SSET, axial T2*-weighted GRE, axial T2-weighted FLAIR Propeller, and axial T2-weighted Propeller. Pos tcontrast axial and coronal T1-weighted SE was obtained. Apparent diffusion coefficient (ADC) maps we re created. COMPARISON: CT brain, same date FINDINGS: Mild motion artifact is present. Focal DWI hyperintensity in the posterior limb of the left internal capsule extending to periventricular white matter, with corresponding hyperintensity on T2 and FLAIR sequences and subtle hypointensity on T1 sequences. Corresponding ADC signal is low. No MRI evidence of hemorrhage or extra-axial collection. No suspicious foci of susceptibility to suggest prior intrap arenchymal hemorrhage. Moderate patchy white matter hyperintensity, likely representing moderate smal l vessel ischemic disease. Mild generalized parenchymal volume loss. The basilar cisterns are patent. Flow voids are preserved. Retention cyst/polyp in the bilateral maxillary sinuses, the remaining aer ated spaces are clear. Globes and orbital contents are within normal limits. IMPRESSION: Focal, late hyperacute or early acute infarct involving the posterior limb of the left internal capsu le extending to the left periventricular white matter. Reviewed, dictated and finalized at location K. ORT ASSISTANT IMPRESSION: Focal, late hyperacute or early acute infarct involving the posterior limb of t he left internal capsule extending to the left periventricular white matter.
--- NOTE | ~2023-05-10 | US_ITS ---
EXAMINATION: US renal BI DATE: 05/10/2023 18:09 INDICATION: hematuria, acute/chronic kidney failure TECHNIQUE: Multiple grayscale and Doppler ultrasound images of the kidneys were obtained. COMPARISON: CT abdomen pelvis 07/30/2022. FINDINGS: Somewhat limited visualization due to body habitus and altered mental status. The right kidney measur es 9.4 x 4.8 x 5.5 cm. The left kidney measures 10.7 x 5.6 x 3.0 cm. The kidneys demonstrate cortical thinning and mildly increased parenchymal echogenicity. Bilateral simple cysts. There is no hydronep hrosis. The bladder is incompletely distended, with thickened omalley. Incidental note of prostate enla rgement with internal echogenicities. IMPRESSION: Renal atrophy and medical renal disease. Cystitis versus bladder wall thickening from incomplete dist ention or outlet obstruction. Prostatomegaly. Reviewed, dictated and finalized at location K. RETAIL IMPRESSION: Renal atrophy and medical renal disease. Cystitis versus bladder wall thickenin g from incomplete distention or outlet obstruction. Prostatomegaly.
--- NOTE | ~2023-05-10 | CT_ITS ---
EXAMINATION: CT cervical spine wo con DATE: 05/10/2023 08:49 INDICATION: Neck pain. Trauma. TECHNIQUE: Computed tomography (CT) of the cervical spine was performed without intravenous contrast. The dose-length product was 181 mGy-cm. Automated exposure control and iterative reconstruction tech [employer] were employed. COMPARISON: CT dated 04/08/2023 FINDINGS: There is mild dextrocurvature of the cervical spine. There is mild multilevel uncinate hype rtrophy. There is mild facet hypertrophy at C6-7. Odontoid process is normal. There is loss of disc h eight at C4-5, C5-6 and C6-7. There is dorsal osteophytosis at C5-6, causing left neural foraminal na rrowing no evidence for perched facet. Craniovertebral junction is normal.. There is some 11 mm hypod ense mass of the right thyroid lobe. IMPRESSION: 1. No acute abnormality of the cervical spine. 2: Severe cervical spondylosis. Reviewed, dictated and finalized at location A. HER DANCING
--- NOTE | ~2023-05-10 | XR_ITS ---
EXAMINATION: XR_FLGTUBINS_CR DATE: 05/15/2023 11:26 INDICATION: Dysphagia TECHNIQUE: Nasogastric tube was placed utilizing fluoroscopic guidance. No fluoroscopic images were r ecorded during the procedure. A single AP radiograph of the abdomen was obtained following tube place ment to confirm positioning. The nasogastric tube was then fixed with tape to the nose. The amount of fluoroscopy time used during this procedure was 1.7 minutes. Total DAP was 2.903 Gycm^2 COMPARISON: None. FINDINGS: Nasogastric tube tip in proximal side port in the body of the stomach. Multiple surgical clips projec t along the left side of the lumbar spine. IMPRESSION: 1. Successful nasogastric tube placement with nasogastric tube tip and proximal side port in the body of the stomach. Reviewed, dictated and finalized at location A. WOUND
--- NOTE | ~2023-05-10 | XR_ITS ---
EXAMINATION: XR abdomen/kub 1V DATE: 05/27/2023 15:53 INDICATION: Gastrointestinal hemorrhage. TECHNIQUE: A supine view of the abdomen on 2 radiographs was obtained. COMPARISON: CT abdomen and pelvis 07/30/2022, chest single view 05/27/2023 FINDINGS: There is a large volume of stool in the colon. There is distention of the rectosigmoid and descending colon. The small bowel is normal in caliber. There is a gastrostomy tube in expected posit ion. There is a bipolar right hip hemiarthroplasty. There are brachytherapy seeds in the prostate. Th ere is elevation of right hemidiaphragm. There are airspace opacities in the lower lung zones. IMPRESSION: 1. Large volume of stool in the colon with distention of the colon. 2. Persistent airspace opacities in the lower lung zones, consistent with pneumonia. Reviewed, dictated and finalized at location E. T WELDING MACHINE OPERATOR IMPRESSION: 1. Large volume of stool in the colon with distention of the colon. 2. Persistent airspace opacities in the lower lung zones, consistent with pneum onia.
--- NOTE | ~2023-05-10 | XR_ITS ---
XR chest 1V portable 05/10/2023 08:51 Indication: Shortness of breath Procedure: AP view of the chest Comparison: Comparison to multiple prior studies sequentially, with oldest reviewed study dated 11/04. Findings: Heart size normal. There is retrocardiac consolidation. No edema, pleural effusion or pneum othorax. No acute osseous abnormality. Impression: 1: Retrocardiac consolidation may represent atelectasis or pneumonia. Reviewed, dictated and finalized at location A. RUNNER Impression: 1: Retrocardiac consolidation may represent atelectasis or pneumonia.
--- NOTE | ~2023-05-10 | XR_ITS ---
MODIFIED ESOPHAGRAM HISTORY: Failed bedside swallow study. TECHNIQUE: Modified barium esophagram was performed on 06/12/2022. I administered fluoroscopy and perf ormed the exam with speech pathologist. Patient was seated for lateral fluoroscopic imaging for shelby stion of thin liquids, pudding, solids and quantified amounts, followed by thin liquids in uncontroll ed amounts. This was recorded on tape. A single fluoroscopic spot image was also recorded. The DAP fo r this procedure was 2.965 Gycm2. The amount of fluoroscopy time used during this procedure was 5.5 m inutes. FINDINGS: Oral stage: Reduced lingual movement. Pharyngeal stage: Reduced laryngeal elevation and adduction.. Reduced tongue base retraction and phar yngeal squeeze. There is increased vallecular and piriform sinus residue. There is laryngeal penetrat ion with aspiration. Cervical/esophageal stage: There is minimal esophageal/pharyngeal backflow.. IMPRESSION: Pharyngeal predominant dysphagia including laryngeal penetration and aspiration. Please correlate with speech pathologist findings and specific feeding recommendations. Reviewed, dictated and finalized at location A. MAKER IMPRESSION: Pharyngeal predominant dysphagia including laryngeal penetration an d aspiration. Please correlate with speech pathologist findings and specific f eeding recommendations.
--- NOTE | ~2023-05-10 | US_ITS ---
Procedure: Duplex Doppler examination of the bilateral carotids. Indication: CVA Technique: Real time, color-flow and pulse wave Doppler examination of the bilateral carotids was performed. Findings: Vela scale ultrasonography of the right neck demonstrated minimal plaque at the right carotid bulb. T here was demonstration of normal color-flow and Doppler waveforms within the right common, internal a nd external carotid arteries. The peak systolic velocities in the right common, internal and external carotid arteries were demonstrated to be 104 cm/sec, 80 cm/sec and 125 cm/sec respectively. [facility] ICA/CCA ratio was 0.8.The proximal right internal carotid artery demonstrates 0% stenosis relative to the normal distal artery lumen diameter. Vela scale sonography of the left neck demonstrated moderate plaques at the left internal carotid art radha bulb. There was demonstration of normal color-flow and wave forms within the left common, interna l and external carotid arteries. The peak systolic velocities in the left common, internal and chief design drafter al carotid arteries were demonstrated to be 78cm/sec, 78 cm/sec and 129 cm/sec respectively. The left ICA/CCA ratio was 1.3. The proximal left internal carotid artery demonstrates 0% stenosis relative t o the normal distal artery lumen diameter. There was antegrade flow demonstrated in the bilateral vertebral arteries. Impression: No hemodynamically significant stenosis of the bilateral internal carotid arteries. Antegrade flow in the bilateral vertebral arteries. Note: The methodology used is an indirect measurement validated against a direct method (such as the NASCET criteria) that compares diameters at the stenosis to the distal ICA. Reviewed, dictated and finalized at location . AL TRAPPER Impression: No hemodynamically significant stenosis of the bilateral internal carotid arter ies. Antegrade flow in the bilateral vertebral arteries. Note: The methodology used is an indirect measurement validated against a direct meth od (such as the NASCET criteria) that compares diameters at the stenosis to the distal ICA.
--- NOTE | ~2023-05-10 | XR_ITS ---
EXAMINATION: XR chest 1V portable Exam Date/Time: 05/24/2023 15:00 MANAGER UNIVERSAL HISTORY: fever, cough, dyspnea s/p stroke and PEG Comparison: 05/14/2023. RESULT: Lines, tubes, and devices: None. Lungs and pleura: Multifocal patchy and acinar opacities in the right mid and lower lung. Diffuse mi ld reticular changes. Cardiomediastinal silhouette: Stable. Other: G-tube over the left upper quadrant. Mildly dilated loops of large and small bowel in the upp er abdomen. IMPRESSION: Right pulmonary opacities may represent edema or infection. Aspiration could also be considered. Upper abdominal dilated bowel loops, recommend CT abdomen and pelvis with contrast for further evalua tion. Reviewed, dictated and finalized at location K. GER UNIVERSAL IMPRESSION: Right pulmonary opacities may represent edema or infection. Aspiration could al so be considered. Upper abdominal dilated bowel loops, recommend CT abdomen and pelvis with contr ast for further evaluation.
--- NOTE | ~2023-05-10 | XR_ITS ---
EXAMINATION: XR abdomen gastric tube insert DATE: 05/12/2023 16:33 INDICATION: Nasogastric tube placement. TECHNIQUE: A single anteroposterior view of the abdomen was obtained. COMPARISON: None. FINDINGS: The lower abdomen is excluded. There are no dilated loops of bowel. The nasogastric tube ti p is in the stomach. Surgical clips overlie the left abdomen. IMPRESSION: 1. Nasogastric tube tip in the stomach. Reviewed, dictated and finalized at location E. E RIPSAW OPERATOR
--- NOTE | ~2023-05-10 | CT_ITS ---
EXAMINATION: CT BRAIN W/O DATE: 05/10/2023 08:49 INDICATION: Fell out of bed and hit head on nightstand TECHNIQUE: Computed tomography (CT) of the head was performed without intravenous contrast. The dose- length product was 605.33 mGy-cm. Automated exposure control and iterative reconstruction technique w ere employed. COMPARISON: CT dated 04/08/2020 FINDINGS: Generalized atrophy. There is a left lacunar hypodensity involving the posterior limb of th e internal capsule, suspicious for age-indeterminate infarction. Consider correlation with MRI. There is a chronic right caudate nucleus lacunar infarction. There is mucosal thickening of the left maxil casandra sinus. Mastoids are pneumatized. No depressed skull fractures. Study limited by motion artifact. There are scattered moderate periventricular and subcortical white matter changes, most likely relat ed to small vessel ischemic disease (microangiopathy). There is carotid atherosclerosis. No acute hem orrhage. No depressed skull fractures. No ventriculomegaly or midline shift. Midline sagittal images demonstrate a normal corpus callosum, c raniovertebral junction and sella turcica. Basilar cisterns are patent. Paranasal sinuses and mastoids are pneumatized. No depressed skull fractures. IMPRESSION: 1. Focal geographic hypodensity left basal ganglia, suspicious for age-indeterminate lacunar infarcti on. Consider correlation with MRI. 2: Chronic right lacunar infarction. 3: Chronic age-related findings. Reviewed, dictated and finalized at location [facility]. [facility] IMPRESSION: 1. Focal geographic hypodensity left basal ganglia, suspicious for age-indeterm inate lacunar infarction. Consider correlation with MRI. 2: Chronic right lacunar infarction. 3: Chronic age-related findings.
--- NOTE | 2023-05-10 07:55 | ECG_ITS ---
Measurements Intervals [place] Rate: 83 P: 34 TX: 161 QRS: 20 QRSD: 113 T: 60 QT: 353 QTc: 417 Interpretive Statements SINUS RHYTHM MODERATE INTRAVENTRICULAR CONDUCTION DELAY [110+ ms QRS DURATION] NONSPECIFIC T-WAVE ABNORMALITY ABNORMAL ECG COMPARED TO ECG 04/08/2023 10:05:57 NO SIGNIFICANT CHANGES Electronically Signed On 05-10-2023 9:10:24 [employer]ESS TEAM MEMBER by Abdoulaye Ortiz M.D.
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
[2023-05-10] MEDS: ALBUTEROL SULFATE NEB 2.5 MG/3 ML INH INHALATION (08:12)
[2023-05-10 08:23] LABS: Alveolar/Arterial O2 Gradient 52.5 mmHg; Base Excess ABG -5.5 mEq/l (+/-2.0); Fractional Inspired Oxygen 21 %; HCO3 ABG 18.6 mEq/l (22.0-26.0); Oxygen Content ABG 14.5 %vol (16.0-22.0); Oxygen Saturation ABG 90.6 % (95.0-100.0); Oxyhemoglobin 88.2 % THb (90.0-100.0); PCO2 ABG 31.9 mmHg (35.0-45.0); PO2 FiO2 Ratio Arterial Blood 2.81 %; Total Hemoglobin 11.7 g/dL (12.0-18.0); pH ABG 7.384 (7.350-7.450)
[2023-05-10 08:25] LABS: Modified Allen's Test Pass; Site Drawn RIGHT RADIAL
[2023-05-10 08:44] LABS: Basophils Absolute Auto 0.1 K/mm3 (0.0-0.1); Basophils Percent Auto 0.6 % (0.2-1.2); Eosinophils Percent Auto 0.2 % (0-4.4); Hemoglobin 10.1 g/dL (14.0-18.0); Immature Granulocyte Absolute 0.77 K/mm3 (0.00-0.031); Immature Granulocyte Percent A 4.5 % (0-0.5); Lymphocytes Absolute Auto 0.43 K/mm3 (0.9-3.2); Lymphocytes Percent Auto 2.5 % (18.3-44.2); Mean Corpuscular HGB Conc 30.6 g/dl (32-36); Mean Corpuscular Hemoglobin 32.4 pg (26-34); Mean Corpuscular Volume 105.8 fl (80-100); Mean Platelet Volume 11.5 fl (7.4-10.4); Monocytes Absolute Auto 1.2 K/mm3 (0.1-0.6); Monocytes Percent Auto 6.9 % (2.6-8.5); Neutrophils Absolute Auto 14.5 K/mm3 (1.3-6.7); Neutrophils Percent Auto 85.3 % (45.5-73.1); Platelet Count Result 169 k/mm3 (150-375); Red Blood Count 3.12 M/mm3 (4.6-6.20); White Blood Count 17.1 K/mm3 (4.5-10.0)
[2023-05-10 08:55] LABS: INR 1.2; Prothrombin Time 16.2 Seconds (11.1-14.7)
[2023-05-10 08:56] LABS: Alanine Aminotransferase 15 U/L (6-50); Albumin Level 3.4 g/dL (3.5-5.1); Alkaline Phosphatase 111 U/L (38-126); Anion Gap 9 mmol/L (8-16); Aspartate Amino Transferase 28 U/L (17-59); Bilirubin,Total 0.6 mg/dL (0.2-1.3); Blood Urea Nitrogen 55 mg/dL (9-20); Calcium 9.6 mg/dL (8.4-10.2); Carbon Dioxide 19 mmol/L (22-30); Chloride 112 mmol/L (98-107); Estimated CRCL calculation 15 ml/min; Estimated Glomerular Filt Rate 16; Glucose 107 mg/dL (65-110); Lactic Acid Reflex 0.8 mmol/L (0.7-2.0); Partial Thromboplastin Time 41.5 SECONDS (22.3-36.8); Potassium 5.1 mmol/L (3.4-5.0); Sodium 140 mmol/L (137-145)
[2023-05-10] MEDS: methylPREDNISolone SOD SUCC 125 MG VIAL IV PUSH (08:56)
[2023-05-10 09:07] LABS: Appearance Urine Turbid (Clear); Bacteria Urine 4+ /hpf; Bilirubin Urine Negative (Negative); Blood Urine 3+ (Negative); Color Urine Yellow (Yellow); Glucose Urine UA Negative (Negative); Ketones Urine Negative (Negative); Leukocyte Esterase Ur 3+ LEU/UL (Negative); Need Manual Microscopic Reviewed; Nitrate Urine Negative (Negative); Protein Urine 2+ mg/dL (Negative); RBC Urine 21-50 /hpf (0-2); Specific Grav Ur 1.015 (1.001-1.035); Squamous Epithelial Cell Urine Occasional /hpf (Few); WBC Urine >100 /hpf
[2023-05-10 09:10] LABS: Anisocytosis 1+ (NORMAL); Platelet Estimate Adequate (Adequate); Schistocytes None Seen (NORMAL)
[2023-05-10] MEDS: SODIUM CHLORIDE 0.9% IV 1,000 ML 999 ML IV CONT (09:17)
[2023-05-10 09:24] LABS: Influenza A QL RT-PCR Negative (Negative); Influenza B QL RT-PCR Negative (Negative); RSV RNA, RT-PCR Negative (Negative); SARS-CoV-2 RNA PCR Negative (Negative)
[2023-05-10 09:31] LABS: Add Urine Microscopic? YES
[2023-05-10 09:34] LABS: D Dimer 3.24 ug/mL (<0.48)
--- NOTE | 2023-05-10 09:34 | PC.NURSE ---
daughter, ravindra aware that patient is negative for COVID. update given and advised to bring list of home medications. verbalized understanding
[2023-05-10 11:24] LABS: CRP 21.2 mg/dL (<1.0)
[2023-05-10] MEDS: LACTATED RINGERS 1,000 ML 125 ML IV CONT (12:45)
--- NOTE | 2023-05-10 13:37 | PM.IMHP ---
H&P: HPI History of Present Illness Date/Time: 05/10/23 14:00 Chief Complaint: Weakness and fall. Narrative: This is an 83-year-old male with history of stroke, chronic obstructive pulmonary disease, hypertension, hyperlipidemia, peripheral vascular disease, anemia, and prostate cancer who presented to the emergency department via EMS for evaluation of weakness and fall. The patient is able to provide some history however his children provide a majority of the following, with his permission. He was admitted to the hospital about 4 weeks ago with a right femoral neck fracture status post right hip hemiarthroplasty on 04/10/2023. [facility] but did not seem to progress there and he was brought back home a couple weeks ago. His daughter Gustavo has been staying overnight with him and another daughter visit several hours, twice a day. He has been getting up with a walker and it sounds as though he can ambulate small distances or stand/pivot to transfer. The last 3 days he has apparent increasingly weak and his oral intake has not been great. He has also seemed a bit confused intermittently. Daughter helped him to bed last night and did not notice any focal deficits at that time. This morning she checked on him when he woke up and left the room together some things to get him up for the day. When she stepped out into the hallway she heard a thump in the room and she found him lying between the bed and a chair on his left side. He had apparently struck the left side of his forehead on a bedside table and sustained a skin tear on the forearm. There is no reports of loss of consciousness in the had no complains. EMS was summoned and he was brought in for evaluation. Of note he is no longer on anticoagulation for DVT prophylaxis as he became increasingly anemic no stool was negative for occult blood. In the ED: He was afebrile on arrival with stable vital signs. Labs were significant for a WBC count of 17.1, hemoglobin 10.1, D-dimer 3.24, potassium 5.1, chloride 112, BUN 55, creatinine 3.70 (baseline ranges from 1.8 to 2.3), CRP 21.2. Urine was positive for 2+ protein, 3+ blood, 3+ leuks esterase, 21 to 50 RBC, greater than 100 WBC, 4+ bacteria, and occasional squamous cells. He was negative for influenza, RSV, and COVID. Cervical spine CT was without acute findings. Brain CT showed focal geographic hypodensity left basal ganglia suspicious for age-indeterminate lacunar infarction. Chest x-ray showed retrocardiac consolidation which could be atelectasis or pneumonia. He received 1 L normal saline, methylprednisolone 125 mg IV, and an albuterol nebulizer and he is being admitted in this setting for further treatment and evaluation. Since he has been admitted to the floor he has become increasingly weak in his right arm and leg to the point where he essentially cannot move them at all. Daughter reports that he seemed to have his usual, limited strength last night when she put him to bed. This morning she noticed that he was more weak but did not have time to fully evaluate due to the fall. At the time my evaluation the patient not have any specific complaints. He tells me it feels as though somebody is holding down his right arm and leg and he cannot move them. He denies vertigo, visual changes, facial droop, slurred speech, and difficulty swallowing. Review of Systems Review of Systems: Twelve systems were reviewed and are negative except for as per HPI. [facility] Past Medical History Medical History Abdominal aortic aneurysm Adenomatous colon polyp Chronic kidney disease Chronic obstructive pulmonary disease, unspecified Chronic rhinitis Dysphagia Essential (primary) hypertension Hematuria Hyperlipidemia, unspecified Malignant neoplasm of prostate (2018) Status post radiation. Nocturnal hypoxia Peripheral vascular disease, unspecified Surgical History Surgical Histo
[2023-05-10 15:03] LABS: Anion Gap 7 mmol/L (8-16); Blood Urea Nitrogen 51 mg/dL (9-20); Calcium 9.1 mg/dL (8.4-10.2); Carbon Dioxide 16 mmol/L (22-30); Chloride 117 mmol/L (98-107); Creatine Kinase 49 U/L (55-170); Estimated CRCL calculation 12 ml/min; Estimated Glomerular Filt Rate 18; Glucose 146 mg/dL (65-110); Magnesium 2.4 mg/dL (1.6-2.3); Potassium 5.4 mmol/L (3.4-5.0); Sodium 140 mmol/L (137-145)
[2023-05-10] MEDS: FERROUS SULFATE 325 MG TABLET DR PO (17:44)
[2023-05-10] MEDS: SODIUM BICARBONATE 8.4% 50 MEQ/50 ML SYRINGE IV PUSH (19:58)
[2023-05-10] MEDS: LACTATED RINGERS 1,000 ML 999 ML IV CONT ×2 (19:59→21:09)
[2023-05-10] MEDS: LACTATED RINGERS 1,000 ML 100 ML IV CONT (22:13)
[2023-05-10 22:55] LABS: Anion Gap 7 mmol/L (8-16); Blood Urea Nitrogen 48 mg/dL (9-20); Calcium 9.1 mg/dL (8.4-10.2); Carbon Dioxide 19 mmol/L (22-30); Chloride 114 mmol/L (98-107); Estimated CRCL calculation 15 ml/min; Estimated Glomerular Filt Rate 24; Glucose 141 mg/dL (65-110); Sodium 140 mmol/L (137-145)
[2023-05-11] VITALS (10 sets, daily range): BP systolic 169–176; BP diastolic 68–77; PULSE 86–96; RESP 18–20; TEMP 36.2–36.7; O2SAT 90–97; BMI 16.4
--- NOTE | 2023-05-11 | ECHO_ITS ---
Patient Info Name: Tino Alexander Age: 83 years : 1940 Gender: Male Ht: 71 in Wt: 117 lbs BSA: 1.61 m2 HR: 92 bpm BP: 130 / 78 mmHg Heart Rhythm: Sinus Rhythm Technical Quality: Fair Exam Date: 05/11/2023 12:59 PM Exam Location: Echo Lab Exam Room: [facility] Patient Status: Inpatient Admit Date: 05/10/2023 Staff Ordering Physician: Naty Armijo MD [employer] Supervisor: Marybeth De Paz RDCS Attending Provider: Yudith Mckay DO Exam Type: CA echo doppler w bubble study Study Info Indications - acute stroke Complete two-dimensional, color flow and Doppler transthoracic echocardiogram is performed with agitated saline. Contrast/Agitated Saline Contrast/Ag. Saline: Agitated Saline Amount: 20.00 ml Existing IV Access: Yes IV Access Condition: patent with no signs of infiltration Summary 1. Technically difficult study with limited views. 2. No evidence for yzakp-zo-dnta shunt with injection of agitated saline with or without Valsalva. 3. Left ventricular chamber dimension is normal. 4. Left ventricular systolic function is normal, estimated at 55-60%. 5. There is no increased left ventricular wall thickness. 6. Left ventricular septal wall motion is abnormal with septal motion related to bundle branch block. 7. The left ventricular diastolic function is grade I diastolic dysfunction. 8. There is trace tricuspid valve regurgitation. 9. No pulmonary hypertension, estimated pulmonary arterial systolic pressure is 34 mmHg. 10. There is mild mitral valve regurgitation. Left Ventricle Technically difficult study with limited views. Left ventricular chamber dimension is normal. Left ventricular systolic function is normal, estimated at 55-60%. There is no increased left ventricular wall thickness. Left ventricular septal wall motion is abnormal with septal motion related to bundle branch block. The left ventricular diastolic function is grade I diastolic dysfunction. Right Ventricle Right ventricular chamber dimension is normal. Right ventricular systolic function is normal. Left Atria Left atrial chamber dimension is normal. Right Atria Right atrial chamber dimension is normal. Atrial Septum No evidence for kjybb-zs-cori shunt with injection of agitated saline with or without Valsalva. Aortic Valve The aortic valve is not well visualized. There is no aortic valve regurgitation. There is mild aortic valve calcification. Pulmonic Valve The pulmonic valve is not well visualized. Mitral Valve The mitral valve has normal leaflets. There is mild mitral valve regurgitation. The mitral valve annulus is mildly calcified. Tricuspid Valve The tricuspid valve leaflets are normal. There is trace tricuspid valve regurgitation. No pulmonary hypertension, estimated pulmonary arterial systolic pressure is 34 mmHg. Inferior Vena Cava Normal inferior vena cava with >50% collapse upon inspiration consistent with normal right atrial pressure, 5 mmHg. Aorta The aortic root size at the sinus of Valsalva is normal. There is mild aortic atherosclerosis. Left Ventricular Outflow Tract Name Value Normal LVOT 2D LVOT Diameter 2.1 cm LVOT Doppler LVO
[2023-05-11 06:22] LABS: Hematocrit 34.5 % (42.0-52.0); Hemoglobin 10.8 g/dL (14.0-18.0); Mean Corpuscular HGB Conc 31.3 g/dl (32-36); Mean Corpuscular Hemoglobin 32.6 pg (26-34); Mean Corpuscular Volume 104.2 fl (80-100); Mean Platelet Volume 11.5 fl (7.4-10.4); Platelet Count Result 181 k/mm3 (150-375); Red Blood Count 3.31 M/mm3 (4.6-6.20); Red Cell Distribution Width 17.9 % (11.5-14.5); White Blood Count 19.9 K/mm3 (4.5-10.0)
[2023-05-11 06:29] LABS: Anion Gap 9 mmol/L (8-16); Blood Urea Nitrogen 46 mg/dL (9-20); Calcium 9.6 mg/dL (8.4-10.2); Carbon Dioxide 19 mmol/L (22-30); Chloride 113 mmol/L (98-107); Estimated CRCL calculation 18 ml/min; Estimated Glomerular Filt Rate 29; Glucose 110 mg/dL (65-110); Potassium 5.1 mmol/L (3.4-5.0); Sodium 141 mmol/L (137-145)
--- NOTE | 2023-05-11 08:55 | PM.IMPN ---
Progress Note: A&P Assessment and Plan (1) Cerebrovascular accident: Code(s): I63.9 - Cerebral infarction, unspecified Status: Acute (2) Acute kidney injury superimposed on chronic kidney disease: Code(s): N17.9 - Acute kidney failure, unspecified; N18.9 - Chronic kidney disease, unspecified Status: Acute (3) Hematuria: Code(s): R31.9 - Hematuria, unspecified Status: Acute (4) Femoral neck fracture: Qualifiers: Encounter type: subsequent encounter Fracture healing: with routine healing Fracture type: closed Laterality: right Qualified Code(s): S72.001D - Fracture of unspecified part of neck of right femur, subsequent encounter for closed fracture with routine healing Code(s): S72.009A - Fracture of unspecified part of neck of unspecified femur, initial encounter for closed fracture Status: Acute (5) Acute UTI: Code(s): N39.0 - Urinary tract infection, site not specified Status: Acute (6) Community acquired pneumonia: Code(s): J18.9 - Pneumonia, unspecified organism Status: Acute Plan (1) Cerebrovascular accident: ?Code(s): I63.9 - Cerebral infarction, unspecified ?Status:?Acute ?Assessment and Plan: Brain CT showed focal geographic hypodensity in left basal ganglia suspicious for age-indeterminate lacunar infarction. Clinically he now has dense right-sided hemiplegia and appears to have had a stroke sometime overnight. He is not a tPA candidate given unknown last known normal and recent, profound anemia. Brain MRI:Focal, late hyperacute or early acute infarct involving the posterior limb of the left internal capsule extending to the left periventricular white matter. carotid Doppler ultrasounds: No significant stenosis Pending echocardiogram Neurology and PT/OT consulted, Stroke management per neurologist Dysphagia Patient failed swallowing test at bedside Order modified barium swallowing test Keep patient p.o. (2) Acute kidney injury superimposed on chronic kidney disease: ?Code(s): N17.9 - Acute kidney failure, unspecified; N18.9 - Chronic kidney disease, unspecified ?Status:?Acute ?Assessment and Plan: Likely due to dehydration from poor oral intake the last several days. Bladder scan x1 and p.r.n. to rule out urinary retention. BUN creatinine close to baseline Switch from lights Ringer to d5 normal saline IV 100 ml/h because of hyperkalemia (3) Frequent falls: ?Code(s): R29.6 - Repeated falls ?Status:?Acute ?Assessment and Plan: He has had several falls and was just in the hospital for broken hip last month. He has lost quite of bit of weight and has diffuse muscle atrophy. Initiate fall precautions. PT/OT consulted. (4) acute UTI and Hematuria: ?Code(s): R31.9 - Hematuria, unspecified ?Status:?Acute ?Assessment and Plan: CK ordered to rule out rhabdomyolysis given concomitant acute kidney injury and falls. Bladder scan to rule out urinary retention/clot. Renal ultrasound : Renal atrophy and medical renal disease, cystitis UA concerning for UTI. He has been started on ceftriaxone, pending urine culture. Will repeat UA, if hematuria persists, will request urologist evaluation (5) Electrolyte abnormality: ?Code(s): E87.8 - Other disorders of electrolyte and fluid balance, not elsewhere classified ?Status:?Acute ?Assessment and Plan: Potassium is a bit high, likely due to worsening renal function. Bolus IV fluids and repeat BMP later this evening to ensure it is correcting. (7) community-acquired pneumonia X-ray shows Retrocardiac airspace disease, atelectasis versus pneumonia. Risk of aspiration pneumonia due to stroke Patient is on ceftriaxone, and Flagyl IV Speech evaluation (8) Anemia: ?Qualifiers: ?Anemia type:?unspecified type? Qualified Code(s):?D64.9 - Anemia, unspecified ?Code(s): D64.9 - Anemia, unspec
[2023-05-11] MEDS: LACTATED RINGERS 1,000 ML 100 ML IV CONT (09:02)
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
[2023-05-11] MEDS: ALBUTEROL SULFATE NEB 2.5 MG/3 ML INH INHALATION ×2 (11:06→21:46)
[2023-05-11] MEDS: IPRATROPIUM BR 0.02% INH SOLN 0.5 MG/2.5 ML VIAL INHALATION ×2 (11:07→21:46)
[2023-05-11] MEDS: FLUTICASONE/SALMETEROL 230-21 MCG INHALER 1 PUFF 2 PUFF INHALATION ×2 (11:07→21:46)
[2023-05-11] MEDS: DEXTROSE 5%/0.9% SOD CHL 1,000 ML 75 ML IV CONT (11:13)
[2023-05-11] MEDS: metroNIDAZOLE 500 MG/ISO 100ML 500 MG/100 ML BAG 100 MG IVPB ×2 (11:15→20:50)
[2023-05-11] MEDS: cefTRIAXone 2 GM/NS 100 ML 2 GM/100 ML BAG IVPB (11:16)
--- NOTE | 2023-05-11 18:13 | PCSTNOTE ---
Please refer to the Bedside Swallow Evaluation in the EMR. Please note, silent aspiration cannot be ruled out at bedside.
[2023-05-12] VITALS (8 sets, daily range): BP systolic 166–184; BP diastolic 78–89; PULSE 88–98; RESP 18–20; TEMP 36.1–36.4; O2SAT 92–100
[2023-05-12] MEDS: metroNIDAZOLE 500 MG/ISO 100ML 500 MG/100 ML BAG 100 MG IVPB ×2 (03:20→20:40)
[2023-05-12] MEDS: DEXTROSE 5%/0.9% SOD CHL 1,000 ML 75 ML IV CONT ×2 (03:21→20:40)
[2023-05-12] MEDS: cefTRIAXone 2 GM/NS 100 ML 2 GM/100 ML BAG IVPB (09:59)
[2023-05-12] MEDS: FLUTICASONE/SALMETEROL 230-21 MCG INHALER 1 PUFF 2 PUFF INHALATION ×2 (10:12→22:22)
[2023-05-12] MEDS: ALBUTEROL SULFATE NEB 2.5 MG/3 ML INH INHALATION ×2 (10:12→22:22)
[2023-05-12] MEDS: IPRATROPIUM BR 0.02% INH SOLN 0.5 MG/2.5 ML VIAL INHALATION ×2 (10:12→22:22)
--- NOTE | 2023-05-12 11:52 | PCNFU ---
Nutrition Follow-Up Complete: Severe protein calorie malnutrition related to reduced appetite and intake as evidenced by family report of poor po intake, noted significant weight loss of -13% x 1 month. Goal:Diet order PO intake 75% of meals and supplements. Pt not meeting goals, continue with same goals. Pt current nutrition is NPO, still awaiting MBS orders and evaluation. Nutrition recommendation: Advance diet per [employer] recommendations following MBS Last recorded weight is 51.5 kg. Bowel Motility: +BM 05/12 Labs Reviewed: Hgb:10.8, HCT:34.5, K:5.1, GFR:29, BUN:46, Cr:2.2 Meds Noted: zofran Skin: no skin issues noted Additional Notes: Pt remains NPO at this time, no orders for MBS per nursing but apparently that is the plan. Recommend [employer] evalutation with MBS for appropriate diet consistency recommendation. Monitor for MBS results and [employer] recommendations, diet orders, intake, wt, labs. Follow up in 1 day.
--- NOTE | 2023-05-12 14:37 | PM.IMPN ---
Progress Note: A&P Assessment and Plan (1) Cerebrovascular accident: Code(s): I63.9 - Cerebral infarction, unspecified Status: Acute (2) Acute kidney injury superimposed on chronic kidney disease: Code(s): N17.9 - Acute kidney failure, unspecified; N18.9 - Chronic kidney disease, unspecified Status: Acute (3) Hematuria: Code(s): R31.9 - Hematuria, unspecified Status: Acute (4) Femoral neck fracture: Qualifiers: Encounter type: subsequent encounter Fracture healing: with routine healing Fracture type: closed Laterality: right Qualified Code(s): S72.001D - Fracture of unspecified part of neck of right femur, subsequent encounter for closed fracture with routine healing Code(s): S72.009A - Fracture of unspecified part of neck of unspecified femur, initial encounter for closed fracture Status: Acute (5) Acute UTI: Code(s): N39.0 - Urinary tract infection, site not specified Status: Acute (6) Community acquired pneumonia: Code(s): J18.9 - Pneumonia, unspecified organism Status: Acute (7) Delirium: Code(s): R41.0 - Disorientation, unspecified Status: Acute Plan (1) Cerebrovascular accident: ?Code(s): I63.9 - Cerebral infarction, unspecified ?Status:?Acute ?Assessment and Plan: Brain CT showed focal geographic hypodensity in left basal ganglia suspicious for age-indeterminate lacunar infarction. Clinically he now has dense right-sided hemiplegia and appears to have had a stroke sometime overnight. He is not a tPA candidate given unknown last known normal and recent, profound anemia. Brain MRI:Focal, late hyperacute or early acute infarct involving the posterior limb of the left internal capsule extending to the left periventricular white matter. carotid Doppler ultrasounds: No significant stenosis Pending echocardiogram Neurology and PT/OT consulted, Stroke management per neurologist, started with Plavix 75 mg daily p.o. Delirium, Patient is more confused, patient tried to pull lines Patient is confused, oriented x3 Multiple factors Likely secondary to acute stroke, infection of UTI, Dysphagia Patient failed swallowing test at bedside Order modified barium swallowing test Keep patient p.o. Will start nGT tube feeding if patient fails swallowing test Consult GI for evaluation (2) Acute kidney injury superimposed on chronic kidney disease: ?Code(s): N17.9 - Acute kidney failure, unspecified; N18.9 - Chronic kidney disease, unspecified ?Status:?Acute ?Assessment and Plan: Likely due to dehydration from poor oral intake the last several days. Bladder scan x1 and p.r.n. to rule out urinary retention. BUN creatinine close to baseline Switch from lights Ringer to d5 normal saline IV 100 ml/h because of hyperkalemia (3) Frequent falls: ?Code(s): R29.6 - Repeated falls ?Status:?Acute ?Assessment and Plan: He has had several falls and was just in the hospital for broken hip last month. He has lost quite of bit of weight and has diffuse muscle atrophy. Initiate fall precautions. PT/OT consulted. (4) acute UTI and Hematuria: ?Code(s): R31.9 - Hematuria, unspecified ?Status:?Acute ?Assessment and Plan: CK ordered to rule out rhabdomyolysis given concomitant acute kidney injury and falls. Bladder scan to rule out urinary retention/clot. Renal ultrasound : Renal atrophy and medical renal disease, cystitis UA concerning for UTI. He has been started on ceftriaxone, pending urine culture. Will repeat UA, if hematuria persists, will request urologist evaluation (5) Electrolyte abnormality: ?Code(s): E87.8 - Other disorders of electrolyte and fluid balance, not elsewhere classified ?Status:?Acute ?Assessment and Plan: Potassium is a bit high, likely due to worsening renal function. Bolus IV fluids and repeat BMP later this evening to ensure it is cor
--- NOTE | 2023-05-12 15:05 | PCDIET ---
Tube feeding recommendation: Start Nepro @ 20 ml/h with goal rate 50 ml/h. Advance by 10 ml q 4 hours until goal is reached, if tolerating. BUN 46, Cre 2.2 Monitoring for tolerance, labs. MBSS today. Communication with RN.
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
--- NOTE | 2023-05-12 15:51 | PCSTNOTE ---
Please refer to the Modified Barium Swallow Evaluation in the EMR.
[2023-05-12 16:56] LABS: Hematocrit 32.5 % (42.0-52.0); Hemoglobin 10.1 g/dL (14.0-18.0); Mean Corpuscular HGB Conc 31.1 g/dl (32-36); Mean Corpuscular Hemoglobin 32.2 pg (26-34); Mean Corpuscular Volume 103.5 fl (80-100); Mean Platelet Volume 11.7 fl (7.4-10.4); Platelet Count Result 192 k/mm3 (150-375); Red Blood Count 3.14 M/mm3 (4.6-6.20); Red Cell Distribution Width 18.4 % (11.5-14.5); White Blood Count 23.1 K/mm3 (4.5-10.0)
[2023-05-12 17:00] LABS: Anion Gap 8 mmol/L (8-16); Blood Urea Nitrogen 39 mg/dL (9-20); Calcium 9.3 mg/dL (8.4-10.2); Carbon Dioxide 22 mmol/L (22-30); Chloride 118 mmol/L (98-107); Estimated CRCL calculation 21 ml/min; Estimated Glomerular Filt Rate 36; Glucose 122 mg/dL (65-110); Potassium 4.1 mmol/L (3.4-5.0); Sodium 148 mmol/L (137-145)
[2023-05-12 17:36] LABS: Anisocytosis 1+ (NORMAL); Band Neutrophils Percent 22 % (0-6); Hypochromasia 1+ (NORMAL); Lymphocytes Absolute Manual 0.92 K/mm3 (1.1-4.5); Monocytes Absolute Manual 0.46 K/mm3 (0.1-0.90); Monocytes Percent Manual 2 % (3-9); Neutrophils Absolute Manual 21.71 K/mm3 (1.3-6.7); Neutrophils Percent Manual 72 % (46-73); Platelet Estimate Adequate (Adequate); Schistocytes None Seen (NORMAL); Total Cells Counted 100
[2023-05-12] MEDS: NICOTINE (*PBKC) 21 MG PATCH 1 PATCH TRANSDERM (18:30)
[2023-05-12] MEDS: MELATONIN 5 MG TABLET FEED TUBE (20:41)
[2023-05-13] MEDS: hydrALAZINE HCL 20 MG/ML VIAL 10 MG IV PUSH (00:10)
[2023-05-13 00:36] VITALS: BP 171/54
[2023-05-13] MEDS: metroNIDAZOLE 500 MG/ISO 100ML 500 MG/100 ML BAG 100 MG IVPB ×3 (05:41→20:55)
[2023-05-13 06:00] VITALS: BP 174/73; PULSE 96; RESP 22; TEMP 36.8; O2SAT 91
--- NOTE | 2023-05-13 07:44 | WPDGIPROGNO ---
Progress Note: A&P Assessment and Plan (1) Dysphagia: Code(s): R13.10 - Dysphagia, unspecified Status: Acute Assessment and Plan: Patient with trouble swallowing after CVA. At present nutrition can be given via NG tube. If there are no signs of improvement then we may wish to consider PEG tube, perhaps next week. Patient's overall condition should require reassessment of his code status. It is best to give him a few days to see if any improvement developed. If no improvement PEG tube can be considered subsequently. I have discussed this with the hospitalist service. (2) CVA (cerebral vascular accident): Code(s): I63.9 - Cerebral infarction, unspecified Status: Acute Assessment and Plan: Patient with relatively new CVA residual right weakness and dysphagia appeared to be results. (3) Right sided weakness: Code(s): R53.1 - Weakness Status: Acute (4) History of colectomy: Code(s): Z90.49 - Acquired absence of other specified parts of digestive tract Status: Acute Assessment and Plan: Patient has a prior history of colon cancer requiring partial colectomy. Incidental finding. Surgery from this could potentially interfere with PEG tube placement. Subjective Date/time seen: 05/13/23 07:44 Interval history: Patient arousable this morning but appears nonverbal. He tries to follow commands but has difficulty with this. Currently receiving tube feedings via NG tube. These are being tolerated. He does not appear very responsive present. Review of Systems Review of Systems: ROS unobtainable: Yes unobtainable due to medical condition Exam Narrative: Physical exam reveals patient be arousable but not very alert. HEENT exam reveals no icterus. Patient has no gag reflex elicited at this time. NG tube is in place. Lungs reveal a few rhonchi. Heart without murmur. Abdomen bowel sounds present soft nontender. Objective Data Vital Signs Vital Signs: Vital Signs - 24 hr 05/12/23 10:12 05/12/23 10:12 05/12/23 08:00 Temperature Pulse Rate 91 Respiratory Rate 18 Blood Pressure Pulse Oximetry 94 Oxygen Delivery Room Air Room Air 05/12/23 14:00 05/12/23 22:23 05/12/23 22:27 Temperature 97.4 F L Pulse Rate 98 90 90 Respiratory Rate 20 18 Blood Pressure 166/89 H Pulse Oximetry 97 92 Oxygen Delivery Room Air 05/12/23 22:37 05/12/23 21:22 05/13/23 00:36 Temperature 97.5 F L Pulse Rate 88 91 Respiratory Rate 18 18 Blood Pressure 184/78 H 171/54 H Pulse Oximetry 94 Oxygen Delivery 05/12/23 20:00 05/13/23 06:00 Temperature 98.3 F Pulse Rate 88 96 Respiratory Rate 18 22 H Blood Pressure 174/73 H Pulse Oximetry 92 91 Oxygen Delivery Room Air Intake/Output Intake/Output: Intake & Output 05/10/23 05/11/23 05/12/23 05/13/23 23:59 23:59 23:59 23:59 Intake Total 1040 1493 2300 Output Total 300 Balance 740 1493 2300 Meds/Results Medications: Active Medications Generic Name Dose Route Start Last Admin Trade Name Freq PRN Reason Stop Dose Admin Acetaminophen 650 mg 05/10/23 10:12 Acetaminophen 650 Mg Suppository RECTAL Q6H PRN Mild Pain (1-3) or Fever Albuterol 2.5 mg 05/10/23 20:00 05/12/23 22:22 Albuterol Sulfate Neb 2.5 Mg/3 Ml Inh INHALATION 2.5 mg Q12HRT LUIS ALBERTO Administration Amlodipine Besylate 5 mg 05/11/23 09:00 05/12/23 16:43 Amlodipine Besylate 5 Mg Tablet PO Not Given DAILY LUIS ALBERTO Aspirin 81 mg 05/11/23 09:00 05/12/23 16:43 Aspirin 81 Mg Enteric Tablet PO Not Given QAM LUIS ALBERTO Ferrous Sulfate 325 mg 05/10/23 17:00 05/12/23 18:34 Ferrous Sulfate [address] PO Not Given BID [facility] Ceftriaxone Sodium 2 gm in 100 mls @ 200 mls/hr 05/11/23 09:00 05/12/23 11:09 Rocephin 2 Gm/Ns 100 Ml IVPB 05/16/23 23:59 Infused Q24H [facility] Infusion Dextrose/Sodium Chloride 1,000 mls @ 100 mls/hr 05/11/23 09:25
--- NOTE | 2023-05-13 08:15 | PC.NURSE ---
called Dr bryan with [facility] notification. He ordered to have tube feeding increased to 80/ml per hr. Patient is on Nephro TF. I called database security administrator to inform of his request, she stated that its contraindicated, and that she will reach out to him to make him aware.
[2023-05-13] MEDS: cefTRIAXone 2 GM/NS 100 ML 2 GM/100 ML BAG IVPB (09:35)
[2023-05-13] MEDS: FERROUS SULFATE 325 MG TABLET DR PO ×2 (09:36→16:44)
[2023-05-13] MEDS: amLODIPine BESYLATE 5 MG TABLET PO (09:36)
[2023-05-13] MEDS: SERTRALINE HCL 25 MG TABLET PO (09:36)
[2023-05-13] MEDS: ASPIRIN 81 MG ENTERIC TABLET PO (09:36)
--- NOTE | 2023-05-13 09:36 | PM.IMPN ---
Progress Note: A&P Assessment and Plan (1) Cerebrovascular accident: Code(s): I63.9 - Cerebral infarction, unspecified Status: Acute (2) Acute kidney injury superimposed on chronic kidney disease: Code(s): N17.9 - Acute kidney failure, unspecified; N18.9 - Chronic kidney disease, unspecified Status: Acute (3) Hematuria: Code(s): R31.9 - Hematuria, unspecified Status: Acute (4) Femoral neck fracture: Qualifiers: Encounter type: subsequent encounter Fracture healing: with routine healing Fracture type: closed Laterality: right Qualified Code(s): S72.001D - Fracture of unspecified part of neck of right femur, subsequent encounter for closed fracture with routine healing Code(s): S72.009A - Fracture of unspecified part of neck of unspecified femur, initial encounter for closed fracture Status: Acute (5) Acute UTI: Code(s): N39.0 - Urinary tract infection, site not specified Status: Acute (6) Community acquired pneumonia: Code(s): J18.9 - Pneumonia, unspecified organism Status: Acute (7) Delirium: Code(s): R41.0 - Disorientation, unspecified Status: Acute Plan (1) Cerebrovascular accident: ?Code(s): I63.9 - Cerebral infarction, unspecified ?Status:?Acute ?Assessment and Plan: Brain CT showed focal geographic hypodensity in left basal ganglia suspicious for age-indeterminate lacunar infarction. Clinically he now has dense right-sided hemiplegia and appears to have had a stroke sometime overnight. He is not a tPA candidate given unknown last known normal and recent, profound anemia. Brain MRI:Focal, late hyperacute or early acute infarct involving the posterior limb of the left internal capsule extending to the left periventricular white matter. carotid Doppler ultrasounds: No significant stenosis Pending echocardiogram Neurology and PT/OT consulted, Stroke management per neurologist, started with Plavix 75 mg daily p.o. Delirium, Patient is more confused, patient tried to pull lines Patient is confused, oriented x3 Multiple factors Likely secondary to acute stroke, infection of UTI, Dysphagia Patient failed swallowing test at bedside Order modified barium swallowing test Keep patient p.o. started nGT tube feeding on 05/12 patient failed swallowing test Consult GI for evaluation, and discussed case with GI, GI agrees NG tube feeding, will perform a swallowing test daily. May consider PEG tube placement in a week, if patient cannot gained function of swallowing Consulted dietitian, start tube feeding, also provide free water 200 mL q.4 hour, discontinue IV fluid (2) Acute kidney injury superimposed on chronic kidney disease: ?Code(s): N17.9 - Acute kidney failure, unspecified; N18.9 - Chronic kidney disease, unspecified ?Status:?Acute ?Assessment and Plan: Likely due to dehydration from poor oral intake the last several days. Bladder scan x1 and p.r.n. to rule out urinary retention. BUN creatinine close to baseline Switch from lights Ringer to d5 normal saline IV 100 ml/h because of hyperkalemia 05/13, (3) Frequent falls: ?Code(s): R29.6 - Repeated falls ?Status:?Acute ?Assessment and Plan: He has had several falls and was just in the hospital for broken hip last month. He has lost quite of bit of weight and has diffuse muscle atrophy. Initiate fall precautions. PT/OT consulted. (4) acute UTI and Hematuria: ?Code(s): R31.9 - Hematuria, unspecified ?Status:?Acute ?Assessment and Plan: CK ordered to rule out rhabdomyolysis given concomitant acute kidney injury and falls. Bladder scan to rule out urinary retention/clot. Renal ultrasound : Renal atrophy and medical renal disease, cystitis UA concerning for UTI. He has been started on ceftriaxone, pending urine culture. Will repeat UA, if hematuria persists, will request urologist evaluation (5) Elect
[2023-05-13] MEDS: NICOTINE (*PBKC) 21 MG PATCH 1 PATCH TRANSDERM (09:42)
[2023-05-13 11:55] LABS: Glucose Point of Care 126 mg/dl (65-105)
--- NOTE | 2023-05-13 11:57 | PCDIET ---
Tube feeding note: Discussed tube feeding with Dr Downey. Rate to remain Nepro @ 50 ml/h and increase flushes to 200 ml q 4 hours, with IV fluids to be discontinued. Total water free 2000 ml/day (includes flushes and 800 ml free water from formula.) RN aware.
[2023-05-13] MEDS: HYDROmorphone HCL INJ (*CRX) 1 MG/ML SYR 0.3 MG IV PUSH ×2 (13:41→22:12)
[2023-05-13 14:00] VITALS: BP 154/73; PULSE 84; RESP 24; TEMP 36.9; O2SAT 94
[2023-05-13 14:26] LABS: Hematocrit 31.7 % (42.0-52.0); Hemoglobin 9.7 g/dL (14.0-18.0); Mean Corpuscular HGB Conc 30.6 g/dl (32-36); Mean Corpuscular Hemoglobin 31.7 pg (26-34); Mean Corpuscular Volume 103.6 fl (80-100); Mean Platelet Volume 11.7 fl (7.4-10.4); Platelet Count Result 160 k/mm3 (150-375); Red Blood Count 3.06 M/mm3 (4.6-6.20); Red Cell Distribution Width 18.6 % (11.5-14.5); White Blood Count 19.6 K/mm3 (4.5-10.0)
[2023-05-13 14:40] LABS: Anion Gap 6 mmol/L (8-16); Blood Urea Nitrogen 42 mg/dL (9-20); Calcium 9.5 mg/dL (8.4-10.2); Carbon Dioxide 21 mmol/L (22-30); Chloride 124 mmol/L (98-107); Estimated CRCL calculation 20 ml/min; Estimated Glomerular Filt Rate 34; Glucose 116 mg/dL (65-110); Potassium 3.5 mmol/L (3.4-5.0); Sodium 151 mmol/L (137-145)
[2023-05-13 15:03] LABS: Band Neutrophils Percent 2 % (0-6); Lymphocytes Absolute Manual 0.78 K/mm3 (1.1-4.5); Monocytes Absolute Manual 1.56 K/mm3 (0.1-0.90); Monocytes Percent Manual 8 % (3-9); Neutrophils Absolute Manual 17.24 K/mm3 (1.3-6.7); Neutrophils Percent Manual 86 % (46-73); Platelet Estimate Adequate (Adequate); Total Cells Counted 100
[2023-05-13 15:04] LABS: Anisocytosis 2+ (NORMAL); Hypochromasia 1+ (NORMAL); Schistocytes None Seen (NORMAL)
[2023-05-13 16:48] LABS: Glucose Point of Care 141 mg/dl (65-105)
[2023-05-13 20:00] VITALS: BP 154/73; PULSE 84; RESP 24; TEMP 36.9; O2SAT 94
[2023-05-13] MEDS: MELATONIN 5 MG TABLET FEED TUBE (20:55)
[2023-05-13 21:32] VITALS: BP 166/83; PULSE 91; RESP 18; TEMP 37.3; O2SAT 92
--- NOTE | 2023-05-13 22:24 | PCRCNOTE ---
Window of time for administration has passed. See next scheduled administration.
[2023-05-14] VITALS (9 sets, daily range): BP systolic 146–154; BP diastolic 70–73; PULSE 81–96; RESP 18–24; TEMP 37–37.7; O2SAT 90–93
[2023-05-14 01:09] LABS: Glucose Point of Care 125 mg/dl (65-105)
[2023-05-14] MEDS: HYDROmorphone HCL INJ (*CRX) 1 MG/ML SYR 0.3 MG IV PUSH (05:05)
[2023-05-14] MEDS: metroNIDAZOLE 500 MG/ISO 100ML 500 MG/100 ML BAG 100 MG IVPB ×3 (05:06→20:50)
[2023-05-14] MEDS: ACETAMINOPHEN 650 MG SUPPOSITORY RECTAL (05:22)
[2023-05-14 06:27] LABS: Basophils Absolute Auto 0.1 K/mm3 (0.0-0.1); Basophils Percent Auto 0.6 % (0.2-1.2); Immature Granulocyte Absolute 0.92 K/mm3 (0.00-0.031); Immature Granulocyte Percent A 5.6 % (0-0.5); Lymphocytes Absolute Auto 0.48 K/mm3 (0.9-3.2); Lymphocytes Percent Auto 2.9 % (18.3-44.2); Mean Corpuscular Hemoglobin 31.9 pg (26-34); Mean Corpuscular Volume 106.4 fl (80-100); Mean Platelet Volume 12.2 fl (7.4-10.4); Monocytes Absolute Auto 0.7 K/mm3 (0.1-0.6); Monocytes Percent Auto 4.4 % (2.6-8.5); Neutrophils Absolute Auto 14.1 K/mm3 (1.3-6.7); Neutrophils Percent Auto 86.5 % (45.5-73.1); Platelet Count Result 136 k/mm3 (150-375); Red Blood Count 2.82 M/mm3 (4.6-6.20); Red Cell Distribution Width 18.9 % (11.5-14.5); White Blood Count 16.3 K/mm3 (4.5-10.0)
[2023-05-14 06:39] LABS: Alanine Aminotransferase 14 U/L (6-50); Albumin Level 2.6 g/dL (3.5-5.1); Alkaline Phosphatase 81 U/L (38-126); Anion Gap 6 mmol/L (8-16); Aspartate Amino Transferase 22 U/L (17-59); Bilirubin,Total 0.4 mg/dL (0.2-1.3); Blood Urea Nitrogen 54 mg/dL (9-20); Carbon Dioxide 22 mmol/L (22-30); Chloride 123 mmol/L (98-107); Estimated CRCL calculation 19 ml/min; Estimated Glomerular Filt Rate 32; Glucose 129 mg/dL (65-110); Lactic Acid Reflex 0.8 mmol/L (0.7-2.0); Potassium 3.3 mmol/L (3.4-5.0); Sodium 151 mmol/L (137-145)
[2023-05-14 06:54] LABS: Glucose Point of Care 123 mg/dl (65-105)
[2023-05-14 07:02] LABS: Anisocytosis 1+ (NORMAL); Burr Cells 1+ (NORMAL); Platelet Estimate Decreased (Adequate); Schistocytes None Seen (NORMAL)
[2023-05-14] MEDS: FLUTICASONE/SALMETEROL 230-21 MCG INHALER 1 PUFF 2 PUFF INHALATION (07:33)
[2023-05-14] MEDS: IPRATROPIUM BR 0.02% INH SOLN 0.5 MG/2.5 ML VIAL INHALATION ×2 (07:33→21:30)
[2023-05-14] MEDS: ALBUTEROL SULFATE NEB 2.5 MG/3 ML INH INHALATION ×2 (07:33→21:21)
--- NOTE | 2023-05-14 09:44 | PM.IMPN ---
Progress Note: A&P Assessment and Plan (1) Cerebrovascular accident: Code(s): I63.9 - Cerebral infarction, unspecified Status: Acute (2) Acute kidney injury superimposed on chronic kidney disease: Code(s): N17.9 - Acute kidney failure, unspecified; N18.9 - Chronic kidney disease, unspecified Status: Acute (3) Hematuria: Code(s): R31.9 - Hematuria, unspecified Status: Acute (4) Femoral neck fracture: Qualifiers: Encounter type: subsequent encounter Fracture healing: with routine healing Fracture type: closed Laterality: right Qualified Code(s): S72.001D - Fracture of unspecified part of neck of right femur, subsequent encounter for closed fracture with routine healing Code(s): S72.009A - Fracture of unspecified part of neck of unspecified femur, initial encounter for closed fracture Status: Acute (5) Acute UTI: Code(s): N39.0 - Urinary tract infection, site not specified Status: Acute (6) Community acquired pneumonia: Code(s): J18.9 - Pneumonia, unspecified organism Status: Acute (7) Delirium: Code(s): R41.0 - Disorientation, unspecified Status: Acute Plan (1) Cerebrovascular accident: ?Code(s): I63.9 - Cerebral infarction, unspecified ?Status:?Acute ?Assessment and Plan: Brain CT showed focal geographic hypodensity in left basal ganglia suspicious for age-indeterminate lacunar infarction. Clinically he now has dense right-sided hemiplegia and appears to have had a stroke sometime overnight. He is not a tPA candidate given unknown last known normal and recent, profound anemia. Brain MRI:Focal, late hyperacute or early acute infarct involving the posterior limb of the left internal capsule extending to the left periventricular white matter. carotid Doppler ultrasounds: No significant stenosis Pending echocardiogram Neurology and PT/OT consulted, Stroke management per neurologist, started with Plavix 75 mg daily p.o. Delirium, Patient is more confused, patient tried to pull lines Patient is confused, oriented x3 Multiple factors Likely secondary to acute stroke, infection of UTI, Dysphagia Patient failed swallowing test at bedside Order modified barium swallowing test Keep patient p.o. started nGT tube feeding on 05/12 patient failed swallowing test Consult GI for evaluation, and discussed case with GI, GI agrees NG tube feeding, will perform a swallowing test daily. May consider PEG tube placement in a week, if patient cannot gained function of swallowing Consulted dietitian, start tube feeding, also provide free water 200 mL q.4 hour, discontinue IV fluid (2) Acute kidney injury superimposed on chronic kidney disease: ?Code(s): N17.9 - Acute kidney failure, unspecified; N18.9 - Chronic kidney disease, unspecified ?Status:?Acute ?Assessment and Plan: Likely due to dehydration from poor oral intake the last several days. Bladder scan x1 and p.r.n. to rule out urinary retention. BUN creatinine close to baseline Switch from lights Ringer to d5 normal saline IV 100 ml/h because of hyperkalemia, dc 05/13, change to tuble feeding 05/14: start D5 water 100ml/h, repeated lab afternoon showed sodium 150 down from 153 am, potassium 3.7 up from 3.2 am (3) Frequent falls: ?Code(s): R29.6 - Repeated falls ?Status:?Acute ?Assessment and Plan: He has had several falls and was just in the hospital for broken hip last month. He has lost quite of bit of weight and has diffuse muscle atrophy. Initiate fall precautions. PT/OT consulted. (4) acute UTI and Hematuria: ?Code(s): R31.9 - Hematuria, unspecified ?Status:?Acute ?Assessment and Plan: CK ordered to rule out rhabdomyolysis given concomitant acute kidney injury and falls. Bladder scan to rule out urinary retention/clot. Renal ultrasound : Renal atrophy and medical renal disease, cystitis UA concerning for UTI.
[2023-05-14 09:53] LABS: LDL Cholesterol Direct 41 mg/dL
[2023-05-14 09:55] LABS: Hemoglobin A1C 5.2 % (<5.7)
[2023-05-14] MEDS: amLODIPine BESYLATE 5 MG TABLET PO (10:09)
[2023-05-14] MEDS: cefTRIAXone 2 GM/NS 100 ML 2 GM/100 ML BAG IVPB (10:09)
[2023-05-14] MEDS: ASPIRIN 81 MG ENTERIC TABLET PO (10:09)
[2023-05-14] MEDS: FERROUS SULFATE 325 MG TABLET DR PO ×2 (10:10→16:16)
[2023-05-14] MEDS: POTASSIUM CHLORIDE 20 MEQ PACKET (FOR LIQUID) 40 MEQ FEED TUBE (10:12)
[2023-05-14] MEDS: DEXTROSE 5% 1,000 ML 1,000 ML 100 ML IV CONT (10:12)
[2023-05-14] MEDS: NICOTINE (*PBKC) 21 MG PATCH 1 PATCH TRANSDERM (10:12)
[2023-05-14 10:36] LABS: Anion Gap 9 mmol/L (8-16); Blood Urea Nitrogen 57 mg/dL (9-20); Calcium 9.2 mg/dL (8.4-10.2); Carbon Dioxide 22 mmol/L (22-30); Chloride 122 mmol/L (98-107); Estimated CRCL calculation 18 ml/min; Estimated Glomerular Filt Rate 30; Glucose 151 mg/dL (65-110); Potassium 3.2 mmol/L (3.4-5.0); Sodium 153 mmol/L (137-145)
[2023-05-14 11:29] LABS: Glucose Point of Care 129 mg/dl (65-105)
--- NOTE | 2023-05-14 14:13 | WPDGIPROGNO ---
Progress Note: A&P Assessment and Plan (1) CVA (cerebral vascular accident): Code(s): I63.9 - Cerebral infarction, unspecified Status: Acute (2) Right sided weakness: Code(s): R53.1 - Weakness Status: Acute (3) Dysphagia: Code(s): R13.10 - Dysphagia, unspecified Status: Acute Assessment and Plan: Patient has dysphagia because of his recent CVA. CVA is relatively acute. Patient currently receiving NG tube feedings. I discussed with the daughter placing PEG tube. She wishes to give it a few days to see if his swallowing will improve. I have informed her that if we are unable to place PEG at present that it will be shortly after Kim before this is able to be accomplished. She is understanding this and wishes to give few days of NG tube feedings to see if he improves prior to endoscopic PEG tube placement. (4) History of colectomy: Code(s): Z90.49 - Acquired absence of other specified parts of digestive tract Status: Acute Subjective Date/time seen: 05/14/23 14:13 Interval history: Patient receiving NG tube for nutritional support today. Appears to be tolerating this well. Patient's daughter is in attendance. Reports that he has begun to speak to her on occasion. Not very verbal on my evaluation today. Review of Systems Review of Systems: ROS unobtainable: Yes unobtainable due to medical condition Exam Narrative: Physical exam reveals patient to be alert but not able to converse. HEENT exam reveals no icterus. Patient is has no gag reflex.NG tube in place. Vital signs stable. Lungs are clear heart without murmur. Abdomen soft flat nontender. Objective Data Vital Signs Vital Signs: Vital Signs - 24 hr 05/13/23 20:00 05/13/23 20:00 05/13/23 21:32 Temperature 98.4 F 99.2 F Pulse Rate 84 84 91 Respiratory Rate 24 H 24 H 18 Blood Pressure 154/73 H 166/83 H Pulse Oximetry 94 94 92 Oxygen Delivery Room Air 05/14/23 05:22 05/14/23 06:00 05/14/23 07:33 Temperature 99.9 F H 99.7 F H Pulse Rate 86 85 Respiratory Rate 18 20 Blood Pressure 154/72 H Pulse Oximetry 91 Oxygen Delivery 05/14/23 06:20 05/14/23 07:47 05/14/23 10:10 Temperature 99.7 F H Pulse Rate 86 96 Respiratory Rate 24 H 20 Blood Pressure 154/72 H Pulse Oximetry 90 Oxygen Delivery Room Air Intake/Output Intake/Output: Intake & Output 05/11/23 05/12/23 05/13/23 05/14/23 23:59 23:59 23:59 23:59 Intake Total 1493 2300 400 200 Balance 1493 2300 400 200 Meds/Results Medications: Active Medications Generic Name Dose Route Start Last Admin Trade Name Freq PRN Reason Stop Dose Admin Acetaminophen 650 mg 05/10/23 10:12 05/14/23 05:22 Acetaminophen 650 Mg Suppository RECTAL 650 mg Q6H PRN Administration Mild Pain (1-3) or Fever Albuterol 2.5 mg 05/10/23 20:00 05/14/23 07:33 Albuterol Sulfate Neb 2.5 Mg/3 Ml Inh INHALATION 2.5 mg Q12HRT LUIS ALBERTO Administration Amlodipine Besylate 5 mg 05/11/23 09:00 05/14/23 10:09 Amlodipine Besylate 5 Mg Tablet PO 5 mg DAILY LUIS ALBERTO Administration Aspirin 81 mg 05/11/23 09:00 05/14/23 10:09 Aspirin 81 Mg Enteric Tablet PO 81 mg QAM LUIS ALBERTO Administration Ferrous Sulfate 325 mg 05/10/23 17:00 05/14/23 10:10 Ferrous Sulfate [address] PO 325 mg BID LUIS ALBERTO Administration Hydromorphone HCl 0.3 mg 05/13/23 09:55 05/14/23 05:05 Hydromorphone Hcl Inj (*Crx) 1 Mg/Ml Syr IV PUSH 0.3 mg Q4-6H PRN Administration Pain Ceftriaxone Sodium 2 gm in 100 mls @ 200 mls/hr 05/11/23 09:00 05/14/23 10:39 Rocephin 2 Gm/Ns 100 Ml IVPB 05/16/23 23:59 Infused Q24H LUIS ALBERTO Infusion Metronidazole 500 mg in 100 mls @ 100 mls/hr 05/11/23 20:00 05/14/23 12:40 Flagyl 500 Mg/Iso Soln 100 Ml IVPB 05/16/23 23:59 100 mls/hr Q8H LUIS ALBERTO Administration Dextrose 1,000 mls @ 100 mls/hr 05/14/23 09:45 05/14/23 10:12 Dextrose 5% 1,000 Ml IV C
[2023-05-14 14:49] LABS: Basophils Absolute Auto 0.1 K/mm3 (0.0-0.1); Basophils Percent Auto 0.5 % (0.2-1.2); Eosinophils Percent Auto 0.1 % (0-4.4); Hematocrit 28.5 % (42.0-52.0); Hemoglobin 8.9 g/dL (14.0-18.0); Immature Granulocyte Absolute 0.88 K/mm3 (0.00-0.031); Immature Granulocyte Percent A 5.4 % (0-0.5); Lymphocytes Absolute Auto 0.48 K/mm3 (0.9-3.2); Lymphocytes Percent Auto 2.9 % (18.3-44.2); Mean Corpuscular HGB Conc 31.2 g/dl (32-36); Mean Corpuscular Volume 105.6 fl (80-100); Mean Platelet Volume 12.4 fl (7.4-10.4); Monocytes Absolute Auto 0.7 K/mm3 (0.1-0.6); Monocytes Percent Auto 4.3 % (2.6-8.5); Neutrophils Absolute Auto 14.3 K/mm3 (1.3-6.7); Neutrophils Percent Auto 86.8 % (45.5-73.1); Platelet Count Result 127 k/mm3 (150-375); Red Cell Distribution Width 18.8 % (11.5-14.5); White Blood Count 16.4 K/mm3 (4.5-10.0)
[2023-05-14 14:59] LABS: Anion Gap 6 mmol/L (8-16); Blood Urea Nitrogen 60 mg/dL (9-20); Carbon Dioxide 21 mmol/L (22-30); Chloride 123 mmol/L (98-107); Estimated CRCL calculation 19 ml/min; Estimated Glomerular Filt Rate 32; Glucose 147 mg/dL (65-110); Potassium 3.7 mmol/L (3.4-5.0); Sodium 150 mmol/L (137-145)
[2023-05-14 15:13] LABS: Anisocytosis 1+ (NORMAL); Ovalocytes 1+ (NORMAL); Platelet Estimate Decreased (Adequate); Schistocytes None Seen (NORMAL)
--- NOTE | 2023-05-14 15:31 | PM.CNNEP ---
Assessment and Plan Assessment and plan (1) Hypernatremia: Code(s): E87.0 - Hyperosmolality and hypernatremia Status: Acute Assessment and Plan: the patient has hypernatremia. This is most likely due to free water deficit. He has not been eating or drinking lately. He is getting some tube feeding and some tube feeding flushes and his fluid up until yesterday was isotonic fluid. He does have issues in his [employer] with a acute infarct involving the posterior limb of the Left internal capsule. this does not seem significant enough to cause diabetes insipidus however we can check a urine osmolality to be sure. In the meantime will get a serum and urine osmolality. He is getting D5W. His free water deficit is about 2L. He is getting D5W [id number] an hour which is about 2.4L per day. He does have some insensible loss. Will cut the rate to75cc/hour. (2) Acute kidney injury: Code(s): N17.9 - Acute kidney failure, unspecified Status: Acute Assessment and Plan: The patient had a creatinine of 3.7 earlier on. Now his creatinine is 2.0 which is his baseline (3) Stage 3b chronic kidney disease (CKD): Code(s): N18.32 - Chronic kidney disease, stage 3b Status: Acute Assessment and Plan: he has chronic kidney disease stage IIIB. This is most likely due to vascular disease plus hypertension. He had a renal ultrasound which showed renal atrophy. Nothing acute. (4) Essential (primary) hypertension: Code(s): I10 - Essential (primary) hypertension Status: Acute Assessment and Plan: His systolic is running between 150 and 170. He is on amlodipine 5. Will increase the dose to 10 (5) Hyperlipidemia, unspecified: Code(s): E78.5 - Hyperlipidemia, unspecified Status: Acute History of Present Illness Reason for Consult Consult date: 05/14/23 Chief Complaint Chief complaint: UTI, Head Injury, Generalized Weakness, ERENDIRA on CKD History of Present Illness Narrative: Tino is a very pleasant 83-year-old gentleman who has multiple medical problems including chronic kidney disease with a baseline creatinine of around 2, hypertension, prostate cancer, peripheral vascular disease, hyperlipidemia, COPD, abdominal aortic aneurysm, nocturnal hypoxia. The patient came in the hospital with weakness and a fall. About 4 weeks before admission he fell and had a right femoral neck fracture. He has surgery done and was eventually discharged to residential home. He was rehab in [facility] and went to live with his daughter but then apparently gradually became more confused and eventually fell and was brought to the emergency room. He was evaluated in the emergency room and found to have a bladder infection elevated white count and elevated BUN and creatinine and an x-ray consistent with atelectasis or pneumonia. The patient was admitted and given antibiotic As well as fluids. His creatinine improved to his baseline. His sodium miguelito over the last 3-4 days and was as high as 153 yesterday. The patient was found to be aspirating and so is NPO. An NG tube was placed he is getting some tube feedings. Because of the high sodium a renal consultation was requested. Patient can not give much of a history. He does answer some yes or no questions. Review of Systems Constitutional: Constitutional: Reports no additional constitutional complaints Eyes: Eyes: Reports no additional eye complaints ENT: Reports system reviewed and no additional complaints, except as documented Cardiovascular: Cardiovascular: Reports no additional cardiovascular complaints Respiratory: Respiratory: Reports no additional respiratory complaints Gastrointestinal: Gastrointestinal: Reports no additional gastrointestinal complaints Genitourinary: Genitourinary: Reports no additional male genitourinary complaints Musculoskeletal: Musculoskeletal: Reports no additional musculoskeletal
[2023-05-14 18:05] LABS: Creatinine Urine 83.5 mg/dL; Total Protein Urine Random 108 mg/dL; Ur Ttl Prot Creatinine Ratio 1.29 mg/mg (0-0.20)
[2023-05-14 18:08] LABS: Sodium Urine Random 77 meq/L
[2023-05-14 18:48] LABS: Glucose Point of Care 131 mg/dl (65-105)
[2023-05-14 20:38] LABS: Anion Gap 6 mmol/L (8-16); Blood Urea Nitrogen 59 mg/dL (9-20); Calcium 9.1 mg/dL (8.4-10.2); Carbon Dioxide 21 mmol/L (22-30); Chloride 122 mmol/L (98-107); Estimated CRCL calculation 18 ml/min; Estimated Glomerular Filt Rate 30; Glucose 145 mg/dL (65-110); Potassium 3.6 mmol/L (3.4-5.0); Sodium 149 mmol/L (137-145)
[2023-05-14] MEDS: MELATONIN 5 MG TABLET FEED TUBE (20:51)
[2023-05-14] MEDS: DEXTROSE 5% 1,000 ML 1,000 ML 75 ML IV CONT (20:52)
[2023-05-15] VITALS (7 sets, daily range): BP systolic 132–176; BP diastolic 56–70; PULSE 68–78; RESP 18–20; TEMP 35.7–37.1; O2SAT 91–97
[2023-05-15 02:14] LABS: Glucose Point of Care 138 mg/dl (65-105)
[2023-05-15] MEDS: metroNIDAZOLE 500 MG/ISO 100ML 500 MG/100 ML BAG 100 MG IVPB ×3 (04:42→20:34)
[2023-05-15 06:23] LABS: Glucose Point of Care 111 mg/dl (65-105)
[2023-05-15 06:45] LABS: Albumin Level 2.4 g/dL (3.5-5.1); Anion Gap 4 mmol/L (8-16); Blood Urea Nitrogen 58 mg/dL (9-20); Calcium 8.8 mg/dL (8.4-10.2); Carbon Dioxide 21 mmol/L (22-30); Chloride 121 mmol/L (98-107); Estimated CRCL calculation 21 ml/min; Estimated Glomerular Filt Rate 34; Glucose 121 mg/dL (65-110); Phosphorus 3.1 mg/dL (2.5-4.5); Potassium 3.6 mmol/L (3.4-5.0); Sodium 146 mmol/L (137-145)
[2023-05-15] MEDS: FLUTICASONE/SALMETEROL 230-21 MCG INHALER 1 PUFF 2 PUFF INHALATION ×2 (07:40→22:20)
[2023-05-15] MEDS: IPRATROPIUM BR 0.02% INH SOLN 0.5 MG/2.5 ML VIAL INHALATION ×2 (07:40→22:20)
[2023-05-15] MEDS: ALBUTEROL SULFATE NEB 2.5 MG/3 ML INH INHALATION ×2 (07:40→22:20)
[2023-05-15] MEDS: cefTRIAXone 2 GM/NS 100 ML 2 GM/100 ML BAG IVPB (08:46)
[2023-05-15] MEDS: NICOTINE (*PBKC) 21 MG PATCH 1 PATCH TRANSDERM (08:51)
--- NOTE | 2023-05-15 09:11 | PM.IMPN ---
Progress Note: A&P Assessment and Plan (1) Cerebrovascular accident: Code(s): I63.9 - Cerebral infarction, unspecified Status: Acute (2) Acute kidney injury superimposed on chronic kidney disease: Code(s): N17.9 - Acute kidney failure, unspecified; N18.9 - Chronic kidney disease, unspecified Status: Acute (3) Hematuria: Code(s): R31.9 - Hematuria, unspecified Status: Acute (4) Femoral neck fracture: Qualifiers: Encounter type: subsequent encounter Fracture healing: with routine healing Fracture type: closed Laterality: right Qualified Code(s): S72.001D - Fracture of unspecified part of neck of right femur, subsequent encounter for closed fracture with routine healing Code(s): S72.009A - Fracture of unspecified part of neck of unspecified femur, initial encounter for closed fracture Status: Acute (5) Acute UTI: Code(s): N39.0 - Urinary tract infection, site not specified Status: Acute (6) Community acquired pneumonia: Code(s): J18.9 - Pneumonia, unspecified organism Status: Acute (7) Delirium: Code(s): R41.0 - Disorientation, unspecified Status: Acute Plan (1) Cerebrovascular accident: ?Code(s): I63.9 - Cerebral infarction, unspecified ?Status:?Acute ?Assessment and Plan: Brain CT showed focal geographic hypodensity in left basal ganglia suspicious for age-indeterminate lacunar infarction. Clinically he now has dense right-sided hemiplegia and appears to have had a stroke sometime overnight. He is not a tPA candidate given unknown last known normal and recent, profound anemia. Brain MRI:Focal, late hyperacute or early acute infarct involving the posterior limb of the left internal capsule extending to the left periventricular white matter. carotid Doppler ultrasounds: No significant stenosis Pending echocardiogram Neurology and PT/OT consulted, Stroke management per neurologist, started with Plavix 75 mg daily p.o. Delirium, Patient is more confused, patient tried to pull lines Patient is confused, oriented x3 Multiple factors Likely secondary to acute stroke, infection of UTI, Dysphagia Patient failed swallowing test at bedside Order modified barium swallowing test Keep patient p.o. started nGT tube feeding on 05/12 patient failed swallowing test Consult GI for evaluation, and discussed case with GI, GI agrees NG tube feeding, will perform a swallowing test daily. May consider PEG tube placement in a week, if patient cannot gained function of swallowing Consulted dietitian, start tube feeding, also provide free water 200 mL q.4 hour, discontinue IV fluid 05/13 resume D5W 75ml/h on 05/14 as inadequate free water 05/15: Patient pulled out NG tube, will replace NG tube, and also repeat modified barium swallowing test, patient failed modified barium swallow, will restart NG tube feeding (2) Acute kidney injury superimposed on chronic kidney disease: ?Code(s): N17.9 - Acute kidney failure, unspecified; N18.9 - Chronic kidney disease, unspecified ?Status:?Acute ?Assessment and Plan: Likely due to dehydration from poor oral intake the last several days. Bladder scan x1 and p.r.n. to rule out urinary retention. BUN creatinine close to baseline Switch from lights Ringer to d5 normal saline IV 100 ml/h because of hyperkalemia, dc 05/13, change to tuble feeding 05/14: start D5 water 100ml/h, repeated lab afternoon showed sodium 150 down from 153 am, potassium 3.7 up from 3.2 am 05/15: Decrease D5 water to 75 mL/hour per director speech and hearing, sodium 147, creatinine 1.9. (3) Frequent falls: ?Code(s): R29.6 - Repeated falls ?Status:?Acute ?Assessment and Plan: He has had several falls and was just in the hospital for broken hip last month. He has lost quite of bit of weight and has diffuse muscle atrophy. Initiate fall precautions. PT/OT consulted. (4) acute UTI and Hematuria: ?
[2023-05-15 11:50] LABS: Glucose Point of Care 101 mg/dl (65-105)
--- NOTE | 2023-05-15 12:47 | PCSTNOTE ---
Please refer to the Modified Barium Swallow Evaluation in the EMR.
--- NOTE | 2023-05-15 13:07 | PCNFU ---
Nutrition Follow-Up Complete: Severe protein calorie malnutrition related to reduced appetite and intake as evidenced by family report of poor po intake, noted significant weight loss of -13% x 1 month. Diet order: PO intake 75% of meals and supplements. Unable to meet goal at this time. New goal: meet estimated nutritional needs. Pt current nutrition is NPO. Nutrition recommendation: Jevity 1.5 at 60 ml/hr. Last recorded weight is 54.2 kg, stable Bowel Motility:+BM reported 05/14 Labs Reviewed:BUN 58, Cr 1.9,GFR 34, Glu 121, Na 146, Alb 2.4 Meds Noted:Rocephin, Atrovent, Flagyl. Skin: WNL Additional Notes: Spoke with nursing today regarding patient nutritional status. Patient pulled NGT out overnight. Speech Therapy evaluation today, recommending non oral feedings. GI consult for possible PEG placement. Renal labs are improving would recommend tube feeding change to Jevity 1.5 goal rate at 60 ml/hr. 200 ml water flush, Na is trending down 146 today. Bolus feeding conversion: 330 ml 4 x per day. Monitor for MBS results and [employer] recommendations, diet orders, intake, wt, labs. Follow up every Thursday and Thursday.
--- NOTE | 2023-05-15 13:17 | PM.PNNEP ---
Progress Note: A&P Assessment and Plan (1) Hypernatremia: Code(s): E87.0 - Hyperosmolality and hypernatremia Status: Acute Assessment and Plan: the patient has hypernatremia. This is most likely due to free water deficit. Serum and urine osmolality are pending. Urine output is not very high. I doubt that this is DI. he is getting D5W at75cc an hour. Sodium down to 145. (2) Acute kidney injury: Code(s): N17.9 - Acute kidney failure, unspecified Status: Acute Assessment and Plan: The patient had a creatinine of 3.7 earlier on. Now his creatinine is 2.0 which is his baseline (3) Stage 3b chronic kidney disease (CKD): Code(s): N18.32 - Chronic kidney disease, stage 3b Status: Acute Assessment and Plan: he has chronic kidney disease stage IIIB. His baseline is around 2.0. Today he is 1.9 (4) Essential (primary) hypertension: Code(s): I10 - Essential (primary) hypertension Status: Acute Assessment and Plan: His systolic is running in the 140s and 150s. Will keep on amlodipine 5 for now. (5) Hyperlipidemia, unspecified: Code(s): E78.5 - Hyperlipidemia, unspecified Status: Acute Subjective Date/time seen: 05/15/23 13:17 Interval history: patient is awake in bed. He looks comfortable. No complaint Review of Systems Cardiovascular: Cardiovascular: Reports no additional cardiovascular complaints Respiratory: Respiratory: Reports no additional respiratory complaints Gastrointestinal: Gastrointestinal: Reports no additional gastrointestinal complaints Genitourinary: Genitourinary: Reports no additional male genitourinary complaints Exam Narrative: WDWN in NAD skin no rash head ncat lungs clear cor reg no rub or gallop abd BS+ nontender and soft ext no edema. Objective Data Vital Signs Vital Signs: Vital Signs - 24 hr 05/14/23 14:00 05/14/23 21:23 05/14/23 21:21 Temperature 98.6 F Pulse Rate 86 81 Respiratory Rate 24 H 18 Blood Pressure 150/73 H Pulse Oximetry 90 93 Oxygen Delivery Room Air 05/14/23 21:35 05/14/23 20:00 05/15/23 06:00 Temperature 98.9 F 96.3 F L Pulse Rate 83 69 Respiratory Rate 18 20 Blood Pressure 146/70 H 149/70 H Pulse Oximetry 92 97 Oxygen Delivery Room Air 05/15/23 07:40 05/15/23 07:40 05/15/23 07:50 Temperature Pulse Rate 75 75 78 Respiratory Rate 18 18 18 Blood Pressure Pulse Oximetry 91 Oxygen Delivery Room Air 05/15/23 08:50 Temperature Pulse Rate Respiratory Rate Blood Pressure Pulse Oximetry Oxygen Delivery Room Air Intake/Output Intake/Output: Intake & Output 05/12/23 05/13/23 05/14/23 05/15/23 23:59 23:59 23:59 23:59 Intake Total 2300 400 1400 100 Output Total 900 Balance 2300 400 1400 -800 Meds/Results Medications: Active Medications Generic Name Dose Route Start Last Admin Trade Name Freq PRN Reason Stop Dose Admin Acetaminophen 650 mg 05/10/23 10:12 05/14/23 05:22 Acetaminophen 650 Mg Suppository RECTAL 650 mg Q6H PRN Administration Mild Pain (1-3) or Fever Albuterol 2.5 mg 05/10/23 20:00 05/15/23 07:40 Albuterol Sulfate Neb 2.5 Mg/3 Ml Inh INHALATION 2.5 mg Q12HRT LUIS ALBERTO Administration Amlodipine Besylate 5 mg 05/11/23 09:00 05/15/23 08:53 Amlodipine Besylate 5 Mg Tablet PO Not Given DAILY LUIS ALBERTO Aspirin 81 mg 05/11/23 09:00 05/15/23 08:53 Aspirin 81 Mg Enteric Tablet PO Not Given QAM [facility] Clopidogrel Bisulfate 75 mg 05/16/23 09:00 Clopidogrel Bisulfate 75 Mg Tablet FEED TUBE 06/06/23 08:59 QAM [facility] Ferrous Sulfate 325 mg 05/10/23 17:00 05/15/23 08:53 Ferrous Sulfate [address] PO Not Given BID LUIS ALBERTO Hydromorphone HCl 0.3 mg 05/13/23 09:55 05/14/23 05:05 Hydromorphone Hcl Inj (*Crx) 1 Mg/Ml Syr IV PUSH 0.3 mg Q4-6H PRN Administration Pain Ceftriaxone Sodium
--- NOTE | 2023-05-15 13:30 | WPDGIPROGNO ---
Progress Note: A&P Assessment and Plan (1) Dysphagia: Code(s): R13.10 - Dysphagia, unspecified Status: Acute Assessment and Plan: Patient with dysphagia appears to be related to CVA at the time of admission. Currently receiving nutrition via the NG tube. Patient somewhat more alert but still not oriented today. If unable to eat next week will need PEG tube placement. Family wishes to wait give him a chance to recover prior to proceeding with this. Dr. Duran will follow over weekend. I will return . (2) CVA (cerebral vascular accident): Code(s): I63.9 - Cerebral infarction, unspecified Status: Acute Assessment and Plan: Patient with acute CVA. Now with difficulty swallowing. He has some extremity weakness as well. Supportive care. Neurology has been following patient as well. Nutrition currently to be given via NG tube. Monitor intake. If he improves hopefully we can avoid PEG tube. (3) Stage 3b chronic kidney disease (CKD): Code(s): N18.32 - Chronic kidney disease, stage 3b Status: Acute Assessment and Plan: Patient with acute on chronic kidney disease. He has some degree of azotemia suggesting dehydration. Hopefully this can be corrected before any invasive testing length PEG tube. (4) Urinary tract infection: Code(s): N39.0 - Urinary tract infection, site not specified Status: Acute (5) History of colectomy: Code(s): Z90.49 - Acquired absence of other specified parts of digestive tract Status: Acute (6) Fracture of femoral neck, right: Code(s): S72.001A - Fracture of unspecified part of neck of right femur, initial encounter for closed fracture Status: Acute Subjective Date/time seen: 05/15/23 13:30 Interval history: patient alert, lying in bed this morning. patient remains confused. Patient pulled out NG tube last night. Be replaced today. Review of Systems Review of Systems: ROS unobtainable: Yes unobtainable due to medical condition Exam Narrative: Physical exam reveals patient be alert. He is not oriented. HEENT exam reveals absent gag reflex. Lungs appear clear bilaterally. Heart without murmur. Abdomen soft flat nontender. Objective Data Vital Signs Vital Signs: Vital Signs - 24 hr 05/14/23 14:00 05/14/23 21:23 05/14/23 21:21 Temperature 98.6 F Pulse Rate 86 81 Respiratory Rate 24 H 18 Blood Pressure 150/73 H Pulse Oximetry 90 93 Oxygen Delivery Room Air 05/14/23 21:35 05/14/23 20:00 05/15/23 06:00 Temperature 98.9 F 96.3 F L Pulse Rate 83 69 Respiratory Rate 18 20 Blood Pressure 146/70 H 149/70 H Pulse Oximetry 92 97 Oxygen Delivery Room Air 05/15/23 07:40 05/15/23 07:40 05/15/23 07:50 Temperature Pulse Rate 75 75 78 Respiratory Rate 18 18 18 Blood Pressure Pulse Oximetry 91 Oxygen Delivery Room Air 05/15/23 08:50 Temperature Pulse Rate Respiratory Rate Blood Pressure Pulse Oximetry Oxygen Delivery Room Air Intake/Output Intake/Output: Intake & Output 05/12/23 05/13/23 05/14/23 05/15/23 23:59 23:59 23:59 23:59 Intake Total 2300 400 1400 100 Output Total 900 Balance 2300 400 1400 -800 Meds/Results Medications: Active Medications Generic Name Dose Route Start Last Admin Trade Name Freq PRN Reason Stop Dose Admin Acetaminophen 650 mg 05/10/23 10:12 05/14/23 05:22 Acetaminophen 650 Mg Suppository RECTAL 650 mg Q6H PRN Administration Mild Pain (1-3) or Fever Albuterol 2.5 mg 05/10/23 20:00 05/15/23 07:40 Albuterol Sulfate Neb 2.5 Mg/3 Ml Inh INHALATION 2.5 mg Q12HRT LUIS ALBERTO Administration Amlodipine Besylate 5 mg 05/11/23 09:00 05/15/23 08:53 Amlodipine Besylate 5 Mg Tablet PO Not Given DAILY LUIS ALBERTO Aspirin 81 mg 05/11/23 09:00 05/15/23 08:53 Aspirin 81 Mg Enteric Tablet PO Not Given QAM [facility] Clopidogrel Bisulfate 75 mg 05/16/23 09:00
[2023-05-15] MEDS: FERROUS SULFATE LIQUID 325 MG/7.4 ML ELIXIR FEED TUBE (17:44)
[2023-05-15] MEDS: DEXTROSE 5% 1,000 ML 1,000 ML 75 ML IV CONT (17:44)
[2023-05-15 18:37] LABS: Glucose Point of Care 137 mg/dl (65-105)
[2023-05-15] MEDS: MELATONIN 5 MG TABLET FEED TUBE (20:34)
[2023-05-15] MEDS: HYDROmorphone HCL INJ (*CRX) 1 MG/ML SYR 0.3 MG IV PUSH (23:56)
[2023-05-16 00:26] LABS: Glucose Point of Care 140 mg/dl (65-105)
[2023-05-16] MEDS: metroNIDAZOLE 500 MG/ISO 100ML 500 MG/100 ML BAG 100 MG IVPB ×3 (04:35→20:36)
[2023-05-16] MEDS: DEXTROSE 5% 1,000 ML 1,000 ML 75 ML IV CONT ×2 (04:38→21:06)
[2023-05-16 05:58] LABS: Glucose Point of Care 155 mg/dl (65-105)
[2023-05-16 06:00] VITALS: BP 158/68; PULSE 76; RESP 18; TEMP 37.2; O2SAT 97
[2023-05-16] MEDS: ASPIRIN 81 MG CHEWABLE TABLET FEED TUBE (08:47)
[2023-05-16] MEDS: POTASSIUM CHLORIDE 20 MEQ PACKET (FOR LIQUID) 40 MEQ FEED TUBE (08:48)
[2023-05-16] MEDS: amLODIPine BESYLATE 5 MG TABLET FEED TUBE (08:48)
[2023-05-16] MEDS: NICOTINE (*PBKC) 21 MG PATCH 1 PATCH TRANSDERM (08:48)
[2023-05-16] MEDS: CLOPIDOGREL BISULFATE 75 MG TABLET FEED TUBE (08:48)
[2023-05-16] MEDS: FERROUS SULFATE LIQUID 325 MG/7.4 ML ELIXIR FEED TUBE (08:49)
[2023-05-16] MEDS: cefTRIAXone 2 GM/NS 100 ML 2 GM/100 ML BAG IVPB (08:49)
[2023-05-16 09:20] LABS: Basophils Percent Auto 0.3 % (0.2-1.2); Eosinophils Absolute Auto 0.3 K/mm3 (0-0.3); Eosinophils Percent Auto 3.4 % (0-4.4); Hematocrit 23.6 % (42.0-52.0); Hemoglobin 7.1 g/dL (14.0-18.0); Immature Granulocyte Absolute 0.44 K/mm3 (0.00-0.031); Immature Granulocyte Percent A 4.5 % (0-0.5); Immature Platelet Fraction Pct 12.4 % (0.9-11.2); Lymphocytes Absolute Auto 0.42 K/mm3 (0.9-3.2); Lymphocytes Percent Auto 4.3 % (18.3-44.2); Mean Corpuscular HGB Conc 30.1 g/dl (32-36); Mean Corpuscular Hemoglobin 32.3 pg (26-34); Mean Corpuscular Volume 107.3 fl (80-100); Mean Platelet Volume 13.1 fl (7.4-10.4); Monocytes Absolute Auto 0.6 K/mm3 (0.1-0.6); Monocytes Percent Auto 5.9 % (2.6-8.5); Neutrophils Percent Auto 81.6 % (45.5-73.1); Platelet Count Result 97 k/mm3 (150-375); Red Cell Distribution Width 18.6 % (11.5-14.5); White Blood Count 9.8 K/mm3 (4.5-10.0)
[2023-05-16 09:33] LABS: Anion Gap 6 mmol/L (8-16); Blood Urea Nitrogen 57 mg/dL (9-20); Calcium 8.2 mg/dL (8.4-10.2); Carbon Dioxide 23 mmol/L (22-30); Chloride 110 mmol/L (98-107); Estimated CRCL calculation 25 ml/min; Estimated Glomerular Filt Rate 39; Glucose 148 mg/dL (65-110); Potassium 3.6 mmol/L (3.4-5.0); Sodium 139 mmol/L (137-145)
[2023-05-16] MEDS: ALBUTEROL SULFATE NEB 2.5 MG/3 ML INH INHALATION ×2 (09:42→21:22)
[2023-05-16] MEDS: FLUTICASONE/SALMETEROL 230-21 MCG INHALER 1 PUFF 2 PUFF INHALATION ×2 (09:42→21:22)
[2023-05-16] MEDS: IPRATROPIUM BR 0.02% INH SOLN 0.5 MG/2.5 ML VIAL INHALATION ×2 (09:42→21:22)
[2023-05-16 09:43] VITALS: PULSE 63; RESP 20; O2SAT 96
[2023-05-16 09:54] LABS: Band Neutrophils Percent 1 % (0-6); Eosinophils Absolute Manual 0.09 K/mm3 (0.02-0.5); Eosinophils Percent Manual 1 % (0-4); Hypochromasia 2+ (NORMAL); Lymphocytes Absolute Manual 0.09 K/mm3 (1.1-4.5); Monocytes Absolute Manual 0.29 K/mm3 (0.1-0.90); Monocytes Percent Manual 3 % (3-9); Neutrophils Absolute Manual 9.31 K/mm3 (1.3-6.7); Neutrophils Percent Manual 94 % (46-73); Schistocytes None Seen (NORMAL); Total Cells Counted 100
[2023-05-16 09:55] LABS: Anisocytosis 1+ (NORMAL); Burr Cells 1+ (NORMAL); Poikilocytosis 1+ (NORMAL)
[2023-05-16 09:58] VITALS: PULSE 68; RESP 20
--- NOTE | 2023-05-16 12:02 | PM.PNNEP ---
Progress Note: A&P Assessment and Plan (1) Hypernatremia: Code(s): E87.0 - Hyperosmolality and hypernatremia Status: Acute Assessment and Plan: the patient has hypernatremia. This is most likely due to free water deficit. Serum and urine osmolality are pending. Urine output is not very high. I doubt that this is DI. he is getting D5W at75cc an hour. Sodium down to 140 (2) Acute kidney injury: Code(s): N17.9 - Acute kidney failure, unspecified Status: Acute Assessment and Plan: The patient had a creatinine of 3.7 earlier on. Now his creatinine is 2.0 which is his baseline (3) Stage 3b chronic kidney disease (CKD): Code(s): N18.32 - Chronic kidney disease, stage 3b Status: Acute Assessment and Plan: he has chronic kidney disease stage IIIB. His baseline is around 2.0. Today he is 1.9 (4) Essential (primary) hypertension: Code(s): I10 - Essential (primary) hypertension Status: Acute Assessment and Plan: His systolic is running in the 140s and 150s. Will keep on amlodipine 5 for now. (5) Hyperlipidemia, unspecified: Code(s): E78.5 - Hyperlipidemia, unspecified Status: Acute Subjective Date/time seen: 05/16/23 12:02 Interval history: patient is resting in bed comfortably. Exam Narrative: WDWN in NAD skin no rash head ncat lungs clear bilaterally cor reg no rub or gallop abd BS+ nontender and soft ext no edema or cyanosis. Objective Data Vital Signs Vital Signs: Vital Signs - 24 hr 05/15/23 14:00 05/15/23 22:00 05/15/23 20:00 Temperature 98.6 F 98.8 F Pulse Rate 73 71 Respiratory Rate 18 20 Blood Pressure 176/56 H 132/63 Pulse Oximetry 97 96 Oxygen Delivery Room Air 05/15/23 22:20 05/15/23 22:56 05/16/23 06:00 Temperature 99.0 F Pulse Rate 68 70 76 Respiratory Rate 20 20 18 Blood Pressure 158/68 H Pulse Oximetry 97 Oxygen Delivery 05/16/23 09:43 05/16/23 09:43 05/16/23 09:58 Temperature Pulse Rate 63 68 Respiratory Rate 20 20 Blood Pressure Pulse Oximetry 96 Oxygen Delivery Room Air 05/16/23 08:50 Temperature Pulse Rate Respiratory Rate Blood Pressure Pulse Oximetry Oxygen Delivery Room Air Intake/Output Intake/Output: Intake & Output 05/13/23 05/14/23 05/15/23 05/16/23 23:59 23:59 23:59 23:59 Intake Total 400 1400 1300 1100 Output Total 1500 400 Balance 400 1400 -200 700 Meds/Results Medications: Active Medications Generic Name Dose Route Start Last Admin Trade Name Freq PRN Reason Stop Dose Admin Acetaminophen 650 mg 05/10/23 10:12 05/14/23 05:22 Acetaminophen 650 Mg Suppository RECTAL 650 mg Q6H PRN Administration Mild Pain (1-3) or Fever Albuterol 2.5 mg 05/10/23 20:00 05/16/23 09:42 Albuterol Sulfate Neb 2.5 Mg/3 Ml Inh INHALATION 2.5 mg Q12HRT LUIS ALBERTO Administration Amlodipine Besylate 5 mg 05/16/23 09:00 05/16/23 08:48 Amlodipine Besylate 5 Mg Tablet FEED TUBE 5 mg DAILY LUIS ALBERTO Administration Aspirin 81 mg 05/16/23 09:00 05/16/23 08:47 Aspirin 81 Mg Chewable Tablet FEED TUBE 81 mg QAM LUIS ALBERTO Administration Clopidogrel Bisulfate 75 mg 05/16/23 09:00 05/16/23 08:48 Clopidogrel Bisulfate 75 Mg Tablet FEED TUBE 06/06/23 08:59 75 mg QAM LUIS ALBERTO Administration Ferrous Sulfate 325 mg 05/15/23 17:00 05/16/23 08:49 Ferrous Sulfate Liquid 325 Mg/7.4 Ml Elixir FEED TUBE 325 mg BID LUIS ALBERTO Administration Hydromorphone HCl 0.3 mg 05/13/23 09:55 05/15/23 23:56 Hydromorphone Hcl Inj (*Crx) 1 Mg/Ml Syr IV PUSH 0.3 mg Q4-6H PRN Administration Pain Ceftriaxone Sodium 2 gm in 100 mls @ 200 mls/hr 05/11/23 09:00 05/16/23 08:49 Rocephin 2 Gm/Ns 100 Ml IVPB 05/16/23 23:59 200 mls/hr Q24H LUIS ALBERTO Administration Metronidazole 500 mg in 100 mls @ 100 mls/hr 05/11/23 20:00 05/16/23 08:49 Flagyl 500 Mg/Iso Soln 100 Ml IVPB
--- NOTE | 2023-05-16 13:15 | WPDGIPROGNO ---
Progress Note: A&P Assessment and Plan (1) Dysphagia: Code(s): R13.10 - Dysphagia, unspecified Status: Acute Assessment and Plan: from stroke he is getting enteral feeding for now family hoping that he will have some recovery, if not then plan PEG sometime next week (2) Severe protein-calorie malnutrition: Onset Date: Unknown Code(s): E43 - Unspecified severe protein-calorie malnutrition Status: Acute Assessment and Plan: tube feeding right now (3) Acute on chronic kidney failure: Code(s): N17.9 - Acute kidney failure, unspecified; N18.9 - Chronic kidney disease, unspecified Status: Acute Assessment and Plan: improved (4) Hypernatremia: Code(s): E87.0 - Hyperosmolality and hypernatremia Status: Acute Assessment and Plan: treated and better Subjective Date/time seen: 05/16/23 13:15 Interval history: NGT in place and has been tolerating tube feeding, still confused. Review of Systems Review of Systems: All systems reviewed & are unremarkable except as noted in HPI and below Exam Narrative: General: Ill-appearing, thin HEENT: Dry mouth mucous membrane, tube feeding in place. Neck: Supple. Respiratory: Respirations are nonlabored and lungs are clear to auscultation. Cardiovascular: Regular rate and rhythm with S1-S2. Gastrointestinal: Abdomen is soft, flat, nontender, and nondistended with positive bowel sounds. Skin: Warm and dry. Extremities: No cyanosis, clubbing, or edema. Musculoskeletal: Diffuse muscle atrophy. Neurological: Patient confused, alert, dysarthria, able follow commands. No facial asymmetry. Paralyses of right arm and right leg. Psychiatric: Confused, Anxious Objective Data Vital Signs Vital Signs: Vital Signs - 24 hr 05/15/23 14:00 05/15/23 22:00 05/15/23 20:00 Temperature 98.6 F 98.8 F Pulse Rate 73 71 Respiratory Rate 18 20 Blood Pressure 176/56 H 132/63 Pulse Oximetry 97 96 Oxygen Delivery Room Air 05/15/23 22:20 05/15/23 22:56 05/16/23 06:00 Temperature 99.0 F Pulse Rate 68 70 76 Respiratory Rate 20 20 18 Blood Pressure 158/68 H Pulse Oximetry 97 Oxygen Delivery 05/16/23 09:43 05/16/23 09:43 05/16/23 09:58 Temperature Pulse Rate 63 68 Respiratory Rate 20 20 Blood Pressure Pulse Oximetry 96 Oxygen Delivery Room Air 05/16/23 08:50 Temperature Pulse Rate Respiratory Rate Blood Pressure Pulse Oximetry Oxygen Delivery Room Air Intake/Output Intake/Output: Intake & Output 05/13/23 05/14/23 05/15/23 05/16/23 23:59 23:59 23:59 23:59 Intake Total 400 1400 1300 1100 Output Total 1500 400 Balance 400 1400 -200 700 Meds/Results Medications: Active Medications Generic Name Dose Route Start Last Admin Trade Name Freq PRN Reason Stop Dose Admin Acetaminophen 650 mg 05/10/23 10:12 05/14/23 05:22 Acetaminophen 650 Mg Suppository RECTAL 650 mg Q6H PRN Administration Mild Pain (1-3) or Fever Albuterol 2.5 mg 05/10/23 20:00 05/16/23 09:42 Albuterol Sulfate Neb 2.5 Mg/3 Ml Inh INHALATION 2.5 mg Q12HRT LUIS ALBERTO Administration Amlodipine Besylate 5 mg 05/16/23 09:00 05/16/23 08:48 Amlodipine Besylate 5 Mg Tablet FEED TUBE 5 mg DAILY LUIS ALBERTO Administration Aspirin 81 mg 05/16/23 09:00 05/16/23 08:47 Aspirin 81 Mg Chewable Tablet FEED TUBE 81 mg QAM LUIS ALBERTO Administration Clopidogrel Bisulfate 75 mg 05/16/23 09:00 05/16/23 08:48 Clopidogrel Bisulfate 75 Mg Tablet FEED TUBE 06/06/23 08:59 75 mg QAM LUIS ALBERTO Administration Ferrous Sulfate 325 mg 05/15/23 17:00 05/16/23 08:49 Ferrous Sulfate Liquid 325 Mg/7.4 Ml Elixir FEED TUBE 325 mg BID LUIS ALBERTO Administration Hydromorphone HCl 0.3 mg 05/13/23 09:55 05/15/23 23:56 Hydromorphone Hcl Inj (*Crx) 1 Mg/Ml Syr IV PUSH 0.3 mg Q4-6H PRN Administration Pain Ceftriaxone Sodium 2 gm in 100 mls @ 200 mls/hr 05/11/23
[2023-05-16 14:00] VITALS: BP 146/62; PULSE 71; RESP 20; TEMP 36.6; O2SAT 95
[2023-05-16 16:26] LABS: Glucose Point of Care 148 mg/dl (65-105)
--- NOTE | 2023-05-16 17:58 | PM.IMPN ---
Progress Note: A&P Assessment and Plan (1) Cerebrovascular accident: Code(s): I63.9 - Cerebral infarction, unspecified Status: Acute (2) Acute kidney injury superimposed on chronic kidney disease: Code(s): N17.9 - Acute kidney failure, unspecified; N18.9 - Chronic kidney disease, unspecified Status: Acute (3) Hematuria: Code(s): R31.9 - Hematuria, unspecified Status: Acute (4) Femoral neck fracture: Qualifiers: Encounter type: subsequent encounter Fracture healing: with routine healing Fracture type: closed Laterality: right Qualified Code(s): S72.001D - Fracture of unspecified part of neck of right femur, subsequent encounter for closed fracture with routine healing Code(s): S72.009A - Fracture of unspecified part of neck of unspecified femur, initial encounter for closed fracture Status: Acute (5) Acute UTI: Code(s): N39.0 - Urinary tract infection, site not specified Status: Acute (6) Community acquired pneumonia: Code(s): J18.9 - Pneumonia, unspecified organism Status: Acute (7) Delirium: Code(s): R41.0 - Disorientation, unspecified Status: Acute Plan (1) Cerebrovascular accident: ?Code(s): I63.9 - Cerebral infarction, unspecified ?Status:?Acute ?Assessment and Plan: Brain CT showed focal geographic hypodensity in left basal ganglia suspicious for age-indeterminate lacunar infarction. Clinically he now has dense right-sided hemiplegia and appears to have had a stroke sometime overnight. He is not a tPA candidate given unknown last known normal and recent, profound anemia. Brain MRI:Focal, late hyperacute or early acute infarct involving the posterior limb of the left internal capsule extending to the left periventricular white matter. carotid Doppler ultrasounds: No significant stenosis Pending echocardiogram Neurology and PT/OT consulted, Stroke management per neurologist, started with Plavix 75 mg daily p.o. Delirium, Patient is more confused, patient tried to pull lines Patient is confused, oriented x3 Multiple factors Likely secondary to acute stroke, infection of UTI Patient is more cooperative and pleasant today without being agitated Dysphagia Patient failed swallowing test at bedside Order modified barium swallowing test Keep patient p.o. started nGT tube feeding on 05/12 patient failed swallowing test Consult GI for evaluation, and discussed case with GI, GI agrees NG tube feeding, will perform a swallowing test daily. May consider PEG tube placement in a week, if patient cannot gained function of swallowing Consulted dietitian, start tube feeding, also provide free water 200 mL q.4 hour, discontinue IV fluid 05/13 resume D5W 75ml/h on 05/14 as inadequate free water 05/15: Patient pulled out NG tube, will replace NG tube, and also repeat modified barium swallowing test, patient failed modified barium swallow, will restart NG tube feeding 05/16: Monitor NG tube feeding closely. Will consider PEG tube placement next week after re-evaluation by GI (2) Acute kidney injury superimposed on chronic kidney disease: ?Code(s): N17.9 - Acute kidney failure, unspecified; N18.9 - Chronic kidney disease, unspecified ?Status:?Acute ?Assessment and Plan: Likely due to dehydration from poor oral intake the last several days. Bladder scan x1 and p.r.n. to rule out urinary retention. BUN creatinine close to baseline Switch from lights Ringer to d5 normal saline IV 100 ml/h because of hyperkalemia, dc 05/13, change to tuble feeding 05/14: start D5 water 100ml/h, repeated lab afternoon showed sodium 150 down from 153 am, potassium 3.7 up from 3.2 am 05/15: Decrease D5 water to 75 mL/hour per mounter sousaphones, sodium 147, creatinine 1.9. 05/16: Continue with D5W, sodium improved to 139, creatinine is 1.7 Strict input and output monitoring (3) Frequent falls: ?Code(s): R29.6 - Repeate
[2023-05-16 18:24] LABS: Glucose Point of Care 148 mg/dl (65-105)
[2023-05-16 21:22] VITALS: PULSE 72; RESP 20
[2023-05-16 22:00] VITALS: BP 150/60; PULSE 67; RESP 18; TEMP 36.5; O2SAT 97
[2023-05-17 00:36] LABS: Glucose Point of Care 111 mg/dl (65-105)
[2023-05-17 06:00] VITALS: BP 134/67; PULSE 71; RESP 18; TEMP 36; O2SAT 96
[2023-05-17 06:20] LABS: Basophils Percent Auto 0.5 % (0.2-1.2); Eosinophils Absolute Auto 0.3 K/mm3 (0-0.3); Hematocrit 24.8 % (42.0-52.0); Hemoglobin 7.3 g/dL (14.0-18.0); Immature Granulocyte Absolute 0.54 K/mm3 (0.00-0.031); Immature Granulocyte Percent A 6.9 % (0-0.5); Immature Platelet Fraction Pct 17.1 % (0.9-11.2); Lymphocytes Absolute Auto 0.45 K/mm3 (0.9-3.2); Lymphocytes Percent Auto 5.8 % (18.3-44.2); Mean Corpuscular HGB Conc 29.4 g/dl (32-36); Mean Corpuscular Hemoglobin 31.6 pg (26-34); Mean Corpuscular Volume 107.4 fl (80-100); Mean Platelet Volume 13.4 fl (7.4-10.4); Monocytes Absolute Auto 0.5 K/mm3 (0.1-0.6); Monocytes Percent Auto 6.4 % (2.6-8.5); Neutrophils Absolute Auto 5.9 K/mm3 (1.3-6.7); Neutrophils Percent Auto 76.4 % (45.5-73.1); Platelet Count Result 106 k/mm3 (150-375); Red Blood Count 2.31 M/mm3 (4.6-6.20); Red Cell Distribution Width 18.3 % (11.5-14.5); White Blood Count 7.8 K/mm3 (4.5-10.0)
[2023-05-17 06:53] LABS: Anion Gap 5 mmol/L (8-16); Blood Urea Nitrogen 45 mg/dL (9-20); Calcium 7.8 mg/dL (8.4-10.2); Carbon Dioxide 23 mmol/L (22-30); Chloride 108 mmol/L (98-107); Estimated CRCL calculation 31 ml/min; Estimated Glomerular Filt Rate 48; Glucose 106 mg/dL (65-110); Potassium 4.1 mmol/L (3.4-5.0); Sodium 136 mmol/L (137-145)
[2023-05-17 07:54] LABS: Anisocytosis 1+ (NORMAL); Hypochromasia 2+ (NORMAL); Schistocytes Rare (NORMAL)
[2023-05-17 08:09] LABS: Glucose Point of Care 106 mg/dl (65-105)
[2023-05-17] MEDS: DEXTROSE 5% 1,000 ML 1,000 ML 75 ML IV CONT (08:30)
[2023-05-17] MEDS: NICOTINE (*PBKC) 21 MG PATCH 1 PATCH TRANSDERM (08:32)
[2023-05-17] MEDS: HYDROmorphone HCL INJ (*CRX) 1 MG/ML SYR 0.3 MG IV PUSH ×2 (09:16→13:55)
--- NOTE | 2023-05-17 10:04 | WPDGIPROGNO ---
Progress Note: A&P Assessment and Plan (1) Dysphagia: Code(s): R13.10 - Dysphagia, unspecified Status: Acute Assessment and Plan: from stroke he pulled out NGT again, plan is to put a new one and continue enteral nutrition family still hoping that he will have some recovery, if not then plan PEG sometime next week (2) Severe protein-calorie malnutrition: Onset Date: Unknown Code(s): E43 - Unspecified severe protein-calorie malnutrition Status: Acute Assessment and Plan: he was on tube feeding but pulled out NGT (3) Acute on chronic kidney failure: Code(s): N17.9 - Acute kidney failure, unspecified; N18.9 - Chronic kidney disease, unspecified Status: Acute Subjective Date/time seen: 05/17/23 10:04 Interval history: he pulled out NGT, he is awake and talking but confused Review of Systems Review of Systems: All systems reviewed & are unremarkable except as noted in HPI and below Exam Narrative: General: thin, chronically ill appearing, talking but confused HEENT: Dry mouth mucous membrane Neck: Supple. Respiratory: Lungs are clear to auscultation. Cardiovascular: Regular rate and rhythm with S1-S2. Gastrointestinal: Abdomen is soft, flat, nontender, and nondistended with positive bowel sounds. Skin: Warm and dry. Extremities: No cyanosis, clubbing, or edema. Musculoskeletal: Diffuse muscle atrophy. Neurological: Patient confused, alert and talking but confused, able follow commands. No facial asymmetry. Paralyses of right arm and right leg. Psychiatric: Confused, Anxious Objective Data Vital Signs Vital Signs: Vital Signs - 24 hr 05/16/23 14:00 05/16/23 20:30 05/16/23 21:22 Temperature 97.8 F Pulse Rate 71 72 Respiratory Rate 20 20 Blood Pressure 146/62 H Pulse Oximetry 95 Oxygen Delivery Room Air 05/16/23 22:00 05/17/23 06:00 05/17/23 08:30 Temperature 97.7 F 96.8 F L Pulse Rate 67 71 Respiratory Rate 18 18 Blood Pressure 150/60 H 134/67 Pulse Oximetry 97 96 Oxygen Delivery Room Air Intake/Output Intake/Output: Intake & Output 05/14/23 05/15/23 05/16/23 05/17/23 23:59 23:59 23:59 23:59 Intake Total 1400 1300 2400 900 Output Total 1500 950 600 Balance 1400 -200 1450 300 Meds/Results Medications: Active Medications Generic Name Dose Route Start Last Admin Trade Name Freq PRN Reason Stop Dose Admin Acetaminophen 650 mg 05/10/23 10:12 05/14/23 05:22 Acetaminophen 650 Mg Suppository RECTAL 650 mg Q6H PRN Administration Mild Pain (1-3) or Fever Albuterol 2.5 mg 05/10/23 20:00 05/16/23 21:22 Albuterol Sulfate Neb 2.5 Mg/3 Ml Inh INHALATION 2.5 mg Q12HRT LUIS ALBERTO Administration Amlodipine Besylate 5 mg 05/16/23 09:00 05/17/23 08:29 Amlodipine Besylate 5 Mg Tablet FEED TUBE Not Given DAILY LUIS ALBERTO Aspirin 81 mg 05/16/23 09:00 05/17/23 08:29 Aspirin 81 Mg Chewable Tablet FEED TUBE Not Given QAM [facility] Clopidogrel Bisulfate 75 mg 05/16/23 09:00 05/17/23 08:29 Clopidogrel Bisulfate 75 Mg Tablet FEED TUBE 06/06/23 08:59 Not Given QAM [facility] Ferrous Sulfate 325 mg 05/15/23 17:00 05/17/23 08:29 Ferrous Sulfate Liquid 325 Mg/7.4 Ml Elixir FEED TUBE Not Given BID LUIS ALBERTO Hydromorphone HCl 0.3 mg 05/13/23 09:55 05/17/23 09:16 Hydromorphone Hcl Inj (*Crx) 1 Mg/Ml Syr IV PUSH 0.3 mg Q4-6H PRN Administration Pain Dextrose 1,000 mls @ 75 mls/hr 05/14/23 09:45 05/17/23 08:30 Dextrose 5% 1,000 Ml IV CONT 75 mls/hr .[id number] LUIS ALBERTO Administration Ipratropium [place] 0.5 mg 05/10/23 20:00 05/16/23 21:22 Ipratropium Br 0.02% Inh Soln 0.5 Mg/2.5 Ml Vial INHALATION 0.5 mg Q12HRT LUIS ALBERTO Administration Melatonin 5 mg 05/12/23 21:00 05/16/23 20:37 Melatonin 5 Mg Tablet FEED TUBE Not Given HS LUIS ALBERTO Miconazole Nitrate 1 applic 05/11/23 09:30 05/17/23 08:32 Miconazole 2% Antifungal Ointment 56 Gm TOPICAL 1 applic
--- NOTE | 2023-05-17 10:55 | PCRCNOTE ---
Window of time for administration has passed. See next scheduled administration.
[2023-05-17 11:56] LABS: Glucose Point of Care 95 mg/dl (65-105)
[2023-05-17 14:00] VITALS: BP 111/58; PULSE 97; RESP 14; TEMP 35.1; O2SAT 97
[2023-05-17] MEDS: FERROUS SULFATE LIQUID 325 MG/7.4 ML ELIXIR FEED TUBE (16:30)
[2023-05-17 16:52] LABS: Glucose Point of Care 161 mg/dl (65-105)
--- NOTE | 2023-05-17 18:46 | PM.IMPN ---
Progress Note: A&P Assessment and Plan (1) Cerebrovascular accident: Code(s): I63.9 - Cerebral infarction, unspecified Status: Acute (2) Acute kidney injury superimposed on chronic kidney disease: Code(s): N17.9 - Acute kidney failure, unspecified; N18.9 - Chronic kidney disease, unspecified Status: Acute (3) Hematuria: Code(s): R31.9 - Hematuria, unspecified Status: Acute (4) Femoral neck fracture: Qualifiers: Encounter type: subsequent encounter Fracture healing: with routine healing Fracture type: closed Laterality: right Qualified Code(s): S72.001D - Fracture of unspecified part of neck of right femur, subsequent encounter for closed fracture with routine healing Code(s): S72.009A - Fracture of unspecified part of neck of unspecified femur, initial encounter for closed fracture Status: Acute (5) Acute UTI: Code(s): N39.0 - Urinary tract infection, site not specified Status: Acute (6) Community acquired pneumonia: Code(s): J18.9 - Pneumonia, unspecified organism Status: Acute (7) Delirium: Code(s): R41.0 - Disorientation, unspecified Status: Acute Plan (1) Cerebrovascular accident: ?Code(s): I63.9 - Cerebral infarction, unspecified ?Status:?Acute ?Assessment and Plan: Brain CT showed focal geographic hypodensity in left basal ganglia suspicious for age-indeterminate lacunar infarction. Clinically he now has dense right-sided hemiplegia and appears to have had a stroke sometime overnight. He is not a tPA candidate given unknown last known normal and recent, profound anemia. Brain MRI:Focal, late hyperacute or early acute infarct involving the posterior limb of the left internal capsule extending to the left periventricular white matter. carotid Doppler ultrasounds: No significant stenosis Pending echocardiogram Neurology and PT/OT consulted, Stroke management per neurologist, started with Plavix 75 mg daily p.o. Delirium, Patient is more confused, patient tried to pull lines Patient is confused, oriented x3 Multiple factors Likely secondary to acute stroke, infection of UTI Patient is more cooperative and pleasant today without being agitated Continue with soft restraints, ONLY as needed Dysphagia Patient failed swallowing test at bedside Order modified barium swallowing test Keep patient p.o. started nGT tube feeding on 05/12 patient failed swallowing test Consult GI for evaluation, and discussed case with GI, GI agrees NG tube feeding, will perform a swallowing test daily. May consider PEG tube placement in a week, if patient cannot gained function of swallowing Consulted dietitian, start tube feeding, also provide free water 200 mL q.4 hour, discontinue IV fluid 05/13 resume D5W 75ml/h on 05/14 as inadequate free water 05/15: Patient pulled out NG tube, will replace NG tube, and also repeat modified barium swallowing test, patient failed modified barium swallow, will restart NG tube feeding 05/16: Monitor NG tube feeding closely. Will consider PEG tube placement next week after re-evaluation by GI 05/17: Continue with NG tube and monitor closely (2) Acute kidney injury superimposed on chronic kidney disease: ?Code(s): N17.9 - Acute kidney failure, unspecified; N18.9 - Chronic kidney disease, unspecified ?Status:?Acute ?Assessment and Plan: Likely due to dehydration from poor oral intake the last several days. Bladder scan x1 and p.r.n. to rule out urinary retention. BUN creatinine close to baseline Switch from lights Ringer to d5 normal saline IV 100 ml/h because of hyperkalemia, dc 05/13, change to tuble feeding 05/14: start D5 water 100ml/h, repeated lab afternoon showed sodium 150 down from 153 am, potassium 3.7 up from 3.2 am 05/15: Decrease D5 water to 75 mL/hour per senior business development analyst, sodium 147, creatinine 1.9. 05/16: Continue with D5W, sodium improved to 139, creatinine is 1
[2023-05-17 19:46] LABS: Osmolality, Urine 605 mOsm/kg (50-1200)
[2023-05-17 20:00] VITALS: PULSE 97; RESP 14; O2SAT 97
[2023-05-17] MEDS: MELATONIN 5 MG TABLET FEED TUBE (21:16)
[2023-05-17] MEDS: SODIUM CHLORIDE 0.9% IV 1,000 ML 50 ML IV CONT (21:52)
[2023-05-17 22:00] VITALS: BP 143/59; PULSE 73; RESP 19; TEMP 36.2; O2SAT 97
[2023-05-17] MEDS: ALBUTEROL SULFATE NEB 2.5 MG/3 ML INH INHALATION (22:43)
[2023-05-17] MEDS: IPRATROPIUM BR 0.02% INH SOLN 0.5 MG/2.5 ML VIAL INHALATION (22:43)
[2023-05-17 22:44] VITALS: PULSE 77; RESP 20
[2023-05-17] MEDS: FLUTICASONE/SALMETEROL 230-21 MCG INHALER 1 PUFF 2 PUFF INHALATION (22:44)
[2023-05-18 00:45] LABS: Glucose Point of Care 142 mg/dl (65-105)
[2023-05-18 01:26] LABS: Glucose Point of Care 140 mg/dl (65-105)
[2023-05-18 06:00] VITALS: BP 117/52; PULSE 67; RESP 20; TEMP 36.4; O2SAT 93
[2023-05-18 06:43] LABS: Hematocrit 23.6 % (42.0-52.0); Hemoglobin 7.1 g/dL (14.0-18.0); Immature Platelet Fraction Pct 15.3 % (0.9-11.2); Mean Corpuscular HGB Conc 30.1 g/dl (32-36); Mean Corpuscular Volume 106.3 fl (80-100); Mean Platelet Volume 13.6 fl (7.4-10.4); Platelet Count Result 124 k/mm3 (150-375); Red Blood Count 2.22 M/mm3 (4.6-6.20); White Blood Count 7.9 K/mm3 (4.5-10.0)
[2023-05-18 06:59] LABS: Albumin Level 2.2 g/dL (3.5-5.1); Anion Gap 5 mmol/L (8-16); Blood Urea Nitrogen 43 mg/dL (9-20); Calcium 7.9 mg/dL (8.4-10.2); Carbon Dioxide 21 mmol/L (22-30); Chloride 107 mmol/L (98-107); Estimated CRCL calculation 31 ml/min; Estimated Glomerular Filt Rate 48; Glucose 155 mg/dL (65-110); Phosphorus 2.8 mg/dL (2.5-4.5); Potassium 4.1 mmol/L (3.4-5.0); Sodium 133 mmol/L (137-145)
[2023-05-18 07:25] VITALS: PULSE 86; RESP 18; O2SAT 95
[2023-05-18] MEDS: FLUTICASONE/SALMETEROL 230-21 MCG INHALER 1 PUFF 2 PUFF INHALATION ×2 (07:25→20:41)
[2023-05-18] MEDS: ALBUTEROL SULFATE NEB 2.5 MG/3 ML INH INHALATION ×2 (07:25→20:39)
[2023-05-18] MEDS: IPRATROPIUM BR 0.02% INH SOLN 0.5 MG/2.5 ML VIAL INHALATION ×2 (07:25→20:39)
[2023-05-18 07:35] VITALS: PULSE 84; RESP 18
[2023-05-18 10:09] LABS: Band Neutrophils Percent 3 % (0-6); Eosinophils Absolute Manual 0.15 K/mm3 (0.02-0.5); Eosinophils Percent Manual 2 % (0-4); Lymphocytes Absolute Manual 0.23 K/mm3 (1.1-4.5); Monocytes Absolute Manual 0.23 K/mm3 (0.1-0.90); Monocytes Percent Manual 3 % (3-9); Neutrophils Absolute Manual 7.26 K/mm3 (1.3-6.7); Neutrophils Percent Manual 89 % (46-73); Total Cells Counted 100
[2023-05-18 10:10] LABS: Anisocytosis 2+ (NORMAL); Hypochromasia 1+ (NORMAL); Platelet Estimate Decreased (Adequate); Schistocytes None Seen (NORMAL)
--- NOTE | 2023-05-18 10:10 | PM.PNNEP ---
Progress Note: A&P Assessment and Plan (1) Hypernatremia: Code(s): E87.0 - Hyperosmolality and hypernatremia Status: Acute Assessment and Plan: Resolved. (2) Acute kidney injury: Code(s): N17.9 - Acute kidney failure, unspecified Status: Acute Assessment and Plan: The patient had a creatinine of 3.7 earlier on. the creatinine has fallen to 1.4. Possibly the lower than baseline creatinine is due to bedrest and poor muscle mass. (3) Stage 3b chronic kidney disease (CKD): Code(s): N18.32 - Chronic kidney disease, stage 3b Status: Acute Assessment and Plan: he has chronic kidney disease stage IIIB. His baseline is around 2.0. Today he is 1.4 (4) Essential (primary) hypertension: Code(s): I10 - Essential (primary) hypertension Status: Acute Assessment and Plan: His systolic is running between 110 and 150 Will keep on amlodipine 5 for now. (5) Hyperlipidemia, unspecified: Code(s): E78.5 - Hyperlipidemia, unspecified Status: Acute (6) Hyponatremia: Code(s): E87.1 - Hypo-osmolality and hyponatremia Status: Acute Assessment and Plan: sodium level is a little bit on the low side. Will decrease tube feeding flush and DC IV fluid Subjective Date/time seen: 05/18/23 10:10 Interval history: Tino is resting comfortably in bed, a bit sleepy. NG tube is in place and he is getting his tube feeding Exam Narrative: WDWN in NAD skin no rash head ncat lungs clear bilaterally cor reg no rub or gallop abd BS+ nontender and soft. He has an NG tube in. ext no edema or cyanosis. Objective Data Vital Signs Vital Signs: Vital Signs - 24 hr 05/17/23 14:00 05/17/23 20:00 05/17/23 22:44 Temperature 95.2 F L Pulse Rate 97 97 77 Respiratory Rate 14 14 20 Blood Pressure 111/58 L Pulse Oximetry 97 97 Oxygen Delivery Room Air 05/17/23 22:00 05/18/23 06:00 05/18/23 07:25 Temperature 97.2 F L 97.6 F Pulse Rate 73 67 86 Respiratory Rate 19 20 18 Blood Pressure 143/59 H 117/52 L Pulse Oximetry 97 93 95 Oxygen Delivery Room Air 05/18/23 07:25 05/18/23 07:35 Temperature Pulse Rate 86 84 Respiratory Rate 18 18 Blood Pressure Pulse Oximetry Oxygen Delivery Intake/Output Intake/Output: Intake & Output 05/15/23 05/16/23 05/17/23 05/18/23 23:59 23:59 23:59 23:59 Intake Total 1300 2400 900 1000 Output Total 1500 950 600 400 Balance -200 1450 300 600 Meds/Results Medications: Active Medications Generic Name Dose Route Start Last Admin Trade Name Freq PRN Reason Stop Dose Admin Acetaminophen 650 mg 05/10/23 10:12 05/14/23 05:22 Acetaminophen 650 Mg Suppository RECTAL 650 mg Q6H PRN Administration Mild Pain (1-3) or Fever Albuterol 2.5 mg 05/10/23 20:00 05/18/23 07:25 Albuterol Sulfate Neb 2.5 Mg/3 Ml Inh INHALATION 2.5 mg Q12HRT LUIS ALBERTO Administration Amlodipine Besylate 5 mg 05/16/23 09:00 05/17/23 08:29 Amlodipine Besylate 5 Mg Tablet FEED TUBE Not Given DAILY LUIS ALBERTO Aspirin 81 mg 05/16/23 09:00 05/17/23 08:29 Aspirin 81 Mg Chewable Tablet FEED TUBE Not Given QAM LUIS ALBERTO Clopidogrel Bisulfate 75 mg 05/16/23 09:00 05/17/23 08:29 Clopidogrel Bisulfate 75 Mg Tablet FEED TUBE 06/06/23 08:59 Not Given QAM LUIS ALBEROT Ferrous Sulfate 325 mg 05/15/23 17:00 05/17/23 16:30 Ferrous Sulfate Liquid 325 Mg/7.4 Ml Elixir FEED TUBE 325 mg BID LUIS ALBERTO Administration Hydromorphone HCl 0.3 mg 05/13/23 09:55 05/17/23 13:55 Hydromorphone Hcl Inj (*Crx) 1 Mg/Ml Syr IV PUSH 0.3 mg Q4-6H PRN Administration Pain Sodium Chloride 1,000 mls @ 50 mls/hr 05/17/23 18:55 05/17/23 21:52 Normal Saline Iv IV CONT 50 mls/hr .Q20H LUIS ALBERTO Administration Ipratropium [place] 0.5 mg 05/10/23 20:00 05/18/23 07:25 Ipratropium Br 0.02% Inh Soln 0.5 Mg/2.5 Ml Vial INHALATION 0.5 mg Q12HRT LUIS ALBERTO Adminis
[2023-05-18] MEDS: amLODIPine BESYLATE 5 MG TABLET FEED TUBE (11:20)
[2023-05-18] MEDS: POTASSIUM CHLORIDE 20 MEQ PACKET (FOR LIQUID) 40 MEQ FEED TUBE (11:21)
[2023-05-18] MEDS: ASPIRIN 81 MG CHEWABLE TABLET FEED TUBE (11:21)
[2023-05-18] MEDS: FERROUS SULFATE LIQUID 325 MG/7.4 ML ELIXIR FEED TUBE ×2 (11:21→17:58)
[2023-05-18] MEDS: CLOPIDOGREL BISULFATE 75 MG TABLET FEED TUBE (11:21)
[2023-05-18] MEDS: NICOTINE (*PBKC) 21 MG PATCH 1 PATCH TRANSDERM (11:22)
[2023-05-18 11:48] LABS: Glucose Point of Care 119 mg/dl (65-105)
[2023-05-18 11:56] LABS: Iron 39 ug/dL (49-181)
[2023-05-18 12:19] LABS: Percent Iron Saturation 32 % (20-50)
[2023-05-18 12:54] LABS: Glucose Point of Care 146 mg/dl (65-105)
--- NOTE | 2023-05-18 13:15 | WPDGIPROGNO ---
Progress Note: A&P Assessment and Plan (1) Dysphagia: Code(s): R13.10 - Dysphagia, unspecified Status: Acute Assessment and Plan: from stroke NGT in place family has been hoping that he will have some recovery but I do not think that still able to swallow- will ask speech to evaluate tomorrow, if he fails again then consider PEG later this week (2) Severe protein-calorie malnutrition: Onset Date: Unknown Code(s): E43 - Unspecified severe protein-calorie malnutrition Status: Acute Assessment and Plan: continue enteral tube feeding (3) Acute on chronic kidney failure: Code(s): N17.9 - Acute kidney failure, unspecified; N18.9 - Chronic kidney disease, unspecified Status: Acute Subjective Date/time seen: 05/18/23 13:15 Interval history: no changes, new NGT placed and he is on tube feeding again at 60ml/h Review of Systems Review of Systems: All systems reviewed & are unremarkable except as noted in HPI and below Exam Narrative: General: thin, chronically ill appearing, talking but confused HEENT: Dry mouth mucous membrane Neck: Supple. Respiratory: Lungs are clear to auscultation. Cardiovascular: Regular rate and rhythm with S1-S2. Gastrointestinal: Abdomen is soft, flat, nontender, and nondistended with positive bowel sounds. Skin: Warm and dry. Extremities: No cyanosis, clubbing, or edema. Musculoskeletal: Diffuse muscle atrophy. Neurological: alert and talking but confused, able follow commands. No facial asymmetry. Paralyses of right arm and right leg. Psychiatric: Confused, Anxious Objective Data Vital Signs Vital Signs: Vital Signs - 24 hr 05/17/23 14:00 05/17/23 20:00 05/17/23 22:44 Temperature 95.2 F L Pulse Rate 97 97 77 Respiratory Rate 14 14 20 Blood Pressure 111/58 L Pulse Oximetry 97 97 Oxygen Delivery Room Air 05/17/23 22:00 05/18/23 06:00 05/18/23 07:25 Temperature 97.2 F L 97.6 F Pulse Rate 73 67 86 Respiratory Rate 19 20 18 Blood Pressure 143/59 H 117/52 L Pulse Oximetry 97 93 95 Oxygen Delivery Room Air 05/18/23 07:25 05/18/23 07:35 Temperature Pulse Rate 86 84 Respiratory Rate 18 18 Blood Pressure Pulse Oximetry Oxygen Delivery Intake/Output Intake/Output: Intake & Output 05/15/23 05/16/23 05/17/23 05/18/23 23:59 23:59 23:59 23:59 Intake Total 1300 2400 900 1000 Output Total 1500 950 600 400 Balance -200 1450 300 600 Meds/Results Medications: Active Medications Generic Name Dose Route Start Last Admin Trade Name Freq PRN Reason Stop Dose Admin Acetaminophen 650 mg 05/10/23 10:12 05/14/23 05:22 Acetaminophen 650 Mg Suppository RECTAL 650 mg Q6H PRN Administration Mild Pain (1-3) or Fever Albuterol 2.5 mg 05/10/23 20:00 05/18/23 07:25 Albuterol Sulfate Neb 2.5 Mg/3 Ml Inh INHALATION 2.5 mg Q12HRT LUIS ALBERTO Administration Amlodipine Besylate 5 mg 05/16/23 09:00 05/18/23 11:20 Amlodipine Besylate 5 Mg Tablet FEED TUBE 5 mg DAILY LUIS ALBERTO Administration Aspirin 81 mg 05/16/23 09:00 05/18/23 11:21 Aspirin 81 Mg Chewable Tablet FEED TUBE 81 mg QAM LUIS ALBERTO Administration Clopidogrel Bisulfate 75 mg 05/16/23 09:00 05/18/23 11:21 Clopidogrel Bisulfate 75 Mg Tablet FEED TUBE 06/06/23 08:59 75 mg QAM LUIS ALBERTO Administration Ferrous Sulfate 325 mg 05/15/23 17:00 05/18/23 11:21 Ferrous Sulfate Liquid 325 Mg/7.4 Ml Elixir FEED TUBE 325 mg BID LUIS ALBERTO Administration Hydromorphone HCl 0.3 mg 05/13/23 09:55 05/17/23 13:55 Hydromorphone Hcl Inj (*Crx) 1 Mg/Ml Syr IV PUSH 0.3 mg Q4-6H PRN Administration Pain Ipratropium [place] 0.5 mg 05/10/23 20:00 05/18/23 07:25 Ipratropium Br 0.02% Inh Soln 0.5 Mg/2.5 Ml Vial INHALATION 0.5 mg Q12HRT LUIS ALBERTO Administration Melatonin 5 mg 05/12/23 21:00 05/17/23 21:16 Melatonin 5 Mg Tablet FEED TUBE 5 mg HS LUIS ALBERTO Administration Miconazole Nitrate 1 applic 1
[2023-05-18 13:17] LABS: Folic Acid 4.8 ng/mL (2.76->20)
[2023-05-18 16:08] VITALS: BP 144/60; PULSE 80; RESP 18; TEMP 36.6; O2SAT 91
--- NOTE | 2023-05-18 17:31 | PM.IMPN ---
Progress Note: A&P Assessment and Plan (1) Cerebrovascular accident: Code(s): I63.9 - Cerebral infarction, unspecified Status: Acute (2) Acute kidney injury superimposed on chronic kidney disease: Code(s): N17.9 - Acute kidney failure, unspecified; N18.9 - Chronic kidney disease, unspecified Status: Acute (3) Hematuria: Code(s): R31.9 - Hematuria, unspecified Status: Acute (4) Femoral neck fracture: Qualifiers: Encounter type: subsequent encounter Fracture healing: with routine healing Fracture type: closed Laterality: right Qualified Code(s): S72.001D - Fracture of unspecified part of neck of right femur, subsequent encounter for closed fracture with routine healing Code(s): S72.009A - Fracture of unspecified part of neck of unspecified femur, initial encounter for closed fracture Status: Acute (5) Acute UTI: Code(s): N39.0 - Urinary tract infection, site not specified Status: Acute (6) Community acquired pneumonia: Code(s): J18.9 - Pneumonia, unspecified organism Status: Acute (7) Delirium: Code(s): R41.0 - Disorientation, unspecified Status: Acute Plan (1) Cerebrovascular accident: ?Code(s): I63.9 - Cerebral infarction, unspecified ?Status:?Acute ?Assessment and Plan: Brain CT showed focal geographic hypodensity in left basal ganglia suspicious for age-indeterminate lacunar infarction. Clinically he now has dense right-sided hemiplegia and appears to have had a stroke sometime overnight. He is not a tPA candidate given unknown last known normal and recent, profound anemia. Brain MRI:Focal, late hyperacute or early acute infarct involving the posterior limb of the left internal capsule extending to the left periventricular white matter. carotid Doppler ultrasounds: No significant stenosis Pending echocardiogram Neurology and PT/OT consulted, Stroke management per neurologist, started with Plavix 75 mg daily p.o. Delirium, Patient is more confused, patient tried to pull lines Patient is confused, oriented x3 Multiple factors Likely secondary to acute stroke, infection of UTI Patient is more cooperative and pleasant today without being agitated Continue with soft restraints, ONLY as needed Dysphagia Patient failed swallowing test at bedside Order modified barium swallowing test Keep patient p.o. started nGT tube feeding on 05/12 patient failed swallowing test Consult GI for evaluation, and discussed case with GI, GI agrees NG tube feeding, will perform a swallowing test daily. May consider PEG tube placement in a week, if patient cannot gained function of swallowing Consulted dietitian, start tube feeding, also provide free water 200 mL q.4 hour, discontinue IV fluid 05/13 resume D5W 75ml/h on 05/14 as inadequate free water 05/15: Patient pulled out NG tube, will replace NG tube, and also repeat modified barium swallowing test, patient failed modified barium swallow, will restart NG tube feeding 05/16: Monitor NG tube feeding closely. Will consider PEG tube placement next week after re-evaluation by GI 05/17: Continue with NG tube and monitor closely 05/18: Continue with NG tube, follow-up with speech therapy (2) Acute kidney injury superimposed on chronic kidney disease: ?Code(s): N17.9 - Acute kidney failure, unspecified; N18.9 - Chronic kidney disease, unspecified ?Status:?Acute ?Assessment and Plan: Likely due to dehydration from poor oral intake the last several days. Bladder scan x1 and p.r.n. to rule out urinary retention. BUN creatinine close to baseline Switch from lights Ringer to d5 normal saline IV 100 ml/h because of hyperkalemia, dc 05/13, change to tuble feeding 05/14: start D5 water 100ml/h, repeated lab afternoon showed sodium 150 down from 153 am, potassium 3.7 up from 3.2 am 05/15: Decrease D5 water to 75 mL/hour per hand collator, sodium 147, creatinine 1.9. 04/25
[2023-05-18 18:47] LABS: Glucose Point of Care 147 mg/dl (65-105)
--- NOTE | 2023-05-18 18:53 | PC.NURSE ---
Pt family at the bedside (three different family members at all different times of the day). Each member expressed concern that pt was not being turned, oral care not being provided, ST/OT/PT had not been by to work with him, and that people were writing him off or wanting him to go hospice . The morning family member said that the doctor was wanting to give them more time before they decided if a g-tube was necessary. GI MD by today and asked if they had decided what they wanted to do. I shared with him what family had said. This RN will pass this on to night RN and informed charge of family concerns to be addressed in the AM.
[2023-05-18 20:43] VITALS: PULSE 77; RESP 18
[2023-05-18 20:45] VITALS: BP 162/67; PULSE 73; RESP 15; TEMP 36.4; O2SAT 95
[2023-05-18] MEDS: MELATONIN 5 MG TABLET FEED TUBE (20:52)
[2023-05-18 23:10] LABS: Glucose Point of Care 159 mg/dl (65-105)
[2023-05-19] VITALS (9 sets, daily range): BP systolic 115–158; BP diastolic 42–63; PULSE 68–76; RESP 16–24; TEMP 36.7–37.7; O2SAT 95–98
[2023-05-19 06:08] LABS: Glucose Point of Care 141 mg/dl (65-105)
[2023-05-19] MEDS: ALBUTEROL SULFATE NEB 2.5 MG/3 ML INH INHALATION ×2 (09:11→20:46)
[2023-05-19] MEDS: FLUTICASONE/SALMETEROL 230-21 MCG INHALER 1 PUFF 2 PUFF INHALATION ×2 (09:11→20:47)
[2023-05-19] MEDS: IPRATROPIUM BR 0.02% INH SOLN 0.5 MG/2.5 ML VIAL INHALATION ×2 (09:11→20:47)
[2023-05-19] MEDS: FERROUS SULFATE LIQUID 325 MG/7.4 ML ELIXIR FEED TUBE ×2 (09:18→17:12)
[2023-05-19] MEDS: CYANOCOBALAMIN 1,000 MCG TABLET 1000 MCG PO (09:19)
[2023-05-19] MEDS: ASPIRIN 81 MG CHEWABLE TABLET FEED TUBE (09:19)
[2023-05-19] MEDS: FOLIC ACID 1 MG TABLET PO (09:19)
[2023-05-19] MEDS: POTASSIUM CHLORIDE 20 MEQ PACKET (FOR LIQUID) 40 MEQ FEED TUBE (09:19)
[2023-05-19] MEDS: CLOPIDOGREL BISULFATE 75 MG TABLET FEED TUBE (09:19)
[2023-05-19] MEDS: amLODIPine BESYLATE 5 MG TABLET FEED TUBE (09:19)
[2023-05-19] MEDS: NICOTINE (*PBKC) 21 MG PATCH 1 PATCH TRANSDERM (09:19)
[2023-05-19 09:37] LABS: Basophils Percent Auto 0.4 % (0.2-1.2); Eosinophils Absolute Auto 0.1 K/mm3 (0-0.3); Eosinophils Percent Auto 1.3 % (0-4.4); Hematocrit 25.9 % (42.0-52.0); Hemoglobin 7.8 g/dL (14.0-18.0); Immature Granulocyte Absolute 0.42 K/mm3 (0.00-0.031); Immature Granulocyte Percent A 5.5 % (0-0.5); Lymphocytes Absolute Auto 0.47 K/mm3 (0.9-3.2); Lymphocytes Percent Auto 6.2 % (18.3-44.2); Mean Corpuscular HGB Conc 30.1 g/dl (32-36); Mean Corpuscular Hemoglobin 32.4 pg (26-34); Mean Corpuscular Volume 107.5 fl (80-100); Mean Platelet Volume 12.5 fl (7.4-10.4); Monocytes Absolute Auto 0.5 K/mm3 (0.1-0.6); Monocytes Percent Auto 6.2 % (2.6-8.5); Neutrophils Absolute Auto 6.1 K/mm3 (1.3-6.7); Neutrophils Percent Auto 80.4 % (45.5-73.1); Platelet Count Result 167 k/mm3 (150-375); Red Blood Count 2.41 M/mm3 (4.6-6.20); Red Cell Distribution Width 18.2 % (11.5-14.5); White Blood Count 7.6 K/mm3 (4.5-10.0)
[2023-05-19 09:50] LABS: Albumin Level 2.6 g/dL (3.5-5.1); Anion Gap 7 mmol/L (8-16); Blood Urea Nitrogen 42 mg/dL (9-20); Calcium 8.5 mg/dL (8.4-10.2); Carbon Dioxide 23 mmol/L (22-30); Chloride 107 mmol/L (98-107); Estimated CRCL calculation 35 ml/min; Estimated Glomerular Filt Rate 53; Glucose 154 mg/dL (65-110); Phosphorus 3.5 mg/dL (2.5-4.5); Potassium 4.6 mmol/L (3.4-5.0); Sodium 137 mmol/L (137-145)
--- NOTE | 2023-05-19 10:11 | PCSTNOTE ---
Please refer to the Bedside Swallow Evaluation in the EMR. Please note, silent aspiration cannot be ruled out at bedside.
--- NOTE | 2023-05-19 10:57 | PCNFU ---
Nutrition Follow-Up Complete: Severe protein calorie malnutrition related to reduced appetite and intake as evidenced by family report of poor po intake, noted significant weight loss of -13% x 1 month. Goal: meet estimated needs Pt current nutrition is NPO, tube feeding: Jevity 1.5 @ 60ml/hr = 1980kcals, 84g protein, 1003ml free water. 100ml flushes q 4 hrs Nutrition recommendation: continue with current plan of care. Last recorded weight is 63.4 kg- increased from 53.5kg on admission. Bowel Motility: +BM 05/14 Labs Reviewed: Hgb:7.1, HCT:23.6, alb:2.2, NA:133, BUN:43, Cr:1.4, Glu:141 Meds Noted: zofran, KCL Skin: no skin issues noted Additional Notes: Pt continues on same tube feeding, tolerating well. EMBOSSED OR IMPRESSED LETTERING PAINTER eval today with MBS and recommendation is to remain NPO at this time. Monitor tube feeding, tolerance, wt, labs. Follow up every Thursday and Thursday.
[2023-05-19] MEDS: ACETAMINOPHEN ELIXIR 325 MG/10.15 ML UDC 650 MG PO ×2 (12:58→19:28)
[2023-05-19 13:14] LABS: Glucose Point of Care 136 mg/dl (65-105)
--- NOTE | 2023-05-19 15:09 | WPDGIPROGNO ---
Progress Note: A&P Assessment and Plan (1) Dysphagia: Code(s): R13.10 - Dysphagia, unspecified Status: Acute Assessment and Plan: from stroke NGT in place speech evaluation confirmed that patient won't be able to safely have oral feeding and recommending G-tube family was hoping for a recovery but it has been about 6 days, he will need G-tube evaluation. Dr Burnette is back , will try to get consent from family members if agreeable with plan. (2) Severe protein-calorie malnutrition: Onset Date: Unknown Code(s): E43 - Unspecified severe protein-calorie malnutrition Status: Acute Assessment and Plan: continue enteral tube feeding (3) Acute on chronic kidney failure: Code(s): N17.9 - Acute kidney failure, unspecified; N18.9 - Chronic kidney disease, unspecified Status: Acute Subjective Date/time seen: 05/19/23 15:09 Interval history: no changes, still NGT for tube feeding I talked to speech therapist, patient failed swallowing test at bedside Review of Systems Review of Systems: All systems reviewed & are unremarkable except as noted in HPI and below Exam Narrative: General: thin, chronically ill appearing, talking but confused HEENT: Dry mouth mucous membrane Neck: Supple. Respiratory: Lungs are clear to auscultation. Cardiovascular: Regular rate and rhythm with S1-S2. Gastrointestinal: Abdomen is soft, flat, nontender, and nondistended with positive bowel sounds. Skin: Warm and dry. Extremities: No edema. Musculoskeletal: Diffuse muscle atrophy. Neurological: alert and talking but confused, able follow commands. No facial asymmetry. Right hemiparesis unchanged. Psychiatric: Confused, Anxious Objective Data Vital Signs Vital Signs: Vital Signs - 24 hr 05/18/23 16:08 05/18/23 20:43 05/18/23 20:45 Temperature 97.8 F 97.5 F L Pulse Rate 80 77 73 Respiratory Rate 18 18 15 Blood Pressure 144/60 H 162/67 H Pulse Oximetry 91 95 Oxygen Delivery 05/19/23 06:00 05/19/23 09:14 05/19/23 09:15 Temperature 98.0 F Pulse Rate 72 72 Respiratory Rate 16 20 Blood Pressure 158/62 H Pulse Oximetry 96 98 Oxygen Delivery Room Air 05/19/23 09:25 05/19/23 09:10 Temperature Pulse Rate 70 Respiratory Rate 20 Blood Pressure Pulse Oximetry Oxygen Delivery Room Air Intake/Output Intake/Output: Intake & Output 05/16/23 05/17/23 05/18/23 05/19/23 23:59 23:59 23:59 23:59 Intake Total 2400 900 1000 Output Total 917 759 9011 900 Balance 1450 300 -50 -900 Meds/Results Medications: Active Medications Generic Name Dose Route Start Last Admin Trade Name Freq PRN Reason Stop Dose Admin Acetaminophen 650 mg 05/19/23 12:32 05/19/23 12:58 Acetaminophen Elixir 325 Mg/10.15 Ml Udc PO 650 mg Q6H PRN Administration Mild Pain (1-3) or Fever Albuterol 2.5 mg 05/10/23 20:00 05/19/23 09:11 Albuterol Sulfate Neb 2.5 Mg/3 Ml Inh INHALATION 2.5 mg Q12HRT LUIS ALBERTO Administration Amlodipine Besylate 5 mg 05/16/23 09:00 05/19/23 09:19 Amlodipine Besylate 5 Mg Tablet FEED TUBE 5 mg DAILY LUIS ALBERTO Administration Aspirin 81 mg 05/16/23 09:00 05/19/23 09:19 Aspirin 81 Mg Chewable Tablet FEED TUBE 81 mg QAM LUIS ALBERTO Administration Clopidogrel Bisulfate 75 mg 05/16/23 09:00 05/19/23 09:19 Clopidogrel Bisulfate 75 Mg Tablet FEED TUBE 06/06/23 08:59 75 mg QAM LUIS ALBERTO Administration Cyanocobalamin 1,000 mcg 05/19/23 09:00 05/19/23 09:19 Cyanocobalamin 1,000 Mcg Tablet PO 1,000 mcg QAM LUIS ALBERTO Administration Ferrous Sulfate 325 mg 05/15/23 17:00 05/19/23 09:18 Ferrous Sulfate Liquid 325 Mg/7.4 Ml Elixir FEED TUBE 325 mg BID LUIS ALBERTO Administration Folic Acid 1 mg 05/19/23 09:00 05/19/23 09:19 Folic Acid 1 Mg Tablet PO 1 mg DAILY LUIS ALBERTO Administration Hydromorphone HCl 0.3 mg 05/13/23 09:55 05/17/23 13:55 Hydromorphone Hcl Inj (*Crx) 1 Mg/Ml Syr IV PUSH 0.3
--- NOTE | 2023-05-19 15:13 | PM.PNNEP ---
Progress Note: A&P Assessment and Plan (1) Hypernatremia: Code(s): E87.0 - Hyperosmolality and hypernatremia Status: Acute Assessment and Plan: Resolved. (2) Acute kidney injury: Code(s): N17.9 - Acute kidney failure, unspecified Status: Acute Assessment and Plan: The patient had a creatinine of 3.7 earlier on. the creatinine has fallen to 1.3. This is his baseline. Renal will sign off. (3) Stage 3b chronic kidney disease (CKD): Code(s): N18.32 - Chronic kidney disease, stage 3b Status: Acute Assessment and Plan: he has chronic kidney disease stage IIIB. His baseline is around 2.0. Today he is 1.4 (4) Essential (primary) hypertension: Code(s): I10 - Essential (primary) hypertension Status: Acute Assessment and Plan: His systolic is running between 110 and 150 Will keep on amlodipine 5 for now. (5) Hyperlipidemia, unspecified: Code(s): E78.5 - Hyperlipidemia, unspecified Status: Acute (6) Hyponatremia: Code(s): E87.1 - Hypo-osmolality and hyponatremia Status: Acute Assessment and Plan: sodium level is a little bit on the low side. Will decrease tube feeding flush and DC IV fluid Subjective Date/time seen: 05/19/23 15:13 Interval history: patient is awake not very oriented. Exam Narrative: WDWN in NAD skin no rash head ncat lungs clear cor reg no rub or gallop abd BS+ nontender and soft. He has an NG tube in. ext no edema Objective Data Vital Signs Vital Signs: Vital Signs - 24 hr 05/18/23 16:08 05/18/23 20:43 05/18/23 20:45 Temperature 97.8 F 97.5 F L Pulse Rate 80 77 73 Respiratory Rate 18 18 15 Blood Pressure 144/60 H 162/67 H Pulse Oximetry 91 95 Oxygen Delivery 05/19/23 06:00 05/19/23 09:14 05/19/23 09:15 Temperature 98.0 F Pulse Rate 72 72 Respiratory Rate 16 20 Blood Pressure 158/62 H Pulse Oximetry 96 98 Oxygen Delivery Room Air 05/19/23 09:25 05/19/23 09:10 Temperature Pulse Rate 70 Respiratory Rate 20 Blood Pressure Pulse Oximetry Oxygen Delivery Room Air Intake/Output Intake/Output: Intake & Output 05/16/23 05/17/23 05/18/23 05/19/23 23:59 23:59 23:59 23:59 Intake Total 2400 900 1000 Output Total 962 358 7991 900 Balance 1450 300 -50 -900 Meds/Results Medications: Active Medications Generic Name Dose Route Start Last Admin Trade Name Freq PRN Reason Stop Dose Admin Acetaminophen 650 mg 05/19/23 12:32 05/19/23 12:58 Acetaminophen Elixir 325 Mg/10.15 Ml Udc PO 650 mg Q6H PRN Administration Mild Pain (1-3) or Fever Albuterol 2.5 mg 05/10/23 20:00 05/19/23 09:11 Albuterol Sulfate Neb 2.5 Mg/3 Ml Inh INHALATION 2.5 mg Q12HRT LUIS ALBERTO Administration Amlodipine Besylate 5 mg 05/16/23 09:00 05/19/23 09:19 Amlodipine Besylate 5 Mg Tablet FEED TUBE 5 mg DAILY LUIS ALBERTO Administration Aspirin 81 mg 05/16/23 09:00 05/19/23 09:19 Aspirin 81 Mg Chewable Tablet FEED TUBE 81 mg QAM LUIS ALBERTO Administration Clopidogrel Bisulfate 75 mg 05/16/23 09:00 05/19/23 09:19 Clopidogrel Bisulfate 75 Mg Tablet FEED TUBE 06/06/23 08:59 75 mg QAM LUIS ALBERTO Administration Cyanocobalamin 1,000 mcg 05/19/23 09:00 05/19/23 09:19 Cyanocobalamin 1,000 Mcg Tablet PO 1,000 mcg QAM LUIS ALBERTO Administration Ferrous Sulfate 325 mg 05/15/23 17:00 05/19/23 09:18 Ferrous Sulfate Liquid 325 Mg/7.4 Ml Elixir FEED TUBE 325 mg BID LUIS ALBERTO Administration Folic Acid 1 mg 05/19/23 09:00 05/19/23 09:19 Folic Acid 1 Mg Tablet PO 1 mg DAILY LUIS ALBERTO Administration Hydromorphone HCl 0.3 mg 05/13/23 09:55 05/17/23 13:55 Hydromorphone Hcl Inj (*Crx) 1 Mg/Ml Syr IV PUSH 0.3 mg Q4-6H PRN Administration Pain Ipratropium [place] 0.5 mg 05/10/23 20:00 05/19/23 09:11 Ipratropium Br 0.02% Inh Soln 0.5 Mg/2.5 Ml Vial INHALATION 0.5 mg Q12HRT LUIS ALBERTO Administrat
--- NOTE | 2023-05-19 18:19 | P.PNIM_ITS ---
Progress Note: A&P Assessment and Plan (1) Cerebrovascular accident: Code(s): I63.9 - Cerebral infarction, unspecified Status: Acute (2) Acute kidney injury superimposed on chronic kidney disease: Code(s): N17.9 - Acute kidney failure, unspecified; N18.9 - Chronic kidney disease, unspecified Status: Acute (3) Hematuria: Code(s): R31.9 - Hematuria, unspecified Status: Acute (4) Femoral neck fracture: Qualifiers: Encounter type: subsequent encounter Fracture healing: with routine healing Fracture type: closed Laterality: right Qualified Code(s): S72.001D - Fracture of unspecified part of neck of right femur, subsequent encounter for closed fracture with routine healing Code(s): S72.009A - Fracture of unspecified part of neck of unspecified femur, initial encounter for closed fracture Status: Acute (5) Acute UTI: Code(s): N39.0 - Urinary tract infection, site not specified Status: Acute (6) Community acquired pneumonia: Code(s): J18.9 - Pneumonia, unspecified organism Status: Acute (7) Delirium: Code(s): R41.0 - Disorientation, unspecified Status: Acute Plan (1) Cerebrovascular accident: ?Code(s): I63.9 - Cerebral infarction, unspecified ?Status:?Acute ?Assessment and Plan: Brain CT showed focal geographic hypodensity in left basal ganglia suspicious for age-indeterminate lacunar infarction. Clinically he now has dense right-sided hemiplegia and appears to have had a stroke sometime overnight. He is not a tPA candidate given unknown last known normal and recent, profound anemia. Brain MRI:Focal, late hyperacute or early acute infarct involving the posterior limb of the left internal capsule extending to the left periventricular white matter. carotid Doppler ultrasounds: No significant stenosis Pending echocardiogram Neurology and PT/OT consulted, Stroke management per neurologist, started with Plavix 75 mg daily p.o. Confusion and delirium, Patient is more confused, patient tried to pull lines Patient is confused, oriented x3 Multiple factors Likely secondary to acute stroke, infection of UTI Patient is more cooperative and pleasant today without being agitated Continue with soft restraints, ONLY as needed Dysphagia Patient failed swallowing test at bedside Order modified barium swallowing test Keep patient p.o. started nGT tube feeding on 05/12 patient failed swallowing test Consult GI for evaluation, and discussed case with GI, GI agrees NG tube feeding, will perform a swallowing test daily. May consider PEG tube placement in a week, if patient cannot gained function of swallowing Consulted dietitian, start tube feeding, also provide free water 200 mL q.4 hour, discontinue IV fluid 05/13 resume D5W 75ml/h on 05/14 as inadequate free water 05/15: Patient pulled out NG tube, will replace NG tube, and also repeat modified barium swallowing test, patient failed modified barium swallow, will restart NG tube feeding 05/16: Monitor NG tube feeding closely. Will consider PEG tube placement next week after re-evaluation by GI 05/17: Continue with NG tube and monitor closely 05/18: Continue with NG tube, follow-up with speech therapy 05/19: GI followed up with patient. Starting workup for PEG tube placement. Spoke with speech therapy in detail (2) Acute kidney injury superimposed on chronic kidney disease: ?Code(s): N17.9 - Acute kidney failure, unspecified; N18.9 - Chronic kidney disease, unsp ecified ?Status:?Acute ?Assess
[2023-05-19] MEDS: MELATONIN 5 MG TABLET FEED TUBE (21:06)
[2023-05-19] MEDS: HYDROmorphone HCL INJ (*CRX) 1 MG/ML SYR 0.3 MG IV PUSH (22:54)
[2023-05-20] VITALS (11 sets, daily range): BP systolic 120–151; BP diastolic 51–68; PULSE 70–80; RESP 16–28; TEMP 36.3–37.2; O2SAT 90–99
[2023-05-20 00:02] LABS: Glucose Point of Care 107 mg/dl (65-105)
[2023-05-20 06:17] LABS: Glucose Point of Care 131 mg/dl (65-105)
[2023-05-20 06:43] LABS: Mean Corpuscular HGB Conc 30.4 g/dl (32-36); Mean Corpuscular Hemoglobin 32.6 pg (26-34); Mean Corpuscular Volume 107.4 fl (80-100); Mean Platelet Volume 12.3 fl (7.4-10.4); Platelet Count Result 154 k/mm3 (150-375); Red Cell Distribution Width 18.2 % (11.5-14.5); White Blood Count 7.1 K/mm3 (4.5-10.0)
[2023-05-20 06:46] LABS: Anion Gap 3 mmol/L (8-16); Blood Urea Nitrogen 45 mg/dL (9-20); Calcium 8.3 mg/dL (8.4-10.2); Carbon Dioxide 25 mmol/L (22-30); Chloride 109 mmol/L (98-107); Estimated CRCL calculation 32 ml/min; Estimated Glomerular Filt Rate 48; Glucose 132 mg/dL (65-110); Potassium 5.1 mmol/L (3.4-5.0); Sodium 137 mmol/L (137-145)
[2023-05-20 07:45] LABS: Hematocrit 20.4 % (42.0-52.0); Hemoglobin 6.2 g/dL (14.0-18.0)
[2023-05-20 08:01] LABS: Band Neutrophils Percent 11 % (0-6); Eosinophils Absolute Manual 0.07 K/mm3 (0.02-0.5); Eosinophils Percent Manual 1 % (0-4); Lymphocytes Absolute Manual 0.78 K/mm3 (1.1-4.5); Monocytes Absolute Manual 0.56 K/mm3 (0.1-0.90); Monocytes Percent Manual 8 % (3-9); Myelocytes Percent 1 %; Neutrophils Percent Manual 68 % (46-73); Platelet Estimate Adequate (Adequate); Total Cells Counted 100
[2023-05-20 08:02] LABS: Hypochromasia 1+ (NORMAL); Macrocytosis 1+ (NORMAL); Schistocytes None Seen (NORMAL)
--- NOTE | 2023-05-20 10:00 | PCOTNOTE ---
Per RN, Patient's blood count is low and states no therapy this A.M., try back this afternoon.
[2023-05-20] MEDS: CYANOCOBALAMIN 1,000 MCG TABLET 1000 MCG PO (10:11)
[2023-05-20] MEDS: FOLIC ACID 1 MG TABLET PO (10:12)
[2023-05-20] MEDS: ASPIRIN 81 MG CHEWABLE TABLET FEED TUBE (10:12)
[2023-05-20] MEDS: amLODIPine BESYLATE 5 MG TABLET FEED TUBE (10:12)
[2023-05-20] MEDS: CLOPIDOGREL BISULFATE 75 MG TABLET FEED TUBE (10:12)
[2023-05-20] MEDS: NICOTINE (*PBKC) 21 MG PATCH 1 PATCH TRANSDERM (10:13)
--- NOTE | 2023-05-20 11:12 | PCRCNOTE ---
Window of time for administration has passed. See next scheduled administration.
--- NOTE | 2023-05-20 11:55 | WPDGIPROGNO ---
Progress Note: A&P Assessment and Plan (1) Dysphagia: Code(s): R13.10 - Dysphagia, unspecified Status: Acute Assessment and Plan: from stroke NGT in place speech evaluation confirmed that patient won't be able to safely have oral feeding and recommending G-tube family was hoping for a recovery but it has been about 6 days, he will need G-tube evaluation. Dr Burnette is back , will try to get consent from family members if agreeable with plan. I spoke with the patient this morning. He has tube feedings going per NG tube. He had that he was under the impression his G-tube was going to be placed today. Unfortunately because he is being fed that is not possible. All I reassured him that I will be done tomorrow. (2) Severe protein-calorie malnutrition: Onset Date: Unknown Code(s): E43 - Unspecified severe protein-calorie malnutrition Status: Acute Assessment and Plan: Because he failed the swallow evaluation/ MBS he will need G-tube for feedings. (3) Acute on chronic kidney failure: Code(s): N17.9 - Acute kidney failure, unspecified; N18.9 - Chronic kidney disease, unspecified Status: Acute Plan Percutaneous gastrostomy tomorrow. Subjective Date/time seen: 05/20/23 11:55 the patient states that he has consented to G-tube. He had was under the impression that was going to be done today. Dr. Duran, signing out to me last night stated that it was set up to be done by Dr. Burnette on . I told the patient that we will make certain that it is done tomorrow. Review of Systems Review of Systems: All systems reviewed & are unremarkable except as noted in HPI and below Exam Const: General: alert Orientation/consciousness: patient oriented x3 Resp: Auscultation: clear to auscultation bilaterally Cardio: Rhythm: regular rhythm GI: GI Palp: Yes Soft to palpation and No Tenderness to palpation present (GI) Neuro: General: patient oriented x3 Objective Data Vital Signs Vital Signs: Vital Signs - 24 hr 05/19/23 14:00 05/19/23 20:49 05/19/23 20:57 Temperature 36.7 C Pulse Rate 68 70 71 Respiratory Rate 24 H 16 16 Blood Pressure 115/63 Pulse Oximetry 97 Oxygen Delivery 05/19/23 20:00 05/19/23 20:00 05/19/23 21:07 Temperature 36.7 C 37.7 C H Pulse Rate 71 71 76 Respiratory Rate 16 16 16 Blood Pressure 115/63 126/42 L Pulse Oximetry 97 97 95 Oxygen Delivery Room Air 05/20/23 04:22 Temperature 37.2 C Pulse Rate 73 Respiratory Rate 16 Blood Pressure 120/51 L Pulse Oximetry 98 Oxygen Delivery Intake/Output Intake/Output: Intake & Output 05/17/23 05/18/23 05/19/23 05/20/23 23:59 23:59 23:59 23:59 Intake Total 900 1000 1120 Output Total 600 1050 1700 250 Balance 300 -54 -580 -250 Meds/Results Medications: Active Medications Generic Name Dose Route Start Last Admin Trade Name Freq PRN Reason Stop Dose Admin Acetaminophen 650 mg 05/19/23 12:32 05/19/23 19:28 Acetaminophen Elixir 325 Mg/10.15 Ml Udc PO 650 mg Q6H PRN Administration Mild Pain (1-3) or Fever Albuterol 2.5 mg 05/10/23 20:00 05/20/23 11:10 Albuterol Sulfate Neb 2.5 Mg/3 Ml Inh INHALATION Not Given Q12HRT [facility] Amlodipine Besylate 5 mg 05/16/23 09:00 05/20/23 10:12 Amlodipine Besylate 5 Mg Tablet FEED TUBE 5 mg DAILY LUIS ALBERTO Administration Aspirin 81 mg 05/16/23 09:00 05/20/23 10:12 Aspirin 81 Mg Chewable Tablet FEED TUBE 81 mg QAM LUIS ALBERTO Administration Clopidogrel Bisulfate 75 mg 05/16/23 09:00 05/20/23 10:12 Clopidogrel Bisulfate 75 Mg Tablet FEED TUBE 06/06/23 08:59 75 mg QAM LUIS ALBERTO Administration Cyanocobalamin 1,000 mcg 05/19/23 09:00 05/20/23 10:11 Cyanocobalamin 1,000 Mcg Tablet PO 1,000 mcg QAM LUIS ALBERTO Administration Ferrous Sulfate 325 mg 05/15/23 17:00 05/19/23 17:12 Ferrous Sulfate Liquid 325 Mg/7.4 Ml Elixir FEED TUBE 325 mg BID LUIS ALBERTO Administration Fo
[2023-05-20 11:59] LABS: Glucose Point of Care 111 mg/dl (65-105)
[2023-05-20] MEDS: ACETAMINOPHEN ELIXIR 325 MG/10.15 ML UDC 650 MG PO (13:55)
[2023-05-20] MEDS: FERROUS SULFATE LIQUID 325 MG/7.4 ML ELIXIR FEED TUBE (16:18)
--- NOTE | 2023-05-20 16:53 | PM.IMPN ---
Progress Note: A&P Assessment and Plan (1) Cerebrovascular accident: Code(s): I63.9 - Cerebral infarction, unspecified Status: Acute (2) Acute kidney injury superimposed on chronic kidney disease: Code(s): N17.9 - Acute kidney failure, unspecified; N18.9 - Chronic kidney disease, unspecified Status: Acute (3) Hematuria: Code(s): R31.9 - Hematuria, unspecified Status: Acute (4) Femoral neck fracture: Qualifiers: Encounter type: subsequent encounter Fracture healing: with routine healing Fracture type: closed Laterality: right Qualified Code(s): S72.001D - Fracture of unspecified part of neck of right femur, subsequent encounter for closed fracture with routine healing Code(s): S72.009A - Fracture of unspecified part of neck of unspecified femur, initial encounter for closed fracture Status: Acute (5) Acute UTI: Code(s): N39.0 - Urinary tract infection, site not specified Status: Acute (6) Community acquired pneumonia: Code(s): J18.9 - Pneumonia, unspecified organism Status: Acute (7) Delirium: Code(s): R41.0 - Disorientation, unspecified Status: Acute Plan (1) Cerebrovascular accident: ?Code(s): I63.9 - Cerebral infarction, unspecified ?Status:?Acute ?Assessment and Plan: Brain CT showed focal geographic hypodensity in left basal ganglia suspicious for age-indeterminate lacunar infarction. Clinically he now has dense right-sided hemiplegia and appears to have had a stroke sometime overnight. He is not a tPA candidate given unknown last known normal and recent, profound anemia. Brain MRI:Focal, late hyperacute or early acute infarct involving the posterior limb of the left internal capsule extending to the left periventricular white matter. carotid Doppler ultrasounds: No significant stenosis Pending echocardiogram Neurology and PT/OT consulted, Stroke management per neurologist, started with Plavix 75 mg daily p.o. Confusion and delirium, Patient is more confused, patient tried to pull lines Patient is confused, oriented x3 Multiple factors Likely secondary to acute stroke, infection of UTI Patient is more cooperative and pleasant today without being agitated Continue with soft restraints, ONLY as needed Dysphagia Patient failed swallowing test at bedside Order modified barium swallowing test Keep patient p.o. started nGT tube feeding on 05/12 patient failed swallowing test Consult GI for evaluation, and discussed case with GI, GI agrees NG tube feeding, will perform a swallowing test daily. May consider PEG tube placement in a week, if patient cannot gained function of swallowing Consulted dietitian, start tube feeding, also provide free water 200 mL q.4 hour, discontinue IV fluid 05/13 resume D5W 75ml/h on 05/14 as inadequate free water 05/15: Patient pulled out NG tube, will replace NG tube, and also repeat modified barium swallowing test, patient failed modified barium swallow, will restart NG tube feeding 05/16: Monitor NG tube feeding closely. Will consider PEG tube placement next week after re-evaluation by GI 05/17: Continue with NG tube and monitor closely 05/18: Continue with NG tube, follow-up with speech therapy 05/19: GI followed up with patient. Starting workup for PEG tube placement. Spoke with speech therapy in detail 05/20: Patient going for PEG tube placement tomorrow (2) Acute kidney injury superimposed on chronic kidney disease: ?Code(s): N17.9 - Acute kidney failure, unspecified; N18.9 - Chronic kidney disease, unspecified ?Status:?Acute ?Assessment and Plan: Likely due to dehydration from poor oral intake the last several days. Bladder scan x1 and p.r.n. to rule out urinary retention. BUN creatinine close to baseline Switch from lights Ringer to d5 normal saline IV 100 ml/h because of hyperkalemia, dc 05/13, change to tuble feeding 05/14: start D5 water 100ml/h, r
[2023-05-20 17:42] LABS: Glucose Point of Care 117 mg/dl (65-105)
[2023-05-20 20:17] LABS: Hematocrit 25.2 % (42.0-52.0); Hemoglobin 7.8 g/dL (14.0-18.0)
[2023-05-20] MEDS: FLUTICASONE/SALMETEROL 230-21 MCG INHALER 1 PUFF 2 PUFF INHALATION (21:35)
[2023-05-20] MEDS: IPRATROPIUM BR 0.02% INH SOLN 0.5 MG/2.5 ML VIAL INHALATION (21:35)
[2023-05-20] MEDS: ALBUTEROL SULFATE NEB 2.5 MG/3 ML INH INHALATION (21:35)
[2023-05-20] MEDS: MELATONIN 5 MG TABLET FEED TUBE (22:14)
[2023-05-21] VITALS (10 sets, daily range): BP systolic 78–194; BP diastolic 40–92; PULSE 58–82; RESP 14–20; TEMP 36.2–36.6; O2SAT 96–100
[2023-05-21 01:02] LABS: Glucose Point of Care 110 mg/dl (65-105)
[2023-05-21 01:52] LABS: IFOB Positive Control Positive; Immunochemical Fecal Occult Bl Negative (N)
[2023-05-21 06:43] LABS: Basophils Absolute Auto 0.1 K/mm3 (0.0-0.1); Basophils Percent Auto 1.3 % (0.2-1.2); Eosinophils Absolute Auto 0.1 K/mm3 (0-0.3); Eosinophils Percent Auto 1.4 % (0-4.4); Hematocrit 27.1 % (42.0-52.0); Hemoglobin 8.4 g/dL (14.0-18.0); Immature Granulocyte Absolute 0.69 K/mm3 (0.00-0.031); Immature Granulocyte Percent A 7.3 % (0-0.5); Lymphocytes Absolute Auto 0.66 K/mm3 (0.9-3.2); Lymphocytes Percent Auto 6.9 % (18.3-44.2); Mean Corpuscular Hemoglobin 31.1 pg (26-34); Mean Corpuscular Volume 100.4 fl (80-100); Mean Platelet Volume 11.6 fl (7.4-10.4); Monocytes Absolute Auto 0.8 K/mm3 (0.1-0.6); Monocytes Percent Auto 8.3 % (2.6-8.5); Neutrophils Absolute Auto 7.1 K/mm3 (1.3-6.7); Neutrophils Percent Auto 74.8 % (45.5-73.1); Platelet Count Result 221 k/mm3 (150-375); Red Cell Distribution Width 22.8 % (11.5-14.5); White Blood Count 9.5 K/mm3 (4.5-10.0)
--- NOTE | 2023-05-21 07:00 | PC.NURSE ---
Spoke with Dr. Ervin at this time r/t BP 194/92 HR 77. New orders received to give hydralazine 10 mg IVP one time.
[2023-05-21 07:01] LABS: Anion Gap 4 mmol/L (8-16); Blood Urea Nitrogen 50 mg/dL (9-20); Calcium 8.8 mg/dL (8.4-10.2); Carbon Dioxide 23 mmol/L (22-30); Chloride 111 mmol/L (98-107); Estimated CRCL calculation 34 ml/min; Estimated Glomerular Filt Rate 53; Glucose 98 mg/dL (65-110); Potassium 5.6 mmol/L (3.4-5.0); Sodium 138 mmol/L (137-145)
[2023-05-21] MEDS: hydrALAZINE HCL 20 MG/ML VIAL 10 MG IV PUSH (07:21)
[2023-05-21 07:26] LABS: Glucose Point of Care 72 mg/dl (65-105)
[2023-05-21] MEDS: ALBUTEROL SULFATE NEB 2.5 MG/3 ML INH INHALATION ×2 (07:48→21:35)
[2023-05-21] MEDS: IPRATROPIUM BR 0.02% INH SOLN 0.5 MG/2.5 ML VIAL INHALATION ×2 (07:48→21:35)
[2023-05-21] MEDS: FLUTICASONE/SALMETEROL 230-21 MCG INHALER 1 PUFF 2 PUFF INHALATION ×2 (07:58→21:35)
[2023-05-21 08:15] LABS: Anisocytosis 2+ (NORMAL); Platelet Estimate Adequate (Adequate)
[2023-05-21 08:16] LABS: Schistocytes None Seen (NORMAL)
[2023-05-21 09:24] LABS: IFOB Positive Control Positive; Immunochemical Fecal Occult Bl Positive (N)
[2023-05-21] MEDS: DEXTROSE 5% 1,000 ML 1,000 ML 100 ML IVPB (10:01)
[2023-05-21] MEDS: SODIUM ZIRCONIUM CYCLOSILICATE 5 GM POWD.PACK PO (10:01)
[2023-05-21 10:43] LABS: Glucose Point of Care 87 mg/dl (65-105)
[2023-05-21] MEDS: NICOTINE (*PBKC) 21 MG PATCH 1 PATCH TRANSDERM (11:07)
[2023-05-21 11:40] LABS: Glucose Point of Care 104 mg/dl (65-105)
[2023-05-21 11:40] LABS: IFOB Positive Control Positive; Immunochemical Fecal Occult Bl Negative (N)
--- NOTE | 2023-05-21 14:12 | WPDANESEPPF ---
Anes - Initial Pre Proc Eval Procedure: Operation Date: 05/21/23 14:30 Proposed Procedures p Percutaneous Endoscopic Gastrostomy - Prabhjot Burnette MD Date/Time: 05/21/23 14:12 Surgeon: Eugene Ervin MD Pre Op Diagnosis: UTI, Head Injury, Generalized Weakness, ERENDIRA on CKD Patient Data Age: 83 Gender: M Height: 1.8 m Weight: 57.4 kg Last Vital Signs Temp 97.6 F 05/21/23 06:00 Pulse 77 05/21/23 08:12 Resp 16 05/21/23 08:00 BP 135/64 05/21/23 08:12 Pulse Ox 96 05/21/23 08:12 O2 Del Method Room Air 05/21/23 07:49 O2 Flow Rate 2 05/11/23 11:38 FiO2 21 05/21/23 07:49 Allergies Allergy/AdvReac Type Severity Reaction Status Date / Time simvastatin Allergy Unknown Muscle pain Verified 05/21/23 14:06 Penicillins Allergy Unknown Verified 05/21/23 14:06 Home Medications Medication Instructions Recorded Confirmed Type acetaminophen 500 mg capsule 500 mg PO Q6H PRN pain #90 caps 04/21/23 05/21/23 Rx nicotine 21 mg/24 hr daily 1 patch transdermal DAILY #28 ea 05/05/23 05/21/23 Rx transdermal patch amlodipine 5 mg tablet (Norvasc) 5 mg PO DAILY #90 tabs 05/06/23 05/21/23 Rx ferrous sulfate 325 mg (65 mg 325 mg PO BID 05/10/23 05/21/23 History iron) tablet fluticasone 500 mcg-salmeterol 50 1 inh inhalation Q12H Shortness Of 05/10/23 05/21/23 History mcg/dose blistr powdr for Breath inhalation (Wixela Inhub) ipratropium 0.5 mg-albuterol 3 mg 3 ml inhalation BID wheezing 05/10/23 05/21/23 History (2.5 mg base)/3 mL nebulization soln sertraline 25 mg tablet (Zoloft) 25 mg PO DAILY 05/10/23 05/21/23 History Laboratory Tests 05/20/23 05/20/23 05/20/23 08:24 17:36 20:07 WBC RBC Hgb 7.8 L g/dL (14.0-18.0) Hct 25.2 L % (42.0-52.0) MCV MCH MCHC RDW Plt Count MPV Immature Gran % (Auto) Neut % (Auto) Lymph % (Auto) [place] % (Auto) Eos % (Auto) Baso % (Auto) Lymph # (Auto) [place] # (Auto) Eos # (Auto) Baso # (Auto) Abs Immat Gran (auto) Absolute Neuts (auto) Absolute Nucleated RBC Nucleated RBC % Platelet Estimate Anisocytosis Schistocytes Sodium Potassium Chloride Carbon Dioxide Anion Gap BUN Creatinine Estim Creat Clear Calc Estimated GFR Glucose POC Capillary Glucose 117 H mg/dl (65-105) Calcium Stl Occult Blood (IFOB) Crossmatch See Detail 05/21/23 05/21/23 05/21/23 00:04 00:58 06:05 WBC 9.5 K/mm3 (4.5-10.0) RBC 2.70 L M/mm3 (4.6-6.20) Hgb 8.4 L g/dL (14.0-18.0) Hct 27.1 L % (42.0-52.0) MCV 100.4 H D fl (80-100) MCH 31.1 pg (26-34) MCHC 31.0 L g/dl (32-36) RDW 22.8 H % (11.5-14.5) Plt Count 221 k/mm3 (150-375) MPV 11.6 H fl (7.4-10.4) Immature Gran % (Auto) 7.3 H % (0-0.5) Neut % (Auto) 74.8 H % (45.5-73.1) Lymph % (Auto) 6.9 L % (18.3-44.2) [place] % (Auto) 8.3 % (2.6-8.5) Eos % (Auto) 1.4 % (0-4.4) Baso % (Auto) 1.3 H % (0.2-1.2) Lymph # (Auto) 0.66 L K/mm3 (0.9-3.2) [place] # (Auto) 0.8 H K/mm3 (0.1-0.6) Eos # (Auto) 0.1 K/mm3 (0-0.3) Baso # (Auto) 0.1 K/mm3 (0.0-0.1) Abs Immat Gran (auto) 0.69 H K/mm3 (0.00-0.031) Absolute Neuts (auto) 7.1 H K/mm3 (1.3-6.7) Absolute Nucleated RBC 0.0 K/mm3 (0.0-0.012) Nucleated RBC % 0.0 % (0.0-0.2) Platelet Estimate Adequate (Adequate)
[2023-05-21] MEDS: LACTATED RINGERS 1,000 ML 100 ML IV CONT (14:17)
[2023-05-21] MEDS: VANCOMYCIN 1,000 MG/NS 250 ML BAG 250 MG IVPB (14:23)
[2023-05-21 15:07] LABS: Glucose Point of Care 93 mg/dl (65-105)
[2023-05-21 18:23] LABS: Glucose Point of Care 125 mg/dl (65-105)
--- NOTE | 2023-05-21 20:10 | PM.IMPN ---
Progress Note: A&P Assessment and Plan (1) Cerebrovascular accident: Code(s): I63.9 - Cerebral infarction, unspecified Status: Acute (2) Acute kidney injury superimposed on chronic kidney disease: Code(s): N17.9 - Acute kidney failure, unspecified; N18.9 - Chronic kidney disease, unspecified Status: Acute (3) Hematuria: Code(s): R31.9 - Hematuria, unspecified Status: Acute (4) Femoral neck fracture: Qualifiers: Encounter type: subsequent encounter Fracture healing: with routine healing Fracture type: closed Laterality: right Qualified Code(s): S72.001D - Fracture of unspecified part of neck of right femur, subsequent encounter for closed fracture with routine healing Code(s): S72.009A - Fracture of unspecified part of neck of unspecified femur, initial encounter for closed fracture Status: Acute (5) Acute UTI: Code(s): N39.0 - Urinary tract infection, site not specified Status: Acute (6) Community acquired pneumonia: Code(s): J18.9 - Pneumonia, unspecified organism Status: Acute (7) Delirium: Code(s): R41.0 - Disorientation, unspecified Status: Acute Plan (1) Cerebrovascular accident: ?Code(s): I63.9 - Cerebral infarction, unspecified ?Status:?Acute ?Assessment and Plan: Brain CT showed focal geographic hypodensity in left basal ganglia suspicious for age-indeterminate lacunar infarction. Clinically he now has dense right-sided hemiplegia and appears to have had a stroke sometime overnight. He is not a tPA candidate given unknown last known normal and recent, profound anemia. Brain MRI:Focal, late hyperacute or early acute infarct involving the posterior limb of the left internal capsule extending to the left periventricular white matter. carotid Doppler ultrasounds: No significant stenosis Pending echocardiogram Neurology and PT/OT consulted, Stroke management per neurologist, started with Plavix 75 mg daily p.o. Confusion and delirium, Patient is more confused, patient tried to pull lines Patient is confused, oriented x3 Multiple factors Likely secondary to acute stroke, infection of UTI Patient oscillates between periods of being confused, cooperative, pleasant and agitated Continue with soft restraints, ONLY as needed Dysphagia Patient failed swallowing test at bedside Order modified barium swallowing test Keep patient p.o. started nGT tube feeding on 05/12 patient failed swallowing test Consult GI for evaluation, and discussed case with GI, GI agrees NG tube feeding, will perform a swallowing test daily. May consider PEG tube placement in a week, if patient cannot gained function of swallowing Consulted dietitian, start tube feeding, also provide free water 200 mL q.4 hour, discontinue IV fluid 05/13 resume D5W 75ml/h on 05/14 as inadequate free water 05/15: Patient pulled out NG tube, will replace NG tube, and also repeat modified barium swallowing test, patient failed modified barium swallow, will restart NG tube feeding 05/16: Monitor NG tube feeding closely. Will consider PEG tube placement next week after re-evaluation by GI 05/17: Continue with NG tube and monitor closely 05/18: Continue with NG tube, follow-up with speech therapy 05/19: GI followed up with patient. Starting workup for PEG tube placement. Spoke with speech therapy in detail 05/20: Patient going for PEG tube placement tomorrow 05/21: Patient underwent PEG tube today. Start feeding when authorized by GI. Low-dose IV morphine ordered for postop pain control (2) Acute kidney injury superimposed on chronic kidney disease: ?Code(s): N17.9 - Acute kidney failure, unspecified; N18.9 - Chronic kidney disease, unspecified ?Status:?Acute ?Assessment and Plan: Likely due to dehydration from poor oral intake the last several days. Bladder scan x1 and p.r.n. to rule out urinary retention. BUN creatinine close to baseline
[2023-05-21] MEDS: MELATONIN 5 MG TABLET FEED TUBE (22:39)
[2023-05-21 23:57] LABS: Glucose Point of Care 117 mg/dl (65-105)
[2023-05-22] VITALS (8 sets, daily range): BP systolic 113–125; BP diastolic 54–57; PULSE 74–80; RESP 16–30; TEMP 35.8–36.6; O2SAT 93–97
[2023-05-22 06:12] LABS: Glucose Point of Care 122 mg/dl (65-105)
[2023-05-22 06:51] LABS: Anion Gap 5 mmol/L (8-16); Blood Urea Nitrogen 47 mg/dL (9-20); Calcium 8.1 mg/dL (8.4-10.2); Carbon Dioxide 21 mmol/L (22-30); Chloride 110 mmol/L (98-107); Estimated CRCL calculation 29 ml/min; Estimated Glomerular Filt Rate 45; Glucose 118 mg/dL (65-110); Potassium 4.9 mmol/L (3.4-5.0); Sodium 136 mmol/L (137-145)
--- NOTE | 2023-05-22 07:08 | WPDGIPROGNO ---
Progress Note: A&P Assessment and Plan (1) PEG (percutaneous endoscopic gastrostomy) status: Code(s): Z93.1 - Gastrostomy status Status: Acute Assessment and Plan: Patient had percutaneous endoscopic gastrostomy placed yesterday. Patient tolerating tube feedings at present. Peg site healing well. Plan to continue local care to PEG site for 1 week. Advance tube feedings to60cc/hour. Elevate head of bed during tube feedings. Disposition per primary care service Subjective Date/time seen: 05/22/23 07:08 Interval history: Patient alert this morning. Somewhat garbled speech. Patient appears to be tolerating PEG tube feedings this morning is slow rate. PEG was placed yesterday without difficulty. Review of Systems Review of Systems: ROS unobtainable: Yes unobtainable due to medical condition Exam Narrative: Physical exam reveals patient be alert. He talks but difficult to appreciate his verbiage. Absent gag reflex. HEENT exam reveals no icterus. Lungs are clear. Heart without murmur. Abdomen bowel sounds are present soft nontender. Peg in the left upper quadrant appears be healing well. Tolerating tube feedings. Objective Data Vital Signs Vital Signs: Vital Signs - 24 hr 05/21/23 07:49 05/21/23 07:49 05/21/23 08:00 Temperature Pulse Rate 64 67 Respiratory Rate 16 16 Blood Pressure Pulse Oximetry 96 Oxygen Delivery Room Air Fraction of Inspired Oxygen 05/21/23 08:12 05/21/23 14:09 05/21/23 14:51 Temperature 97.2 F L Pulse Rate 77 77 64 Respiratory Rate 20 20 Blood Pressure 135/64 158/68 H 78/40 L Pulse Oximetry 96 98 96 Oxygen Delivery Room Air Room Air Fraction of Inspired Oxygen 05/21/23 15:01 05/21/23 15:11 05/21/23 20:28 Temperature 98 F Pulse Rate 58 L 60 82 Respiratory Rate 20 20 16 Blood Pressure 103/51 L 101/45 L 130/58 L Pulse Oximetry 96 96 100 Oxygen Delivery Room Air Room Air Fraction of Inspired Oxygen 05/21/23 21:36 05/21/23 21:36 05/21/23 20:00 Temperature Pulse Rate 70 Respiratory Rate 16 Blood Pressure Pulse Oximetry 97 Oxygen Delivery Room Air Room Air Fraction of Inspired Oxygen 21 21 Intake/Output Intake/Output: Intake & Output 05/19/23 05/20/23 05/21/23 05/22/23 23:59 23:59 23:59 23:59 Intake Total 9264 452 5364 330 Output Total 1700 1250 1000 Balance -580 -926 0 330 Meds/Results Medications: Active Medications Generic Name Dose Route Start Last Admin Trade Name Freq PRN Reason Stop Dose Admin Acetaminophen 650 mg 05/19/23 12:32 05/20/23 13:55 Acetaminophen Elixir 325 Mg/10.15 Ml Udc PO 650 mg Q6H PRN Administration Mild Pain (1-3) or Fever Albuterol 2.5 mg 05/10/23 20:00 05/21/23 21:35 Albuterol Sulfate Neb 2.5 Mg/3 Ml Inh INHALATION 2.5 mg Q12HRT LUIS ALBERTO Administration Amlodipine Besylate 5 mg 05/16/23 09:00 05/21/23 19:57 Amlodipine Besylate 5 Mg Tablet FEED TUBE Not Given DAILY LUIS ALBERTO Aspirin 81 mg 05/16/23 09:00 05/21/23 19:58 Aspirin 81 Mg Chewable Tablet FEED TUBE Not Given [facility] Clopidogrel Bisulfate 75 mg 05/16/23 09:00 05/21/23 19:58 Clopidogrel Bisulfate 75 Mg Tablet FEED TUBE 06/06/23 08:59 Not Given [facility] Cyanocobalamin 1,000 mcg 05/19/23 09:00 05/21/23 19:58 Cyanocobalamin 1,000 Mcg Tablet PO Not Given [facility] Dextrose 12.5 gm 05/21/23 08:28 Dextrose 50% 25 Gm/50 Ml Syringe IV PUSH PRN PRN Hypoglycemia Protocol Ferrous Sulfate 325 mg 05/15/23 17:00 05/21/23 19:57 Ferrous Sulfate Liquid 325 Mg/7.4 Ml Elixir FEED TUBE Not Given [facility] Folic Acid 1 mg 05/19/23 09:00 05/21/23 19:58 Folic Acid 1 Mg Tablet PO Not Given DAILY LUIS ALBERTO Glucagon 1 mg 05/21/23 08:28 Glucagon For Inj 1 Mg Vial IM PRN PRN Hypoglycemia Protocol Glucose 15 gm 05/21/23 08:28 Glucose Oral Gel 15 Gm Of Glucse In 37.5 Gm Tube PO PRN PRN
[2023-05-22] MEDS: ALBUTEROL SULFATE NEB 2.5 MG/3 ML INH INHALATION ×2 (08:41→21:50)
[2023-05-22] MEDS: IPRATROPIUM BR 0.02% INH SOLN 0.5 MG/2.5 ML VIAL INHALATION ×2 (08:41→21:51)
[2023-05-22] MEDS: FLUTICASONE/SALMETEROL 230-21 MCG INHALER 1 PUFF 2 PUFF INHALATION ×2 (08:41→21:51)
[2023-05-22 08:57] LABS: Basophils Absolute Auto 0.1 K/mm3 (0.0-0.1); Basophils Percent Auto 0.5 % (0.2-1.2); Eosinophils Absolute Auto 0.1 K/mm3 (0-0.3); Eosinophils Percent Auto 1.2 % (0-4.4); Hematocrit 23.5 % (42.0-52.0); Hemoglobin 7.2 g/dL (14.0-18.0); Immature Granulocyte Absolute 0.33 K/mm3 (0.00-0.031); Immature Granulocyte Percent A 3.6 % (0-0.5); Lymphocytes Percent Auto 5.4 % (18.3-44.2); Mean Corpuscular HGB Conc 30.6 g/dl (32-36); Mean Corpuscular Hemoglobin 31.3 pg (26-34); Mean Corpuscular Volume 102.2 fl (80-100); Mean Platelet Volume 11.1 fl (7.4-10.4); Monocytes Absolute Auto 0.8 K/mm3 (0.1-0.6); Monocytes Percent Auto 8.8 % (2.6-8.5); Neutrophils Absolute Auto 7.4 K/mm3 (1.3-6.7); Neutrophils Percent Auto 80.5 % (45.5-73.1); Platelet Count Result 252 k/mm3 (150-375); Red Cell Distribution Width 21.8 % (11.5-14.5); White Blood Count 9.2 K/mm3 (4.5-10.0)
[2023-05-22] MEDS: amLODIPine BESYLATE 5 MG TABLET FEED TUBE (09:07)
[2023-05-22] MEDS: FOLIC ACID 1 MG TABLET PO (09:07)
[2023-05-22] MEDS: FERROUS SULFATE LIQUID 325 MG/7.4 ML ELIXIR FEED TUBE ×2 (09:07→17:00)
[2023-05-22] MEDS: CLOPIDOGREL BISULFATE 75 MG TABLET FEED TUBE (09:07)
[2023-05-22] MEDS: ASPIRIN 81 MG CHEWABLE TABLET FEED TUBE (09:07)
[2023-05-22] MEDS: NICOTINE (*PBKC) 21 MG PATCH 1 PATCH TRANSDERM (09:08)
[2023-05-22] MEDS: CYANOCOBALAMIN 1,000 MCG TABLET 1000 MCG PO (09:10)
[2023-05-22] MEDS: ACETAMINOPHEN ELIXIR 325 MG/10.15 ML UDC 650 MG PO ×2 (09:13→14:43)
--- NOTE | 2023-05-22 11:10 | PCOTNOTE ---
Attempted to see Patient at this time. Patient very sleepy, difficulty staying awake. Will check back this afternoon.
[2023-05-22 12:31] LABS: Glucose Point of Care 147 mg/dl (65-105)
--- NOTE | 2023-05-22 12:48 | PCNFU ---
Nutrition Follow-Up Complete: Severe protein calorie malnutrition related to reduced appetite and intake as evidenced by family report of poor po intake, noted significant weight loss of -13% x 1 month. Goal: Diet order PO intake 75% of meals and supplements. - Unable to meet goal PO New goal: Tolerate tube feeding at goal rate Pt current nutrition is Jevity 1.5 @ goal rate 60 ml/h: 1980 kcal, 84 g protein, 1003 ml free water. Flush 100 ml q 4 hours. Total water 1603 ml/day. Meeting estimated nutrition needs ~100% Nutrition recommendation: Continue with Jevity 1.5 @ 60 ml/g with flushes 100 ml q 4 hours to meet estimated nutrition needs If bolus recommendations needed: Bolus Jevity 1.5 - 330 ml QID (1980 kcal, 84 g protein, 1003 ml free water) Flush 100 ml water q 4 hours. Last recorded weight is 60.9 kg. Bowel Motility: +4 BMs 05/21/23 Labs Reviewed: Hgb 7.2, Hct 23.5, Na 136, GFR 45, BUN 47, Cre 1.5, Glu 122 Meds Noted: Zofran Skin: WNL Additional Notes: Pt had PEG tube placed due to dysphagia. Unknown discharge at this point. Bolus recommendations if needed at discharge. Continue current orders. Agree with tube feeding orders. Monitor for MBS results and [facility]UTRITION [employer]NER recommendations, diet orders, intake, wt, labs. Follow up in 1 day.
--- NOTE | 2023-05-22 13:12 | WPDANESPN ---
Anes - Prog Note Post-Op Date/Time: 05/22/23 13:12 Cardiovascular status: normal Respiratory status: normal Airway patency: baseline Mental status: baseline Post-Op hydration status: normal Vital Signs: Last Vital Signs Temp 98 F 05/21/23 20:28 Pulse 74 05/22/23 08:55 Resp 20 05/22/23 08:55 BP 130/58 L 05/21/23 20:28 Pulse Ox 93 05/22/23 08:41 O2 Del Method Room Air 05/22/23 09:05 O2 Flow Rate 2 05/11/23 11:38 FiO2 21 05/21/23 21:36 Pain Score (VAS): 0/10 I/O: Intake & Output 05/21/23 05/22/23 05/22/23 23:59 07:59 15:59 Intake Total 1000 330 Balance 1000 330 Laboratory Tests 05/22/23 08:50 05/22/23 05:43 05/21/23 05/21/23 05/21/23 15:02 18:07 23:53 WBC RBC Hgb Hct MCV MCH MCHC RDW Plt Count MPV Immature Gran % (Auto) Neut % (Auto) Lymph % (Auto) [place] % (Auto) Eos % (Auto) Baso % (Auto) Lymph # (Auto) [place] # (Auto) Eos # (Auto) Baso # (Auto) Abs Immat Gran (auto) Absolute Neuts (auto) Absolute Nucleated RBC Nucleated RBC % Sodium Potassium Chloride Carbon Dioxide Anion Gap BUN Creatinine Estim Creat Clear Calc Estimated GFR Glucose POC Capillary Glucose 93 125 H 117 H Calcium 05/22/23 05/22/23 05/22/23 05:43 05:50 08:50 WBC 9.2 RBC 2.30 L Hgb 7.2 L Hct 23.5 L MCV 102.2 H MCH 31.3 MCHC 30.6 L RDW 21.8 H Plt Count 252 MPV 11.1 H Immature Gran % (Auto) 3.6 H Neut % (Auto) 80.5 H Lymph % (Auto) 5.4 L [place] % (Auto) 8.8 H Eos % (Auto) 1.2 Baso % (Auto) 0.5 Lymph # (Auto) 0.50 L [place] # (Auto) 0.8 H Eos # (Auto) 0.1 Baso # (Auto) 0.1 Abs Immat Gran (auto) 0.33 H Absolute Neuts (auto) 7.4 H Absolute Nucleated RBC 0.0 Nucleated RBC % 0.0 Sodium 136 L Potassium 4.9 Chloride 110 H Carbon Dioxide 21 L Anion Gap 5 L BUN 47 H Creatinine 1.50 H Estim Creat Clear Calc 29 Estimated GFR 45 L Glucose 118 H POC Capillary Glucose 122 H Calcium 8.1 L 05/22/23 12:28 WBC RBC Hgb Hct MCV MCH MCHC RDW Plt Count MPV Immature Gran % (Auto) Neut % (Auto) Lymph % (Auto) [place] % (Auto) Eos % (Auto) Baso % (Auto) Lymph # (Auto) [place] # (Auto) Eos # (Auto) Baso # (Auto) Abs Immat Gran (auto) Absolute Neuts (auto) Absolute Nucleated RBC Nucleated RBC % Sodium Potassium Chloride Carbon Dioxide Anion Gap BUN Creatinine Estim Creat Clear Calc Estimated GFR Glucose POC Capillary Glucose 147 H Calcium Post-procedural complaints: none Patient Feedback: Patient satisfied with anesthetic care.
[2023-05-22] MEDS: HYDROmorphone HCL INJ (*CRX) 1 MG/ML SYR 0.3 MG IV PUSH (17:02)
[2023-05-22] MEDS: HYDROcodone/acetaminophen (*CRX) 5-325 MG TABLET 1 TAB PO (18:35)
--- NOTE | 2023-05-22 19:55 | PM.IMPN ---
Progress Note: A&P Assessment and Plan (1) Cerebrovascular accident: Code(s): I63.9 - Cerebral infarction, unspecified Status: Acute (2) Acute kidney injury superimposed on chronic kidney disease: Code(s): N17.9 - Acute kidney failure, unspecified; N18.9 - Chronic kidney disease, unspecified Status: Acute (3) Hematuria: Code(s): R31.9 - Hematuria, unspecified Status: Acute (4) Femoral neck fracture: Qualifiers: Encounter type: subsequent encounter Fracture healing: with routine healing Fracture type: closed Laterality: right Qualified Code(s): S72.001D - Fracture of unspecified part of neck of right femur, subsequent encounter for closed fracture with routine healing Code(s): S72.009A - Fracture of unspecified part of neck of unspecified femur, initial encounter for closed fracture Status: Acute (5) Acute UTI: Code(s): N39.0 - Urinary tract infection, site not specified Status: Acute (6) Community acquired pneumonia: Code(s): J18.9 - Pneumonia, unspecified organism Status: Acute (7) Delirium: Code(s): R41.0 - Disorientation, unspecified Status: Acute Plan (1) Cerebrovascular accident: ?Code(s): I63.9 - Cerebral infarction, unspecified ?Status:?Acute ?Assessment and Plan: Brain CT showed focal geographic hypodensity in left basal ganglia suspicious for age-indeterminate lacunar infarction. Clinically he now has dense right-sided hemiplegia and appears to have had a stroke sometime overnight. He is not a tPA candidate given unknown last known normal and recent, profound anemia. Brain MRI:Focal, late hyperacute or early acute infarct involving the posterior limb of the left internal capsule extending to the left periventricular white matter. carotid Doppler ultrasounds: No significant stenosis Pending echocardiogram Neurology and PT/OT consulted, Stroke management per neurologist, started with Plavix 75 mg daily p.o. Confusion and delirium, Patient is more confused, patient tried to pull lines Patient is confused, oriented x3 Multiple factors Likely secondary to acute stroke, infection of UTI Patient oscillates between periods of being confused, cooperative, pleasant and agitated Continue with soft restraints, ONLY as needed Dysphagia Patient failed swallowing test at bedside Order modified barium swallowing test Keep patient p.o. started nGT tube feeding on 05/12 patient failed swallowing test Consult GI for evaluation, and discussed case with GI, GI agrees NG tube feeding, will perform a swallowing test daily. May consider PEG tube placement in a week, if patient cannot gained function of swallowing Consulted dietitian, start tube feeding, also provide free water 200 mL q.4 hour, discontinue IV fluid 05/13 resume D5W 75ml/h on 05/14 as inadequate free water 05/15: Patient pulled out NG tube, will replace NG tube, and also repeat modified barium swallowing test, patient failed modified barium swallow, will restart NG tube feeding 05/16: Monitor NG tube feeding closely. Will consider PEG tube placement next week after re-evaluation by GI 05/17: Continue with NG tube and monitor closely 05/18: Continue with NG tube, follow-up with speech therapy 05/19: GI followed up with patient. Starting workup for PEG tube placement. Spoke with speech therapy in detail 05/20: Patient going for PEG tube placement tomorrow 05/21: Patient underwent PEG tube today. Start feeding when authorized by GI. Low-dose IV morphine ordered for postop pain control 05/22: Patient feeling better today. Tolerating PEG tube feeding well. Advance to goal rate of 60 cc/hour (2) Acute kidney injury superimposed on chronic kidney disease: ?Code(s): N17.9 - Acute kidney failure, unspecified; N18.9 - Chronic kidney disease, unspecified ?Status:?Acute ?Assessment and Plan: Likely due to dehydration from poor oral intake the mazin
[2023-05-22] MEDS: MELATONIN 5 MG TABLET FEED TUBE (21:01)
[2023-05-22 21:48] LABS: Glucose Point of Care 128 mg/dl (65-105)
[2023-05-23] VITALS (7 sets, daily range): BP systolic 103–125; BP diastolic 55–59; PULSE 60–87; RESP 16–18; TEMP 36.2–39.1; O2SAT 92–98
[2023-05-23 06:20] LABS: Basophils Absolute Auto 0.1 K/mm3 (0.0-0.1); Basophils Percent Auto 0.9 % (0.2-1.2); Eosinophils Absolute Auto 0.1 K/mm3 (0-0.3); Eosinophils Percent Auto 1.4 % (0-4.4); Hematocrit 23.7 % (42.0-52.0); Hemoglobin 7.1 g/dL (14.0-18.0); Immature Granulocyte Absolute 0.21 K/mm3 (0.00-0.031); Immature Granulocyte Percent A 2.3 % (0-0.5); Lymphocytes Absolute Auto 0.38 K/mm3 (0.9-3.2); Lymphocytes Percent Auto 4.1 % (18.3-44.2); Mean Corpuscular Hemoglobin 31.7 pg (26-34); Mean Corpuscular Volume 105.8 fl (80-100); Mean Platelet Volume 11.7 fl (7.4-10.4); Monocytes Absolute Auto 0.8 K/mm3 (0.1-0.6); Monocytes Percent Auto 8.4 % (2.6-8.5); Neutrophils Absolute Auto 7.6 K/mm3 (1.3-6.7); Neutrophils Percent Auto 82.9 % (45.5-73.1); Platelet Count Result 241 k/mm3 (150-375); Red Blood Count 2.24 M/mm3 (4.6-6.20); White Blood Count 9.2 K/mm3 (4.5-10.0)
[2023-05-23 06:35] LABS: Anion Gap 6 mmol/L (8-16); Blood Urea Nitrogen 57 mg/dL (9-20); Calcium 8.4 mg/dL (8.4-10.2); Carbon Dioxide 21 mmol/L (22-30); Chloride 112 mmol/L (98-107); Estimated CRCL calculation 27 ml/min; Estimated Glomerular Filt Rate 41; Glucose 122 mg/dL (65-110); Potassium 5.3 mmol/L (3.4-5.0); Sodium 139 mmol/L (137-145)
[2023-05-23 07:18] LABS: Platelet Estimate Adequate (Adequate)
[2023-05-23 07:19] LABS: Burr Cells 2+ (NORMAL); Schistocytes None Seen (NORMAL)
[2023-05-23 07:43] LABS: Glucose Point of Care 116 mg/dl (65-105)
[2023-05-23] MEDS: IPRATROPIUM BR 0.02% INH SOLN 0.5 MG/2.5 ML VIAL INHALATION ×2 (08:54→21:39)
[2023-05-23] MEDS: ALBUTEROL SULFATE NEB 2.5 MG/3 ML INH INHALATION ×2 (08:55→21:39)
[2023-05-23] MEDS: NICOTINE (*PBKC) 21 MG PATCH 1 PATCH TRANSDERM (09:32)
[2023-05-23] MEDS: FERROUS SULFATE LIQUID 325 MG/7.4 ML ELIXIR FEED TUBE ×2 (09:33→17:40)
[2023-05-23] MEDS: CYANOCOBALAMIN 1,000 MCG TABLET 1000 MCG PO (09:33)
[2023-05-23] MEDS: FOLIC ACID 1 MG TABLET PO (09:33)
[2023-05-23] MEDS: ASPIRIN 81 MG CHEWABLE TABLET FEED TUBE (09:33)
[2023-05-23] MEDS: CLOPIDOGREL BISULFATE 75 MG TABLET FEED TUBE (09:33)
[2023-05-23] MEDS: amLODIPine BESYLATE 5 MG TABLET FEED TUBE (09:33)
[2023-05-23] MEDS: FLUTICASONE/SALMETEROL 230-21 MCG INHALER 1 PUFF 2 PUFF INHALATION ×2 (09:37→21:40)
--- NOTE | 2023-05-23 18:05 | PM.IMPN ---
Progress Note: A&P Assessment and Plan (1) Cerebrovascular accident: Code(s): I63.9 - Cerebral infarction, unspecified Status: Acute (2) Acute kidney injury superimposed on chronic kidney disease: Code(s): N17.9 - Acute kidney failure, unspecified; N18.9 - Chronic kidney disease, unspecified Status: Acute (3) Hematuria: Code(s): R31.9 - Hematuria, unspecified Status: Acute (4) Femoral neck fracture: Qualifiers: Encounter type: subsequent encounter Fracture healing: with routine healing Fracture type: closed Laterality: right Qualified Code(s): S72.001D - Fracture of unspecified part of neck of right femur, subsequent encounter for closed fracture with routine healing Code(s): S72.009A - Fracture of unspecified part of neck of unspecified femur, initial encounter for closed fracture Status: Acute (5) Acute UTI: Code(s): N39.0 - Urinary tract infection, site not specified Status: Acute (6) Community acquired pneumonia: Code(s): J18.9 - Pneumonia, unspecified organism Status: Acute (7) Delirium: Code(s): R41.0 - Disorientation, unspecified Status: Acute Plan (1) Cerebrovascular accident: ?Code(s): I63.9 - Cerebral infarction, unspecified ?Status:?Acute ?Assessment and Plan: Brain CT showed focal geographic hypodensity in left basal ganglia suspicious for age-indeterminate lacunar infarction. Clinically he now has dense right-sided hemiplegia and appears to have had a stroke sometime overnight. He is not a tPA candidate given unknown last known normal and recent, profound anemia. Brain MRI:Focal, late hyperacute or early acute infarct involving the posterior limb of the left internal capsule extending to the left periventricular white matter. carotid Doppler ultrasounds: No significant stenosis Pending echocardiogram Neurology and PT/OT consulted, Stroke management per neurologist, started with Plavix 75 mg daily p.o. Confusion and delirium, Patient is more confused, patient tried to pull lines Patient is confused, oriented x3 Multiple factors Likely secondary to acute stroke, infection of UTI Patient oscillates between periods of being confused, cooperative, pleasant and agitated Continue with soft restraints, ONLY as needed Dysphagia Patient failed swallowing test at bedside Order modified barium swallowing test Keep patient p.o. started nGT tube feeding on 05/12 patient failed swallowing test Consult GI for evaluation, and discussed case with GI, GI agrees NG tube feeding, will perform a swallowing test daily. May consider PEG tube placement in a week, if patient cannot gained function of swallowing Consulted dietitian, start tube feeding, also provide free water 200 mL q.4 hour, discontinue IV fluid 05/13 resume D5W 75ml/h on 05/14 as inadequate free water 05/15: Patient pulled out NG tube, will replace NG tube, and also repeat modified barium swallowing test, patient failed modified barium swallow, will restart NG tube feeding 05/16: Monitor NG tube feeding closely. Will consider PEG tube placement next week after re-evaluation by GI 05/17: Continue with NG tube and monitor closely 05/18: Continue with NG tube, follow-up with speech therapy 05/19: GI followed up with patient. Starting workup for PEG tube placement. Spoke with speech therapy in detail 05/20: Patient going for PEG tube placement tomorrow 05/21: Patient underwent PEG tube today. Start feeding when authorized by GI. Low-dose IV morphine ordered for postop pain control 05/22: Patient feeling better today. Tolerating PEG tube feeding well. Advance to goal rate of 60 cc/hour 05/23: Potassium level 5.3 today. Advised to nutrition to address back to composition to address mild hyperkalemia (2) Acute kidney injury superimposed on chronic kidney disease: ?Code(s): N17.9 - Acute kidney failure, unspecified; N18.9 - Chronic kidney disease
[2023-05-23] MEDS: MELATONIN 5 MG TABLET FEED TUBE (21:28)
[2023-05-23] MEDS: ACETAMINOPHEN ELIXIR 325 MG/10.15 ML UDC 650 MG PO (21:33)
[2023-05-24 00:27] LABS: Glucose Point of Care 163 mg/dl (65-105)
[2023-05-24 06:00] VITALS: BP 100/53; PULSE 84; RESP 18; TEMP 36.8; O2SAT 95
[2023-05-24 06:27] LABS: Basophils Absolute Auto 0.1 K/mm3 (0.0-0.1); Basophils Percent Auto 0.4 % (0.2-1.2); Hemoglobin 7.6 g/dL (14.0-18.0); Immature Granulocyte Absolute 0.46 K/mm3 (0.00-0.031); Immature Granulocyte Percent A 1.6 % (0-0.5); Lymphocytes Absolute Auto 0.53 K/mm3 (0.9-3.2); Lymphocytes Percent Auto 1.8 % (18.3-44.2); Mean Corpuscular HGB Conc 30.4 g/dl (32-36); Mean Corpuscular Hemoglobin 31.9 pg (26-34); Mean Platelet Volume 11.5 fl (7.4-10.4); Monocytes Absolute Auto 2.1 K/mm3 (0.1-0.6); Monocytes Percent Auto 7.1 % (2.6-8.5); Neutrophils Percent Auto 89.1 % (45.5-73.1); Platelet Count Result 280 k/mm3 (150-375); Red Blood Count 2.38 M/mm3 (4.6-6.20); White Blood Count 29.2 K/mm3 (4.5-10.0)
[2023-05-24 06:39] LABS: Anion Gap 11 mmol/L (8-16); Blood Urea Nitrogen 74 mg/dL (9-20); Carbon Dioxide 23 mmol/L (22-30); Chloride 110 mmol/L (98-107); Estimated CRCL calculation 19 ml/min; Estimated Glomerular Filt Rate 27; Glucose 115 mg/dL (65-110); Potassium 5.2 mmol/L (3.4-5.0); Sodium 144 mmol/L (137-145)
[2023-05-24 08:03] LABS: Glucose Point of Care 108 mg/dl (65-105)
[2023-05-24 09:20] VITALS: PULSE 80; RESP 18
[2023-05-24] MEDS: IPRATROPIUM BR 0.02% INH SOLN 0.5 MG/2.5 ML VIAL INHALATION ×2 (09:27→20:22)
[2023-05-24 09:28] VITALS: O2SAT 96
[2023-05-24] MEDS: ALBUTEROL SULFATE NEB 2.5 MG/3 ML INH INHALATION ×2 (09:28→20:21)
[2023-05-24] MEDS: FLUTICASONE/SALMETEROL 230-21 MCG INHALER 1 PUFF 2 PUFF INHALATION (09:28)
[2023-05-24] MEDS: FOLIC ACID 1 MG TABLET PO (09:32)
[2023-05-24] MEDS: CYANOCOBALAMIN 1,000 MCG TABLET 1000 MCG PO (09:33)
[2023-05-24] MEDS: ASPIRIN 81 MG CHEWABLE TABLET FEED TUBE (09:33)
[2023-05-24] MEDS: amLODIPine BESYLATE 5 MG TABLET FEED TUBE (09:33)
[2023-05-24] MEDS: CLOPIDOGREL BISULFATE 75 MG TABLET FEED TUBE (09:33)
[2023-05-24] MEDS: NICOTINE (*PBKC) 21 MG PATCH 1 PATCH TRANSDERM (09:35)
[2023-05-24] MEDS: FERROUS SULFATE LIQUID 325 MG/7.4 ML ELIXIR FEED TUBE (09:35)
[2023-05-24 09:37] VITALS: PULSE 78; RESP 18
[2023-05-24 14:00] VITALS: BP 102/43; PULSE 92; RESP 26; TEMP 36.7; O2SAT 82
--- NOTE | 2023-05-24 14:45 | PM.IMPN ---
Progress Note: A&P Assessment and Plan (1) Aspiration pneumonia: Qualifiers: Aspiration pneumonia type: unspecified Laterality: bilateral Lung location: unspecified part of lung Qualified Code(s): J69.0 - Pneumonitis due to inhalation of food and vomit Code(s): J69.0 - Pneumonitis due to inhalation of food and vomit Status: Acute Assessment and Plan: 05/24/2023 Start vancomycin and cefepime and obtain blood cultures, CXR, repeat U/A (2) Cerebrovascular accident: Code(s): I63.9 - Cerebral infarction, unspecified Status: Acute Assessment and Plan: Continue ASA 81 mg daily, clopidogrel 75 mg daily for 3 weeks Nicotine patch for smoking cessation No statin due to allergy to simvastatin 05/20/2023 Stop amlodipine 5 mg due to BP 100/53 Prognosis is GUARDED (3) Acute kidney injury superimposed on chronic kidney disease: Code(s): N17.9 - Acute kidney failure, unspecified; N18.9 - Chronic kidney disease, unspecified Status: Acute Assessment and Plan: 05/24/2023 creatinine 2.3, BUN 74suspect due to fever, pneumonia, relative volume deficit 05/24/2023 Na 144, K 5.2, ordered 1 L 0.45% NaCl IV F/u lab (4) Hematuria: Code(s): R31.9 - Hematuria, unspecified Status: Acute Assessment and Plan: Resolved (5) Acute UTI: Code(s): N39.0 - Urinary tract infection, site not specified Status: Acute Assessment and Plan: Completed ceftriaxone for e coli uti (6) Community acquired pneumonia: Code(s): J18.9 - Pneumonia, unspecified organism Status: Acute Assessment and Plan: Completed ceftriaxone and metronidazole for suspected pneumonia at admission Subjective Date/time seen: 05/24/23 14:45 Interval history: Notified by staff the patient was more diaphoretic and dyspneic. Moist cough. Denied pain. Continues with right-sided weakness. Denied GI or dysfunction. PEG with tube feeding in place. Review of Systems Review of Systems: All systems reviewed & are unremarkable except as noted in HPI and below Exam Narrative: HEENT: PERRL, sclerae nonicteric, pharyngeal mucosa pink and intact NECK: No JVD CHEST: Coarse breath sounds with scattered coarse crackles throughout. Mildly tachypneic. HEART: NL S1/S2, regular, no murmur ABDOMEN: BS+, soft, nontender, no mass, no bruits EXTREMITIES: No cyanosis, edema, or clubbing NEUROLOGIC: Right facial droop and right hemiparesis with dysarthria. MUSCULOSKELETAL: No gross deformity to visual inspection PSYCH: Alert. Oriented to person, place, but not to time year or month. Objective Data Vital Signs Vital Signs: Vital Signs - 24 hr 05/23/23 21:33 05/23/23 21:44 05/23/23 20:00 Temperature 102.4 F H Pulse Rate 82 Respiratory Rate 18 Blood Pressure Pulse Oximetry Oxygen Delivery Room Air 05/23/23 22:00 05/23/23 22:33 05/24/23 06:00 Temperature 102.4 F H 97.1 F L 98.2 F Pulse Rate 87 84 Respiratory Rate 18 18 Blood Pressure 122/59 L 100/53 L Pulse Oximetry 96 95 Oxygen Delivery 05/24/23 09:28 05/24/23 09:20 05/24/23 09:37 Temperature Pulse Rate 80 78 Respiratory Rate 18 18 Blood Pressure Pulse Oximetry 96 Oxygen Delivery Room Air 05/24/23 08:00 Temperature Pulse Rate Respiratory Rate Blood Pressure Pulse Oximetry Oxygen Delivery Room Air Intake/Output Intake/Output: Intake & Output 05/21/23 05/22/23 05/23/23 05/24/23 23:59 23:59 23:59 23:59 Intake Total 1000 330 921 Output Total 7471 346 6332 400 Balance 0 -420 -129 -400 Meds/Results Medications: Active Medications Generic Name Dose Route Start Last Admin Trade Name Surinderq PRN Reason Stop Dose Admin Albuterol 2.5 mg 05/10/23 20:00 05/24/23 09:28 Albuterol Sulfate Neb 2.5 Mg/3 Ml Inh INHALATION 2.5 mg Q12HRT LUIS ALBERTO Administration Amlodipine Besylate 5 mg 05/16/23 09:00 05/24/23 09:33 Amlodipine
[2023-05-24] MEDS: ACETAMINOPHEN ELIXIR 325 MG/10.15 ML UDC 650 MG FEED TUBE (15:08)
[2023-05-24 17:00] LABS: Glucose Point of Care 131 mg/dl (65-105)
[2023-05-24] MEDS: CEFEPIME 1 GM/NS 50 ML 1 GM/50 ML BAG IVPB ×2 (17:41→21:56)
[2023-05-24] MEDS: SODIUM CHLORIDE 0.45% 1,000 ML 100 ML IV CONT (17:41)
[2023-05-24] MEDS: HYDROmorphone HCL INJ (*CRX) 1 MG/ML SYR 0.5 MG IV PUSH ×2 (17:42→21:56)
[2023-05-24 22:00] VITALS: BP 107/51; PULSE 81; RESP 22; TEMP 36.7; O2SAT 92
[2023-05-25] VITALS (17 sets, daily range): BP systolic 98–133; BP diastolic 47–71; PULSE 75–91; RESP 18–40; TEMP 36.4–39.3; O2SAT 93–100
[2023-05-25] MEDS: HYDROmorphone HCL INJ (*CRX) 1 MG/ML SYR 0.5 MG IV PUSH ×5 (01:47→20:56)
[2023-05-25] MEDS: ACETAMINOPHEN ELIXIR 325 MG/10.15 ML UDC 650 MG FEED TUBE ×2 (06:01→21:11)
[2023-05-25 06:33] LABS: Basophils Absolute Auto 0.1 K/mm3 (0.0-0.1); Basophils Percent Auto 0.3 % (0.2-1.2); Immature Granulocyte Absolute 0.24 K/mm3 (0.00-0.031); Immature Granulocyte Percent A 1.2 % (0-0.5); Lymphocytes Absolute Auto 0.24 K/mm3 (0.9-3.2); Lymphocytes Percent Auto 1.2 % (18.3-44.2); Mean Corpuscular HGB Conc 28.8 g/dl (32-36); Mean Corpuscular Hemoglobin 30.9 pg (26-34); Mean Corpuscular Volume 107.2 fl (80-100); Mean Platelet Volume 11.6 fl (7.4-10.4); Monocytes Percent Auto 4.8 % (2.6-8.5); Neutrophils Absolute Auto 19.1 K/mm3 (1.3-6.7); Neutrophils Percent Auto 92.5 % (45.5-73.1); Platelet Count Result 195 k/mm3 (150-375); Red Blood Count 1.94 M/mm3 (4.6-6.20); Red Cell Distribution Width 23.3 % (11.5-14.5); White Blood Count 20.7 K/mm3 (4.5-10.0)
[2023-05-25 06:39] LABS: Anion Gap 8 mmol/L (8-16); Blood Urea Nitrogen 104 mg/dL (9-20); Calcium 8.2 mg/dL (8.4-10.2); Carbon Dioxide 21 mmol/L (22-30); Chloride 111 mmol/L (98-107); Estimated CRCL calculation 13 ml/min; Estimated Glomerular Filt Rate 18; Glucose 141 mg/dL (65-110); Potassium 5.3 mmol/L (3.4-5.0); Sodium 140 mmol/L (137-145)
[2023-05-25 07:25] LABS: Hematocrit 20.8 % (42.0-52.0); Platelet Estimate Adequate (Adequate)
[2023-05-25 07:26] LABS: Anisocytosis 1+ (NORMAL); Schistocytes None Seen (NORMAL)
[2023-05-25] MEDS: CEFEPIME 1 GM/NS 50 ML 1 GM/50 ML BAG IVPB ×2 (08:06→20:48)
[2023-05-25] MEDS: FOLIC ACID 1 MG TABLET FEED TUBE (08:10)
[2023-05-25] MEDS: CLOPIDOGREL BISULFATE 75 MG TABLET FEED TUBE (08:10)
[2023-05-25] MEDS: ASPIRIN 81 MG CHEWABLE TABLET FEED TUBE (08:10)
[2023-05-25] MEDS: CYANOCOBALAMIN 1,000 MCG TABLET 1000 MCG FEED TUBE (08:10)
[2023-05-25] MEDS: NICOTINE (*PBKC) 21 MG PATCH 1 PATCH TRANSDERM (08:13)
[2023-05-25] MEDS: FERROUS SULFATE LIQUID 325 MG/7.4 ML ELIXIR FEED TUBE ×2 (10:09→17:32)
--- NOTE | 2023-05-25 13:26 | PM.IMPN ---
Progress Note: A&P Assessment and Plan (1) Aspiration pneumonia: Qualifiers: Aspiration pneumonia type: unspecified Laterality: bilateral Lung location: unspecified part of lung Qualified Code(s): J69.0 - Pneumonitis due to inhalation of food and vomit Code(s): J69.0 - Pneumonitis due to inhalation of food and vomit Status: Acute Assessment and Plan: 05/24/2023 Start vancomycin and cefepime and obtain blood cultures, CXR, repeat U/A Flagyl added monitor cultures (2) Cerebrovascular accident: Code(s): I63.9 - Cerebral infarction, unspecified Status: Acute Assessment and Plan: Continue ASA 81 mg daily, clopidogrel 75 mg daily for 3 weeks Nicotine patch for smoking cessation No statin due to allergy to simvastatin 05/20/2023 Stop amlodipine 5 mg due to BP 100/53 Prognosis is GUARDED (3) Acute kidney injury superimposed on chronic kidney disease: Code(s): N17.9 - Acute kidney failure, unspecified; N18.9 - Chronic kidney disease, unspecified Status: Acute Assessment and Plan: 05/24/2023 creatinine 2.3, BUN 74suspect due to fever, pneumonia, relative volume deficit 05/24/2023 Na 144, K 5.2, ordered 1 L 0.45% NaCl IV F/u lab (4) Hematuria: Code(s): R31.9 - Hematuria, unspecified Status: Acute Assessment and Plan: Resolved (5) Acute UTI: Code(s): N39.0 - Urinary tract infection, site not specified Status: Acute Assessment and Plan: Completed ceftriaxone for e coli uti (6) Community acquired pneumonia: Code(s): J18.9 - Pneumonia, unspecified organism Status: Acute Assessment and Plan: Completed ceftriaxone and metronidazole for suspected pneumonia at admission Plan Awaiting response from daughter about goals of care after she discussed with her brother Subjective Date/time seen: 05/25/23 13:26 Interval history: Notified by staff the patient was more diaphoretic and dyspneic. Moist cough. Denied pain. Continues with right-sided weakness. Denied GI or dysfunction. PEG with tube feeding in place. Discussed with daughter this afternoon, she stated she will discuss with her brother and get back to me about goals of care. In the meantime she wants us to continue full treatment Review of Systems Review of Systems: 14 systems were reviewed with pertinent positives and negatives per HPI. Except as documented in the HPI/progress notes, all other systems were reviewed and are negative. All systems reviewed & are unremarkable except as noted in HPI and below ROS unobtainable: Yes unobtainable due to mental status Exam Narrative: HEENT: PERRL, sclerae nonicteric, pharyngeal mucosa pink and intact NECK: No JVD CHEST: Coarse breath sounds with scattered coarse crackles throughout. Mildly tachypneic. HEART: NL S1/S2, regular, no murmur ABDOMEN: BS+, soft, nontender, no mass, no bruits EXTREMITIES: No cyanosis, edema, or clubbing NEUROLOGIC: Right facial droop and right hemiparesis with dysarthria. MUSCULOSKELETAL: No gross deformity to visual inspection PSYCH: Alert. Oriented to person, place, but not to time year or month. Objective Data Vital Signs Vital Signs: Vital Signs - 24 hr 05/24/23 14:00 05/24/23 22:00 05/24/23 20:00 Temperature 98.0 F 98.0 F Pulse Rate 92 81 Respiratory Rate 26 H 22 H Blood Pressure 102/43 L 107/51 L Pulse Oximetry 82 L 92 Oxygen Delivery Room Air Oxygen Flow Rate 05/25/23 06:01 05/25/23 07:01 05/25/23 08:05 Temperature 102.7 F H 97.5 F L Pulse Rate Respiratory Rate Blood Pressure Pulse Oximetry 100 Oxygen Delivery Non-Rebreather Mask Oxygen Flow Rate 15 Intake/Output Intake/Output: Intake & Output 05/22/23 05/23/23 05/24/23 05/25/23 23:59 23:59 23:59 23:59 Intake Total 330 921 100 50 Output Total 750 1050 600 200 Balance -420 -129 -500 -150 Meds/Results Medications: Active
[2023-05-25 13:46] LABS: Hematocrit 21.5 % (42.0-52.0)
[2023-05-25 13:53] LABS: Hemoglobin 6.4 g/dL (14.0-18.0)
[2023-05-25] MEDS: metroNIDAZOLE 500 MG/ISO 100ML 500 MG/100 ML BAG 100 MG IVPB ×2 (14:23→21:44)
[2023-05-25 15:01] LABS: Folic Acid 10.7 ng/mL (2.76->20)
[2023-05-25 15:51] LABS: Appearance Urine Cloudy (Clear); Bacteria Urine None Seen /hpf; Bilirubin Urine Negative (Negative); Blood Urine 2+ (Negative); Color Urine Dark Yellow (Yellow); Glucose Urine UA Negative (Negative); Ketones Urine Trace mg/dL (Negative); Leukocyte Esterase Ur 2+ LEU/UL (Negative); Nitrate Urine Negative (Negative); Protein Urine Trace mg/dL (Negative); RBC Urine 0-2 /hpf (0-2); Specific Grav Ur 1.021 (1.001-1.035); Squamous Epithelial Cell Urine Occasional /hpf (Few); Urobilinogen Urine 0.2 mg/dL (<2.0)
[2023-05-25 15:53] LABS: Add Urine Microscopic? YES
[2023-05-25] MEDS: SODIUM CHLORIDE 0.9% IV 250 ML 30 ML IV CONT (16:21)
[2023-05-25] MEDS: WATER FOR IRRIGATION, STERILE 1,000 ML BOTTLE 1000 ML (17:15)
[2023-05-25] MEDS: MELATONIN 5 MG TABLET FEED TUBE (20:56)
[2023-05-25] MEDS: IPRATROPIUM BR 0.02% INH SOLN 0.5 MG/2.5 ML VIAL INHALATION (21:59)
[2023-05-25] MEDS: ALBUTEROL SULFATE NEB 2.5 MG/3 ML INH INHALATION (21:59)
[2023-05-26] VITALS (13 sets, daily range): BP systolic 116–129; BP diastolic 50–56; PULSE 73–91; RESP 20–40; TEMP 36.4–37.2; O2SAT 90–99
[2023-05-26] MEDS: HYDROmorphone HCL INJ (*CRX) 1 MG/ML SYR 0.5 MG IV PUSH ×4 (02:45→18:37)
[2023-05-26] MEDS: metroNIDAZOLE 500 MG/ISO 100ML 500 MG/100 ML BAG 100 MG IVPB ×2 (05:06→20:55)
[2023-05-26 06:15] LABS: Basophils Percent Auto 0.3 % (0.2-1.2); Eosinophils Percent Auto 0.3 % (0-4.4); Hematocrit 22.7 % (42.0-52.0); Immature Granulocyte Absolute 0.15 K/mm3 (0.00-0.031); Immature Granulocyte Percent A 1.3 % (0-0.5); Lymphocytes Absolute Auto 0.22 K/mm3 (0.9-3.2); Lymphocytes Percent Auto 1.8 % (18.3-44.2); Mean Corpuscular Hemoglobin 31.5 pg (26-34); Mean Corpuscular Volume 105.1 fl (80-100); Mean Platelet Volume 11.9 fl (7.4-10.4); Monocytes Absolute Auto 0.8 K/mm3 (0.1-0.6); Neutrophils Absolute Auto 10.7 K/mm3 (1.3-6.7); Neutrophils Percent Auto 89.3 % (45.5-73.1); Platelet Count Result 158 k/mm3 (150-375); Red Blood Count 2.16 M/mm3 (4.6-6.20); Red Cell Distribution Width 21.8 % (11.5-14.5)
[2023-05-26 06:23] LABS: Alanine Aminotransferase 31 U/L (6-50); Albumin Level 2.3 g/dL (3.5-5.1); Alkaline Phosphatase 86 U/L (38-126); Anion Gap 11 mmol/L (8-16); Aspartate Amino Transferase 53 U/L (17-59); Bilirubin,Total 0.4 mg/dL (0.2-1.3); Blood Urea Nitrogen 108 mg/dL (9-20); Calcium 8.4 mg/dL (8.4-10.2); Carbon Dioxide 20 mmol/L (22-30); Chloride 110 mmol/L (98-107); Estimated CRCL calculation 12 ml/min; Estimated Glomerular Filt Rate 15; Glucose 117 mg/dL (65-110); Potassium 5.4 mmol/L (3.4-5.0); Sodium 141 mmol/L (137-145)
[2023-05-26] MEDS: CEFEPIME 1 GM/NS 50 ML 1 GM/50 ML BAG IVPB ×2 (08:16→20:01)
[2023-05-26 08:20] LABS: Hemoglobin 6.8 g/dL (14.0-18.0)
[2023-05-26] MEDS: GLYCOPYRROLATE INJ (*SP) 0.2 MG/ML VIAL 0.1 MG IV PUSH (09:11)
[2023-05-26] MEDS: FERROUS SULFATE LIQUID 325 MG/7.4 ML ELIXIR FEED TUBE ×2 (09:14→18:37)
[2023-05-26] MEDS: ASPIRIN 81 MG CHEWABLE TABLET FEED TUBE (09:14)
[2023-05-26] MEDS: FOLIC ACID 1 MG TABLET FEED TUBE (09:14)
[2023-05-26] MEDS: CYANOCOBALAMIN 1,000 MCG TABLET 1000 MCG FEED TUBE (09:14)
[2023-05-26] MEDS: NICOTINE (*PBKC) 21 MG PATCH 1 PATCH TRANSDERM (09:14)
[2023-05-26] MEDS: CLOPIDOGREL BISULFATE 75 MG TABLET FEED TUBE (09:14)
[2023-05-26 09:49] LABS: Anisocytosis 2+ (NORMAL); Hypochromasia 1+ (NORMAL); Platelet Estimate Adequate (Adequate); Poikilocytosis 1+ (NORMAL); Schistocytes None Seen (NORMAL)
[2023-05-26] MEDS: IPRATROPIUM BR 0.02% INH SOLN 0.5 MG/2.5 ML VIAL INHALATION (09:50)
[2023-05-26] MEDS: ALBUTEROL SULFATE NEB 2.5 MG/3 ML INH INHALATION ×2 (09:50→23:00)
--- NOTE | 2023-05-26 10:25 | PCOTNOTE ---
Attempted to see pt. for occupational therapy evaluation. Per nursing pt. is not appropriate for services at this time due to increased O2 needs. Will follow-up with hospitalist if pt. continues to be unable to participate for further updates on pt. plan for care. Following.
--- NOTE | 2023-05-26 10:34 | PCNFU ---
Nutrition Follow-Up Complete: Severe protein calorie malnutrition related to reduced appetite and intake as evidenced by family report of poor po intake, noted significant weight loss of -13% x 1 month. Goal: Meet estimated needs Pt current nutrition is Jevity 1.5 @ 60ml/hr with 100ml flush q 4 hrs. Nutrition recommendation: continue with current plan of care Last recorded weight is 64 kg. Bowel Motility: +BM 05/24 Labs Reviewed: Hgb:6.8, HCT:22.7, K:5.4, BUN:108, Cr:3.8 Meds Noted: zofran Skin: no skin issues noted Additional Notes: Pt continues on same tube feedings. Jevity 1.5 @ goal rate 60 ml/h: 1980 kcal, 84 g protein, 1003 ml free water. Flush 100 ml q 4 hours. Total water 1603 ml/day. Noted elevated renal labs at this time. May need to consider switching to renal formula for improved renal labs. Equivalent would be Nepro at goal rate of 50ml/hr. Noted family discussing plan of care. Monitor tube feed, wt, labs. Follow up every thursday and thursday
[2023-05-26 14:04] LABS: Glucose Point of Care 131 mg/dl (65-105)
--- NOTE | 2023-05-26 14:42 | PM.IMPN ---
Progress Note: A&P Assessment and Plan (1) Aspiration pneumonia: Qualifiers: Aspiration pneumonia type: unspecified Laterality: bilateral Lung location: unspecified part of lung Qualified Code(s): J69.0 - Pneumonitis due to inhalation of food and vomit Code(s): J69.0 - Pneumonitis due to inhalation of food and vomit Status: Acute Assessment and Plan: Cotninue Cefepime and Flagyl and obtain blood cultures, CXR showed possible aspitation n monitor cultures (2) Cerebrovascular accident: Code(s): I63.9 - Cerebral infarction, unspecified Status: Acute Assessment and Plan: Continue ASA 81 mg daily, clopidogrel 75 mg daily for 3 weeks Nicotine patch for smoking cessation No statin due to allergy to simvastatin 05/20/2023 Stop amlodipine 5 mg due to BP 100/53 Prognosis is GUARDED (3) Acute kidney injury superimposed on chronic kidney disease: Code(s): N17.9 - Acute kidney failure, unspecified; N18.9 - Chronic kidney disease, unspecified Status: Acute Assessment and Plan: 05/24/2023 creatinine 2.3, BUN 74suspect due to fever, pneumonia, relative volume deficit 05/24/2023 Na 144, K 5.2, ordered 1 L 0.45% NaCl IV F/u lab (4) Hematuria: Code(s): R31.9 - Hematuria, unspecified Status: Acute Assessment and Plan: Resolved (5) Acute UTI: Code(s): N39.0 - Urinary tract infection, site not specified Status: Acute Assessment and Plan: Completed ceftriaxone for e coli uti (6) Community acquired pneumonia: Code(s): J18.9 - Pneumonia, unspecified organism Status: Acute Assessment and Plan: Completed ceftriaxone and metronidazole for suspected pneumonia at admission initially (7) Anemia: Qualifiers: Anemia type: unspecified type Qualified Code(s): D64.9 - Anemia, unspecified Code(s): D64.9 - Anemia, unspecified Status: Acute Assessment and Plan: s/p 1 iunit, receiving another unit today However we are awaiting daughter decision about comfort care to decide what direction to take. monitor h and H. Plan Awaiting response from daughter about goals of care after she discussed with her brother Subjective Date/time seen: 05/26/23 14:42 Interval history: Notified by staff the patient was more diaphoretic and dyspneic. Moist cough. Denied pain. Continues with right-sided weakness. Denied GI or dysfunction. PEG with tube feeding in place. Discussed with daughter this afternoon, she stated she will discuss with her brother and get back to me about goals of care. In the meantime she wants us to continue full treatment Called daughter today with response, awaiting to hear from about goals of care, inthe meantime we are going ahead with full treatment Review of Systems Review of Systems: 14 systems were reviewed with pertinent positives and negatives per HPI. Except as documented in the HPI/progress notes, all other systems were reviewed and are negative. All systems reviewed & are unremarkable except as noted in HPI and below ROS unobtainable: Yes unobtainable due to mental status Exam Narrative: HEENT: PERRL, sclerae nonicteric, pharyngeal mucosa pink and intact NECK: No JVD CHEST: Coarse breath sounds with scattered coarse crackles throughout. Mildly tachypneic. HEART: NL S1/S2, regular, no murmur ABDOMEN: BS+, soft, nontender, no mass, no bruits EXTREMITIES: No cyanosis, edema, or clubbing NEUROLOGIC: Right facial droop and right hemiparesis with dysarthria. MUSCULOSKELETAL: No gross deformity to visual inspection PSYCH: Alert. Oriented to person, place, but not to time year or month. Objective Data Vital Signs Vital Signs: Vital Signs - 24 hr 05/25/23 17:00 05/25/23 17:20 05/25/23 18:20 Temperature 98.6 F 98.6 F 98.1 F Pulse Rate 86 88 84 Respiratory Rate 18 28 H 28 H Blood Pressure 108/50 L 98/71 L 121/50 L Pulse Oximetry 99
[2023-05-26] MEDS: metroNIDAZOLE 500 MG/ISO 100ML 500 MG/100 ML BAG 4100 MG IVPB (15:23)
[2023-05-26] MEDS: SODIUM CHLORIDE 0.9% IV 250 ML 30 ML IV CONT (16:32)
--- NOTE | 2023-05-26 16:37 | PCPTNOTE ---
Attempted to see pt. for physical therapy re-evaluation. Pt requiring increased O2 needs and not medically appropriate to participate in skilled therapy this date. Will follow
[2023-05-26] MEDS: MELATONIN 5 MG TABLET FEED TUBE (20:01)
[2023-05-26] MEDS: FLUTICASONE/SALMETEROL 230-21 MCG INHALER 1 PUFF 2 PUFF INHALATION (23:00)
[2023-05-27] VITALS (12 sets, daily range): BP systolic 107–137; BP diastolic 48–61; PULSE 75–94; RESP 18–30; TEMP 36.2–36.9; O2SAT 91–95
[2023-05-27] MEDS: metroNIDAZOLE 500 MG/ISO 100ML 500 MG/100 ML BAG 100 MG IVPB ×2 (04:52→13:20)
[2023-05-27 06:39] LABS: Basophils Absolute Auto 0.1 K/mm3 (0.0-0.1); Basophils Percent Auto 0.5 % (0.2-1.2); Eosinophils Percent Auto 0.3 % (0-4.4); Hematocrit 27.1 % (42.0-52.0); Hemoglobin 8.3 g/dL (14.0-18.0); Immature Granulocyte Absolute 0.25 K/mm3 (0.00-0.031); Immature Granulocyte Percent A 2.5 % (0-0.5); Lymphocytes Absolute Auto 0.19 K/mm3 (0.9-3.2); Lymphocytes Percent Auto 1.9 % (18.3-44.2); Mean Corpuscular HGB Conc 30.6 g/dl (32-36); Mean Corpuscular Hemoglobin 31.6 pg (26-34); Mean Platelet Volume 12.1 fl (7.4-10.4); Monocytes Absolute Auto 0.5 K/mm3 (0.1-0.6); Monocytes Percent Auto 5.2 % (2.6-8.5); Neutrophils Absolute Auto 9.1 K/mm3 (1.3-6.7); Neutrophils Percent Auto 89.6 % (45.5-73.1); Platelet Count Result 163 k/mm3 (150-375); Red Blood Count 2.63 M/mm3 (4.6-6.20); Red Cell Distribution Width 21.4 % (11.5-14.5); White Blood Count 10.1 K/mm3 (4.5-10.0)
[2023-05-27 07:05] LABS: Anion Gap 12 mmol/L (8-16); Calcium 8.9 mg/dL (8.4-10.2); Carbon Dioxide 19 mmol/L (22-30); Chloride 112 mmol/L (98-107); Estimated CRCL calculation 11 ml/min; Estimated Glomerular Filt Rate 15; Glucose 158 mg/dL (65-110); Potassium 5.3 mmol/L (3.4-5.0); Sodium 143 mmol/L (137-145)
[2023-05-27 07:34] LABS: Blood Urea Nitrogen 123 mg/dL (9-20)
[2023-05-27 07:51] LABS: Glucose Point of Care 133 mg/dl (65-105)
[2023-05-27] MEDS: NICOTINE (*PBKC) 21 MG PATCH 1 PATCH TRANSDERM (09:02)
[2023-05-27] MEDS: CYANOCOBALAMIN 1,000 MCG TABLET 1000 MCG FEED TUBE (09:03)
[2023-05-27] MEDS: FOLIC ACID 1 MG TABLET FEED TUBE (09:03)
[2023-05-27] MEDS: FERROUS SULFATE LIQUID 325 MG/7.4 ML ELIXIR FEED TUBE (09:03)
[2023-05-27] MEDS: ASPIRIN 81 MG CHEWABLE TABLET FEED TUBE (09:04)
[2023-05-27] MEDS: CEFEPIME 1 GM/NS 50 ML 1 GM/50 ML BAG IVPB (09:04)
[2023-05-27] MEDS: CLOPIDOGREL BISULFATE 75 MG TABLET FEED TUBE (09:04)
--- NOTE | 2023-05-27 09:27 | PM.IMPN ---
Progress Note: A&P Assessment and Plan (1) Aspiration pneumonia: Qualifiers: Aspiration pneumonia type: unspecified Laterality: bilateral Lung location: unspecified part of lung Qualified Code(s): J69.0 - Pneumonitis due to inhalation of food and vomit Code(s): J69.0 - Pneumonitis due to inhalation of food and vomit Status: Acute (2) PEG (percutaneous endoscopic gastrostomy) status: Code(s): Z93.1 - Gastrostomy status Status: Acute (3) Non-pressure chronic ulcer of left lower leg, limited to breakdown of skin: Onset Date: 11/26/18 Code(s): L97.921 - Non-pressure chronic ulcer of unspecified part of left lower leg limited to breakdown of skin Status: Acute (4) Nicotine dependence, unspecified, uncomplicated: Code(s): F17.200 - Nicotine dependence, unspecified, uncomplicated Status: Acute Plan (1) Aspiration pneumonia, acute respiratory failure ?Qualifiers: ?Aspiration pneumonia type:?unspecified??Laterality:?bilateral??Lung location:?unspecified part of lung? Qualified Code(s):?J69.0 - Pneumonitis due to inhalation of food and vomit ?Code(s): J69.0 - Pneumonitis due to inhalation of food and vomit ?Status:?Acute ?Assessment and Plan: Cotninue Cefepime and Flagyl? and obtain blood cultures, CXR showed possible aspitation n monitor cultures 05/27/23 Patient is on 6 L high-flow oxygen, pulse ox 92 Repeat chest x-ray, ABG today (2) Cerebrovascular accident: ?Code(s): I63.9 - Cerebral infarction, unspecified ?Status:?Acute ?Assessment and Plan: Continue ASA 81 mg daily, clopidogrel 75 mg daily for 3 weeks Nicotine patch for smoking cessation No statin due to allergy to simvastatin 05/20/2023 Stop amlodipine 5 mg due to BP 100/53 Prognosis is GUARDED (3) Acute kidney injury superimposed on chronic kidney disease: ?Code(s): N17.9 - Acute kidney failure, unspecified; N18.9 - Chronic kidney disease, unspecified ?Status:?Acute ?Assessment and Plan: 05/24/2023 creatinine 2.3, BUN 74suspect due to fever, pneumonia, relative volume deficit 05/24/2023 Na 144, K 5.2, ordered 1 L 0.45% NaCl IV F/u lab 05/27/23, BUN creatinine trending up, BUN 123, creatinine 3.9 also has metabolic acidosis 19 Patient on high-flow oxygen Possible fluid overload May consider hemodialysis, management per scarfer Start sodium bicarbonate p.o. 650 mg b.i.d. (4) Hematuria: ?Code(s): R31.9 - Hematuria, unspecified ?Status:?Acute ?Assessment and Plan: Resolved(5) Acute UTI: ?Code(s): N39.0 - Urinary tract infection, site not specified ?Status:?Acute ?Assessment and Plan: Completed ceftriaxone for e coli uti (6) Community acquired pneumonia: ?Code(s): J18.9 - Pneumonia, unspecified organism ?Status:?Acute ?Assessment and Plan: Completed ceftriaxone and metronidazole for suspected pneumonia at admission initially (7) Anemia: ?Qualifiers: ?Anemia type:?unspecified type? Qualified Code(s):?D64.9 - Anemia, unspecified ?Code(s): D64.9 - Anemia, unspecified ?Status:?Acute ?Assessment and Plan: s/p 1 iunit, receiving another unit today However we are awaiting daughter decision about comfort care to decide what direction to take. monitor h and H. Hb 8.3 Stool guaiac positive on May 21 Start Pepcid 20 mg b.i.d. p.o.via tube, avoid PPI due to worsening kidney function Continue ferrous sulfate 325 mg b.i.d. p.o. GI is on board Patient condition deteriorates, patient family wishes to place patient on hospice care. Consult care team coordinator scheduler and hospice care team for transition patient to hospice care. Hospice care team will arrange hospice care for the patient tomorrow Subjective Date/time seen: 05/27/23 09:27 Interval history: I saw and examined the patient today, patient is unresponsive to verbal commands, patient is confused. Per n
[2023-05-27] MEDS: ALBUTEROL SULFATE NEB 2.5 MG/3 ML INH INHALATION ×2 (09:32→21:30)
[2023-05-27] MEDS: IPRATROPIUM BR 0.02% INH SOLN 0.5 MG/2.5 ML VIAL INHALATION ×2 (09:32→21:30)
[2023-05-27] MEDS: FLUTICASONE/SALMETEROL 230-21 MCG INHALER 1 PUFF 2 PUFF INHALATION ×2 (09:47→21:30)
[2023-05-27 10:47] LABS: Alveolar/Arterial O2 Gradient 271.1 mmHg; Base Excess ABG -4.5 mEq/l (+/-2.0); Fractional Inspired Oxygen 44 %; HCO3 ABG 18.9 mEq/l (22.0-26.0); Oxygen Content ABG 13.7 %vol (16.0-22.0); Oxygen Saturation ABG 91.8 % (95.0-100.0); PCO2 ABG 29.5 mmHg (35.0-45.0); PO2 ABG 59.5 mmHg (80.0-100.0); PO2 FiO2 Ratio Arterial Blood 1.35 %; Total Hemoglobin 10.9 g/dL (12.0-18.0); pH ABG 7.425 (7.350-7.450)
[2023-05-27 10:49] LABS: Modified Allen's Test Pass; Site Drawn RIGHT RADIAL
[2023-05-27 10:50] LABS: Device NASAL CANNULA
[2023-05-27] MEDS: HYDROmorphone HCL INJ (*CRX) 1 MG/ML SYR 0.5 MG IV PUSH ×3 (15:13→21:31)
[2023-05-27] MEDS: ACETAMINOPHEN ELIXIR 325 MG/10.15 ML UDC 650 MG FEED TUBE (17:26)
[2023-05-27] MEDS: GLYCOPYRROLATE INJ (*SP) 0.2 MG/ML VIAL 0.1 MG IV PUSH (18:07)
--- NOTE | 2023-05-27 18:49 | WPDGIPROGNO ---
Progress Note: A&P Assessment and Plan (1) PEG (percutaneous endoscopic gastrostomy) status: Code(s): Z93.1 - Gastrostomy status Status: Acute Assessment and Plan: his gastrostomy tube has been in place for about 1 week but now there is some drainage around the tube itself and there is erythema and probable cellulitis in a <1 cm radius around the stoma. (2) Aspiration pneumonia: Qualifiers: Aspiration pneumonia type: unspecified Laterality: bilateral Lung location: unspecified part of lung Qualified Code(s): J69.0 - Pneumonitis due to inhalation of food and vomit Code(s): J69.0 - Pneumonitis due to inhalation of food and vomit Status: Acute Assessment and Plan: This is the reason for which the G-tube was placed. He is no longer on antibiotics for pneumonia. Plan I will have the nursing staff place gauze between his skin and the external bumper to prevent skin breakdown. Antibiotic ointment has been applied. Will order antibiotic coverage per tube Subjective Date/time seen: 05/27/23 18:49 I was called by the nursing staff to evaluate the patient's G-tube site. the G-tube had been placed about 1 week ago. They have noticed erythema around the stoma as well as leakage of probable tube feedings through the stoma. Review of Systems Review of Systems: ROS unobtainable: Yes unobtainable due to mental status Exam Const: General: tired appearing Orientation/consciousness: lethargic Resp: Auscultation: clear to auscultation bilaterally Cardio: Rhythm: regular rhythm GI: Inspection: other ( erythema around gastrostomy tube stoma) GI Palp: Yes Soft to palpation and No Tenderness to palpation present (GI) Auscultation: normal bowel sounds Neuro: General: patient oriented x3 Objective Data Vital Signs Vital Signs: Vital Signs - 24 hr 05/26/23 19:10 05/26/23 19:58 05/26/23 20:00 Temperature 37.2 C 37.0 C Pulse Rate 86 84 84 Respiratory Rate 38 H 32 H 32 H Blood Pressure 121/56 L 120/53 L Pulse Oximetry 99 98 98 Oxygen Delivery High Flow Nasal Cannula Oxygen Flow Rate 5 Fraction of Inspired Oxygen 44 05/26/23 19:45 05/26/23 23:00 05/26/23 23:00 Temperature 37.0 C Pulse Rate 81 77 Respiratory Rate 32 H 20 Blood Pressure 120/53 L Pulse Oximetry 98 95 Oxygen Delivery High Flow Nasal Cannula Oxygen Flow Rate 8 Fraction of Inspired Oxygen 52 05/26/23 23:15 05/27/23 05:15 05/27/23 09:36 Temperature 36.2 C L Pulse Rate 76 81 93 Respiratory Rate 20 24 H 24 H Blood Pressure 137/61 Pulse Oximetry 93 92 Oxygen Delivery High Flow Nasal Cannula Oxygen Flow Rate 6 Fraction of Inspired Oxygen 44 05/27/23 09:36 05/27/23 09:45 05/27/23 14:00 Temperature 36.9 C Pulse Rate 93 94 83 Respiratory Rate 24 H 24 H 30 H Blood Pressure 114/56 L Pulse Oximetry 92 Oxygen Delivery Oxygen Flow Rate Fraction of Inspired Oxygen 05/27/23 09:00 Temperature Pulse Rate Respiratory Rate Blood Pressure Pulse Oximetry 92 Oxygen Delivery High Flow Nasal Cannula Oxygen Flow Rate 6 Fraction of Inspired Oxygen Intake/Output Intake/Output: Intake & Output 05/24/23 05/25/23 05/26/23 05/27/23 23:59 23:59 23:59 23:59 Intake Total 367 501 4106 100 Output Total 600 250 600 500 Balance -779 85 7606 -400 Meds/Results Medications: Active Medications Generic Name Dose Route Start Last Admin Trade Name Freq PRN Reason Stop Dose Admin Acetaminophen 650 mg 05/24/23 14:45 05/27/23 17:26 Acetaminophen Elixir 325 Mg/10.15 Ml Udc FEED TUBE 650 mg Q6H PRN Administration Mild Pain (1-3) or Fever Albuterol 2.5 mg 05/10/23 20:00 05/27/23 09:32 Albuterol Sulfate Neb 2.5 Mg/3 Ml Inh INHALATION 2.5 mg Q12HRT LUIS ALBERTO Administration Famotidine 20 mg 05/27/23 21:00 Famotidine 20 Mg Tablet PO Q12HR LUIS ALBERTO Glycopyrrolate 0.1 mg 05/26/23 08:31 05/27/23 18:07 Glycopyrrolat
[2023-05-28] MEDS: HYDROmorphone HCL INJ (*CRX) 1 MG/ML SYR 0.5 MG IV PUSH ×5 (00:32→15:03)
[2023-05-28 04:20] VITALS: BP 140/54; PULSE 78; RESP 20; TEMP 36; O2SAT 91
[2023-05-28 04:46] VITALS: O2SAT 91
--- NOTE | 2023-05-28 08:23 | PCOTNOTE ---
Pt. transitioning to hospice care. D/C OT services.
--- NOTE | 2023-05-28 08:25 | PC.NURSE ---
Daughter Gustavo at bedside meeting with hospice at 1230.
[2023-05-28 08:38] VITALS: PULSE 77; RESP 22; O2SAT 91
[2023-05-28] MEDS: IPRATROPIUM BR 0.02% INH SOLN 0.5 MG/2.5 ML VIAL INHALATION (08:38)
[2023-05-28] MEDS: ALBUTEROL SULFATE NEB 2.5 MG/3 ML INH INHALATION (08:38)
[2023-05-28] MEDS: FLUTICASONE/SALMETEROL 230-21 MCG INHALER 1 PUFF 2 PUFF INHALATION (08:44)
[2023-05-28 08:53] VITALS: PULSE 78; RESP 22
--- NOTE | 2023-05-28 08:53 | PM.DS ---
DS: Admitting Diagnosis Discharge Date 05/28/23 Admitting Diagnosis (1) Cerebrovascular accident: ?Code(s): I63.9 - Cerebral infarction, unspecified ?Status:?Acute (2) Acute kidney injury superimposed on chronic kidney disease: ?Code(s): N17.9 - Acute kidney failure, unspecified; N18.9 - Chronic kidney disease, unspecified ?Status:?Acute (3) Hematuria: ?Code(s): R31.9 - Hematuria, unspecified ?Status:?Acute (4) Femoral neck fracture: ?Qualifiers: ?Encounter type:?subsequent encounter??Fracture healing:?with routine healing??Fracture type:?closed??Laterality:?right? Qualified Code(s):?S72.001D - Fracture of unspecified part of neck of right femur, subsequent encounter for closed fracture with routine healing ?Code(s): S72.009A - Fracture of unspecified part of neck of unspecified femur, initial encounter for closed fracture ?Status:?Acute (5) Acute UTI: ?Code(s): N39.0 - Urinary tract infection, site not specified ?Status:?Acute (6) Community acquired pneumonia: ?Code(s): J18.9 - Pneumonia, unspecified organism ?Status:?Acute DS: Discharge Diagnosis Discharge Diagnosis (1) Aspiration pneumonia: Qualifiers: Aspiration pneumonia type: unspecified Laterality: bilateral Lung location: unspecified part of lung Qualified Code(s): J69.0 - Pneumonitis due to inhalation of food and vomit Code(s): J69.0 - Pneumonitis due to inhalation of food and vomit Status: Acute (2) PEG (percutaneous endoscopic gastrostomy) status: Code(s): Z93.1 - Gastrostomy status Status: Acute (3) Non-pressure chronic ulcer of left lower leg, limited to breakdown of skin: Onset Date: 11/26/18 Code(s): L97.921 - Non-pressure chronic ulcer of unspecified part of left lower leg limited to breakdown of skin Status: Acute (4) Nicotine dependence, unspecified, uncomplicated: Code(s): F17.200 - Nicotine dependence, unspecified, uncomplicated Status: Acute DS: Summary Hospital Course Hospital Course: Per H&P, this is an 83-year-old male with history of stroke, chronic obstructive pulmonary disease, hypertension, hyperlipidemia, peripheral vascular disease, anemia, and prostate cancer who presented to the emergency department via EMS for evaluation of weakness and fall. The patient is able to provide some history however his children provide a majority of the following, with his permission. He was admitted to the hospital about 4 weeks ago with a right femoral neck fracture status post right hip hemiarthroplasty on 04/10/2023. He was discharged to shelter facility for rehab but did not seem to progress there and he was brought back home a couple weeks ago. His daughter Gustavo has been staying overnight with him and another daughter visit several hours, twice a day. He has been getting up with a walker and it sounds as though he can ambulate small distances or stand/pivot to transfer. The last 3 days he has apparent increasingly weak and his oral intake has not been great. He has also seemed a bit confused intermittently. Daughter helped him to bed last night and did not notice any focal deficits at that time. This morning she checked on him when he woke up and left the room together some things to get him up for the day. When she stepped out into the hallway she heard a thump in the room and she found him lying between the bed and a chair on his left side. He had apparently struck the left side of his forehead on a bedside table and sustained a skin tear on the forearm. There is no reports of loss of consciousness in the had no complains. EMS was summoned and he was brought in for evaluation. Of note he is no longer on anticoagulation for DVT prophylaxis as he became increasingly anemic no stool was negative for occult blood. In the ED: He was afebrile on arrival with stable vital signs. Labs were significant for a WBC count of 17.1, h
--- NOTE | 2023-05-28 12:49 | PM.IMPN ---
Progress Note: A&P Assessment and Plan (1) Aspiration pneumonia: Qualifiers: Aspiration pneumonia type: unspecified Laterality: bilateral Lung location: unspecified part of lung Qualified Code(s): J69.0 - Pneumonitis due to inhalation of food and vomit Code(s): J69.0 - Pneumonitis due to inhalation of food and vomit Status: Acute (2) PEG (percutaneous endoscopic gastrostomy) status: Code(s): Z93.1 - Gastrostomy status Status: Acute (3) Non-pressure chronic ulcer of left lower leg, limited to breakdown of skin: Onset Date: 11/26/18 Code(s): L97.921 - Non-pressure chronic ulcer of unspecified part of left lower leg limited to breakdown of skin Status: Acute (4) Nicotine dependence, unspecified, uncomplicated: Code(s): F17.200 - Nicotine dependence, unspecified, uncomplicated Status: Acute Plan (1) Aspiration pneumonia, acute respiratory failure ?Qualifiers: ?Aspiration pneumonia type:?unspecified??Laterality:?bilateral??Lung location:?unspecified part of lung? Qualified Code(s):?J69.0 - Pneumonitis due to inhalation of food and vomit ?Code(s): J69.0 - Pneumonitis due to inhalation of food and vomit ?Status:?Acute ?Assessment and Plan: Cotninue Cefepime and Flagyl? and obtain blood cultures, CXR showed possible aspitation n monitor cultures 05/27/23 Patient is on 6 L high-flow oxygen, pulse ox 92 Repeat chest x-ray, ABG today (2) Cerebrovascular accident: ?Code(s): I63.9 - Cerebral infarction, unspecified ?Status:?Acute ?Assessment and Plan: Continue ASA 81 mg daily, clopidogrel 75 mg daily for 3 weeks Nicotine patch for smoking cessation No statin due to allergy to simvastatin 05/20/2023 Stop amlodipine 5 mg due to BP 100/53 Prognosis is GUARDED (3) Acute kidney injury superimposed on chronic kidney disease: ?Code(s): N17.9 - Acute kidney failure, unspecified; N18.9 - Chronic kidney disease, unspecified ?Status:?Acute ?Assessment and Plan: 05/24/2023 creatinine 2.3, BUN 74suspect due to fever, pneumonia, relative volume deficit 05/24/2023 Na 144, K 5.2, ordered 1 L 0.45% NaCl IV F/u lab 05/27/23, BUN creatinine trending up, BUN 123, creatinine 3.9 also has metabolic acidosis 19 Patient on high-flow oxygen Possible fluid overload May consider hemodialysis, management per timber inspector Start sodium bicarbonate p.o. 650 mg b.i.d. (4) Hematuria: ?Code(s): R31.9 - Hematuria, unspecified ?Status:?Acute ?Assessment and Plan: Resolved(5) Acute UTI: ?Code(s): N39.0 - Urinary tract infection, site not specified ?Status:?Acute ?Assessment and Plan: Completed ceftriaxone for e coli uti (6) Community acquired pneumonia: ?Code(s): J18.9 - Pneumonia, unspecified organism ?Status:?Acute ?Assessment and Plan: Completed ceftriaxone and metronidazole for suspected pneumonia at admission initially (7) Anemia: ?Qualifiers: ?Anemia type:?unspecified type? Qualified Code(s):?D64.9 - Anemia, unspecified ?Code(s): D64.9 - Anemia, unspecified ?Status:?Acute ?Assessment and Plan: s/p 1 iunit, receiving another unit today However we are awaiting daughter decision about comfort care to decide what direction to take. monitor h and H. Hb 8.3 Stool guaiac positive on May 21 Start Pepcid 20 mg b.i.d. p.o.via tube, avoid PPI due to worsening kidney function Continue ferrous sulfate 325 mg b.i.d. p.o. GI is on board Now patient is on comfort care now, family will not pursue further evaluation and medical managements except comfort medication Patient condition deteriorates, patient family wishes to place patient on hospice care. Consult emergency care attendant and hospice care team for transition patient to hospice care. Hospice care team will arrange hospice care for the patient tomorrow Subjective Date/time seen: 05/28/23 12:49
[2023-05-28 14:00] VITALS: BP 140/62; PULSE 78; RESP 24; TEMP 36.6; O2SAT 94
== END 2023-05-28 15:09 | disposition hospice, inpatient (51) | DRG 64 ==
LOC: ANHED 10:10 → ANH3MEDSUR 12:06
PROVIDERS: Family Medicine; Internal Medicine; Internal Medicine Gastroenterology; Internal Medicine Nephrology; Physician Assistant; Student in an Organized Health Care Education/Training Program; Admitting Provider Student in an Organized Health Care Education/Training Program; Emergency Provider Emergency Medicine; PCP Family Medicine; Visit Provider Hospitalist
PROC: 0DH63UZ Insertion of Feeding Device into Stomach, Percutaneous Approach (ICD-10-PCS; CPT 43246; principal; 2023-05-21 14:30)
DX: I63.9 Cerebral infarction, unspecified (principal); E43 Unspecified severe protein-calorie malnutrition; J69.0 Pneumonitis due to inhalation of food and vomit; J96.90 Respiratory failure, unspecified, unspecified whether with hypoxia or hypercapnia; N17.9 Acute kidney failure, unspecified; N39.0 Urinary tract infection, site not specified; G81.91 Hemiplegia, unspecified affecting right dominant side; E87.0 Hyperosmolality and hypernatremia; L97.921 Non-pressure chronic ulcer of unspecified part of left lower leg limited to breakdown of skin; B96.20 Unspecified Escherichia coli [E. coli] as the cause of diseases classified elsewhere; R13.10 Dysphagia, unspecified; D63.1 Anemia in chronic kidney disease; E86.0 Dehydration; E87.8 Other disorders of electrolyte and fluid balance, not elsewhere classified; I12.9 Hypertensive chronic kidney disease with stage 1 through stage 4 chronic kidney disease, or unspecified chronic kidney disease; J44.9 Chronic obstructive pulmonary disease, unspecified; E78.5 Hyperlipidemia, unspecified; I73.9 Peripheral vascular disease, unspecified; N18.32 Chronic kidney disease, stage 3b; R41.0 Disorientation, unspecified; R31.9 Hematuria, unspecified; R29.6 Repeated falls; S51.812A Laceration without foreign body of left forearm, initial encounter; W19.XXXA Unspecified fall, initial encounter; Z11.52 Encounter for screening for COVID-19; Z88.0 Allergy status to penicillin; Z90.49 Acquired absence of other specified parts of digestive tract; Z96.641 Presence of right artificial hip joint; Z85.038 Personal history of other malignant neoplasm of large intestine; Z85.46 Personal history of malignant neoplasm of prostate; Z87.891 Personal history of nicotine dependence
CPT/HCPCS: 36415; 36430; 36600; 43246; 70450; 70553; 71045; 72125; 74018; 76775; 80048; 80053; 80069; 81001; 82274; 82550; 82570; 82607; 82728; 82746; 82805; 82948; 83036; 83540; 83550; 83605; 83721; 83735; 83930; 83935; 84156; 84300; 85014; 85018; 85025; 85027; 85055; 85380; 85610; 85730; 86140; 86850; 86900; 86901; 86923; 87040; 87077; 87081; 87086; 87088; 87186; 87637; 92526; 92610; 92611; 93005; 93306; 93880; 93970; 94640; 96361; 96365; 96366; 96367; 96374; 96375; 97110; 97162; 97165; 97530; 97535; 99285; A9270; A9577; G0378; J0360; J0692; J0696; J1170; J1596; J1836; J2704; J2930; J3370; J7030; J7042; J7050; J7070; J7120; P9016

== ENCOUNTER 2023-05-28 16:26 | HOS | payer OTHER, SELFPAY ==
--- NOTE | 2023-05-28 16:04 | PC.NURSE ---
This patient, Tino Alexander, was admitted to [facility] Surg Room 318-01. Patient/family oriented to hospital policies and general routines including ID bracelet, bed and alarms, visiting hours, pain management, procedures, bathroom and other care routines, personal items, smoking policy, room service/diet, and visiting hours. Admitted to hospice at 1509. Information on how to activate the Rapid Response Team has been discussed. Patient/Family are encouraged to report perceived risks to care and to ask questions if they do not understand what they are told or what they should do.
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
[2023-05-28] MEDS: HYDROmorphone HCL/PF (*CRX) 50 MG in SODIUM CHLORIDE 0.9% IV 95 ML IV CONT (16:17)
[2023-05-28 16:31] VITALS: BMI 17.8
[2023-05-28] MEDS: diazePAM INJ (*CRX) 10 MG/2 ML SYRINGE 5 MG IV PUSH (19:37)
--- NOTE | 2023-05-29 16:11 | P.DN_ITS ---
Discharge Summary Date and Time Date of : 05/28/23 Time of : 21:40 Provider Pronounced By: Verónica Quintana Probable Cause of Probable Cause of : respiratory failure due to aspiration pneumonia due to dysphagia due to stroke Summary Hospital Course: Admitted to inpatient hospice service. Medications titrated to comfort. Mr. Alexander peacefully. Additional Data Confirmation of as documented by pronouncing clinician: Pupillary Reflex, Palpable Pulses, Response to Stimuli, Heart Tones and Breath Sounds Name of Provider Notified: Kurtis garcia Time Provider Notified: 22:07 [employer] Notified: Yes Date [facility] Notified of : 05/28/23 Time [facility] Notified of : 21:48
== END 2023-05-28 21:40 | disposition expired | DRG 951 ==
PROVIDERS: Admitting Provider Internal Medicine; PCP Family Medicine; Visit Provider Internal Medicine
DX: Z51.5 Encounter for palliative care (principal); J69.0 Pneumonitis due to inhalation of food and vomit; I63.9 Cerebral infarction, unspecified; J96.00 Acute respiratory failure, unspecified whether with hypoxia or hypercapnia; R13.10 Dysphagia, unspecified; N18.32 Chronic kidney disease, stage 3b; E78.5 Hyperlipidemia, unspecified; I71.40 Abdominal aortic aneurysm, without rupture, unspecified; I73.9 Peripheral vascular disease, unspecified; J44.9 Chronic obstructive pulmonary disease, unspecified; Z66 Do not resuscitate; Z93.1 Gastrostomy status; Z85.46 Personal history of malignant neoplasm of prostate; Z87.891 Personal history of nicotine dependence
CPT/HCPCS: A9270; J1170; J3360